=== PATIENT | female | born 1990 | race Caucasian/White ===

== ENCOUNTER → 2018-01-29 10:16 | Outpatient (CLI) | payer BC, MEDICAID, SELFPAY | PROVIDERS: Family Provider Family Medicine; PCP Family Medicine; Visit Provider Physician Assistant Surgical | DX: J02.9 Acute pharyngitis, unspecified (principal) | CPT/HCPCS: 87081 ==

== ENCOUNTER → 2018-07-22 10:50 | Outpatient (CLI) | payer MEDICAID, SELFPAY ==
[2018-07-22 09:59] VITALS: BMI 27.7
[2018-07-22 12:13] LABS: Absolute Lymphocyte Count 1.93 X10^3/ul (0.83-4.51); Absolute Neutrophil Count 4.4 X10^3/uL (2.0-7.7); Basophil# 0.01 X10^3/uL; Basophil% 0.1 % (0-1); Eosinophil# 0.12 X10^3/uL; Eosinophils% 1.7 % (0-5); Hematocrit 44.3 % (37-47); Hemoglobin 14.5 g/dl (12.0-15.0); Lymphocyte # 1.93 X10^3/ul (4.0); Lymphocyte % 28.1 % (19-41); Mean Corp Hgb Conc 32.7 g/gl (32-36); Mean Corpuscular Hgb 30.5 pg (27.0-32.0); Mean Corpuscular Volume 93.3 fL (81-99); Mean Platelet Vol. 9.2 fl (6.2-12.0); Monocyte# 0.37 X10^3/uL; Monocyte% 5.4 % (0-10); Neutrophil # 4.44 X10^3/uL (2.7-7.7); Neutrophil % 64.6 % (47-70); Platelet Count 306 K/mm3 (150-450); RBC Distribution Width CV 12.4 % (11.6-14.6); Red Blood Count 4.75 M/mm3 (4.2-5.4); White Blood Count 6.9 K/mm3 (4.4-11.0)
[2018-07-22 12:14] LABS: POSITIVE COUNT NO; POSITIVE DIFFERENTIAL NO; POSITIVE MORPHOLOGY NO
[2018-07-22 12:35] LABS: ALB/GLOB Ratio 1.1 RATIO (0.9-2.4); AST(SGOT) 11 U/L (15-37); Alanine Aminotransfer ALT/SGPT 18 U/L (13-56); Albumin, Serum 3.8 g/dL (3.2-5.0); Alkaline Phosphatase 65 U/L (45-117); Anion Gap 10 (5-15); BUN 12 mg/dL (7-18); BUN/Creat Ratio 20.3 RATIO (10-20); Calcium,Total 8.8 mg/dL (8.5-10.1); Chloride 107 mmol/L (98-107); Creatinine, Serum 0.59 mg/dL (0.55-1.02); EST Glomerular Filtration Rate 129 mL/min (>60); Est Glom Filt Rate - Afr Amer 156 mL/min (>60); Globulin 3.4 g/dL (2.2-4.2); Glucose 93 mg/dL (74-106); Potassium 4.2 mmol/L (3.5-5.1); Protein, Total 7.2 g/dL (6.4-8.2); Sodium Level 143 mmol/L (136-145)
[2018-07-22 13:11] LABS: Internal QC Validated? YES +Cl - CLEAR BKGD; Monotest Negative (Negative)
== END ==
PROVIDERS: PCP Internal Medicine; Visit Provider Nurse Practitioner Family
DX: R10.9 Unspecified abdominal pain (principal); K92.1 Melena; R53.83 Other fatigue
CPT/HCPCS: 36415; 80053; 85025; 86308

== ENCOUNTER → 2018-07-23 10:26 | Outpatient (CLI) | payer MEDICAID, SELFPAY ==
[2018-07-22 09:59] VITALS: BMI 27.7
== END ==
PROVIDERS: Family Provider Internal Medicine; PCP Internal Medicine; Referring Provider Nurse Practitioner Family; Visit Provider Nurse Practitioner Family
DX: R10.9 Unspecified abdominal pain (principal); K92.1 Melena; R53.83 Other fatigue
CPT/HCPCS: 82274

== ENCOUNTER → 2020-03-18 17:33 | Outpatient (CLI) | payer MEDICAID, SELFPAY ==
[2020-03-17 16:05] VITALS: BMI 28.2
== END ==
PROVIDERS: PCP Internal Medicine; Referring Provider Physician Assistant; Visit Provider Physician Assistant
DX: Z20.828 Contact with and (suspected) exposure to other viral communicable diseases (principal)
CPT/HCPCS: 87635; C9803; U0003

== ENCOUNTER → 2021-01-12 07:27 | Outpatient (CLI) | payer MEDICAID, SELFPAY | PROVIDERS: PCP Internal Medicine; Referring Provider Physician Assistant; Visit Provider Physician Assistant | DX: R50.9 Fever, unspecified (principal) | CPT/HCPCS: 87635; U0005; U0003 ==

== ENCOUNTER → 2021-02-08 10:30 | Outpatient (CLI) | payer MEDICAID, SELFPAY ==
--- NOTE | 2021-02-08 10:34 | US_ITS ---
STUDY: ULTRASOUND BREAST - RIGHT REASON FOR EXAM: Female, 30 years old. Palpable lump in the right breast. TECHNIQUE: Axial and longitudinal images of the RIGHT breast were performed with a high resolution ultrasound transducer. # OF IMAGES: 18 COMPARISON: Comparison is made with prior outside ultrasound examination dated 11/28/2020. FINDINGS: RIGHT Breast: The upper inner quadrant of the right breast was examined by ultrasound. There is dense fibroglandular tissue. No sonographic and amount is seen. US/Breast Limited Unilateral IMPRESSION: No sonographic abnormality is seen. ASSESSMENT CATEGORY: BIRADS Category 1: Negative. A letter regarding these results will be sent to the patient by the facility within 30 days. Electronically Signed: Stephon Rod MD at 12:06 EDT , Service support ,
== END ==
PROVIDERS: PCP Internal Medicine; Referring Provider Specialist; Visit Provider Specialist
DX: N63.12 Unspecified lump in the right breast, upper inner quadrant (principal)
CPT/HCPCS: 76642

== ENCOUNTER → 2021-03-10 08:20 | Outpatient (CLI) | payer MEDICAID, SELFPAY ==
--- NOTE | 2021-03-10 07:45 | BRBX_PTH ---
PATIENT: KEON CASIANO LOC: [facility] U#:[id number] AGE/SX: 34/F ROOM: RE03/10/[address]: Dr. Nam Dickens MD : 1990 BED: DIS: SPEC #: [id number] RECD: 03/10/21 11:26 STATUS: TEA TARCEY #: [id number] SUSAN: 03/10/21 07:[address]: Nam Dickens DEPT: SURGICAL PATHOLOGY RECD BY: Evelin Boggs ENTERED: 03/10/21 12:05 SP TYPE: BREAST BX OTHR DR: Dr. Kanika Boyer MD Tissues: Right breast, NOS Procedures: Surgery Specimen Level IV HEADER OPERATION: Right breast biopsy PRE-OP DIAGNOSIS: Abnormal breast ultrasound TISSUE SUBMITTED: Right breast tissue MICROSCOPIC DIAGNOSIS Right breast, ultrasound-guided biopsy: Benign breast tissue. AM:gil 03/13/2021 MICROSCOPIC DESCRIPTION Slides are reviewed. GROSS DESCRIPTION Received in fixative is one container labeled with the patient's name and designated right breast. The specimen consists of multiple elongated fragments of toro-yellow fibroadipose tissue that in aggregate measure 2 x 0.1 x 0.1 cm. The entire specimen is submitted in one cassette. / SJ:rg 03/10/21 TC:5 CPT: 86994
--- NOTE | 2021-03-10 08:21 | BI_ITS ---
MAMMOGRAPHY - UNILATERAL DIAGNOSTIC: RIGHT BREAST REASON FOR EXAM: Female, 30 years old. Right breast biopsy. Checking for tissue clip marker placement. PERTINENT HISTORY: Right ultrasound guided breast biopsy. TECHNIQUE: Medial lateral oblique and craniocaudad views of the right breast were obtained following the biopsy. CAD: Full Field Digital Mammography with Computer Added Detection was performed. COMPARISON: Comparison is made with prior outside examination dated 11/28/2020. FINDINGS: Breast Composition: The breasts are heterogeneously dense, which may obscure small masses. A tissue clip marker is seen in the deep central medial aspect of the right breast. No other significant abnormalities are identified. BI/DIAG MAMM W/CAD, UNILAT IMPRESSION: A tissue clip marker is seen in the deep central medial aspect of the right breast. ASSESSMENT CATEGORY: BIRADS Category 2: Benign. A letter regarding these results will be sent to the patient by the facility within 30 days. Approximately 10% of breast cancers are not detected by mammography. A normal mammogram should not delay biopsy of a clinically suspicious abnormality. Electronically Signed: Stephon Rod MD at 10:21 EDT , Service support ,
== END ==
PROVIDERS: PCP Internal Medicine; Referring Provider Surgery; Visit Provider Surgery
DX: R92.8 Other abnormal and inconclusive findings on diagnostic imaging of breast (principal)
CPT/HCPCS: 77065; 88305

== ENCOUNTER 2021-05-17 10:52 | Outpatient (CLI) | payer MEDICAID, SELFPAY | END 2021-05-17 23:59 | disposition short-term general hospital (02) | LOC: LABSPEC 10:53 | PROVIDERS: PCP Internal Medicine; Visit Provider Physician Assistant | DX: U07.1 COVID-19 (principal) | CPT/HCPCS: 87635; U0003; U0005 ==

== ENCOUNTER 2022-08-12 19:18 | Emergency (ER) | payer MEDICAID, SELFPAY ==
[2022-08-12 19:20] VITALS: BP 150/93; PULSE 99; RESP 16; TEMP 36.4; BMI 33.4
[2022-08-12 19:22] VITALS: BP 150/93; PULSE 99; RESP 16; TEMP 36.4
--- NOTE | 2022-08-12 19:34 | ED.VIS.FEGU ---
HPI HPI - Female History of Present Illness Chief Complaint: Vag Bld, Preg Detail of Chief Complaint: Cervix protruding from vagina Informant: patient Narrative Narrative: Patient presents to the emergency department with concern that her cervix is protruding from her vagina and may be open. Patient apparently is about 8 weeks . She has had blood work confirming the several times and her quant has been doubling normally apparently. Patient is G4, P3. Patient is scheduled to see Dr. Nance next week. She discussed her issue tonight with relations coordinator who advised her to come to the emergency department for evaluation. Patient denies any abdominal pain or cramping or bleeding. Prior similar symptoms: No PFSH PFSH Medical History Acute pharyngitis Alcohol abuse Encounter for screening for COVID-19 Fatigue Laceration of right thumb Lump of right breast Sore throat Home Medications docosahexaenoic acid 200 mg capsule ( DHA) 200 mg PO DAILY 08/08/22 [History Last Taken Unknown] Allergy/AdvReac Type Severity Reaction Status Date / Time measles, mumps, and rubella Allergy Other Verified 08/12/22 19:35 vaccine Family History Father Heart disease Diabetes Hypertension CVA (cerebral vascular accident) Surgical History History of breast biopsy (~02/2021) History of orthopedic surgery History of tonsillectomy and adenoidectomy Social History (Updated 08/08/22 @ 08:53 by Nancy Carl CNM) adopted: No household members: significant other and children number of children: 3 current occupational status: employed current occupation: [employer] current occupational exposures/hazards: No pets and animals: Yes pets and animals: dog(s) history of recent travel: No sexually active: Yes Smoking Status: Former smoker alcohol intake: former year quit: 2017 details: five years- recovering substance use type: does not use caffeine: No what type of physical activity do you participate in: none seatbelt use: always do you feel safe at home: Yes additional social history: BF- Nuñez ROS ROS ED Review of Systems ROS Unobtainable: other Constitutional Constitutional ED: Reports lethargy; Denies chills, fever(s), sweats or weight loss Eyes Eyes: Denies blurry vision, change in vision or diplopia ENT ENT ED: Denies rhinorrhea or sore throat Cardiovascular Cardiovascular: Denies chest pain, orthopnea or racing heartbeat Respiratory/Chest Respiratory/Chest: Denies cough, dyspnea, dyspnea on exertion, orthopnea or sputum Gastrointestinal Gastrointestinal: Denies abdominal pain, diarrhea, nausea or vomiting Genitourinary Genitourinary ED: Reports other Details: Cervix protruding from vagina ; Denies dysuria, hematuria or urinary frequency Musculoskeletal Musculoskeletal: Denies arthralgias, back pain, myalgias or neck pain Integumentary Denies abscess, Abrasions or rash Neurologic Neurologic: Denies headache(s) or weakness Psychiatric Psychiatric: Denies anxiety, depression or suicidal thoughts Endocrine Endocrinology: Denies polydipsia, polyphagia or polyuria Hematologic/Lymphatic Hematologic/Lymphatic: Denies easy bleeding, easy bruising or lymphadenopathy Allergic/Immunologic Allergic/Immunologic ED: Denies mouth swelling, tongue swelling or urticaria EXAM Physical Exam Const Vital Signs: 08/12/22 19:20 08/12/22 19:22 Temperature 97.6 F L 97.6 F L Temperature Source Temporal Temporal Pulse Rate 99 99 Respiratory Rate 16 16 Blood Pressure 150/93 H 150/93 H Blood Pressure Mean 112 112 Positive well nourished and well developed General Appearance ED: well developed and NAD HEENT Reports TM's clear and moist mucous membranes normocephalic and atraumatic; Negative for trauma or tenderness Tympanic Membrane ED: Yes TM's clear Eyes PERRL and EOMs intact bilaterally General Eye ED: Negative for pale conjunctiva or scleral icterus Neck no lymphadenopathy, supple and no JVD General: Negative for tenderness Chest Wall inspection of chest normal and palpation of chest normal Chest: Negative for tenderness Resp normal respiratory effort and clear to auscultation bilaterally Effort and Inspection: Negative for respiratory distress or pain with movement Auscultation: Negative for rhonchi, wheezes or diminished lung sounds Cardio regular rate, regular rhythm, S1 normal heart sound, S2 normal heart sound and no murmurs Peripheral Pulses: pulses 2+ throughout GI normal to inspection, nondistended, normoactive bowel sounds, soft to palpation, non-tender, non-distended and no masses Back/Spine no CVA tenderness and no thoracic nor lumbar tenderness Extremity normal to inspection General Extremety ED: Negative for edema General Extremity: Negative for edema Neuro oriented x3, CN's II-XII intact bilaterally, no sensory deficits noted and gait normal Sensorium / Orientation: awake, alert, oriented to person, oriented to place and oriented to time Motor Exam: strength 5/5 throughout and strength abnormal Psych mental status grossly normal Skin no rashes or lesions noted and no wounds MDM MDM MDM Narrative Medical decision making narrative: Patient had a pelvic exam performed on arrival. While supine there was no evidence of uterine or cervical prolapse. On speculum exam there was no bleeding in the vaginal vault. The cervical os was about 3 cm distal to the opening of the introitus. The os open to fingertip but I could not introduce the finger into the cervix. There was no pain on exam. No masses palpated in the adnexa. I discussed case with Dr. Nance. Ultrasound is not in the hospital today and they are on-call and I do not feel there is an emergent reason to call them in today. MACHINE TOOL ELECTRICIAN agrees and they can see her first thing tomorrow morning and do further exam in the office and ultrasound in the office tomorrow. Patient advised to return if abdominal pain, bleeding, or condition should worsen anyway. At this time I see no evidence of for miscarriage. I suspect patient may have a uterine/cervical prolapse Discharge Plan Triage Chief Complaint: Vag Bld, Preg ED Provider: Letty Vaughan Dx/Rx/DC Orders Clinical Impression: Cervical prolapse Instructions: Pelvic Organ Prolapse Prescriptions: No Action DHA 200 mg capsule 200 mg PO DAILY Primary Care Provider: Care Physician,No Primary Referrals: Kanika Boyer MD [Med Staff - Active Staff] - Theresa Nance MD [Med Staff - Active Staff] - 1 Day Disposition Disposition: Home, Self Care
[2022-08-12 20:08] VITALS: PULSE 78; RESP 16
== END 2022-08-12 20:09 | disposition home or self-care (01) ==
PROVIDERS: Emergency Provider Emergency Medicine; Visit Provider Emergency Medicine
DX: O34.521 Maternal care for prolapse of gravid uterus, first trimester (principal); Z3A.08 8 weeks gestation of pregnancy; Z87.891 Personal history of nicotine dependence
CPT/HCPCS: 99282

== ENCOUNTER 2022-08-31 11:49 | Day surgery (SDC) | payer MEDICAID, SELFPAY ==
--- NOTE | 2022-08-31 11:59 | HP.PCM.OB_ITS ---
HPI - General HPI Narrative KEON CASIANO, is a 31 F who presents with miscarriage, failed cytotec. she is having some bleeding and denies discharge, planning suction d and c Maternal Data Information VERÓNICA Calculator Estimated Delivery Date Method Current WG Current Estimate 03/23/23 LMP (Certain) 10w 6d PFSH PFSH Medical History Acute pharyngitis Alcohol abuse Encounter for screening for COVID-19 Fatigue Former smoker Laceration of right thumb Lump of right breast Seizures Sore throat Home Medications NK 08/29/22 [History Last Taken Unknown] Allergy/AdvReac Type Severity Reaction Status Date / Time measles, mumps, and rubella Allergy Other Verified 08/28/22 15:46 vaccine Family History Father Heart disease Diabetes Hypertension CVA (cerebral vascular accident) Surgical History History of breast biopsy (~02/2021) History of orthopedic surgery History of tonsillectomy and adenoidectomy Social History adopted: No household members: significant other and children number of children: 3 current occupational status: employed current occupation: [employer] current occupational exposures/hazards: No pets and animals: Yes pets and animals: dog(s) history of recent travel: No sexually active: Yes Smoking Status: Former smoker alcohol intake: former year quit: 2017 details: five years- recovering substance use type: does not use caffeine: No what type of physical activity do you participate in: none seatbelt use: always do you feel safe at home: Yes additional social history: BF- Nuñez History 4 Elective abortions Hx Para 3 Spontaneous abortions Hx # Term Pregnancies Ectopic pregnancies Hx # Pregnancies Multiple births # of living children 3 Past Pregnancies Del. Date Name GA/Weeks Outcome Route Bth Weight Gen Labor Lgth Anesthesia Del Locatn Provider FOB 12/06/09 Simone 36 live - 6.8 Male [place] 07/25/11 [place] 40 live - full term Female epidu ion [place] 06/24/13 [place] 40 live - full term 9.2 Male none [place] Visit Details Expected Delivery Route/Plan Labor Preferences- CB/BF classes: [] labor support person: [] labor intervention preferences: [] pain management options preferred: [] cut cord/dad catch: [] : [] PP control planned: [] discussed possible routes of delivery and associated risks: [] special requests: [] Plans Covid status: [] Flu vaccine: [] Tdap vaccine: [] Rhogam: [] LARC form signed: [] Problem list reviewed and updated with the most current plan of care details and appropriate orders placed. Relevant counseling for the gestational age provided. Continue routine care and follow up unless otherwise noted in visit notes/problem list details OB Flowsheet Initial Weight: Not Recorded Date -?-?-?-?-?-?-?-?-?-?-?-?- EGA Weight BP Urine Prot -?-?-?-?-?-?-?-?-?-?-?-?- Glucose FHR FuHt Pres Dilation -?-?-?-?-?-?-?-?-?-?-?-?- Effaced St Visit Note 08/31/22 -?-?-?-?-?-?-?-?-?-?-?-?- 10w 6d -?-?-?-?-?-?-?-?-?-?-?-?- -?-?-?-?-?-?-?-?-?-?-?-?- ROS Constitutional Constitutional: Reports systems reviewed and no addt'l complaints, except as documented; Denies as per HPI, change in weight, fatigue, fever(s), malaise, weakness or other Eyes Eyes: Reports systems reviewed and no addt'l complaints, except as documented; Denies as per HPI, change in vision or other ENT HEENT: Reports systems reviewed and no addt'l complaints, except as documented Respiratory/Chest Respiratory/Chest: Reports systems reviewed and no addt'l complaints, except as documented Gastrointestinal Gastrointestinal: Reports systems reviewed and no addt'l complaints, except as documented and as per HPI Genitourinary Genitourinary: Reports as per HPI Musculoskeletal Musculoskeletal: Reports systems reviewed and no addt'l complaints, except as documented Neurologic Neurologic: Reports systems reviewed and no addt'l complaints, except as documented Psychiatric Psychiatric: Reports systems reviewed and no addt'l complaints, except as docum ented Endocrine Endocrinology: Reports systems reviewed and no addt'l complaints, except as documented Hematologic/Lymphatic Hematologic/Lymphatic: Reports systems reviewed and no addt'l complaints, except as documented Vital Signs Vital Signs Vital Signs: Weight Weight: 204 lb Physical Exam Const alert, oriented x3 and no apparent distress HEENT normocephalic Head and Scalp: atraumatic Eyes EOMs intact bilaterally and conjunctivae normal Neck full ROM, no lymphadenopathy, supple and thyroid normal General: trachea midline Lymph Lymphatic: no lymphadenopathy noted Resp normal respiratory effort, no retractions, no use of accessory muscles and clear to auscultation bilaterally Cardio regular rhythm GI normal to inspection, nondistended, normoactive bowel sounds, soft to palpation, non-distended and no masses Inspection: Negative for abdominal distention Back/Spine no CVA tenderness Extremity normal to inspection Skin no rashes or lesions noted Neuro moves all extremities and deep tendon reflexes 2+ bilaterally Psych mental status grossly normal Labs Labs Labs: Hct 44.3 % (37-47) Hgb 14.5 g/dl (12.0-15.0) Assessment & Plan (1) Missed : COMMENT: failed medication- plan d and c schedule for saturday PLAN: Plan After discussing the patient's diagnosis and treatment plan options, patient wishes to proceed with surgical management. I have discussed with the patient the risks, benefits, and alternatives of the procedure which include but are not limited to risks of anesthesia, bleeding, infection, possible damage to bowel, bladder, or surrounding vasculature which could lead to additional surgery to evaluate any complications. Patient agrees to procedure and wishes to proceed. ACOG/uptodate references given for additional information regarding procedure.
[2022-08-31 12:32] VITALS: BP 124/76; PULSE 96; RESP 16; TEMP 37.1; O2SAT 98; BMI 32.7
[2022-08-31 12:36] LABS: Hemoglobin 14.2 g/dL (12.0-15.0); Mean Corp Hgb Conc 34.6 g/dL (32-36); Mean Corpuscular Hgb 31.6 pg (27.0-32.0); Mean Corpuscular Volume 91.3 fL (81-99); Mean Platelet Vol. 9.1 fl (6.2-12.0); Platelet Count 320 K/mm3 (150-450); RBC Distribution Width CV 12.4 % (11.6-14.6); RBC Distribution Width SD 40.7 fl (35.1-43.9); Red Blood Count 4.49 M/mm3 (4.2-5.4); White Blood Count 9.4 K/mm3 (4.4-11.0)
[2022-08-31] MEDS: Lactated Ringers 1,000 ML 15 ML IV (12:53)
--- NOTE | 2022-08-31 12:57 | PCM.OPRPT ---
Problems Associated Problem List Diagnoses (1) Missed : Report of Operation Date of Procedure: 08/31/22 Pre-Operative Diagnosis: see problem list Post-Operative Diagnosis: same Surgery/Procedure Performed:: Suction dilation and curettage Description of Surgical Findings:: no FHT present, Nonviable 10 weeks Surgeon: Theresa Nance enamel applier: None Type of Anesthesia: Local MAC Special Medications: none Specimen's removed: POC Drains: none Estimated Blood Loss (mL): 50 Fluids Replaced: crystalloid Description of Procedure: Patient was taken to the operating room and placed under MAC local anesthesia. She was prepped and draped in the normal sterile fashion the dorsal lithotomy position. Bladder was drained of clear urine and anterior lip of the cervix was grasped and the uterus sounded to 13. Cervix was progressively dilated to allow passage of a 12 mm suction curette. Progressive passes were made removing the retained products of conception without complication. Sharp curettage confirmed complete removal of the retained products. All instruments were removed from the vagina and excellent hemostasis was noted and the patient was taken to recovery in stable condition. Grafts/Implants Used: none Complications none Admit VTE Documentation VTE Present on Admission: No VTE Mechan Device Prophylaxis: SCD's Procedures Urinary/Genital [id number]: 59420 Trmt of incomplete Ab, any TM
[2022-08-31] MEDS: Doxycycline 100 MG CAPSULE PO (12:58)
--- NOTE | 2022-08-31 12:58 | DCINST_ITS ---
Discharge Instructions Procedure D&C Diet Discharge Diet: No restrictions Activity Discharge Activity: Return to Normal Activity, May Shower and May Take a Tub Bath (after 1 week) May resume sexual activity in: 1-2 weeks Weight Bearing Status: Weight bearing as tolerated Lifting Restrictions: none Dressing / Incision Call your doctor if you observe: Fever of 101 or Higher, Using more than 1 pad per hour, Shortness of breath and Uncontrolled pain Follow Up Care Please Follow Up With: Theresa Nance MD When: Call [phone] to schedule appointment. Test Results: Test results from this visit will be discussed in further detail at your follow- up appointment, if applicable. Discharge Plan Admission Attending Provider: Theresa Nance Primary Care Provider: Care Physician,No Primary Discharge Orders/Prescriptions Prescriptions: No Action NK Referrals / Follow Up: Care Physician,No Primary [Primary Care Provider] - Disposition Disposition (needs filled in before D/C Order can be placed): Home, Self Care
--- NOTE | 2022-08-31 13:25 | POC_PTH ---
PATIENT: KEON CASIANO [place] [facility] [place][id number] AGE/SX: 31/ ROOM: RE08/31/[address]: Dr. Theresa Nance MD : 1990 BED: DIS: 08/31/2022 SPEC #: [id number] RECD: 08/31/22 15:14 STATUS: TEA RELinda #: [id number] SUSAN: 08/31/22 13:[address]: Theresa Nance DEPT: SURGICAL PATHOLOGY RECD BY: Evelin Boggs ENTERED: 09/03/22 07:26 SP TYPE: PROD CONC OTHR DR: No Primary Care Phys Tissues: Product of conception, NOS Procedures: Surgery Specimen Level IV HEADER OPERATION: Suction dilation and curettage PRE-OP DIAGNOSIS: Missed TISSUE SUBMITTED: Contents of conception MICROSCOPIC DIAGNOSIS Endometrium, curettage: Chorionic villi, decidualized stroma and trophoblastic cells consistent with products of conception. AM:gil 09/04/2022 MICROSCOPIC DESCRIPTION Slides are reviewed. GROSS DESCRIPTION Received in fixative is one container labeled with the patient's name and designated products of conception. The specimen consists of multiple irregular fragments of red-toro soft tissue that in aggregate measure 12.5 x 12.5 x 1.0 cm. parts are not grossly recognized. Choir Teacher portions are submitted in one cassette. / AM:gil 09/03/2022 TC:5 CPT: [id number]
[2022-08-31] MEDS: miSOPROStol 200 MCG Tablet (13:52)
[2022-08-31 14:01] VITALS: BP 117/83; BP 124/76; PULSE 94; RESP 16; TEMP 36.8; O2SAT 100
[2022-08-31 14:05] VITALS: BP 113/75; BP 124/76; PULSE 59; RESP 16; O2SAT 97
[2022-08-31 14:11] VITALS: BP 108/66; BP 124/76; PULSE 59; RESP 16; O2SAT 98
[2022-08-31 14:15] VITALS: BP 112/68; BP 124/76; PULSE 55; RESP 16; TEMP 36.6; O2SAT 97
[2022-08-31 15:04] VITALS: BP 108/72; BP 124/76; PULSE 56; RESP 18; TEMP 37.2; O2SAT 100
== END 2022-08-31 15:25 | disposition home or self-care (01) ==
LOC: SDC 11:49 → AC 11:51
PROVIDERS: Referring Provider Obstetrics & Gynecology; Visit Provider Obstetrics & Gynecology
PROC: (CPT 59820; principal; 2022-08-31 13:10)
DX: O02.1 Missed abortion (principal); Z87.891 Personal history of nicotine dependence; Z3A.10 10 weeks gestation of pregnancy
CPT/HCPCS: 59820; 01965; 85027; 86850; 86900; 86901; 88305; J7120; J2405

== ENCOUNTER 2022-09-07 16:29 | Emergency (ER) | payer MEDICAID, SELFPAY ==
[2022-09-07 16:29] VITALS: BP 134/86; PULSE 81; RESP 18; TEMP 36.6; O2SAT 98; BMI 32.3
--- NOTE | 2022-09-07 18:08 | US_ITS ---
STUDY: ULTRASOUND OF THE FEMALE PELVIS - COMPLETE REASON FOR EXAM: Female, 31 years old. s/p d and c for miscarriage at 11 weeks now with heavy bleeding and pain TECHNIQUE: Endovaginal. Transvaginal US was obtained to better visualized the ovaries. COMPARISON: None. FINDINGS: The uterus is retroverted and is in a midline position. The uterus measures 8.4x7.8 cm. Normal uterine cervix. The endometrium measures 36 mm in thickness, and is fluid distended. There is no demonstrated endometrial mass. There is no demonstrated myometrial mass. I.U.D. - The patient does not have an I.U.D. The right ovary is visualized. The right ovary measures 3.6x2.2 cm. There is no right ovarian cyst or ovarian mass. There is no visualized right adnexal mass or complex lesion. There is normal arterial and normal venous vascularity. The left ovary is visualized. The left ovary measures 2.9x2 cm. There is no left ovarian cyst or ovarian mass. There is no visualized left adnexal mass or complex lesion. There is normal arterial and normal venous vascularity. There is minimal fluid in the cul-de-sac. Unremarkable urinary bladder. US/Transvaginal Non- IMPRESSION: There is minimal fluid in the cul-de-sac. Complex thick endometrial cystic appearing mass. This may be blood products. However retained products should be considered. Electronically Signed: Michele Lira MD at 19:41 EDT ,
--- NOTE | 2022-09-07 18:10 | ED.VIS.FEGU ---
HPI HPI - Female History of Present Illness Chief Complaint: Female C/O Detail of Chief Complaint: Pelvic discomfort and bleeding status post D&C 1 week ago. Informant: patient Pain Pain: Positive for Pelvic Pain Onset: Today Context: Gradual Onset Timing: Continuous Quality: Positive for Cramping Maximum Severity: Mild Bleeding Issue: Positive for Vaginal bleeding and Passing clots; Negative for Passing tissue Onset: Today Context: Gradual Onset Timing: Continuous Current Severity: Similar to period Associated Symptoms Associated Symptoms: Negative for Dysuria, Frequency, Urgency, Hematuria or Missed Period P: 3 Ab: 1 Narrative Narrative: 31-year-old female G4, P3 Ab1 with having a miscarriage. She had a D&C done by Dr. Rajat Crystal Saturday 1 week ago. They done an ultrasound that showed a demise at somewhere between 10 to 12 weeks. I did a D&C. She been doing well. Yesterday today started having bleeding and cramping. Denies any tissue. No fever. No dysuria. Prior similar symptoms: Yes Recent Illness/Hospitalization: No PFSH PFSH Medical History Acute pharyngitis Alcohol abuse Encounter for screening for COVID-19 Fatigue Former smoker Laceration of right thumb Lump of right breast Seizures Sore throat Home Medications misoprostol 200 mcg tablet (Cytotec) 200 mcg vaginal Q4H 1 day #6 tabs 09/07/22 [Rx Last Taken Unknown] Allergy/AdvReac Type Severity Reaction Status Date / Time measles, mumps, and rubella Allergy Other Verified 09/07/22 16:31 vaccine Family History Father Heart disease Diabetes Hypertension CVA (cerebral vascular accident) Surgical History History of breast biopsy (~02/2021) History of orthopedic surgery History of tonsillectomy and adenoidectomy Social History adopted: No household members: significant other and children number of children: 3 current occupational status: employed current occupation: [employer] current occupational exposures/hazards: No pets and animals: Yes pets and animals: dog(s) history of recent travel: No sexually active: Yes Smoking Status: Former smoker alcohol intake: former year quit: 2018 details: five years- recovering substance use type: does not use caffeine: No what type of physical activity do you participate in: none seatbelt use: always do you feel safe at home: Yes additional social history: BF- Nuñez ROS ROS ED ROS Narrative Vaginal bleeding. Cramping. Review of Systems ROS Unobtainable: Denies due to encephalopathy Constitutional Constitutional ED: Denies chills or fever(s) Eyes Eyes: Denies blurry vision ENT ENT ED: Denies ear pain Cardiovascular Cardiovascular: Denies chest pain Respiratory/Chest Respiratory/Chest: Denies cough or dyspnea Gastrointestinal Gastrointestinal: Reports abdominal pain; Denies constipation, diarrhea, melena, nausea or vomiting Genitourinary Genitourinary ED: Denies dysuria or hematuria Musculoskeletal Musculoskeletal: Denies arthralgias Integumentary Denies abscess Neurologic Neurologic: Denies headache(s) Psychiatric Psychiatric: Denies anxiety or depression Endocrine Endocrinology: Denies heat intolerance Hematologic/Lymphatic Hematologic/Lymphatic: Denies easy bleeding Allergic/Immunologic Allergic/Immunologic ED: Denies mouth swelling EXAM Physical Exam Narrative Exam Narrative: 31-year-old female no acute distress. Vital signs stable afebrile. Sitting upright in bed. Significant other bedside. H EENT exam unremarkable. Lungs clear. Heart regular rhythm rate about 80. No murmur. Abdomen soft. Nondistended. Normal bowel sounds no peritoneal signs. Mild suprapubic tenderness. Moving all 4 extremities. Calves are nontender without edema or cords. Neurologically awake and alert with no focal motor deficits. Pelvic exam done with female nurse present in the room. Speculum exam there is some old dark blood in vaginal vault. No clots. No discharge. No heavy bleeding. Bimanual exam very minimal uterine tenderness. No adnexal tenderness or mass. Const Vital Signs: 09/07/22 16:29 Temperature 97.9 F Temperature Source Temporal Pulse Rate 81 Respiratory Rate 18 Blood Pressure 134/86 H Blood Pressure Mean 102 Pulse Ox 98 Oxygen Delivery Method Room Air Positive well nourished and well developed; Negative for obese, cachectic, contractures or unkempt General Appearance ED: well developed and NAD; Negative for unkempt, cachectic, contractures or pallor Nutritional Appearance: Negative for cachectic or obese HEENT Reports moist mucous membranes Negative for trauma or tenderness Eyes EOMs intact bilaterally General Eye ED: Negative for pale conjunctiva, scleral icterus or other Neck no lymphadenopathy, supple and no JVD General: Negative for other Thyroid: Negative for tender Lymph Lymphatic: Negative for other Chest Wall inspection of chest normal and palpation of chest normal Chest: Negative for other Resp normal respiratory effort and clear to auscultation bilaterally Effort and Inspection: Negative for pain with movement Auscultation: Negative for rales, rhonchi or wheezes Cardio regular rate, regular rhythm, S1 normal heart sound, no murmurs and no JVD Rate: Negative for bradycardia or tachycardic Rhythm: Negative for abnormal rhythm GI normal to inspection, nondistended, normoactive bowel sounds, soft to palpation, non-distended and no masses; Negative for non-tender GI Narrative: Mild suprapubic tenderness. Auscultation: normoactive bowel sounds Palpation: tender; Negative for guarding or rigid Back/Spine no CVA tenderness General Back: Negative for CVA tenderness Cervical Spine: Negative for cervical spine tenderness Thoracic Spine / Upper Back: Negative for thoracic spinal tenderness Lumbar Spine / Lower Back: Negative for lumbar spinal tenderness Extremity normal to inspection and full ROM General Extremety ED: Negative for edema or tenderness General Extremity: Negative for edema Neuro oriented x3 and CN's II-XII intact bilaterally Sensorium / Orientation: alert, oriented to person, oriented to place and oriented to time; Negative for confused, lethargic or stuporous Motor Exam: strength 5/5 throughout Psych mental status grossly normal Appearance: Negative for unkempt Attitude: No agitated Speech: No other Mood & Affect: Negative for depressed, anxious or tearful Skin no rashes or lesions noted and no wounds General Skin Exam: Negative for jaundice or pallor Rashes: No rashes noted Trauma: Negative for other MDM MDM MDM Narrative Medical decision making narrative: 31-year-old female G4, P3, Ab1 with a recent miscarriage and D&C Lexapro. Having vaginal bleeding cramping now. Discussed all test results with the patient. Spoke to her [employer] Dr. Theresa Nance and also Dr. Oly So who is on-call tonight. They would like to try her on a course of Cytotec 400 mg every 4 for 24 hours. They will see her on Saturday in our office at 8 AM. If she is having heavier bleeding she is to return to the emergency department. Currently she is doing very well at 8:20 PM. Comfortable being discharged home. We will get the Cytotec filled here at the hospital for. History & Record Review Discussion w/independent historian: Patient Lab Data Attestation: I reviewed the patient's lab results. Lab results narrative: CBC normal. White count 8.2. H&H 13.3 and 40. Platelets 300. Electrolytes unremarkable. Gap of 3. Normal BUN and creatinine. Glucose 89. Urinalysis occult blood. Prior blood type on prior exam was A(+). Urinalysis negative. Occult blood on the macro but no white or red cells or bacteria on the micro. No nitrates. Labs: Laboratory Results - last 24 hr 09/07/22 09/07/22 09/07/22 18:21 18:21 19:10 WBC 8.2 RBC 4.34 Hgb 13.3 Hct 40.1 MCV 92.4 MCH 30.6 MCHC 33.2 RDW Std Deviation 42.1 RDW Coeff of Que 12.2 Plt Count 300 MPV 8.6 Immature Gran % (Auto) 0.200 Neut % (Auto) 56.2 Lymph % (Auto) 35.4 [place] % (Auto) 5.6 Eos % (Auto) 2.4 Baso % (Auto) 0.2 Absolute Neuts (auto) 4.6 Absolute Lymphs (auto) 2.91 Nucleated RBC % 0 Sodium 137 Potassium 3.5 Chloride 108 H Carbon Dioxide 26.0 Anion Gap 3 L BUN 13 Creatinine 0.57 Estim Creat Clear Calc 133.87 Est GFR (MDRD) Af Amer 158 Est GFR (MDRD) Non-Af 130 BUN/Creatinine Ratio 22.7 H Glucose 89 Calcium 8.9 Urine Color Yellow Urine Clarity Sl. Cloudy Urine pH 6.0 Ur Specific [place] 1.015 Urine Protein Negative Urine Glucose (UA) Normal Urine Ketones 15 H Urine Occult Blood 250 H Urine Nitrite Negative Urine Bilirubin Negative Urine Urobilinogen Normal Ur Leukocyte Esterase 25 H Urine RBC 0 SEEN Urine WBC 0 SEEN Ur Squamous Epith Cells 0 SEEN Urine Bacteria 0 SEEN Urine Mucus 0 SEEN Radiography Diagnostic Testing: Clinical Impression(s) from Imaging Studies Transvaginal US 09/07/22 18:08 IMPRESSION: There is minimal fluid in the cul-de-sac. Complex thick endometrial cystic appearing mass. This may be blood products. However retained products should be considered. Electronically Signed: Michele Lira MD at 19:41 EDT , Discharge Plan Triage Chief Complaint: Female C/O ED Provider: Toy Sommers Dx/Rx/DC Orders Clinical Impression: Vaginal bleeding, History of miscarriage Instructions: Miscarriage Dc Prescriptions: New misoprostol [Cytotec] 200 mcg tablet 200 mcg vaginal Q4H 1 Days Qty: 6 0RF Primary Care Provider: Care Physician,No Primary Referrals: Theresa Nance MD [Med Staff - Active Staff] - As soon as possible (They will see you in their office SaturdaySeptember 10 at 8 AM.) Care Physician,No Primary [Primary Care Provider] - Activity Restrictions/Additional Instructions: Plenty of fluids and rest. Tylenol and Motrin for pain. Cytotec for 400 mg every 4 hours for the next 24 hours. A total of 6 pills in 24 hours. Return if fever, increasing pain or heavy bleeding. Otherwise Dr. Rajat Crystal or her partner will see you in the office Saturday at 8 AM. You can just show up to be at the office at that time. Disposition Disposition: Home, Self Care
[2022-09-07 18:28] LABS: Absolute Lymphocyte Count 2.91 X10^3/uL (0.83-4.51); Absolute Neutrophil Count 4.6 X10^3/uL (2.0-7.7); Basophil# 0.02 X10^3/uL; Basophil% 0.2 % (0-1); Eosinophils% 2.4 % (0-5); Hematocrit 40.1 % (37-47); Hemoglobin 13.3 g/dL (12.0-15.0); Lymphocyte # 2.91 X10^3/ul (0.83-4.51); Lymphocyte % 35.4 % (19-41); Mean Corp Hgb Conc 33.2 g/dL (32-36); Mean Corpuscular Hgb 30.6 pg (27.0-32.0); Mean Corpuscular Volume 92.4 fL (81-99); Mean Platelet Vol. 8.6 fl (6.2-12.0); Monocyte# 0.46 X10^3/uL; Monocyte% 5.6 % (0-10); NRBC Flagged by Analyzer 0 % (0-5); Neutrophil # 4.62 X10^3/uL (2.7-7.7); Neutrophil % 56.2 % (47-70); Platelet Count 300 K/mm3 (150-450); RBC Distribution Width CV 12.2 % (11.6-14.6); RBC Distribution Width SD 42.1 fl (35.1-43.9); Red Blood Count 4.34 M/mm3 (4.2-5.4); White Blood Count 8.2 K/mm3 (4.4-11.0)
[2022-09-07 18:48] LABS: Anion Gap 3 (5-15); BUN 13 mg/dL (7-18); BUN/Creat Ratio 22.7 RATIO (10-20); Calcium,Total 8.9 mg/dL (8.5-10.1); Chloride 108 mmol/L (98-107); Creatinine, Serum 0.57 mg/dL (0.55-1.02); EST Glomerular Filtration Rate 130 mL/min (>60); Est Glom Filt Rate - Afr Amer 158 mL/min (>60); Estimated Creatinine Clearance 133.87 ml/min; Glucose 89 mg/dL (74-106); Potassium 3.5 mmol/L (3.5-5.1); Sodium Level 137 mmol/L (136-145)
[2022-09-07 19:19] LABS: Bacteria 0 SEEN /hpf (None Seen); Mucous, Urine 0 SEEN /hpf (<or=2+); Red Blood Cells-Urine 0 SEEN /hpf (0-5); Squamous Epithelial Cells - UA 0 SEEN /hpf (5-10); White Blood Cells 0 SEEN /hpf (0-5)
[2022-09-07 19:21] LABS: Color, Urine Yellow (Yellow); Glucose, Dipstick Normal (Normal); Ketone-Dipstick 15 mg/dl (Negative); Leukocyte Esterase-Dipstick 25 /ul (Negative); Nitrite-Dipstick Negative (Negative); Occult Blood-Urine 250 /ul (Negative); Protein-Dipstick Negative (Negative); Specific Gravity, Urine 1.015 (1.002-1.030); Urine Bilirubin Dipstick Negative (Negative); Urine Clarity Sl. Cloudy (Clear); Urine Urobilinogen Normal (Normal)
== END 2022-09-07 20:39 | disposition home or self-care (01) ==
PROVIDERS: Emergency Provider Emergency Medicine; Referring Provider Emergency Medicine; Visit Provider Emergency Medicine
DX: R10.2 Pelvic and perineal pain (principal); Z87.891 Personal history of nicotine dependence; Z78.9 Other specified health status
CPT/HCPCS: 76830; 80048; 81001; 85025; 99283; A4216

== ENCOUNTER → 2022-09-10 | Outpatient (CLI) | payer MEDICAID, SELFPAY ==
[2022-09-10 09:18] LABS: hCG Titer Quant., Serum 124 mIU/mL (1-3)
== END | disposition home or self-care (01) ==
LOC: PAVLAB 08:39
PROVIDERS: Referring Provider Obstetrics & Gynecology; Visit Provider Obstetrics & Gynecology
DX: O02.1 Missed abortion (principal)
CPT/HCPCS: 36415; 84702

== ENCOUNTER → 2022-09-12 | Outpatient (CLI) | payer MEDICAID, SELFPAY ==
[2022-09-12 09:56] LABS: hCG Titer Quant., Serum 69 mIU/mL (1-3)
== END | disposition home or self-care (01) ==
LOC: PAVLAB 09:17
PROVIDERS: Referring Provider Obstetrics & Gynecology; Visit Provider Obstetrics & Gynecology
DX: O02.1 Missed abortion (principal)
CPT/HCPCS: 36415; 84702

== ENCOUNTER → 2022-09-20 | Outpatient (CLI) | payer MEDICAID, SELFPAY ==
[2022-09-20 08:59] LABS: hCG Titer Quant., Serum 12 mIU/mL (1-3)
== END | disposition home or self-care (01) ==
LOC: PAVLAB 08:05
PROVIDERS: Referring Provider Obstetrics & Gynecology; Visit Provider Obstetrics & Gynecology
DX: O02.1 Missed abortion (principal)
CPT/HCPCS: 36415; 84702

== ENCOUNTER → 2022-09-26 | Outpatient (CLI) | payer MEDICAID, SELFPAY ==
[2022-09-26 10:06] LABS: hCG Titer Quant., Serum 5 mIU/mL (1-3)
== END | disposition home or self-care (01) ==
LOC: PAVLAB 09:04
PROVIDERS: Referring Provider Obstetrics & Gynecology; Visit Provider Obstetrics & Gynecology
DX: O02.1 Missed abortion (principal)
CPT/HCPCS: 36415; 84702

== ENCOUNTER → 2022-10-03 | Outpatient (CLI) | payer MEDICAID, SELFPAY ==
[2022-10-03 09:50] LABS: hCG Titer Quant., Serum 3 mIU/mL (1-3)
== END | disposition home or self-care (01) ==
LOC: PAVLAB 09:07
PROVIDERS: Referring Provider Nurse Practitioner Women's Health; Visit Provider Nurse Practitioner Women's Health
DX: O02.1 Missed abortion (principal)
CPT/HCPCS: 36415; 84702

== ENCOUNTER → 2022-10-10 | Outpatient (CLI) | payer MEDICAID, SELFPAY ==
[2022-10-10 15:50] LABS: Absolute Lymphocyte Count 3.09 X10^3/uL (0.83-4.51); Absolute Neutrophil Count 4.4 X10^3/uL (2.0-7.7); Basophil# 0.03 X10^3/uL; Basophil% 0.4 % (0-1); Eosinophil# 0.15 X10^3/uL; Eosinophils% 1.8 % (0-5); Hematocrit 40.8 % (37-47); Hemoglobin 13.8 g/dL (12.0-15.0); Lymphocyte # 3.09 X10^3/ul (0.83-4.51); Lymphocyte % 38.1 % (19-41); Mean Corp Hgb Conc 33.8 g/dL (32-36); Mean Corpuscular Volume 91.7 fL (81-99); Mean Platelet Vol. 8.5 fl (6.2-12.0); Monocyte# 0.41 X10^3/uL; NRBC Flagged by Analyzer 0 % (0-5); Neutrophil # 4.42 X10^3/uL (2.7-7.7); Neutrophil % 54.5 % (47-70); Platelet Count 324 K/mm3 (150-450); RBC Distribution Width CV 11.9 % (11.6-14.6); RBC Distribution Width SD 40.1 fl (35.1-43.9); Red Blood Count 4.45 M/mm3 (4.2-5.4); White Blood Count 8.1 K/mm3 (4.4-11.0)
[2022-10-10 16:29] LABS: hCG Titer Quant., Serum 2 mIU/mL (1-3)
[2022-10-10 16:34] LABS: Thyroid Stim Hormone (TSH) 1.02 uIU/mL (0.358-3.74)
== END | disposition home or self-care (01) ==
LOC: PAVLAB 15:38
PROVIDERS: Referring Provider Obstetrics & Gynecology; Visit Provider Obstetrics & Gynecology
DX: O02.1 Missed abortion (principal); N93.9 Abnormal uterine and vaginal bleeding, unspecified; Z13.29 Encounter for screening for other suspected endocrine disorder
CPT/HCPCS: 36415; 84443; 84702; 85025

== ENCOUNTER → 2022-10-15 | Outpatient (CLI) | payer MEDICAID, SELFPAY ==
--- NOTE | 2022-10-15 15:43 | US_ITS ---
STUDY: ULTRASOUND OF THE FEMALE PELVIS - COMPLETE REASON FOR EXAM: Female, 31 years old. AUB LMP: November 30, 2022. TECHNIQUE: Transabdominal and Transvaginal TECHNICAL QUALITY: Adequate. COMPARISON: Comparison is made with prior study dated September 07, 2022. FINDINGS: The uterus is anteverted and is in a midline position. The uterus measures 9.6 cm x 6.5 cm x 5.4 cm. Normal uterine cervix. The endometrium is thickened and measures 15.2 mm in thickness, and is hyperechoic. There is no demonstrated endometrial mass. There is no demonstrated myometrial mass. I.U.D. - The patient does not have an I.U.D. The right ovary is visualized. The right ovary measures 3.7 cm x 4 cm x 2.7 cm. There is no right ovarian cyst or ovarian mass. There is no visualized right adnexal mass or complex lesion. There is normal arterial and normal venous vascularity. The left ovary is visualized. The left ovary measures 2.3 cm x 2.8 cm x 2 cm. There is no left ovarian cyst or ovarian mass. There is no visualized left adnexal mass or complex lesion. There is normal arterial and normal venous vascularity. A small amount of fluid is seen adjacent to the right adnexa. US/Pelvic w/ Transvaginal IMPRESSION: Endometrial thickening. Small amount of free fluid surrounding the right adnexa. Electronically Signed: Stephon Rod MD at 13:32 EDT ,
== END | disposition home or self-care (01) ==
LOC: US 15:40
PROVIDERS: Referring Provider Obstetrics & Gynecology; Visit Provider Obstetrics & Gynecology
DX: O02.1 Missed abortion (principal); N93.9 Abnormal uterine and vaginal bleeding, unspecified
CPT/HCPCS: 76830; 76856

== ENCOUNTER → 2023-05-07 | Outpatient (CLI) | payer MEDICAID, SELFPAY ==
--- NOTE | 2023-05-07 09:22 | US_ITS ---
EXAM: US PELVIS TRANSVAGINAL CLINICAL INDICATION: painful menses TECHNIQUE: Endovaginal pelvic ultrasound was performed with grayscale and color Doppler imaging. Endovaginal imaging was used for better evaluation of the endometrium and adnexa. COMPARISON: No relevant prior studies available. FINDINGS: UTERUS/CERVIX: Uterus is retroflexed measuring 10.5 x 6.4 x 5.1 cm. Endometrial thickness is 2.1 cm which may represent late secretory phase of menstruation. RIGHT OVARY: Normal. Blood flow is present in the right ovary. The right ovary measures 3.2 x 1.9 x 2.0 cm. LEFT OVARY: A dominant 2 cm left ovarian follicular cyst. Blood flow is present in the left ovary. The left ovary measures 4.0 x 2.9 x 2.2 cm. FREE FLUID: None. US/Transvaginal Non- IMPRESSION: Retroflexed uterus with thickened endometrium. Electronically Signed: Bravo Paz MD at 16:39 EST ,
== END | disposition home or self-care (01) ==
LOC: US 09:19
PROVIDERS: Referring Provider Advanced Practice Midwife; Visit Provider Advanced Practice Midwife
DX: N94.6 Dysmenorrhea, unspecified (principal)
CPT/HCPCS: 76830

== ENCOUNTER → 2023-05-23 | Outpatient (CLI) | payer MEDICAID, SELFPAY ==
[2023-05-23 13:25] LABS: hCG Titer Quant., Serum 132 mIU/mL (1-3)
== END | disposition home or self-care (01) ==
LOC: PAVLAB 12:21
PROVIDERS: Referring Provider Obstetrics & Gynecology; Visit Provider Obstetrics & Gynecology
DX: N91.2 Amenorrhea, unspecified (principal)
CPT/HCPCS: 36415; 84702

== ENCOUNTER → 2023-05-25 | Outpatient (CLI) | payer MEDICAID, SELFPAY ==
--- OUTSIDE RECORDS SUMMARY | 2023-05-25 13:16 | XMS RPT_ITS | CCD ---
Author Name Unknown Address [address] [place] [address] Organization [facility] Care Team Providers Care Aurist Name Role Phone SHANDA DEAN, JAMAICA Salcedo Primary Care Physician Unavailable Primary Care Provider Delfina NEGRON MD, DR BERUMEN Attending JAMAICA Alfaro MD Primary Care Unavailable DANNIE BAHENA DO Attending Christy Rose MD, JAMAICA Salcedo Primary Care Unavailable Problems Problem Classification Problem Date Documented Da te Episodic/Chronic Cardiac dysrhythmias (2 sources) Palpitations 08-27-2015 Episodic Nausea and vomiting (2 sources) Nausea and vomiting 08-07-2015 Episodic Open wounds of extremities (1 source) Laceration of hand without foreign body; Translations: [Laceration without foreign body of unspecified hand, initial encounter] Onset: 10-26-2021 Episodic Other aftercare (1 source) Removal of sutures done; Translations: [Encounter for removal of sutures] Episodic Results Test Name Value Interpretation Reference Range Facil ity Vital Signs Date Time Vital Sign Value Performing Clinician Facility 11-04-2021 13:11-0400 Body temperature 99.19 [degF] Anali Stockton PA-C Work Phone: [facility] 11-04-2021 13:11-0400 Body weight 89.81 kg Anali Cernazoya PA-C Work Phone: [facility] 11-04-2021 13:11-0400 Diastolic blood pressure 68 mm[Hg] Anali Stockton PA-C Work Phone: [facility] 11-04-2021 13:11-0400 Heart rate 106 /min Analirich Cernazoya PA-C Work Phone: [facility] 11-04-2021 13:11-0400 Respiratory rate 16 /min Anali Denbow PA-C Work Phone: [facility] 11-04-2021 13:11-0400 SaO2% (BldA) [Mass fraction] 98 % Anali Denbow PA-C Work Phone: [facility] 11-04-2021 13:11-0400 Systolic blood pressure 110 mm[Hg] Anali Denbow PA-C Work Phone: [facility] 10-25-2021 23:13-0400 Body height 167.[address] JAMAICA NEGRON MD [facility] 10-25-2021 23:13-0400 Body temperature 98.06 [degF] DR JAMAICA NEGRON MD [facility] 10-25-2021 23:13-0400 Body weight 79.[address] JAMAICA NEGRON MD [facility] 10-25-2021 23:13-0400 Diastolic blood pressure 85 mm[Hg] DR JAMAICA NEGRON MD [facility] 10-25-2021 23:13-0400 Heart rate 90 /min DR JAMAICA NEGRON MD [facility] 10-25-2021 23:13-0400 Respiratory rate 16 /min DR JAMAICA NEGRON MD [facility] 10-25-2021 23:13-0400 Systolic blood pressure 123 mm[Hg] DR JAMAICA NEGRON MD [facility] Encounters Encounter Date Encounter Type Care Provider Facility Start: 07-11-2022 End: 07-12-2022 ambulatory DANNIEDMITRI BAHENA DO Facility:B Start: 07-11-2022 End: 07-11-2022 Patient encounter procedure DANNIE BAHENA DO [facility] Start: 11-04-2021 End: 11-04-2021 Patient encounter procedure Anali Stockton PA-C Work Phone: [facility] Procedures Date Procedure Procedure Detail Performing Clinician Tonsillectomy and adenoidectomy DR JAMAICA NEGRON MD Plan of Treatment Date Care Activity Detail Author Start: 01-11-2022 Influenza vaccination INFLUENZA (Sea son Ended) [facility] Start: 2020 HPV TESTING HPV TESTING [facility] Start: 12-09-2011 PAP TESTING PAP TESTING [facility] Start: 2009 Urine microalbumin profile DTAP,TDAP,TD (1 - Tdap) [facility] Start: 2008 HEPATITIS C SCREENING HEPATITIS C SC REENING [facility] Start: 2008 HIV SCREENING HIV SCREENING [facility] Start: 2002 Adult depression screening assessment DEPRESSION SCREENING [facility] Start: 1996 PNEUMOCOCCAL (1 - PCV) PNEUMOCOCCAL (1 - PCV) [facility] Start: 12-09-1995 COVID-19 VACCINE (#1) COVID-19 VACCI NE (#1) [facility] Immunizations Immunization Date Immunization Notes Care Provider Fa cility 10-26-2021 tetanus toxoid, redu bj diphtheria toxoid, and acellular pertussis vaccine, adsorbed DR JAMAICA NEGRON MD [facility] 01-28-2017 Human rabies vaccine from Chicken fibroblast culture DR JAMAICA NEGRON MD [facility] 01-17-2017 Human rabies vaccine from Chicken fibroblast culture DR JAMAICA NEGRON MD [facility] 01-10-2017 Human rabies vaccine from Chicken fibroblast culture DR JAMAICA NEGRON MD [facility] 01-01-2017 Human rabies vaccine from Chicken fibroblast culture DR JAMAICA NEGRON MD [facility] Payers Date Payer Category Payer Unknown [id number] 2021 Unknown [id number] 2017 Medicaid [employer] [facility] [id number] 2017-Present [phone] [address] [place] [address] Medicaid [id number] 1990 Unknown [id number] 1990 Unknown [id number] Social History Date Type Detail Facility Start: 12-12-2020 Tobacco smoking status Light t obacco smoker (finding) [facility] Sex Assigned At Sex [facility] Start: 11-04-2021 Tobacco smoking stat us [facility] Smokes tobacco daily [facility] Work Phone: Start: 11-04-2021 Tobacco use and exposure Smokeless tobacco non-user [facility] Work Phone: Start: 1990 Sex Assigned At Not on file [facility] Functional Status Date Assessment Result Facility 10-26-2021 Functional Status Ambulating in otto, Up ad miriam [facility] 10-25-2021 Functional Status Standard Safet y ID band on, Call device within reach, Bed in low position, Wheels locked, Upper/Half-Length side-rails up, personal items within reach, Visitor at bedside [facility] Mental Status Date Assessment Result Facility 10-26-2021 Mental Status Orientation Oriented x 4 [facility] 10-25-2021 Mental Status [facility] Clinical Note 07-11-2022 Note Date & Type Note Facility 07-11-2022 Note ORIGINAL EXAMINATION: TRANSVAGINAL PELVIC ULTRASOUND 07/11/2022 12:09 pm COMPARISON: None. HISTORY: ORDERING SYSTEM PROVIDED HISTORY: Reason for Exam: pelvic and perineal pain Patient reported positive home test however negative urine test at outpatient office today. FINDINGS: Transabdominal sonographic examination of the pelvis was performed. Transvaginal scanning was also performed. The uterus is 9.5 x 6.2 x 5.6 cm. The endometrium appears thickened, and measures 3.4 cm. Small amount of fluid is seen within the endometrial canal. Right ovary: The right ovary measures 4.6 x 2.9 x 2.7 cm. There is positive arterial and venous Doppler flow and waveforms to the right ovary. Normal follicular changes are noted. There is demonstration of a 1.9 x 2.1 x 1.9 cm partially cystic/complex lesion with surrounding vascularity. Overall appearance is suggestive of a possible hemorrhagic cyst or corpus luteal cyst. Given reported history the possibility of an ectopic cannot be fully excluded. Left ovary: The left ovary measures 2.8 x 2.7 x 2.3 cm. There is positive arterial and venous Doppler flow and waveforms to the left ovary. Normal follicular changes are noted. No adnexal mass is seen. There is trace free fluid within the cul-de-sac. IMPRESSION: Markedly thickened endometrium measuring 3.4 cm. Given reported history differential includes early nonvisualized gestation or possibly a failed gestation given fluid seen within the endometrium. No gestational sac or pole is identified. 2.1 cm right ovarian complex cystic lesion possibly a hemorrhagic corpus luteal cyst. The possibility of an ectopic is not fully excluded given reported history. Followup with serial quantitative beta-hCG and/or followup ultrasound is recommended. Interpreted by: Dawit Jedrzejczyk, MD Preliminary Report By: Dawit Morgan MD Electronically signed By Dawit Morgan MD Dictated Date: 07/11/2022 12:29:49 PM Prelim Date: 07/11/2022 12:35:09 PM Sign Date: 07/11/2022 12:35:09 PM Ordering Provider: DANNIE BAHENA [facility] Clinical Note 07-11-2022 Note Date & Type Note Facility 07-11-2022 Note ORIGINAL EXAMINATION: TRANSVAGINAL PELVIC ULTRASOUND 07/11/2022 12:09 pm COMPARISON: None. HISTORY: ORDERING SYSTEM PROVIDED HISTORY: Reason for Exam: pelvic and perineal pain Patient reported positive home test however negative urine test at outpatient office today. FINDINGS: Transabdominal sonographic examination of the pelvis was performed. Transvaginal scanning was also performed. The uterus is 9.5 x 6.2 x 5.6 cm. The endometrium appears thickened, and measures 3.4 cm. Small amount of fluid is seen within the endometrial canal. Right ovary: The right ovary measures 4.6 x 2.9 x 2.7 cm. There is positive arterial and venous Doppler flow and waveforms to the right ovary. Normal follicular changes are noted. There is demonstration of a 1.9 x 2.1 x 1.9 cm partially cystic/complex lesion with surrounding vascularity. Overall appearance is suggestive of a possible hemorrhagic cyst or corpus luteal cyst. Given reported history the possibility of an ectopic cannot be fully excluded. Left ovary: The left ovary measures 2.8 x 2.7 x 2.3 cm. There is positive arterial and venous Doppler flow and waveforms to the left ovary. Normal follicular changes are noted. No adnexal mass is seen. There is trace free fluid within the cul-de-sac. IMPRESSION: Markedly thickened endometrium measuring 3.4 cm. Given reported history differential includes early nonvisualized gestation or possibly a failed gestation given fluid seen within the endometrium. No gestational sac or pole is identified. 2.1 cm right ovarian complex cystic lesion possibly a hemorrhagic corpus luteal cyst. The possibility of an ectopic is not fully excluded given reported history. Followup with serial quantitative beta-hCG and/or followup ultrasound is recommended. Interpreted by: Dawit Morgan MD Preliminary Report By: Dawit Morgan MD Electronically signed By Dawit Morgan MD Dictated Date: 07/11/2022 12:29:49 PM Prelim Date: 07/11/2022 12:35:09 PM Sign Date: 07/11/2022 12:35:09 PM Ordering Provider: DANNIE BAHENA [facility] Progress note 11-04-2021 Note Date & Type Note Facility 11-04-2021 Note HNO ID: [id number] Author: Anali Stockton PA-C Service: ? Author Type: Physician Box Packer Type: Progress Notes Filed: 11/04/2021 2:52 PM Note Text: Subjective HPI HPI Tammy Casiano is a 30 year old female who presents today for CC of suture removal R hand. Patient was evaluated last Saturday at [facility] ED status post laceration from a shattered glass. Tdap was updated at that time. Pt notes that she was seen at [facility] for a check of wound 2 days ago as she had gotten caught on her dog's collar and the tension caused the skin to pull apart and she had some bleeding. Reassurance was provided and pt was not given any antibiotics. BP 110/68 Pulse 106 Temp 37.3 ?C (99.2 ?F) Resp 16 Wt 89.8 kg (198 lb) SpO2 98% ALLERGIES No Known Allergies There is no problem list on file for this patient. No family history on file. Social History Tobacco Use - Smoking status: Current Every Day Smoker - Smokeless tobacco: Never Used Substance Use Topics - Alcohol use: Not on file - Drug use: Not on file Review of Systems Constitutional: Negative for chills and fever. Skin: Negative for itching and rash. Objective BP 110/68 Pulse 106 Temp 37.3 ?C (99.2 ?F) Resp 16 Wt 89.8 kg (198 lb) SpO2 98% Physical Exam Musculoskeletal: Hands: Comments: [address] overlying R MCP joint thumb. Mild crusting/scabbing - no drainage/purulence, erythema, induration, streaking, or any other evidence suggestive of cellulitis ASSESSMENT/PLAN: 1. Encounter for removal of sutures - ICD9: V58.32, ICD10: Z48.02 Day 10 status post suture placement at [facility]-- 9 Sutures removed without complication; Steri strips applied to reinforce, as it is a high tension area overlying MCP joint Covered w/ nonadherent pad and coban Reassurance provided - no evidence of cellulitis or complications regarding wound healing. Proper wound care discussed at home. Pt advised to see PCP if any question as to the way things are healing. Reviewed red flags with patient and when to seek care sooner. The patient indicates understanding of these issues and agrees with the plan. Anali Stockton PA-C [facility] Instructions 11-04-2021 Patient Instructions Note Date & Type Note Facility 11-04-2021 Instructions Anali Stockton PA-C - 11/04/2021 2:00 PM EDT Steristrips has been applied to your incision. If steristrips applied allow them to naturally fall off.. Be gentle with incision area, as your wound is not completely healed. You may gently wash the area and then pat dry. For signs of infection apply mupirocin ointment and notify the office. For crusting at the incision site Aquaphor may be applied to the incision. Gentle cleansing of the incision with a solution of 1/2 peroxide and 1/2 water may be done as well. documented in this encounter [facility] History of Present illness Narrative 11-04-2021 Anali Stockton PA-C - 11/04/2021 1:22 PM EDT Note Date & Type Note Facility 11-04-2021 History of Presen t illness Narrative Images from the original note were not included. Subjective HPI HPI Tammy Casiano is a 30 year old female who presents today for CC of suture removal R hand. Patient was evaluated last Saturday at [facility] ED status post laceration from a shattered glass. Tdap was updated at that time. Pt notes that she was seen at [facility] for a check of wound 2 days ago as she had gotten caught on her dog's collar and the tension caused the skin to pull apart and she had some bleeding. Reassurance was provided and pt was not given any antibiotics. BP 110/68 Pulse 106 Temp 37.3 C (99.2 F) Resp 16 Wt 89.8 kg (198 lb) SpO2 98% ALLERGIES No Known Allergies There is no problem list on file for this patient. No family history on file. Social History Tobacco Use Smoking status: Current Every Day Smoker Smokeless tobacco: Never Used Substance Use Topics Alcohol use: Not on file Drug use: Not on file Review of Systems Constitutional: Negative for chills and fever. Skin: Negative for itching and rash. Objective BP 110/68 Pulse 106 Temp 37.3 C (99.2 F) Resp 16 Wt 89.8 kg (198 lb) SpO2 98% Physical Exam Musculoskeletal: Hands: Comments: [address] overlying R MCP joint thumb. Mild crusting/scabbing - no drainage/purulence, erythema, induration, streaking, or any other evidence suggestive of cellulitis ASSESSMENT/PLAN: 1. Encounter for removal of sutures - ICD9: V58.32, ICD10: Z48.02 Day 10 status post suture placement at [facility]-- 9 Sutures removed without complication; Steri strips applied to reinforce, as it is a high tension area overlying MCP joint Covered w/ nonadherent pad and coban Reassurance provided - no evidence of cellulitis or complications regarding wound healing. Proper wound care discussed at home. Pt advised to see PCP if any question as to the way things are healing. Reviewed red flags with patient and when to seek care sooner. The patient indicates understanding of these issues and agrees with the plan. Anali Stockton PA-C documented in this encounter [facility] Discharge instructions 10-26-2021 Note Date & Type Note Facility 10-26-2021 Hospital Discharg e instructions Patient Education 10/26/2021 00:06:32 Laceration, Hand: All Closures Hand Laceration: All Closures A laceration is a cut through the skin. Deep cuts usually require stitches. Minor cuts may be closed with surgical tape or skin adhesive. X-rays may be done if something may have entered the skin through the cut, such as broken glass. You may also be given a tetanus shot if you are not up to date on this vaccination and the object that cut you may carry tetanus. Home care Your healthcare provider may prescribe an antibiotic. This is to help prevent infection. Follow all instructions for taking this medicine. Take the medicine every day until it is gone or you are told to stop. You should not have any left over. The healthcare provider may prescribe medicines for pain. Follow instructions for taking them. Follow the healthcare provider s instructions on how to care for the cut. Keep the wound clean and dry. Don't get the wound wet until you are told it is OK to do so. If the bandage gets wet, remove it. Gently pat the wound dry with a clean cloth. Then put on a clean, dry bandage. To help prevent infection, wash your hands with soap and water before and after caring for the wound. Caring for stiches: Once you no longer need to keep the stitches dry, clean the wound daily. First, remove the bandage. Then wash the area gently with soap and warm water, or as directed by the healthcare provider. Use a wet cotton swab to loosen and remove any blood or crust that forms. After cleaning, apply a thin layer of antibiotic ointment if advised. Then put on a new bandage unless you are told not to. Caring for skin glue: Don t put apply liquid, ointment, or cream on the wound while the glue is in place. Avoid activities that cause heavy sweating. Protect the wound from sunlight. Don't scratch, rub, or pick at the adhesive film. Don't place tape directly over the film. The glue should peel off within 5 to 10 days. Caring for surgical tape: Keep the area dry. If it gets wet, blot it dry with a clean towel. Surgical tape usually falls off within 7 to 10 days. If it has not fallen off after 10 days, you can take it off yourself. Put mineral oil or petroleum jelly on a cotton ball and gently rub the tape until it is removed. Once you can get the wound wet, you may shower as usual, but don't soak the wound in water. This means no tub baths or swimming. Even with proper treatment, a wound infection may sometimes occur. Check the wound daily for signs of infection listed below. Follow-up care Follow up with your healthcare provider, or as advised. If you have stitches, be sure to return as directed to have them removed. When to seek medical advice Call your healthcare provider right away if any of these occur: Wound bleeding not controlled by direct pressure Signs of infection, including increasing pain in the wound, increasing wound redness or swelling, or pus or bad odor coming from the wound Fever of 100.4 F (38. C) o higher, or as directed by your healthcare provider Stitches come apart or fall out or surgical tape falls off before 7 days Wound edges reopen Wound changes colors Numbness or weakness in the affected hand Decreased movement of the hand [id number] [employer]. [address] [place] [address]. All rights reserved. This information is not intended as a substitute for professional medical care. Always follow your healthcare professional's instructions. Follow Up Care 10/25/2021 23:01:32 With:JAMAICA ALND Address: [address] [place] [phone] Business (1) When:Within 9 Day(s) Comments:Keep wound clean and dry. Have your stitches removed in 8 to 10 days. Return if worsening severe pain numbness weakness draining pus or redness around the wound. [facility] Evaluation + Plan note Note Date & Type Note Facility Evaluation + Plan note No data available for this section [facility] Evaluation note Note Date & Type Note Facility documented in this encounter [facility] Discharge instructions Note Date & Type Note Facility Hospital Discharge instructions No data available for this section [facility] Progress note Note Date & Type Note Facility Progress note No data available for this section [facility] Summary Purpose Family History No Family History Records FoundNo Family History Records Found Advance Directives No Advanced Directives Records FoundNo Advanced Directives Records Found Additional Source Comments Care Team (unrecognized sect ion and content) Personnel Name: JAMAICA ALND MD Address: [address] [place] [id number] Source Comments (unrecognize d section and content) In the event this informatio n is protected by the Federal Confidentiality of Alcohol and Drug Abuse Patient Records regulations: The Federal rules restrict any use of the information to criminally investigate or prosecute any alcohol or drug abuse patient.[facility] Reason for Visit (unrecogniz ed section and content) INFORMATION SOURCE (unrecogn ized section and content) DATE CREATED AUTHOR AUTHOR'S ORGANIZ ATION 07/13/2022 [facility] Care Team (unrecognized sect ion and content) Care Team Personnel Name: CELY PAVON MD Position: P4 Physician - General Surgery Member Role: Surgeon Address: Address: [address] AM General Surgery [place] [id number] [place] Name: JAMAICA LAND MD Position: P4 Physician - Primary Care Member Role: Primary Care Physician Address: Address: [address] Care Team Related Persons Name: KATHY SHOEMAKER Address: Home [address] [place] [id number] Name: MILLI SHOEMAKER Address: Home [address] [place], [place] [id number] Address: [address] [id number] Name: JOSE CASIANO Name: CATALINA THAPA Name: CATALINA THAPA FOR RECORDS PERTAINING TO PATIENTS WHO ARE OR HAVE BEEN ENROLLED IN A CHEMICAL DEPENDENCY/SUBSTANCEABUSE PROGRAM, SOME INFORMATION MAY BE OMITTED. This clinical summary was aggregated from multiple sources. Caution should be exercised in using it in the provision of clinical care. This summary normalizes information from multiple sources, and as a consequence, information in this document may materially change the coding, format and clinical context of patient data. In addition, data may be omitted in some cases. CLINICAL DECISIONS SHOULD BE BASED ON THE PRIMARY CLINICAL RECORDS. [facility] [employer] [facility]. provides no warranty or guarantee of the accuracy or completeness of information in this document.
[2023-05-25 14:33] LABS: hCG Titer Quant., Serum 339 mIU/mL (1-3)
== END | disposition home or self-care (01) ==
LOC: LAB 13:14
PROVIDERS: Referring Provider Obstetrics & Gynecology; Visit Provider Obstetrics & Gynecology
DX: N91.2 Amenorrhea, unspecified (principal)
CPT/HCPCS: 36415; 84702

== ENCOUNTER → 2023-06-03 | Outpatient (CLI) | payer MEDICAID, SELFPAY ==
[2023-06-03 17:06] LABS: hCG Titer Quant., Serum 13922 mIU/mL (1-3)
== END | disposition home or self-care (01) ==
LOC: PAVLAB 14:48
PROVIDERS: Visit Provider Nurse Practitioner Women's Health
DX: O20.9 Hemorrhage in early pregnancy, unspecified (principal); Z3A.00 Weeks of gestation of pregnancy not specified
CPT/HCPCS: 36415; 84702

== ENCOUNTER → 2023-06-05 | Outpatient (CLI) | payer MEDICAID, SELFPAY ==
[2023-06-05 16:48] LABS: hCG Titer Quant., Serum 23857 mIU/mL (1-3)
--- OUTSIDE RECORDS SUMMARY | 2023-06-05 18:51 | XMS RPT_ITS | CCD ---
Author Name Unknown Address [address] [place] [address] Organization [facility] Care Team Providers Care Dairy Science Teacher Name Role Phone SHANDA DEAN, JAMAICA Salcedo Primary Care Physician Unavailable Primary Care Provider Delfina NEGRON MD, DR BERUMEN Attending JAMAICA Alfrao MD Primary Care Unavailable DANNIE BAHENA DO [...] 99.19 [degF] Anali Stockton PA-C Work Phone: [facility] 11-04-2021 13:11-0400 Body weight 89.81 kg Anali Cernazoya PA-C Work Phone: [facility] 11-04-2021 13:11-0400 Diastolic blood pressure 68 mm[Hg] Anali Stockton PA-C Work Phone: [facility] 11-04-2021 13:11-0400 Heart rate 106 /min Analirich Cernazoya PA-C Work Phone: [facility] 11-04-2021 13:11-0400 Respiratory rate 16 /min Anali Denbow PA-C Work Phone: [facility] 11-04-2021 13:11-0400 SaO2% (BldA) [Mass fraction] 98 % Anali Denbow PA-C Work Phone: [facility] 11-04-2021 13:11-0400 Systolic blood pressure 110 mm[Hg] Anali Denbow PA-C Work Phone: [facility] 10-25-2021 23:13-0400 Body height 167.[address] JAMAICA NEGRON MD [facility] 10-25-2021 23:13-0400 Body temperature 98.06 [degF] DR JAMAICA NEGRON MD [facility] 10-25-2021 23:13-0400 Body weight 79.[address] JAMAICA NEGRON MD [facility] 10-25-2021 23:13-0400 Diastolic blood pressure 85 mm[Hg] DR JAMAICA NEGRON MD [facility] 10-25-2021 23:13-0400 Heart rate 90 /min DR JAMAICA NEGRON MD [facility] 10-25-2021 23:13-0400 Respiratory rate 16 /min DR JAMAICA NEGRON MD [facility] 10-25-2021 23:13-0400 Systolic blood pressure 123 mm[Hg] DR JAMAICA NEGRON MD [facility] Encounters Encounter Date Encounter Type Care Provider Facility Start: 07-11-2022 End: 07-12-2022 ambulatory DANNIEDMITRI BAHENA DO Facility:B Start: 07-11-2022 End: 07-11-2022 Patient encounter procedure DANNIE BAHENA DO [facility] Start: 11-04-2021 End: 11-04-2021 Patient encounter procedure Anali Stockton PA-C Work Phone: [facility] Procedures Date Procedure Procedure Detail Performing Clinician Tonsillectomy and adenoidectomy DR JAMAICA NEGRON MD Plan of Treatment Date Care Activity Detail Author Start: 01-11-2022 Influenza vaccination INFLUENZA (Sea son Ended) [facility] Start: 2020 HPV TESTING HPV TESTING [facility] Start: 12-09-2011 PAP TESTING PAP TESTING [facility] Start: 2009 Urine microalbumin profile DTAP,TDAP,TD (1 - Tdap) [facility] Start: 2008 HEPATITIS C SCREENING HEPATITIS C SC REENING [facility] Start: 2008 HIV SCREENING HIV SCREENING [facility] Start: 2002 Adult depression screening assessment DEPRESSION SCREENING [facility] Start: 1996 PNEUMOCOCCAL (1 - PCV) PNEUMOCOCCAL (1 - PCV) [facility] Start: 12-09-1995 COVID-19 VACCINE (#1) COVID-19 VACCI NE (#1) [facility] Immunizations Immunization Date Immunization Notes Care Provider Fa cility 10-26-2021 tetanus toxoid, redu bj diphtheria toxoid, and acellular pertussis vaccine, adsorbed DR JAMAICA NEGRON MD [facility] 01-28-2017 Human rabies vaccine from Chicken fibroblast culture DR JAMAICA NEGRON MD [facility] 01-17-2017 Human rabies vaccine from Chicken fibroblast culture DR JAMAICA NEGRON MD [facility] 01-10-2017 Human rabies vaccine from Chicken fibroblast culture DR JAMAICA NEGRON MD [facility] 01-01-2017 Human rabies vaccine from Chicken fibroblast culture DR JAMAICA NEGRON MD [facility] Payers Date Payer Category Payer Unknown [id number] 2021 Unknown [id number] 2017 Medicaid [employer] [facility] [place] [id number] 08/11/2017-Present [phone] [address] [place] [address] Medicaid [id number] 1990 Unknown [id number] 1990 Unknown [id number] Social History Date Type Detail Facility Start: 12-12-2020 Tobacco smoking status Light t obacco smoker (finding) [facility] Sex Assigned At Sex [facility] Start: 11-04-2021 Tobacco smoking stat us NMIS Smokes tobacco daily [facility] Work Phone: Start: 11-04-2021 Tobacco use and exposure Smokeless tobacco non-user [facility] Work Phone: Start: 1990 Sex Assigned At Not on file C [facility] Functional Status Date Assessment Result Facility 10-26-2021 Functional Status Ambulating in otto, Up ad miriam [facility] 10-25-2021 Functional Status Standard Safet y ID band on, Call device within reach, Bed in low position, Wheels locked, Upper/Half-Length side-rails up, personal items within reach, Visitor at bedside [facility] Mental Status Date Assessment Result Facility 10-26-2021 Mental Status Orientation Oriented x 4 [facility] 10-25-2021 Mental Status [facility] Clinical Note 07-11-2022 Note Date & [...] 07/11/2022 12:35:09 PM Ordering Provider: DANNIE BAHENA [facility] Clinical Note 07-11-2022 Note Date & Type [...] 07/11/2022 12:35:09 PM Ordering Provider: DANNIE BAHENA [facility] Progress note 11-04-2021 Note Date & Type Note Facility 11-04-2021 Note HNO ID: [id number] Author: Anali Stockton PA-C Service: ? Author Type: Physician Inventory Associate And Driver Type: Progress Notes Filed: 11/04/2021 2:52 PM Note Text: Subjective HPI HPI Tammy Casiano is a 30 year old female who presents today for CC of suture removal R hand. Patient was evaluated last Saturday at [facility] ED status post laceration from a shattered glass. Tdap was updated at that time. Pt notes that she was seen at [facility] for a check of wound 2 days [...] Day 10 status post suture placement at [facility]-- 9 Sutures removed without complication; Steri [...] agrees with the plan. Anali Stockton PA-C [facility] Instructions 11-04-2021 Patient Instructions Note Date & [...] done as well. documented in this encounter [facility] History of Present illness Narrative [...] hand. Patient was evaluated last Saturday at [facility] ED status post laceration from a shattered glass. Tdap was updated at that time. Pt notes that she was seen at [facility] for a check of wound 2 days [...] Day 10 status post suture placement at [facility]-- 9 Sutures removed without complication; Steri [...] Anali Stockton PA-C documented in this encounter [facility] Discharge instructions 10-26-2021 Note Date [...] affected hand Decreased movement of the hand [id number] [employer]. [address] [place] [address]. All rights reserved. This information is not intended as a substitute for professional medical care. Always follow your healthcare professional's instructions. Follow Up Care 10/25/2021 23:01:32 With:JAMAICA LAND Address: [address] [place] [address]- Business (1) When:Within 9 Day(s) Comments:Keep wound clean and dry. Have your stitches removed in 8 to 10 days. Return if worsening severe pain numbness weakness draining pus or redness around the wound. [facility] Evaluation + Plan note Note Date & Type Note Facility Evaluation + Plan note No data available for this section [facility] Evaluation note Note Date & Type Note Facility documented in this encounter [facility] Discharge instructions Note Date & Type Note Facility Hospital Discharge instructions No data available for this section [facility] Progress note Note Date & Type Note Facility Progress note No data available for this section [facility] Summary Purpose Family History No Family History Records FoundNo Family History Records Found Advance Directives No Advanced Directives Records FoundNo Advanced Directives Records Found Additional Source Comments Care Team (unrecognized sect ion and content) Personnel Name: JAMAICA LAND MD Address: [address] [place] [id number] Source Comments (unrecognize d section and content) In the event this informatio n is protected by the Federal Confidentiality of Alcohol and Drug Abuse Patient Records regulations: The Federal rules restrict any use of the information to criminally investigate or prosecute any alcohol or drug abuse patient.[facility] Reason for Visit (unrecogniz ed section and content) INFORMATION SOURCE (unrecogn ized section and content) DATE CREATED AUTHOR AUTHOR'S ORGANIZ ATION 07/13/2022 [facility] Care Team (unrecognized sect ion and content) Care Team Personnel Name: CELY PAVON MD Position: P4 Physician - General Surgery Member Role: Surgeon Address: Address: [address] AM General Surgery [place] [id number] Name: JAMAICA LAND MD Position: P4 Physician - Primary Care Member Role: Primary Care Physician Address: Address: [address] Care Team Related Persons Name: KATHY SHOEMAKER Address: Home [address] [place] [id number] Name: MILLI SHOEMAKER Address: Home [address] [place], [place] [id number] Address: [address] [id number] Name: JOSE CASIANO Name: CATALINA THAPA Name: [...] BE BASED ON THE PRIMARY CLINICAL RECORDS. [facility] [employer] [facility]. provides no warranty or guarantee of the accuracy or completeness of information in this document.
--- NOTE | 2023-06-05 18:54 | US_ITS ---
STUDY: FIRST TRIMESTER OBSTETRICAL ULTRASOUND REASON FOR EXAM: Female, 32 years old DATES LMP: Unknown. TECHNIQUE: Transvaginal. TECHNICAL QUALITY: Adequate. PRIOR ULTRASOUND: None. FINDINGS: There is visualization of a single gestational sac in a normal intrauterine position. The mean sac diameter (MSD) measures 1.6 cm, indicating an estimated gestational age (EGA) of 6 weeks, 3 days. The gestational sac shape is within normal limits. There is 1.0 cm hypoechoic region compatible with subchorionic hemorrhage. There is a visualized yolk sac. The yolk sac measures 0.3 cm. The placenta is non-visualized. There is visualization of a live embryo. The crown-rump length (CRL) measures 0.3 cm, indicating an estimated gestational age (EGA) of 6 weeks, 1 days. There is demonstrated cardiac activity with a heart rate of 148 bpm. The estimated gestation age (EGA) by US is 6 weeks, 2 days. The estimated date of delivery (VERÓNICA) by US is January 27, 2024. The uterus measures 9.0 x 7.6 x 5.9 cm. There is no demonstrated uterine fibroid. The cervix is closed. The right ovary measures 2.8 x 1.8 x 1.7 cm. There is no right ovarian cyst. There is no visualized right adnexal mass or complex lesion. The left ovary measures 4.3 x 2.8 x 1.9 cm. There is no left ovarian cyst. There is no visualized left adnexal mass or complex lesion. There is mild fluid in the cul de sac. US/Transvaginal w/Preg US IMPRESSION: Single intrauterine gestation 6 weeks 2 days with estimated due date January 27, 2024. There is small subchorionic hemorrhage. Electronically Signed: Emiliano Johnson MD at 23:14 [facility] ,
== END | disposition home or self-care (01) ==
LOC: US 18:49
PROVIDERS: Referring Provider Nurse Practitioner Women's Health; Visit Provider Nurse Practitioner Women's Health
DX: O20.9 Hemorrhage in early pregnancy, unspecified (principal); Z3A.00 Weeks of gestation of pregnancy not specified
CPT/HCPCS: 36415; 76817; 84702

== ENCOUNTER → 2023-06-18 | Outpatient (CLI) | payer MEDICAID, SELFPAY ==
--- NOTE | 2023-06-18 15:16 | US_ITS ---
INDICATION: spotting in early EXAMINATION: US OB Transvaginal TECHNIQUE: Transabdominal and transvaginal (for optimal evaluation of the adnexa) pelvic ultrasound was performed. Grayscale, spectral waveform, and color flow Doppler evaluation of the adnexa. COMPARISON: 06/05/2023. FINDINGS: UTERUS: Measures 12.4 cm in length.. RIGHT OVARY: Not visualized. LEFT OVARY: Measures 4.2 x 2.6 x 2.2 cm. Normal. FREE FLUID: None. INTRAUTERINE GESTATIONAL SAC(s) (size/shape): Single. . YOLK SAC: Identified POLE: Identified CRL 0.2 cm. ESTIMATED GESTATION AGE: 8 weeks and 0 days. HEART MOTION: 171 bpm. PLACENTA: Not visualized due to age. SUBCHORIONIC HEMORRHAGE: Moderate. AMNIOTIC FLUID: Qualitatively normal. US/Transvaginal w/Preg US IMPRESSION: Single live intrauterine . Estimated gestational age is 8 weeks and 0 days. Moderate subchorionic hemorrhage. Electronically Signed: Ravi Marks MD at 17:52 EST ,
--- OUTSIDE RECORDS SUMMARY | 2023-06-18 18:52 | XMS RPT_ITS | CCD ---
Author Name Unknown Address [address] [place] [address] Organization [facility] Care Team Providers Care Oil Well Pumper Name Role Phone SHANDA DEAN, JAMAICA Salcedo [...] 99.19 [degF] Anali Stockton PA-C Work Phone: [facility] 11-04-2021 13:11-0400 Body weight 89.81 kg Anali Cernazoya PA-C Work Phone: [facility] 11-04-2021 13:11-0400 Diastolic blood pressure 68 mm[Hg] Anali Stockton PA-C Work Phone: [facility] 11-04-2021 13:11-0400 Heart rate 106 /min Analirich Cernazoya PA-C Work Phone: [facility] 11-04-2021 13:11-0400 Respiratory rate 16 /min Anali Denbow PA-C Work Phone: [facility] 11-04-2021 13:11-0400 SaO2% (BldA) [Mass fraction] 98 % Anali Denbow PA-C Work Phone: [facility] 11-04-2021 13:11-0400 Systolic blood pressure 110 mm[Hg] Anali Denbow PA-C Work Phone: [facility] 10-25-2021 23:13-0400 Body height 167.[address] JAMAICA NEGRON MD [facility] 10-25-2021 23:13-0400 Body temperature 98.06 [degF] DR JAMAICA NEGRON MD [facility] 10-25-2021 23:13-0400 Body weight 79.[address] JAMAICA NEGRON MD [facility] 10-25-2021 23:13-0400 Diastolic blood pressure 85 mm[Hg] DR JAMAICA NEGRON MD [facility] 10-25-2021 23:13-0400 Heart rate 90 /min DR JAMAICA NEGRON MD [facility] 10-25-2021 23:13-0400 Respiratory rate 16 /min DR JAMAICA NEGRON MD [facility] 10-25-2021 23:13-0400 Systolic blood pressure 123 mm[Hg] DR JAMAICA NEGRON MD [facility] Encounters Encounter Date Encounter Type Care Provider Facility Start: 07-11-2022 End: 07-12-2022 ambulatory DANNIEDMITRI BAHENA DO Facility:B Start: 07-11-2022 End: 07-11-2022 Patient encounter procedure DANNIE BAHENA DO [facility] Start: 11-04-2021 End: 11-04-2021 Patient encounter procedure Anali Stockton PA-C Work Phone: [facility] Procedures Date Procedure Procedure Detail Performing Clinician Tonsillectomy and adenoidectomy DR JAMAICA NEGRON MD Plan of Treatment Date Care Activity Detail Author Start: 01-11-2022 Influenza vaccination INFLUENZA (Sea son Ended) [facility] Start: 2020 HPV TESTING HPV TESTING [facility] Start: 12-09-2011 PAP TESTING PAP TESTING [facility] Start: 2009 Urine microalbumin profile DTAP,TDAP,TD (1 - Tdap) [facility] Start: 2008 HEPATITIS C SCREENING HEPATITIS C SC REENING [facility] Start: 2008 HIV SCREENING HIV SCREENING [facility] Start: 2002 Adult depression screening assessment DEPRESSION SCREENING [facility] Start: 1996 PNEUMOCOCCAL (1 - PCV) PNEUMOCOCCAL (1 - PCV) [facility] Start: 12-09-1995 COVID-19 VACCINE (#1) COVID-19 VACCI NE (#1) [facility] Immunizations Immunization Date Immunization Notes Care Provider Fa cility 10-26-2021 tetanus toxoid, redu bj diphtheria toxoid, and acellular pertussis vaccine, adsorbed DR JAMAICA NEGRON MD [facility] 01-28-2017 Human rabies vaccine from Chicken fibroblast culture DR JAMAICA NEGRON MD [facility] 01-17-2017 Human rabies vaccine from Chicken fibroblast culture DR JAMAICA NEGRON MD [facility] 01-10-2017 Human rabies vaccine from Chicken fibroblast culture DR JAMAICA NEGRON MD [facility] 01-01-2017 Human rabies vaccine from Chicken fibroblast culture DR JAMAICA NEGRON MD [facility] Payers Date Payer Category Payer Unknown [id number] 2021 Unknown [id number] 2017 Medicaid [employer] [facility] [place] [id number] 2017-Present [phone] [address] [place] [address] Medicaid [id number] 1990 Unknown [id number] 1990 Unknown [id number] Social History Date Type Detail Facility Start: 12-12-2020 Tobacco smoking status Light t obacco smoker (finding) [facility] Sex Assigned At Sex [facility] Start: 11-04-2021 Tobacco smoking stat us OHIS Smokes tobacco daily [facility] Work Phone: Start: 11-04-2021 Tobacco use and exposure Smokeless tobacco non-user [facility] Work Phone: Start: 1990 Sex Assigned At Not on file C [facility] Functional Status Date Assessment Result Facility 10-26-2021 Functional Status Ambulating in otto, Up ad miriam [facility] 10-25-2021 Functional Status Standard Safet y ID band on, Call device within reach, Bed in low position, Wheels locked, Upper/Half-Length side-rails up, personal items within reach, Visitor at bedside [facility] Mental Status Date Assessment Result Facility 10-26-2021 Mental Status Orientation Oriented x 4 [facility] 10-25-2021 Mental Status [facility] Clinical Note 07-11-2022 Note Date & Type [...] 07/11/2022 12:35:09 PM Ordering Provider: DANNIE BAHENA [facility] Clinical Note 07-11-2022 Note Date [...] 07/11/2022 12:35:09 PM Ordering Provider: DANNIE BAHENA [facility] Progress note 11-04-2021 Note Date & Type Note Facility 11-04-2021 Note HNO ID: [id number] Author: Anali Stockton PA-C Service: ? Author Type: Physician Eyeglass Frame Truer Type: Progress Notes Filed: 11/04/2021 2:52 PM Note Text: Subjective HPI HPI Tammy Casiano is a 30 year old female who presents today for CC of suture removal R hand. Patient was evaluated last Saturday at [facility] ED status post laceration from a shattered glass. Tdap was updated at that time. Pt notes that she was seen at [facility] for a check of wound 2 [...] Day 10 status post suture placement at [facility]-- 9 Sutures removed without complication; Steri strips [...] agrees with the plan. Anali Stockton PA-C [facility] Instructions 11-04-2021 Patient Instructions Note Date [...] done as well. documented in this encounter [facility] History of Present illness Narrative 11-04-2021 Anali Stockton PA-C - 11/04/2021 1:22 PM EDT Note Date & Type Note Facility 11-04-2021 History of Presen t illness Narrative Images from the original note were not included. Subjective HPI HPI Tammy Casiano is a 30 year old female who presents today for CC of suture removal R hand. Patient was evaluated last Saturday at [facility] ED status post laceration from a shattered glass. Tdap was updated at that time. Pt notes that she was seen at [facility] for a check of wound 2 [...] Day 10 status post suture placement at [facility]-- 9 Sutures removed without complication; Steri strips [...] Anali Stockton PA-C documented in this encounter [facility] Discharge instructions 10-26-2021 Note Date & Type [...] affected hand Decreased movement of the hand [id number] [employer]. [address] [place] [address]. All rights reserved. This information is not intended as a substitute for professional medical care. Always follow your healthcare professional's instructions. Follow Up Care 10/25/2021 23:01:32 With:JAMAICA LAND Address: [address] [place] [phone]- Business (1) When:Within 9 Day(s) Comments:Keep wound clean and dry. Have your stitches removed in 8 to 10 days. Return if worsening severe pain numbness weakness draining pus or redness around the wound. [facility] Evaluation + Plan note Note Date & Type Note Facility Evaluation + Plan note No data available for this section [facility] Evaluation note Note Date & Type Note Facility documented in this encounter [facility] Discharge instructions Note Date & Type Note Facility Hospital Discharge instructions No data available for this section [facility] Progress note Note Date & Type Note Facility Progress note No data available for this section [facility] Summary Purpose Family History No Family History Records FoundNo Family History Records Found Advance Directives No Advanced Directives Records FoundNo Advanced Directives Records Found Additional Source Comments Care Team (unrecognized sect ion and content) Personnel Name: JAMAICA LAND MD Address: [address] [place] [id number] Source Comments (unrecognize d section and content) In the event this informatio n is protected by the Federal Confidentiality of Alcohol and Drug Abuse Patient Records regulations: The Federal rules restrict any use of the information to criminally investigate or prosecute any alcohol or drug abuse patient.[facility] Reason for Visit (unrecogniz ed section and content) INFORMATION SOURCE (unrecogn ized section and content) DATE CREATED AUTHOR AUTHOR'S ORGANIZ ATION 07/13/2022 [facility] Care Team (unrecognized sect ion and content) Care Team Personnel Name: CELY PAVON MD Position: P4 Physician - General Surgery Member Role: Surgeon Address: Address: [address] AM General Surgery [place] [id number] Name: JAMAICA LAND MD Position: P4 Physician - Primary Care Member Role: Primary Care Physician Address: Address: [address] Care Team Related Persons Name: KATHY SHOEMAKER Address: Home [address] [place] [id number] Name: MILLI SHOEMAKER Address: Home [address] [place], [place] [id number] Address: [address] [phone] Name: JOSE CASIANO Name: CATALINA THAPA Name: [...] BE BASED ON THE PRIMARY CLINICAL RECORDS. [facility] [employer] [facility]. provides no warranty or guarantee of the accuracy or completeness of information in this document.
== END | disposition home or self-care (01) ==
LOC: US 15:13
PROVIDERS: Referring Provider Advanced Practice Midwife; Visit Provider Advanced Practice Midwife
DX: O26.859 Spotting complicating pregnancy, unspecified trimester (principal); O09.299 Supervision of pregnancy with other poor reproductive or obstetric history, unspecified trimester; Z3A.00 Weeks of gestation of pregnancy not specified
CPT/HCPCS: 76817

== ENCOUNTER → 2023-06-20 | Outpatient (CLI) | payer MEDICAID, SELFPAY ==
--- OUTSIDE RECORDS SUMMARY | 2023-06-20 12:40 | XMS RPT_ITS | CCD ---
Author Name Unknown Address [address] [place] [address] Organization [facility] Care Team Providers Care Morgue Librarian Name Role Phone SHANDA DEAN, JAMAICA Salcedo Primary Care Physician [phone] Unavailable Primary Care Provider Delfina NEGRON MD, [...] 99.19 [degF] Anali Stockton PA-C Work Phone: [facility] 11-04-2021 13:11-0400 Body weight 89.81 kg Anali Cernazoya PA-C Work Phone: [facility] 11-04-2021 13:11-0400 Diastolic blood pressure 68 mm[Hg] Anali Stockton PA-C Work Phone: [facility] 11-04-2021 13:11-0400 Heart rate 106 /min Analirich Cernazoya PA-C Work Phone: [facility] 11-04-2021 13:11-0400 Respiratory rate 16 /min Anali Denbow PA-C Work Phone: [facility] 11-04-2021 13:11-0400 SaO2% (BldA) [Mass fraction] 98 % Anali Denbow PA-C Work Phone: [facility] 11-04-2021 13:11-0400 Systolic blood pressure 110 mm[Hg] Anali Denbow PA-C Work Phone: [facility] 10-25-2021 23:13-0400 Body height 167.[address] JAMAICA NEGRON MD [facility] 10-25-2021 23:13-0400 Body temperature 98.06 [degF] DR JAMAICA NEGRON MD [facility] 10-25-2021 23:13-0400 Body weight 79.[address] JAMAICA NEGRON MD [facility] 10-25-2021 23:13-0400 Diastolic blood pressure 85 mm[Hg] DR JAMAICA NEGRON MD [facility] 10-25-2021 23:13-0400 Heart rate 90 /min DR JAMAICA NEGRON MD [facility] 10-25-2021 23:13-0400 Respiratory rate 16 /min DR JAMAICA NEGRON MD [facility] 10-25-2021 23:13-0400 Systolic blood pressure 123 mm[Hg] DR JAMAICA NEGRON MD [facility] Encounters Encounter Date Encounter Type Care Provider Facility Start: 07-11-2022 End: 07-12-2022 ambulatory DANNIEDMITRI BAHENA DO Facility:B Start: 07-11-2022 End: 07-11-2022 Patient encounter procedure DANNIE BAHENA DO [facility] Start: 11-04-2021 End: 11-04-2021 Patient encounter procedure Anali Stockton PA-C Work Phone: [facility] Procedures Date Procedure Procedure Detail Performing Clinician Tonsillectomy and adenoidectomy DR JAMAICA NEGRON MD Plan of Treatment Date Care Activity Detail Author Start: 01-11-2022 Influenza vaccination INFLUENZA (Sea son Ended) [facility] Start: 2020 HPV TESTING HPV TESTING [facility] Start: 12-09-2011 PAP TESTING PAP TESTING [facility] Start: 2009 Urine microalbumin profile DTAP,TDAP,TD (1 - Tdap) [facility] Start: 2008 HEPATITIS C SCREENING HEPATITIS C SC REENING [facility] Start: 2008 HIV SCREENING HIV SCREENING [facility] Start: 2002 Adult depression screening assessment DEPRESSION SCREENING [facility] Start: 1996 PNEUMOCOCCAL (1 - PCV) PNEUMOCOCCAL (1 - PCV) [facility] Start: 12-09-1995 COVID-19 VACCINE (#1) COVID-19 VACCI NE (#1) [facility] Immunizations Immunization Date Immunization Notes Care Provider Fa cility 10-26-2021 tetanus toxoid, redu bj diphtheria toxoid, and acellular pertussis vaccine, adsorbed DR JAMAICA NEGRON MD [facility] 01-28-2017 Human rabies vaccine from Chicken fibroblast culture DR JAMAICA NEGRON MD [facility] 01-17-2017 Human rabies vaccine from Chicken fibroblast culture DR JAMAICA NEGRON MD [facility] 01-10-2017 Human rabies vaccine from Chicken fibroblast culture DR JAMAICA NEGRON MD [facility] 01-01-2017 Human rabies vaccine from Chicken fibroblast culture DR JAMAICA NEGRON MD [facility] Payers Date Payer Category Payer Unknown [id number] 2021 Unknown [id number] 2017 Medicaid [employer] [facility] [id number] 2017-Present [phone] [address] [place] [address] Medicaid [id number] 1990 Unknown [id number] 1990 Unknown [id number] Social History Date Type Detail Facility Start: 12-12-2020 Tobacco smoking status Light t obacco smoker (finding) [facility] Sex Assigned At Sex [facility] Start: 11-04-2021 Tobacco smoking stat us ORIS Smokes tobacco daily [facility] Work Phone: Start: 11-04-2021 Tobacco use and exposure Smokeless tobacco non-user [facility] Work Phone: Start: 1990 Sex Assigned At Not on file C [facility] Functional Status Date Assessment Result Facility 10-26-2021 Functional Status Ambulating in otto, Up ad miriam [facility] 10-25-2021 Functional Status Standard Safet y ID band on, Call device within reach, Bed in low position, Wheels locked, Upper/Half-Length side-rails up, personal items within reach, Visitor at bedside [facility] Mental Status Date Assessment Result Facility 10-26-2021 Mental Status Orientation Oriented x 4 [facility] 10-25-2021 Mental Status [facility] Clinical Note 07-11-2022 Note Date & [...] 07/11/2022 12:35:09 PM Ordering Provider: DANNIE BAHENA [facility] Clinical Note 07-11-2022 Note Date [...] 07/11/2022 12:35:09 PM Ordering Provider: DANNIE BAHENA [facility] Progress note 11-04-2021 Note Date & Type Note Facility 11-04-2021 Note HNO ID: [id number] Author: Anali Stockton PA-C Service: ? Author Type: Physician Special Tester Type: Progress Notes Filed: 11/04/2021 2:52 PM Note Text: Subjective HPI HPI Tammy Casiano is a 30 year old female who presents today for CC of suture removal R hand. Patient was evaluated last Saturday at [facility] ED status post laceration from a shattered glass. Tdap was updated at that time. Pt notes that she was seen at [facility] for a check of wound [...] 10 status post suture placement at [facility]-- 9 Sutures removed without complication; Steri [...] agrees with the plan. Anali Stockton PA-C [facility] Instructions 11-04-2021 Patient Instructions Note Date [...] done as well. documented in this encounter [facility] History of Present illness Narrative 11-04-2021 [...] was evaluated last Saturday at [facility] ED status post laceration from a shattered glass. Tdap was updated at that time. Pt notes that she was seen at [facility] for a check of wound [...] 10 status post suture placement at [facility]-- 9 Sutures removed without complication; Steri [...] affected hand Decreased movement of the hand [id number] [employer]. [address] [place] [address]. All rights reserved. This information is not intended as a substitute for professional medical care. Always follow your healthcare professional's instructions. Follow Up Care 10/25/2021 23:01:32 With:JAMAICA LAND Address: [address] [place] [address]- Business (1) When:Within 9 Day(s) Comments:Keep wound clean and dry. Have your stitches removed in 8 to 10 days. Return if worsening severe pain numbness weakness draining pus or redness around the wound. [facility] Evaluation + Plan note Note Date & Type Note Facility Evaluation + Plan note No data available for this section [facility] Evaluation note Note Date & Type Note Facility documented in this encounter [facility] Discharge instructions Note Date & Type Note Facility Hospital Discharge instructions No data available for this section [facility] Progress note Note Date & Type Note Facility Progress note No data available for this section [facility] Summary Purpose Family History No Family History Records FoundNo Family History Records Found Advance Directives No Advanced Directives Records FoundNo Advanced Directives Records Found Additional Source Comments Care Team (unrecognized sect ion and content) Personnel Name: JAMAICA LAND MD Address: [address] [place] [id number] Source Comments (unrecognize d section and content) In the event this informatio n is protected by the Federal Confidentiality of Alcohol and Drug Abuse Patient Records regulations: The Federal rules restrict any use of the information to criminally investigate or prosecute any alcohol or drug abuse patient.[facility] Reason for Visit (unrecogniz ed section and content) INFORMATION SOURCE (unrecogn ized section and content) DATE CREATED AUTHOR AUTHOR'S ORGANIZ ATION 07/13/2022 [facility] Care Team (unrecognized sect ion and content) Care Team Personnel Name: CELY PAVON MD Position: P4 Physician - General Surgery Member Role: Surgeon Address: Address: [address] [facility] [address] AM General Surgery [place] [id number] Name: JAMAICA LAND MD Position: P4 Physician - Primary Care Member Role: Primary Care Physician Address: Address: [address] Care Team Related Persons Name: KATHY SHOEMAKER Address: Home [address] [place] [id number] Name: MILLI SHOEMAKER Address: Home [address] [place], [place] [id number] Address: [address] [id number] Name: JOSE CASIANO Name: CATALINA THAPA Name: [...] BE BASED ON THE PRIMARY CLINICAL RECORDS. [facility] [employer] [facility]. provides no warranty or guarantee of the accuracy or completeness of information in this document.
[2023-06-22 06:09] LABS: Chlamydia By Nucleic Acid AMP Negative (Negative); Gonococcus By Nucleic Acid AMP Negative (Negative)
[2023-06-25 11:08] LABS: HPV APTIMA, High Risk Negative (Negative)
== END | disposition home or self-care (01) ==
LOC: LABSPEC 11:05
PROVIDERS: Referring Provider Advanced Practice Midwife; Visit Provider Advanced Practice Midwife
DX: Z34.90 Encounter for supervision of normal pregnancy, unspecified, unspecified trimester (principal)
CPT/HCPCS: 87086; 87088; 87491; 87591; 87624; 88175; G0145

== ENCOUNTER → 2023-07-02 | Outpatient (CLI) | payer MEDICAID, SELFPAY ==
[2023-07-02 15:42] LABS: Absolute Lymphocyte Count 2.55 X10^3/uL (0.83-4.51); Basophil# 0.04 X10^3/uL; Basophil% 0.4 % (0-1); Eosinophil# 0.14 X10^3/uL; Eosinophils% 1.4 % (0-5); Hematocrit 40.4 % (37-47); Hemoglobin 13.6 g/dL (12.0-15.0); Lymphocyte # 2.55 X10^3/ul (0.83-4.51); Lymphocyte % 25.1 % (19-41); Mean Corp Hgb Conc 33.7 g/dL (32-36); Mean Corpuscular Hgb 30.6 pg (27.0-32.0); Mean Corpuscular Volume 90.8 fL (81-99); Mean Platelet Vol. 8.9 fl (6.2-12.0); Monocyte# 0.41 X10^3/uL; NRBC Flagged by Analyzer 0 % (0-5); Neutrophil # 6.97 X10^3/uL (2.7-7.7); Neutrophil % 68.6 % (47-70); Platelet Count 316 K/mm3 (150-450); RBC Distribution Width CV 12.4 % (11.6-14.6); RBC Distribution Width SD 40.6 fl (35.1-43.9); Red Blood Count 4.45 M/mm3 (4.2-5.4); White Blood Count 10.2 K/mm3 (4.4-11.0)
[2023-07-02 16:56] LABS: HIV - WCH Non-Reactive (Nonreactive); Hepatitis B Surface Antigen Non-Reactive (Nonreactive); Hepatitis C Antibody Non-Reactive (Nonreactive); Rubella IgG Reactive (Nonreactive); Syphilis Antibodies Non-reactive
== END | disposition home or self-care (01) ==
LOC: PAVLAB 15:17
PROVIDERS: Referring Provider Advanced Practice Midwife; Visit Provider Advanced Practice Midwife
DX: Z34.81 Encounter for supervision of other normal pregnancy, first trimester (principal)
CPT/HCPCS: 36415; 85025; 86703; 86762; 86780; 86803; 86850; 86900; 86901; 87340

== ENCOUNTER → 2023-11-05 | Outpatient (CLI) | payer MEDICAID, SELFPAY ==
[2023-11-05 15:13] LABS: Absolute Lymphocyte Count 2.15 X10^3/uL (0.83-4.51); Absolute Neutrophil Count 8.5 X10^3/uL (2.0-7.7); Basophil# 0.02 X10^3/uL; Basophil% 0.2 % (0-1); Eosinophil# 0.09 X10^3/uL; Eosinophils% 0.8 % (0-5); Hematocrit 38.6 % (37-47); Hemoglobin 13.1 g/dL (12.0-15.0); Lymphocyte # 2.15 X10^3/ul (0.83-4.51); Mean Corp Hgb Conc 33.9 g/dL (32-36); Mean Corpuscular Hgb 31.3 pg (27.0-32.0); Mean Corpuscular Volume 92.3 fL (81-99); Mean Platelet Vol. 8.8 fl (6.2-12.0); Monocyte# 0.44 X10^3/uL; Monocyte% 3.9 % (0-10); NRBC Flagged by Analyzer 0 % (0-5); Neutrophil # 8.51 X10^3/uL (2.7-7.7); Neutrophil % 75.4 % (47-70); Platelet Count 283 K/mm3 (150-450); RBC Distribution Width CV 12.5 % (11.6-14.6); Red Blood Count 4.18 M/mm3 (4.2-5.4); White Blood Count 11.3 K/mm3 (4.4-11.0)
[2023-11-05 15:29] LABS: Glucose Challenge Gest 1H 50g 110 mg/dL (70-140)
[2023-11-05 16:02] LABS: HIV - WCH Non-Reactive (Nonreactive); Syphilis Antibodies Non-reactive
== END | disposition home or self-care (01) ==
PROVIDERS: Referring Provider Obstetrics & Gynecology; Visit Provider Obstetrics & Gynecology
DX: O26.899 Other specified pregnancy related conditions, unspecified trimester (principal); N89.8 Other specified noninflammatory disorders of vagina; Z3A.00 Weeks of gestation of pregnancy not specified
CPT/HCPCS: 36415; 82950; 85025; 86703; 86780; 87070; 87205

== ENCOUNTER 2023-11-26 09:59 | Outpatient (CLI) | payer MEDICAID, SELFPAY ==
[2023-11-26] VITALS (65 sets, daily range): BP systolic 126–130; BP diastolic 64–78; PULSE 73–106; RESP 16–18; TEMP 36.7; O2SAT 84–99
[2023-11-26] MEDS: Albuterol 2.5 MG/3 ML VIAL.NEB. INHALATION (13:11)
--- NOTE | 2023-11-26 13:25 | OB.TRI.HP_ITS ---
HPI - General HPI Narrative KEON CASIANO, is a 32 y/o @ 31 weeks 1 day who presents to L&D with cramping and decreased movement. NST was reactive and there were minimal contractions noted on monitor, however her pulse ox was found to be average 94- 95 and as low as 88% on room air. A consult to respiratory therapy was placed and she received an albuterol treatment. During which time her pulse ox went up to 100% and is currently at 95-97%. She denies chest pain but states that minimal activity including rolling to her side causes extreme shortness of breath. Maternal Data Information VERÓNICA Calculator Estimated Delivery Date Method Current WG Current Estimate 01/27/24 Ultrasound #1 31w 1d Other Estimates 02/02/24 LMP (Certain) 30w 2d 01/28/24 Ultrasound #2 31w 0d PFSH PFSH Medical History Spotting in early Dysmenorrhea Seizures Former smoker Missed Laceration of right thumb Acute pharyngitis Sore throat Lump of right breast Encounter for screening for COVID-19 Alcohol abuse Fatigue Home Medications ?Medication ?Instructions ?Recorded ?Last Taken ?Type multivitamin no.47-iron fum 27 cap PO 06/14/23 Unknown History mg-folate no.1 1 mg-dha 300 mg capsule (PNV-DHA) Allergy/AdvReac Type Severity Reaction Status Date / Time measles, mumps, and rubella Allergy Other Verified 11/26/23 12:52 vaccine Family History Father Heart disease Diabetes Hypertension CVA (cerebral vascular accident) Surgical History H/O dilation and curettage History of breast biopsy (~02/2021) History of orthopedic surgery History of tonsillectomy and adenoidectomy Social History adopted: No household members: significant other and children number of children: 3 current occupational status: employed current occupation: [employer] current occupational exposures/hazards: No pets and animals: Yes pets and animals: dog(s) history of recent travel: No sexually active: Yes Smoking Status: Former smoker alcohol intake: former year quit: 2018 details: five years- recovering substance use type: does not use diet: gluten free and lactose free well-balanced diet: daily or most days caffeine: No eating out: rarely or never during the past year weight has: remained stable what type of physical activity do you participate in: none mike/latter-day: Zoroastrian seatbelt use: always do you feel safe at home: Yes additional social history: BF- [employer] History 5 Elective abortions Hx Para 3 Spontaneous abortions 1 Hx # Term Pregnancies Ectopic pregnancies Hx # Pregnancies Multiple births # of living children 3 Past Pregnancies Del. Date Name GA/Weeks Outcome Route Bth Weight Gen Labor Lgth Anesthesia Del Locatn Provider FOB 12/06/09 Simone 36 live - 6.8 Male epidur al [place] 07/25/11 Nasra 40 live - full term 6#8oz Female epidu ral [place] 06/24/13 Jeremiah 40 live - full term 9.2 Male none [place] 08/31/22 8 spontaneous Delivery Date: 08/31/22 Last Updated by: Gely Heath&Meaghan, [facility] Visit Details Expected Delivery Route/Plan Labor Preferences- CB/BF classes: [] labor support person: [] labor intervention preferences: [] pain management options preferred: [] cut cord/dad catch: [] : [] PP control planned: [] discussed possible routes of delivery and associated risks: [] special requests: [] Plans Covid status: [] Flu vaccine: [] Tdap vaccine: [] Rhogam: [] LARC form signed: [] Problem list reviewed and updated with the most current plan of care details and appropriate orders placed. Relevant counseling for the gestational age provided. Continue routine care and follow up unless otherwise noted in visit notes/problem list details OB Flowsheet Initial Weight: 215 lb Date -?-?-?-?-?-?-?-?-?-?-?-?- EGA Weight BP Urine Prot -?-?-?-?-?-?-?-?-?-?-?-?- Glucose FHR FuHt Pres Dilation -?-?-?-?-?-?-?-?-?-?-?-?- Effaced St Visit Note 06/20/23 -?-?-?-?-?-?-?-?-?-?-?-?- 8w 3d 213 lb 2 oz (-1 lb 14 oz) 127/88 -?-?-?--?-?-?-?-?-?-?-?-?- 168 -?-?-?-?-?-?-?-?-?-?-?-?- KW- CRL cons wit h previous early [facility] US. desires NIPT declines AFP 06/25/23 -?-?-?-?-?-?-?-?-?-?-?-?- 9w 1d 211 lb 6 oz (-3 lb 10 oz) 126/84 Negative -?-?-?-?-?-?-?-?-?-?-?-?- Negative 160 -?-?-?-?-?-?-?-?-?-?-?-?- -work for FHT check. She is at point of last loss. No VB. FHT and live IUP easily seen on US 07/05/23 -?-?-?-?-?-?-?-?-?-?-?-?- 10w 4d 215 lb (+0 oz) 139/84 Negative -?-?-?-?-?-?-?-?-?-?-?-?- Negative 170 -?-?-?-?-?-?-?-?-?-?-?-?- SM- having some spotting, subchorionic hematoma seen, fht seen 07/18/23 -?-?-?-?-?-?-?-?-?-?-?-?- 12w 3d 218 lb (+3 lb) 123/80 Negative -?-?-?-?-?-?-?-?-?-?-?-?- Negative 168 -?-?-?-?-?-?-?-?-?-?-?-?- KW- no vb/crampi ng. formal US ordered 07/30/23 -?-?-?-?-?-?-?-?-?-?-?-?- 14w 1d 221 lb (+6 lb) 116/77 Negative -?-?-?-?-?-?-?-?-?-?-?-?- Negative 165 -?-?-?-?-?-?-?-?-?-?-?-?- KW- no vb/crampi ng. US on 08/29. Decline AFP. 08/20/23 -?--?-?-?-?-?-?-?-?-?-?-?- 17w 1d 226 lb 2 oz (+11 lb 2 oz) 116/77 Negative -?-?-?-?-?-?-?-?-?-?-?-?- Negative 140 -?-?-?-?-?-?-?-?-?-?-?-?- Kw- work in. [employer] d fall on 08/17 and son fell on her abd. He was able to catch most of his weight on his arms. no bleeding/discharge or cramping. still feeling occasional flutters. A+ blood type. has anatomy US next week. 08/26/23 -?-?-?-?-?-?-?-?-?-?-?-?- 18w 0d 227 lb (+12 lb) 129/90 Negative -?-?-?-?-?-?-?-?-?-?-?-?- Negative 154 -?-?-?-?-?-?-?-?-?-?-?-?- LC- no vb/crampi ng. magnesium LC- no vb/cramping. has soraya dolly on saturday. 09/09/23 -?-?-?-?-?-?-?-?-?-?-?-?- 20w 0d 233 lb (+18 lb) 117/77 -?-?-?-?-?-?-?-?-?-?-?-?- 160 -?-?-?-?-?-?-?-?-?-?-?-?- SM- no vb crampi ng didn't feel movement 09/20/23 -?-?-?-?-?-?-?-?-?-?-?-?- 21w 4d 235 lb (+20 lb) 118/72 Negative -?-?-?-?-?-?-?-?-?-?-?-?- Negative 145 21 -?-?-?-?-?-?-?-?-?-?-?-?- KW- no vb/lof/ct x. good fm. normal anatomy US. Concerns with feeling fatigued and unmotivated feeling disconnected from fetus and concerned with depression. would like to try intentional diet change and increasing activity. discussed SSRIs 10/09/23 -?-?-?-?-?-?-?-?-?-?-?-?- 24w 2d 237 lb (+22 lb) 125/77 Negative -?-?-?-?-?-?-?-?-?-?-?-?- Negative 147 24 -?-?-?-?-?-?-?-?-?-?-?-?- MH-No VB, LOF. G ood Fm. Denies concerns 11/05/23 -?-?-?-?-?-?-?-?-?-?-?-?- 28w 1d 245 lb 2 oz (+30 lb 2 oz) 126/82 Negative -?-?-?-?-?-?-?-?-?-?-?-?- Negative 145 30 0 -?-?-?-?-?-?-?-?-?-?-?-?- JV- pt had some cramping and spotting over the weekend. Vaginitis smear collected today. PTL precautions discussed. plan 36 week growth scan. GCT today pending. Tdap done today. 11/18/23 -?-?-?-?-?-?-?-?-?-?-?-?- 30w 0d 247 lb (+32 lb) 124/82 Negative -?-?-?-?-?-?-?-?-?-?-?-?- Negative 123 32 -?-?-?-?-?-?-?-?-?-?-?-?- JV- no lof, vagi nal bleeding, or dec ROS Constitutional Constitutional: Reports systems reviewed and no addt'l complaints, except as documented Gastrointestinal Gastrointestinal: Denies bloating, constipation, cramping, diarrhea, nausea or vomiting Genitourinary Genitourinary: Reports other Details: Denies vaginal odor, vaginal bleeding, or vaginal discharge ; Denies difficulty urinating or flank pain Physical Exam HEENT normocephalic Resp normal respiratory effort and normal air movement no CVA tenderness Extremity normal to inspection General Extremity: edema bilateral (trace ) NST FHR Rate Baby A Baseline: 140 Variability:: Moderate Accelerations:: 15 x 15 Decelerations:: None NST Reactive:: Yes FHR Category:: Category I Assessment & Plan (1) LGA (large for gestational age) fetus affecting management of mother: COMMENT: history of 9 pound baby- plan 36 week scan (2) Subchorionic hemorrhage in first trimester: (3) History of miscarriage, currently : (4) COVID-19 affecting , antepartum: COMMENT: April 2023 discusses 81 mg ASA (5) Supervision of high-risk : QUALIFIERS: Trimester: first trimester Qualified Code(s): O09.91 - Supervision of high risk , unspecified, first trimester COMMENT: PRR,, boy, VERÓNICA 01/27/24, PC Nasra Nichols Asher, Fiance- Garrison (his first child) (6) : QUALIFIERS: Weeks of gestation: 30 weeks Qualified Code(s): Z3A.30 - 30 weeks gestation of COMMENT: normal anatomy, discussed genetic & carrier testing, NIPT low risk (7) Low oxygen saturation: COMMENT: pt has intermittent SOB and intermittent low pulse ox down to as low as [address] showed atelectasis only. consulting pulm and starting albuterol, growth scans with [facility], bpp's weekly. PLAN: Plan After discussion with Dr. Nilda Dahl from [facility] ,the decision was made to order a PA and lat CXR to rule out cardiac size abnormality and possible long covid findings and to order a CTA to rule out PE. stat Also ordering an EKG. ct findings: No evidence of pulmonary embolism. Mild increased markings at the lung bases suggestive of bibasilar atelectasis. EKG still pending. plan is to consult outpatient pulmonology, order growth ultrasound out patient with [facility], and encourage incentive spirometer every 2 hours during the day. Will also order an albuterol inhaler to use when feeling short of breath. will orde weekly bpp's on baby Charges/Coding Multi Select Codes Visit Charges Office Visit/Consults: 89553 OV L3 Est 20min Urinary/Genital Urinary/Genital CPT Codes: 18439-52 non-stress test Interp
--- NOTE | 2023-11-26 13:47 | CT_ITS ---
STUDY: CTA CHEST REASON FOR EXAM: Female, 32 years old. Low pulse ox, shortness of breath RADIATION DOSAGE (If Supplied By Facility): CTDIvol = ( 12.65 ) mGy, DLP = ( 528.12 ) mGycm TECHNIQUE: The examination was performed with the intravenous administration of IV 100mL Isovue-370. Post-processing of the angiographic images was performed, with multiplanar reformation and 3D reconstruction. Individualized dose optimization techniques were used for this CT. COMPARISON: None. FINDINGS: There is elevation of the right hemidiaphragm. Normal enhancement of the main pulmonary artery and right and left pulmonary arteries. Normal enhancement of the bilateral peripheral pulmonary arteries. There is no demonstrated pulmonary embolism. Normal thoracic aorta and visualized great vessels. There is no demonstrated aortic dissection. Normal heart and pericardium. Normal mediastinum. Normal hilar regions. Normal visualized trachea and bronchi. The lungs are well expanded. Mild degree of bibasilar atelectasis. Normal pleura. Normal chest wall structures. Normal osseous structures. Small hiatal hernia. CT/CTA Chest W/WO Contrast IMPRESSION: No evidence of pulmonary embolism. Mild increased markings at the lung bases suggestive of bibasilar atelectasis. Electronically Signed: Stephon Rod MD at 14:33 EDT ,
--- NOTE | 2023-11-26 14:45 | EKG12_ITS ---
Test Reason : SOB Blood Pressure : / mmHG Vent. Rate : 085 BPM Atrial Rate : 085 BPM P-R Int : 140 ms QRS Dur : 104 ms QT Int : 396 ms P-R-T Axes : 023 063 029 degrees QTc Int : 471 ms Normal sinus rhythm Normal ECG No previous ECGs available Confirmed by ROXANNE DEAN, RAYO ([id number]), medical transcription editor SYLVIA MATTHEWS ([id number]) on 11/28/2023 10:43:13 A M Referred By: Lanie Aguero Confirmed By:CASSIDY OLIVEIRA MD
== END 2023-11-26 15:05 | disposition home or self-care (01) ==
LOC: WPOUT 10:01 → WP 10:03
PROVIDERS: Referring Provider Obstetrics & Gynecology; Visit Provider Obstetrics & Gynecology
DX: O99.891 Other specified diseases and conditions complicating pregnancy (principal); R25.2 Cramp and spasm; O36.8130 Decreased fetal movements, third trimester, not applicable or unspecified; Z3A.31 31 weeks gestation of pregnancy; Z87.891 Personal history of nicotine dependence; O36.63X0 Maternal care for excessive fetal growth, third trimester, not applicable or unspecified
CPT/HCPCS: 59025; 59050; 71275; 93005; 94640; 99221; 99252; Q9967; A4216; G0378; G0463

== ENCOUNTER 2023-12-03 12:12 | Outpatient (CLI) | payer MEDICAID, SELFPAY ==
--- NOTE | 2023-12-03 12:13 | US_ITS ---
STUDY: OBSTETRICAL ULTRASOUND - BIOPHYSICAL PROFILE REASON FOR EXAM: Female, 32 years old well being LMP: April 22, 2023. PRIOR ULTRASOUND: Comparison is made with prior study dated June 18, 2023. TECHNIQUE: Transabdominal TECHNICAL QUALITY: Adequate. FINDINGS: There is a single intrauterine fetus. The fetus is in a cephalic presentation. There is demonstrated cardiac activity with a heart rate of 133 bpm. There is a normal amniotic fluid volume. The largest amniotic fluid pocket measures 4. cm. The amniotic fluid index (LINDA) is 10.2 cm. The placenta is fundal in location. There are Grade 1 placental changes. Age by LMP: 32 weeks, 1 days. VERÓNICA by LMP: January 27, 2024. BIOPHYSICAL PROFILE: Breathing Movements (FBM): 0 Gross Body Movements (GBM): 2 Tone (FT): 2 Amniotic Fluid Volume (AFV): 2 TOTAL SCORE: 8 US/Biophysical Prof W/O Non Stres IMPRESSION: biophysical profile of 10/18. The office was notified. Electronically Signed: Stephon Rod MD at 14:55 EDT ,
[2023-12-03 13:35] VITALS: BP 125/82; PULSE 85
[2023-12-03 13:38] VITALS: RESP 18; O2SAT 97
[2023-12-03 13:52] VITALS: BMI 40.3
--- NOTE | 2023-12-03 14:36 | OB.TRI.HP_ITS ---
HPI - General HPI Narrative KEON CASIANO, is a 32 F who presents for an NST due to 6/8 on the bpp today (2 off for breathing) Maternal Data Information VERÓNICA Calculator Estimated Delivery Date Method Current WG Current Estimate 01/27/24 Ultrasound #1 32w 1d Other Estimates 02/02/24 LMP (Certain) 31w 2d 01/28/24 Ultrasound #2 32w 0d PFSH PFSH Medical History Spotting in early Dysmenorrhea Seizures Former smoker Missed Laceration of right thumb Acute pharyngitis Sore throat Lump of right breast Encounter for screening for COVID-19 Alcohol abuse Fatigue Home Medications ?Medication ?Instructions ?Recorded ?Last Taken ?Type multivitamin no.47-iron fum 27 1 cap PO DAILY 06/14/23 12/03/23 History mg-folate no.1 1 mg-dha 300 mg capsule (PNV-DHA) albuterol sulfate 90 mcg/actuation 2 puff inhalation Q4H PRN 11/26/23 12/03/23 Rx aerosol inhaler shortness of breath #6.7 grams aspirin 81 mg capsule 81 mg PO DAILY 12/03/23 12/03/23 History Allergy/AdvReac Type Severity Reaction Status Date / Time measles, mumps, and rubella Allergy Other Verified 12/03/23 13:28 vaccine Family History Father Heart disease Diabetes Hypertension CVA (cerebral vascular accident) Surgical History H/O dilation and curettage History of breast biopsy (~02/2021) History of orthopedic surgery History of tonsillectomy and adenoidectomy Social History adopted: No household members: significant other and children number of children: 3 current occupational status: employed current occupation: [employer] current occupational exposures/hazards: No pets and animals: Yes pets and animals: dog(s) history of recent travel: No sexually active: Yes Smoking Status: Former smoker alcohol intake: former year quit: 2017 details: five years- recovering substance use type: does not use diet: gluten free and lactose free well-balanced diet: daily or most days caffeine: No eating out: rarely or never during the past year weight has: remained stable what type of physical activity do you participate in: none mike/hoahaoism: Bahai seatbelt use: always do you feel safe at home: Yes additional social history: BF- [employer] History 5 Elective abortions Hx Para 3 Spontaneous abortions 1 Hx # Term Pregnancies Ectopic pregnancies Hx # Pregnancies Multiple births # of living children 3 Past Pregnancies Del. Date Name GA/Weeks Outcome Route Bth Weight Infant Gen Labor Lgth Anes thesia Del Locatn Provider FOB 12/06/09 [place] 36 live - 6.8 Male epidur al [place] 07/25/11 Nas[place] 40 live - full term 6#8oz Female epidu ral [place] 06/24/13 [place] 40 live - full term 9.2 Male none [place] 08/31/22 8 spontaneous Delivery Date: 08/31/22 Last Updated by: Gely Heath&Meaghan, [facility] Visit Details Expected Delivery Route/Plan Labor Preferences- CB/BF classes: [] labor support person: [] labor intervention preferences: [] pain management options preferred: [] cut cord/dad catch: [] : [] PP control planned: [] discussed possible routes of delivery and associated risks: [] special requests: [] Plans Covid status: [] Flu vaccine: [] Tdap vaccine: [] Rhogam: [] LARC form signed: [] Problem list reviewed and updated with the most current plan of care details and appropriate orders placed. Relevant counseling for the gestational age provided. Continue routine care and follow up unless otherwise noted in visit notes/problem list details OB Flowsheet Initial Weight: 215 lb Date -?-?-?-?-?-?-?-?-?-?-?-?- EGA Weight BP Urine Prot -?-?-?-?-?-?-?-?-?-?-?-?- Glucose FHR FuHt Pres Dilation -?-?-?-?-?-?-?-?-?-?-?-?- Effaced St Visit Note 06/20/23 -?-?-?-?-?-?-?-?-?-?-?-?- 8w 3d 213 lb 2 oz (-1 lb 14 oz) 127/88 -?-?-?-?-?-?-?-?-?-?-?-?- 168 -?-?-?-?-?-?-?-?-?-?-?-?- KW- CRL cons wit h previous early WCH US. desires NIPT declines AFP 06/25/23 -?-?-?-?-?-?-?-?-?-?-?-?- 9w 1d 211 lb 6 oz (-3 lb 10 oz) 126/84 Negative -?-?-?-?-?-?-?-?-?-?-?-?- Negative 160 -?-?-?-?-?-?-?-?-?-?-?-?- -work for FHT check. She is at point of last loss. No VB. FHT and live IUP easily seen on US 07/05/23 -?-?-?-?-?-?-?-?-?-?-?-?- 10w 4d 215 lb (+0 oz) 139/84 Negative -?-?-?-?-?-?-?-?-?-?-?-?- Negative 170 -?-?-?-?-?-?-?-?-?-?-?-?- SM- having some spotting, subchorionic hematoma seen, fht seen 07/18/23 -?-?-?-?-?-?-?-?-?-?-?-?- 12w 3d 218 lb (+3 lb) 123/80 Negative -?-?-?-?-?-?-?-?-?-?-?-?- Negative 168 -?-?-?-?-?-?-?-?-?-?-?-?- KW- no vb/jak serrano. formal US ordered 07/30/23 -?-?-?-?-?-?-?-?-?-?-?-?- 14w 1d 221 lb (+6 lb) 116/77 Negative -?-?--?-?-?-?-?-?-?-?-?-?- Negative 165 -?-?-?-?-?-?-?-?-?-?-?-?- KW- no vb/crampi ng. US on 08/29. Decline AFP. 08/20/23 -?-?-?-?-?-?-?-?-?-?-?-?- 17w 1d 226 lb 2 oz (+11 lb 2 oz) 116/77 Negative -?-?-?-?-?-?-?-?-?-?-?-?- Negative 140 -?-?-?-?-?-?-?-?-?-?-?-?- Kw- work in. [place] d fall on 08/17 and son fell on her abd. He was able to catch most of his weight on his arms. no bleeding/discharge or cramping. still feeling occasional flutters. A+ blood type. has anatomy US next week. 08/26/23 -?-?-?-?-?-?-?-?-?-?-?-?- 18w 0d 227 lb (+12 lb) 129/90 Negative -?-?-?-?-?-?-?-?-?-?-?-?- Negative 154 -?-?-?-?-?-?-?-?-?-?-?-?- LC- no vb/crampi ng. magnesium LC- no vb/cramping. has soraya dolly on saturday. 09/09/23 -?-?-?-?-?-?-?-?-?-?-?-?- 20w 0d 233 lb (+18 lb) 117/77 -?-?-?-?-?-?-?-?-?-?-?-?- 160 -?-?-?-?-?-?-?-?-?-?-?-?- SM- no vb crampi ng didn't feel movement 09/20/23 -?-?-?-?-?-?-?-?-?-?-?-?- 21w 4d 235 lb (+20 lb) 118/72 Negative -?-?-?-?-?-?-?-?-?-?-?-?- Negative 145 21 -?-?-?-?--?-?-?-?-?-?-?-?- KW- no vb/lof/ct x. good fm. normal anatomy US. Concerns with feeling fatigued and unmotivated feeling disconnected from fetus and concerned with depression. would like to try intentional diet change and increasing activity. discussed SSRIs 10/09/23 -?-?-?-?-?-?-?-?-?-?-?-?- 24w 2d 237 lb (+22 lb) 125/77 Negative -?-?-?-?-?-?-?-?-?-?-?-?- Negative 147 24 -?-?-?-?-?-?-?-?-?-?-?-?- MH-No VB, LOF. G ood Fm. Denies concerns 11/05/23 -?-?-?-?-?-?-?-?-?-?-?-?- 28w 1d 245 lb 2 oz (+30 lb 2 oz) 126/82 Negative -?-?-?-?-?-?-?-?-?-?-?-?- Negative 145 30 0 -?-?-?-?-?-?-?-?-?-?-?-?- JV- pt had some cramping and spotting over the weekend. Vaginitis smear collected today. PTL precautions discussed. plan 36 week growth scan. GCT today pending. Tdap done today. 11/18/23 -?-?-?-?-?-?-?-?-?-?-?-?- 30w 0d 247 lb (+32 lb) 124/82 Negative -?-?-?-?-?-?-?-?-?-?-?-?- Negative 123 32 -?-?-?-?-?-?--?-?-?-?-?-?- JV- no lof, vagi nal bleeding, or dec ROS Constitutional Constitutional: Reports systems reviewed and no addt'l complaints, except as documented Gastrointestinal Gastrointestinal: Denies bloating, constipation, cramping, diarrhea, nausea or vomiting Genitourinary Genitourinary: Reports other Details: Denies vaginal odor, vaginal bleeding, or vaginal discharge ; Denies difficulty urinating or flank pain NST FHR Rate Baby A Baseline: 140 Variability:: Moderate Accelerations:: 15 x 15 Decelerations:: None NST Reactive:: Yes FHR Category:: Category I Assessment & Plan (1) Low oxygen saturation: COMMENT: pt has intermittent SOB and intermittent low pulse ox down to as low as [address] showed atelectasis only. consulting pulm and starting albuterol, growth scans with mfm, bpp's weekly. (2) LGA (large for gestational age) fetus affecting management of mother: COMMENT: history of 9 pound baby- plan 36 week scan (3) Subchorionic hemorrhage in first trimester: (4) History of miscarriage, currently : (5) COVID-19 affecting , antepartum: COMMENT: April 2023 discusses 81 mg ASA (6) Supervision of high-risk : QUALIFIERS: Trimester: first trimester Qualified Code(s): O09.91 - Supervision of high risk , unspecified, first trimester COMMENT: PRR,, boy, VERÓNICA 01/27/24, PC Nasra Nichols Asher, [facility]- [facility] (his first child) (7) : QUALIFIERS: Weeks of gestation: 30 weeks Qualified Code(s): Z3A.30 - 30 weeks gestation of COMMENT: normal anatomy, discussed genetic & carrier testing, NIPT low risk PLAN: Plan nst reactive. bpp now 12/20 ok to dc to home Charges/Coding Multi Select Codes Urinary/Genital Urinary/Genital CPT Codes: 54025-81 non-stress test Interp
== END 2023-12-03 14:35 | disposition home or self-care (01) ==
LOC: US 12:13 → WPOUT 13:21 → WP 13:21
PROVIDERS: Referring Provider Obstetrics & Gynecology; Visit Provider Obstetrics & Gynecology
DX: O99.891 Other specified diseases and conditions complicating pregnancy (principal); Z79.82 Long term (current) use of aspirin; Z87.891 Personal history of nicotine dependence; R06.02 Shortness of breath; O36.63X0 Maternal care for excessive fetal growth, third trimester, not applicable or unspecified; Z3A.30 30 weeks gestation of pregnancy
CPT/HCPCS: 59025; 59050; 76819; 99221; G0378

== ENCOUNTER → 2023-12-10 | Outpatient (CLI) | payer MEDICAID, SELFPAY ==
--- NOTE | 2023-12-10 13:19 | US_ITS ---
INDICATION: well being EXAMINATION: Ultrasound US Biophysical Profile W/O Nonst TECHNIQUE: Transabdominal pelvic ultrasound was performed. COMPARISON: Prior study dated: 12/03/2023 LMP: Unknown. Beta-hCG: Unknown. Provided EGA: None. FINDINGS: INTRAUTERINE GESTATION(s): Single. HEART MOTION is 164 bpm. AMNIOTIC FLUID INDEX (LINDA): 11.7 cm, largest fluid pocket: 4.3 cm. BIOPHYSICAL PROFILE (BPP): 12/18 -- Breathin/2. -- Movement: 2/2. -- Tone: 2/2. --LINDA: 2/2. PRESENTATION: Transverse with the head on the maternal left side. PLACENTA: Fundal. There is no placenta previa or abruption. CERVIX: The cervix is closed. MATERNAL OVARIES: No adnexal masses. FREE FLUID: None. US/Biophysical Prof W/O Non Stres IMPRESSION: Normal biophysical profile with score of 8 out of 8. Electronically Signed: Ashok Ly MD at 14:49 EDT ,
== END | disposition home or self-care (01) ==
LOC: US 13:16
PROVIDERS: Referring Provider Obstetrics & Gynecology; Visit Provider Obstetrics & Gynecology
DX: O99.891 Other specified diseases and conditions complicating pregnancy (principal); R79.81 Abnormal blood-gas level; O36.60X0 Maternal care for excessive fetal growth, unspecified trimester, not applicable or unspecified; Z3A.00 Weeks of gestation of pregnancy not specified
CPT/HCPCS: 76819

== ENCOUNTER 2023-12-17 13:17 | Outpatient (CLI) | payer MEDICAID, SELFPAY ==
--- NOTE | 2023-12-17 13:18 | US_ITS ---
STUDY: OBSTETRICAL ULTRASOUND - BIOPHYSICAL PROFILE REASON FOR EXAM: Female, 33 years old well being LMP: April 22, 2023. PRIOR ULTRASOUND: Comparison is made with prior study dated December 03, 2023. TECHNIQUE: Transabdominal TECHNICAL QUALITY: Adequate. FINDINGS: There is a single intrauterine fetus. The fetus is in a cephalic presentation. There is demonstrated cardiac activity with a heart rate of 132 bpm. There is a normal amniotic fluid volume. The largest amniotic fluid pocket measures 3.7 cm. The amniotic fluid index (LINDA) is 6.6 cm. The placenta is fundal in location. There are Grade 1 placental changes. Age by LMP: 34 weeks, 1 days. VERÓNICA by LMP: January 27, 2024. BIOPHYSICAL PROFILE: Breathing Movements (FBM): 0 Gross Body Movements (GBM): 2 Tone (FT): 2 Amniotic Fluid Volume (AFV): 2 TOTAL SCORE: US/Biophysical Prof W/O Non Stres IMPRESSION: biophysical profile of 10/18. Electronically Signed: Stephon Rod MD at 15:29 EDT ,
[2023-12-17 14:49] VITALS: BMI 41.1
[2023-12-17] MEDS: Lactated Ringers 1,000 ML 999 ML IV (14:51)
[2023-12-17] MEDS: 0.9% Saline Lock 10 ML Syringe IV (14:51)
[2023-12-17 14:53] VITALS: BP 114/65; PULSE 94; RESP 16; TEMP 36.5; O2SAT 97
[2023-12-17 15:30] LABS: ROM Internal Control Test YES-OK TO RESULT pt. (Internal QC); ROM Patient Test Negative (Negative); Record Kit Lot#, ROM+ K1866
--- NOTE | 2023-12-17 17:42 | OB.TRI.HP_ITS ---
HPI - General General Date of Admission: 12/17/23 HPI Narrative KEON CASIANO, is a 33 y/o @ 34 weeks 1 day who presents to L&D after she was found to have a bpp of 6/8 and borderline low LINDA. A fluid bolus and NST was ordered. Maternal Data Information VERÓNICA Calculator Estimated Delivery Date Method Current WG Current Estimate 01/27/24 Ultrasound #1 34w 1d Other Estimates 02/02/24 LMP (Certain) 33w 2d 01/28/24 Ultrasound #2 34w 0d PFSH PFSH Medical History Spotting in early Dysmenorrhea Seizures Former smoker Missed Laceration of right thumb Acute pharyngitis Sore throat Lump of right breast Encounter for screening for COVID-19 Alcohol abuse Fatigue Home Medications ?Medication ?Instructions ?Recorded ?Last Taken ?Type multivitamin no.47-iron fum 27 1 cap PO DAILY 06/14/23 12/17/23 08:00 History mg-folate no.1 1 mg-dha 300 mg 1 cap capsule (PNV-DHA) albuterol sulfate 90 mcg/actuation 2 puff inhalation Q4H PRN 11/26/23 12/10/23 20:00 Rx aerosol inhaler shortness of breath #6.7 grams 2 puff aspirin 81 mg capsule 81 mg PO DAILY 12/03/23 12/17/23 08:00 History 81 mg Allergy/AdvReac Type Severity Reaction Status Date / Time measles, mumps, and rubella Allergy seizure Verified 12/17/23 14:57 vaccine Family History Father Heart disease Diabetes Hypertension CVA (cerebral vascular accident) Surgical History H/O dilation and curettage History of breast biopsy (~02/2021) History of orthopedic surgery History of tonsillectomy and adenoidectomy Social History adopted: No household members: significant other and children number of children: 3 current occupational status: employed current occupation: [employer] current occupational exposures/hazards: No pets and animals: Yes pets and animals: dog(s) history of recent travel: No sexually active: Yes Smoking Status: Former smoker alcohol intake: former year quit: 2018 details: five years- recovering substance use type: does not use diet: gluten free and lactose free well-balanced diet: daily or most days caffeine: No eating out: rarely or never during the past year weight has: remained stable what type of physical activity do you participate in: none mike/christianity: Pentecostalism seatbelt use: always do you feel safe at home: Yes additional social history: BF- [employer] History 5 Elective abortions Hx Para 3 Spontaneous abortions 1 Hx # Term Pregnancies Ectopic pregnancies Hx # Pregnancies Multiple births # of living children 3 Past Pregnancies Del. Date Name GA/Weeks Outcome Route Bth Weight Infant Gen Labor Lgth Anesthesia Del Locat Provider FOB 12/06/09 [place] 36 live - 6.8 Male epidur al [place] 07/25/11 [place] 40 live - full term 6#8oz Female epidu [facility] 06/24/13 [place] 40 live - full term 9.2 Male none [place] 08/31/22 8 spontaneous Delivery Date: 08/31/22 Last Updated by: Gely Heath&Meaghan, [facility] Visit Details Expected Delivery Route/Plan Labor Preferences- CB/BF classes: [] labor support person: [] labor intervention preferences: [] pain management options preferred: [] cut cord/dad catch: [] : [] PP control planned: [] discussed possible routes of delivery and associated risks: [] special requests: [] Plans Covid status: [] Flu vaccine: [] Tdap vaccine: [] Rhogam: [] LARC form signed: [] Problem list reviewed and updated with the most current plan of care details and appropriate orders placed. Relevant counseling for the gestational age provided. Continue routine care and follow up unless otherwise noted in visit notes/problem list details OB Flowsheet Initial Weight: 215 lb Date -?-?-?-?-?-?-?-?-?-?-?-?- EGA Weight BP Urine Prot -?-?-?-?-?-?-?-?-?-?-?-?- Glucose FHR FuHt Pres Dilation -?-?-?-?-?-?-?-?-?-?-?-?- Effaced St Visit Note 06/20/23 -?-?-?-?-?-?-?-?-?-?-?-?- 8w 3d 213 lb 2 oz (-1 lb 14 oz) 127/88 -?-?-?-?-?-?-?-?-?-?-?-?- 168 -?-?-?-?-?-?-?-?-?-?-?-?- KW- CRL cons wit h previous early WCH US. desires NIPT declines AFP 06/25/23 -?-?-?-?-?-?-?-?-?-?-?-?- 9w 1d 211 lb 6 oz (-3 lb 10 oz) 126/84 Negative -?-?-?-?-?-?-?-?-?-?-?-?- Negative 160 -?-?-?-?-?-?-?-?-?-?-?-?- -work for FHT check. She is at point of last loss. No VB. FHT and live IUP easily seen on US 07/05/23 -?-?-?-?-?-?-?-?-?-?-?-?- 10w 4d 215 lb (+0 oz) 139/84 Negative -?-?-?-?-?-?-?-?-?-?-?-?- Negative 170 -?-?-?-?-?-?-?-?-?-?-?-?- SM- having some spotting, subchorionic hematoma seen, fht seen 07/18/23 -?-?-?-?-?-?-?-?-?-?-?-?- 12w 3d 218 lb (+3 lb) 123/80 Negative -?-?-?-?-?-?-?-?-?-?-?-?- Negative 168 -?-?-?-?--?-?-?-?-?-?-?-?- KW- no vb/crampi ng. formal US ordered 07/30/23 -?-?-?-?-?-?-?-?-?-?-?-?- 14w 1d 221 lb (+6 lb) 116/77 Negative -?-?-?-?-?-?-?-?-?-?-?-?- Negative 165 -?-?-?-?-?-?-?-?-?-?-?-?- KW- no vb/crampi ng. US on 08/29. Decline AFP. 08/20/23 -?-?-?-?-?-?-?-?-?-?-?-?- 17w 1d 226 lb 2 oz (+11 lb 2 oz) 116/77 Negative -?-?-?-?-?-?-?-?-?-?-?-?- Negative 140 -?-?-?-?-?-?-?-?-?-?-?-?- Kw- work in. [place] d fall on 08/17 and son fell on her abd. He was able to catch most of his weight on his arms. no bleeding/discharge or cramping. still feeling occasional flutters. A+ blood type. has anatomy US next week. 08/26/23 -?-?-?-?-?-?-?-?-?-?-?-?- 18w 0d 227 lb (+12 lb) 129/90 Negative -?-?-?-?-?-?-?-?-?-?-?-?- Negative 154 -?-?-?-?-?-?-?-?-?-?-?-?- LC- no vb/crampi ng. magnesium LC- no vb/cramping. has soraya dolly on saturday. 09/09/23 -?-?-?-?-?-?-?-?-?-?-?-?- 20w 0d 233 lb (+18 lb) 117/77 -?-?-?-?-?-?-?-?-?-?-?-?- 160 -?-?-?-?-?-?-?-?-?-?-?-?- SM- no vb crampi ng didn't feel movement 09/20/23 -?-?-?-?-?-?-?-?-?-?-?-?- 21w 4d 235 lb (+20 lb) 118/72 Negative -?-?-?-?-?-?-?-?-?-?-?-?- Negative 145 21 -?-?-?-?-?-?-?-?-?-?-?-?- KW- no vb/lof/ct x. good fm. normal anatomy US. Concerns with feeling fatigued and unmotivated feeling disconnected from fetus and concerned with depression. would like to try intentional diet change and increasing activity. discussed SSRIs 10/09/23 -?-?-?-?-?-?-?-?-?-?-?-?- 24w 2d 237 lb (+22 lb) 125/77 Negative -?-?-?-?-?-?-?-?-?-?-?-?- Negative 147 24 -?-?-?-?-?-?-?-?-?-?-?-?- MH-No VB, LOF. G ood Fm. Denies concerns 11/05/23 -?-?-?-?-?-?-?-?-?-?-?--?- 28w 1d 245 lb 2 oz (+30 lb 2 oz) 126/82 Negative -?-?-?-?-?-?-?-?-?-?-?-?- Negative 145 30 0 -?-?-?-?-?-?-?-?-?-?-?-?- JV- pt had some cramping and spotting over the weekend. Vaginitis smear collected today. PTL precautions discussed. plan 36 week growth scan. GCT today pending. Tdap done today. 11/18/23 -?-?-?-?-?-?-?-?-?-?-?-?- 30w 0d 247 lb (+32 lb) 124/82 Negative -?-?-?-?-?-?-?-?-?-?-?-?- Negative 123 32 -?-?-?-?-?-?-?-?-?-?-?-?- JV- no lof, vagi nal bleeding, or 12/05/23 -?-?-?-?-?-?-?-?-?-?-?-?- 32w 3d 252 lb 2 oz (+37 lb 2 oz) 121/75 Negative -?-?-?-?-?-?-?-?-?-?-?-?- Negative 144 35 -?-?-?-?-?-?-?-?-?-?-?-?- JV- no lof, vagi nal bleeding, or apr fm. still has not been to pulmonology yet. The lowest her pulse ox got to was 92 this week. continue weekly bpps and monthly growth scans. discussed her situation with Dr. Dahl in [facility]. 12/16/23 -?-?-?-?-?-?-?-?-?-?-?-?- 34w 0d 259 lb (+44 lb) 122/80 Negative -?-?-?-?-?-?-?-?-?-?-?-?- Negative 150 34 -?-?-?-?-?-?-?-?-?-?-?-?- kw- no vb/ctx. g ood fm. has BPP tomorrow ROS Constitutional Constitutional: Reports systems reviewed and no addt'l complaints, except as documented Gastrointestinal Gastrointestinal: Denies bloating, constipation, cramping, diarrhea, nausea or vomiting Genitourinary Genitourinary: Reports other Details: Denies vaginal odor, vaginal bleeding, or vaginal discharge ; Denies difficulty urinating or flank pain Physical Exam HEENT normocephalic Resp normal respiratory effort and normal air movement no CVA tenderness Extremity normal to inspection General Extremity: edema bilateral (trace ) NST FHR Rate Baby A Baseline: 140 Variability:: Moderate Accelerations:: 15 x 15 Decelerations:: None NST Reactive:: Yes FHR Category:: Category I Assessment & Plan (1) Low amniotic fluid volume: COMMENT: linda 6.6 on 12/17/23, IV fluids and rom + collected. plan to repeat 2 days (2) Low oxygen saturation: (3) LGA (large for gestational age) fetus affecting management of mother: COMMENT: history of 9 pound baby- plan 36 week scan (4) Subchorionic hemorrhage in first trimester: (5) History of miscarriage, currently : (6) COVID-19 affecting , antepartum: COMMENT: April 2023 discusses 81 mg ASA (7) Supervision of high-risk : QUALIFIERS: Trimester: first trimester Qualified Code(s): O09.91 - Supervision of high risk , unspecified, first trimester COMMENT: PRR,, boy, VERÓNICA 01/27/24, PC Nasra Nichols Asher, [facility]- [place] (his first child) (8) : QUALIFIERS: Weeks of gestation: 34 weeks Qualified Code(s): Z3A.34 - 34 weeks gestation of COMMENT: normal anatomy, discussed genetic & carrier testing, NIPT low risk Charges/Coding Multi Select Codes Visit Charges Office Visit/Consults: 02926 OV L3 Est 20min Urinary/Genital Urinary/Genital CPT Codes: 83050-36 non-stress test Interp
== END 2023-12-17 17:47 | disposition home or self-care (01) ==
LOC: US 14:18 → WP 14:20
PROVIDERS: Referring Provider Obstetrics & Gynecology; Visit Provider Obstetrics & Gynecology
DX: O26.23 Pregnancy care for patient with recurrent pregnancy loss, third trimester (principal); Z86.16 Personal history of COVID-19; Z3A.34 34 weeks gestation of pregnancy; O36.63X0 Maternal care for excessive fetal growth, third trimester, not applicable or unspecified; Z87.891 Personal history of nicotine dependence
CPT/HCPCS: 96360; 59025; 59050; 76819; 84112; 99221; J7120; A4216; G0378

== ENCOUNTER → 2023-12-19 | Outpatient (CLI) | payer MEDICAID, SELFPAY ==
--- NOTE | 2023-12-19 07:58 | US_ITS ---
STUDY: SECOND AND THIRD TRIMESTER OBSTETRICAL ULTRASOUND - LIMITED REASON FOR EXAM: Female, 33 years old LINDA LMP: 04/22/2023 PRIOR ULTRASOUND: Prior study dated: 12/17/2023 TECHNIQUE: Transabdominal pelvic ultrasound. TECHNICAL QUALITY: Adequate. FINDINGS: There is a single intrauterine fetus. The fetus is in a cephalic presentation. There is demonstrated cardiac activity with a heart rate of 137 bpm. There is decreased amniotic fluid volume consistent with oligohydramnios. The amniotic fluid index (LINDA) is 6.2 cm. Maximum vertical pocket 2.5 cm. The placenta is fundal. There are Grade 1 placental changes. The cervix is not visualized. US/OB Limited (No Biometrics) IMPRESSION: Oligohydramnios. Electronically Signed: Israel Jo MD at 12:14 EDT ,
== END | disposition home or self-care (01) ==
LOC: OPUS 07:57
PROVIDERS: Visit Provider Obstetrics & Gynecology
DX: O41.00X0 Oligohydramnios, unspecified trimester, not applicable or unspecified (principal); Z3A.00 Weeks of gestation of pregnancy not specified
CPT/HCPCS: 76815

== ENCOUNTER → 2023-12-20 | Outpatient (CLI) | payer MEDICAID, SELFPAY ==
--- NOTE | 2023-12-20 15:24 | US_ITS ---
HISTORY: growth. TECHNIQUE: Transabdominal pelvic ultrasound was performed. 42 images. COMPARISON: Ultrasound same day. FINDINGS: INTRAUTERINE GESTATION(s): Single. PRESENTATION: Cephalic. HEART MOTION: 144 bpm. PLACENTA: Fundal, grade 2. CERVIX: Not well-visualized. AMNIOTIC FLUID INDEX (LINDA): 11.5 cm. Maximum vertical pocket 3.4 cm. BIOPHYSICAL PROFILE (BPP): Refer to separately dictated report. biometry- BIPARIETAL DIAMETER: 8.7 cm, corresponding to 35 weeks 1 day. HEAD CIRCUMFERENCE: 10.7 cm, corresponding to 34 weeks 2 days. ABDOMINAL CIRCUMFERENCE: 31.5 cm, corresponding to 35 weeks 3 days. FEMUR LENGTH: 6.7 cm, corresponding to 34 weeks 2 days. ESTIMATED GESTATIONAL AGE: 34 weeks 6 days. ESTIMATED DUE DATE (VERÓNICA): 01/25/2024. ESTIMATED WEIGHT: 2614 g corresponding to 63rd percentile. US/OB Limited With Biometrics IMPRESSION: Single living intrauterine with an estimated gestational age of 34 weeks 6 days. Electronically Signed: Jennifer Vasques MD at 9:54 EDT ,
--- NOTE | 2023-12-20 15:24 | US_ITS ---
INDICATION: well being EXAMINATION: Ultrasound US Biophysical Profile W/O Nonst TECHNIQUE: Transabdominal pelvic ultrasound was performed. COMPARISON: December 19, 2023. Provided EGA: 34 weeks 4 days correlating with January 27, 2024 delivery date. FINDINGS: Single live intrauterine with current cephalic presentation. Cervix is obscured by cranial shadow. heart rate 150 bpm. LINDA 12.8 cm with deepest vertical pocket 5.7 cm. Placenta fundal without evidence of abruption BIOPHYSICAL PROFILE (BPP): 12/18 -- Breathin/2. -- Movement: 2/2. -- Tone: 2/2. --LINDA: 2/2. US/Biophysical Prof W/O Non Stres IMPRESSION: Single live intrauterine with normal heart rate. Biophysical profile normal, 8 out of 8 . Electronically Signed: Jhonny Baptiste MD at 8:57 EDT ,
== END | disposition home or self-care (01) ==
LOC: US 15:21
PROVIDERS: Referring Provider Obstetrics & Gynecology; Visit Provider Obstetrics & Gynecology
DX: O41.00X0 Oligohydramnios, unspecified trimester, not applicable or unspecified (principal); Z3A.00 Weeks of gestation of pregnancy not specified
CPT/HCPCS: 76816; 76819

== ENCOUNTER 2023-12-23 10:40 | Outpatient (CLI) | payer MEDICAID, SELFPAY ==
--- NOTE | 2023-12-23 10:46 | US_ITS ---
INDICATION: R/O Oligohydramnios EXAMINATION: Ultrasound US Biophysical Profile W/O Nonst TECHNIQUE: Transabdominal pelvic ultrasound was performed. COMPARISON: Prior study dated: 12/20/2023 LMP: Unknown. Beta-hCG: Unknown. Provided EGA: None. FINDINGS: INTRAUTERINE GESTATION(s): Single. HEART MOTION is 145 bpm. AMNIOTIC FLUID INDEX (LINDA): 9.1 cm, MVP: 3.8 cm BIOPHYSICAL PROFILE (BPP): 12/18 -- Breathin/2. -- Movement: 2/2. -- Tone: 2/2. --LINDA: 2/2. PRESENTATION: Cephalic PLACENTA: Fundal. There is no placenta previa or abruption. CERVIX: Cervix is not visualized. MATERNAL OVARIES: No adnexal masses. FREE FLUID: None. US/Biophysical Prof W/O Non Stres IMPRESSION: Normal biophysical profile with score of 8 out of 8. Electronically Signed: Ashok Ly MD at 11:53 EDT ,
[2023-12-23 10:56] VITALS: BMI 40.6
[2023-12-23 10:58] VITALS: BP 113/79; PULSE 103; PULSE 97; RESP 16; TEMP 36.9; O2SAT 93; O2SAT 96
--- NOTE | 2023-12-23 12:25 | OB.TRI.PN_ITS ---
Progress Notes Date of Service: 12/23/23 Progress Note: Patient presents for triage evaluation secondary to NST and BPP for LINDA. FHT: 135 Moderate variability reactive no decelerations category I tracing [place]: no Contractions Assessment and plan: BPP 12/18, LINDA 9.1, Reactive NST, reassuring maternal and status patient discharged to home to follow-up in office as scheduled. See problem list details for additional plan information. Charges/Coding Multi Select Codes Urinary/Genital Urinary/Genital CPT Codes: 24935-04 non-stress test Interp Assessment & Plan (1) History of oligohydramnios: COMMENT: previous induced at 36 weeks (2) Low amniotic fluid volume: COMMENT: linda 6.6 on 12/17/23, repeat 9.1 12/23/23, IV fluids and rom negative. repeat linda 6.2cm with 2.5cm pocket. reviewed twice daily kick counts, BPP/LINDA twice weekly for now, recommend IOL if decreased fm or oligo (3) Low oxygen saturation: (4) LGA (large for gestational age) fetus affecting management of mother: COMMENT: history of 9 pound baby- plan 36 week scan (5) Subchorionic hemorrhage in first trimester: (6) History of miscarriage, currently : (7) COVID-19 affecting , antepartum: COMMENT: April 2023 discusses 81 mg ASA (8) Supervision of high-risk : QUALIFIERS: Trimester: first trimester Qualified Code(s): O09.91 - Supervision of high risk , unspecified, first trimester COMMENT: PRR,, boy, VERÓNICA 01/27/24, Nasra Shabazz Asher, Fiance- Garrison (his first child) (9) : QUALIFIERS: Weeks of gestation: 35 weeks Qualified Code(s): Z3A.35 - 35 weeks gestation of COMMENT: normal anatomy, discussed genetic & carrier testing, NIPT low risk
== END 2023-12-23 12:30 | disposition home or self-care (01) ==
LOC: WPOUT 10:43 → WP 10:44
PROVIDERS: Referring Provider Advanced Practice Midwife; Visit Provider Advanced Practice Midwife
DX: O09.93 Supervision of high risk pregnancy, unspecified, third trimester (principal); Z3A.35 35 weeks gestation of pregnancy
CPT/HCPCS: 59025; 59050; 76819; 99221; G0378

== ENCOUNTER → 2023-12-27 | Outpatient (CLI) | payer MEDICAID, SELFPAY ==
--- NOTE | 2023-12-27 13:31 | US_ITS ---
EXAM: US BIOPHYSICAL PROFILE WITHOUT NON-STRESS TESTING CLINICAL INDICATION: well being TECHNIQUE: Real-time ultrasound of the maternal pelvis for biophysical profile evaluation with image documentation. COMPARISON: 12/23/2023 FINDINGS: BREATHING MOVEMENTS: Present. Score 2/2. GROSS BODY MOVEMENTS: Present. Score 2/2. TONE: Present. Score 2/2. QUALITATIVE AMNIOTIC FLUID VOLUME: Amniotic fluid volume is 9.5 cm with largest fluid pocket of 4.6 cm. HEART RATE: heart rate: 158 bpm. PRESENTATION: Cephalic presentation. PLACENTA: Fundal placenta. US/Biophysical Prof W/O Non Stres IMPRESSION: No acute findings. Normal biophysical profile with score of 8/8. Electronically Signed: Erasto Butterfield DO at 14:43 EDT ,
== END | disposition home or self-care (01) ==
LOC: US 13:24
PROVIDERS: Referring Provider Obstetrics & Gynecology; Visit Provider Obstetrics & Gynecology
DX: R79.81 Abnormal blood-gas level (principal); O36.60X0 Maternal care for excessive fetal growth, unspecified trimester, not applicable or unspecified; Z3A.00 Weeks of gestation of pregnancy not specified
CPT/HCPCS: 76819

== ENCOUNTER → 2023-12-30 | Outpatient (CLI) | payer MEDICAID, SELFPAY | END | disposition home or self-care (01) | LOC: LABSPEC 12:02 | PROVIDERS: Referring Provider Obstetrics & Gynecology; Visit Provider Obstetrics & Gynecology | DX: O09.91 Supervision of high risk pregnancy, unspecified, first trimester (principal); Z3A.00 Weeks of gestation of pregnancy not specified | CPT/HCPCS: 87081 ==

== ENCOUNTER → 2023-12-31 | Outpatient (CLI) | payer MEDICAID, SELFPAY ==
--- NOTE | 2023-12-31 11:32 | US_ITS ---
STUDY: OBSTETRICAL ULTRASOUND - BIOPHYSICAL PROFILE REASON FOR EXAM: Female, 33 years old well being LMP: April 22, 2023. PRIOR ULTRASOUND: Comparison is made with prior study December 27, 2023. TECHNIQUE: Transabdominal TECHNICAL QUALITY: Adequate. FINDINGS: There is a single intrauterine fetus. The fetus is in a cephalic presentation. There is demonstrated cardiac activity with a heart rate of 155 bpm. There is a normal amniotic fluid volume. The largest amniotic fluid pocket measures 4.4 cm. The amniotic fluid index (LINDA) is 10 cm. The placenta is posterior and fundal in location and is not low lying. There are Grade 2 placental changes. Age by LMP: 36 weeks, 1 days. VERÓNICA by LMP: January 27, 2024. BIOPHYSICAL PROFILE: Breathing Movements (FBM): 2 Gross Body Movements (GBM): 2 Tone (FT): 2 Amniotic Fluid Volume (AFV): 2 TOTAL SCORE: US/Biophysical Prof W/O Non Stres IMPRESSION: Normal biophysical profile of 12/18. Electronically Signed: Stephon Rod MD at 12:12 EDT ,
== END | disposition home or self-care (01) ==
LOC: US 11:29
PROVIDERS: Referring Provider Obstetrics & Gynecology; Visit Provider Obstetrics & Gynecology
DX: R79.81 Abnormal blood-gas level (principal); O36.60X0 Maternal care for excessive fetal growth, unspecified trimester, not applicable or unspecified; Z3A.00 Weeks of gestation of pregnancy not specified
CPT/HCPCS: 76819

== ENCOUNTER 2024-01-06 20:20 | Outpatient (CLI) | payer MEDICAID, SELFPAY ==
[2024-01-06 20:26] VITALS: BMI 41.0
[2024-01-06 20:40] VITALS: BP 124/76; PULSE 88; RESP 16; TEMP 36.7
[2024-01-06 21:53] LABS: Color, Urine Yellow (Yellow); Glucose, Dipstick Normal (Normal); Ketone-Dipstick Negative (Negative); Leukocyte Esterase-Dipstick 25 /ul (Negative); Nitrite-Dipstick Negative (Negative); Occult Blood-Urine 250 /ul (Negative); Protein-Dipstick 15 mg/dl (Negative); Urine Bilirubin Dipstick Negative (Negative); Urine Clarity Clear (Clear); Urine Urobilinogen Normal (Normal)
--- NOTE | 2024-01-06 22:06 | OB.TRI.PN_ITS ---
Progress Notes Date of Service: 01/06/24 Progress Note: Patient presents for triage evaluation secondary to vaginal bleeding FHT: 130 Moderate variability reactive no decelerations category I tracing [place]: irregular Contractions Assessment and plan: no active vaginal bleeding while on unit, cervical exam unchanged from office exam previously done today, Reactive NST, reassuring maternal and status patient discharged to home to follow-up in office. See problem list details for additional plan information. Laboratory Studies: Laboratory Tests 01/06/24 Range/Units 21:30 Urine Color Yellow (Yellow) Urine Clarity Clear (Clear) Urine pH 5.0 (5.0 - 8.0) Ur Specific [place] 1.020 (1.002-1.030) Urine Protein 15 H (Negative) mg/dl Urine Glucose (UA) Normal (Normal) mg/dl Urine Ketones Negative (Negative) mg/dl Urine Occult Blood 250 H (Negative) /ul Urine Nitrite Negative (Negative) Urine Bilirubin Negative (Negative) mg/dL Urine Urobilinogen Normal (Normal) mg/dl Ur Leukocyte Esterase 25 H (Negative) /ul Charges/Coding Multi Select Codes Urinary/Genital Urinary/Genital CPT Codes: 46147-04 non-stress test Interp Assessment & Plan (1) Vaginal bleeding during : COMMENT: no change in cervical exam, active bleeding. d/c home (2) History of oligohydramnios: COMMENT: previous induced at 36 weeks (3) Low amniotic fluid volume: COMMENT: linda 6.6 on 12/17/23, repeat 9.1 12/23/23, IV fluids and rom negative. repeat linda 6.2cm with 2.5cm pocket. reviewed twice daily kick counts, BPP/LINDA twice weekly for now, recommend IOL if decreased fm or oligo (4) Low oxygen saturation: (5) LGA (large for gestational age) fetus affecting management of mother: COMMENT: history of 9 pound baby- plan 36 week scan (6) History of miscarriage, currently : (7) COVID-19 affecting , antepartum: COMMENT: April 2023 discusses 81 mg ASA (8) Supervision of high-risk : QUALIFIERS: Trimester: first trimester Qualified Code(s): O09.91 - Supervision of high risk , unspecified, first trimester COMMENT: PRR,, boy, VERÓNICA 01/27/24, boy Nasra Sanders Asher, Fiance- Garrison (his first child) (9) : QUALIFIERS: Weeks of gestation: 37 weeks Qualified Code(s): Z3A.37 - 37 weeks gestation of COMMENT: GBS Negative, normal anatomy, discussed genetic & carrier testing, NIPT low risk
== END 2024-01-06 22:13 | disposition home or self-care (01) ==
LOC: WPOUT 20:22 → WP 20:22
PROVIDERS: Referring Provider Advanced Practice Midwife; Visit Provider Advanced Practice Midwife
DX: O46.93 Antepartum hemorrhage, unspecified, third trimester (principal); Z3A.37 37 weeks gestation of pregnancy; O09.93 Supervision of high risk pregnancy, unspecified, third trimester
CPT/HCPCS: 59025; 59050; 81002; 99221; G0378

== ENCOUNTER → 2024-01-07 | Outpatient (CLI) | payer MEDICAID, SELFPAY ==
--- NOTE | 2024-01-07 08:55 | US_ITS ---
STUDY: OBSTETRICAL ULTRASOUND - BIOPHYSICAL PROFILE REASON FOR EXAM: Female, 33 years old well being BPP/LINDA LMP: April 22, 2023. PRIOR ULTRASOUND: Comparison is made with prior study December 31, 2023. TECHNIQUE: Transabdominal TECHNICAL QUALITY: Adequate. FINDINGS: There is a single intrauterine fetus. The fetus is in a cephalic presentation. There is demonstrated cardiac activity with a heart rate of 144 bpm. There is a normal amniotic fluid volume. The largest amniotic fluid pocket measures 3.3 cm. The amniotic fluid index (LINDA) is 8.4 cm. The placenta is fundal in location. There are Grade 1 placental changes. Age by LMP: 37 weeks, 1 days. VERÓNICA by LMP: January 27, 2024. BIOPHYSICAL PROFILE: Breathing Movements (FBM): 2 Gross Body Movements (GBM): 2 Tone (FT): 2 Amniotic Fluid Volume (AFV): 2 TOTAL SCORE: US/Biophysical Prof W/O Non Stres IMPRESSION: Normal biophysical profile of 12/18. Electronically Signed: Stephon Rod MD at 11:21 EDT ,
== END | disposition home or self-care (01) ==
LOC: US 08:53
PROVIDERS: Referring Provider Obstetrics & Gynecology; Visit Provider Obstetrics & Gynecology
DX: R79.81 Abnormal blood-gas level (principal); O36.60X0 Maternal care for excessive fetal growth, unspecified trimester, not applicable or unspecified; Z3A.00 Weeks of gestation of pregnancy not specified
CPT/HCPCS: 76819

== ENCOUNTER → 2024-01-14 | Outpatient (CLI) | payer MEDICAID, SELFPAY ==
--- NOTE | 2024-01-14 12:29 | US_ITS ---
STUDY: OBSTETRICAL ULTRASOUND - BIOPHYSICAL PROFILE REASON FOR EXAM: Female, 33 years old well being LMP: April 22, 2023. PRIOR ULTRASOUND: Comparison is made with prior study of January 07, 2024. TECHNIQUE: Transabdominal TECHNICAL QUALITY: Adequate. FINDINGS: There is a single intrauterine fetus. The fetus is in a cephalic presentation. There is demonstrated cardiac activity with a heart rate of 140 bpm. There is a normal amniotic fluid volume. The largest amniotic fluid pocket measures 3.8 cm. The amniotic fluid index (LINDA) is 10.7 cm. The placenta is fundal in location. There are Grade 1 placental changes. Age by LMP: 38 weeks, 1 days. VERÓNICA by LMP: January 27, 2024. BIOPHYSICAL PROFILE: Breathing Movements (FBM): 2 Gross Body Movements (GBM): 2 Tone (FT): 2 Amniotic Fluid Volume (AFV): 2 TOTAL SCORE: US/Biophysical Prof W/O Non Stres IMPRESSION: Normal biophysical profile of 12/18. Electronically Signed: Stephon Rod MD at 10:41 EDT ,
== END | disposition home or self-care (01) ==
LOC: US 12:27
PROVIDERS: Referring Provider Obstetrics & Gynecology; Visit Provider Obstetrics & Gynecology
DX: R79.81 Abnormal blood-gas level (principal); O36.60X0 Maternal care for excessive fetal growth, unspecified trimester, not applicable or unspecified; Z3A.38 38 weeks gestation of pregnancy
CPT/HCPCS: 76819

== ENCOUNTER 2024-01-28 07:11 | Inpatient (IN) | payer MEDICAID, SELFPAY ==
[2024-01-28] VITALS (97 sets, daily range): BP systolic 88–180; BP diastolic 50–87; PULSE 72–166; RESP 14–18; TEMP 36.1–37.4; O2SAT 91–100; BMI 41.8
[2024-01-28] MEDS: Lactated Ringers 1,000 ML 50 ML IV ×2 (07:40→13:35)
--- NOTE | 2024-01-28 07:49 | HP.PCM.OB_ITS ---
HPI - General General Date of Admission: 01/28/24 HPI Narrative KEON CASIANO, is a 33 y/o @ 40 weeks 1 day who presents to L&D for IOL. She denies loss of fluid, vaginal bleeding, or dec FM. The plan is for a espinosa bulb placement and pitocin this am. Maternal Data Information VERÓNICA Calculator Estimated Delivery Date Method Current WG Current Estimate 01/27/24 Ultrasound #1 40w 1d Other Estimates 02/02/24 LMP (Certain) 39w 2d 01/28/24 Ultrasound #2 40w 0d PFSH PFSH Medical History Spotting in early Dysmenorrhea Seizures Former smoker Missed Laceration of right thumb Acute pharyngitis Sore throat Lump of right breast Encounter for screening for COVID-19 Alcohol abuse Fatigue Home Medications ?Medication ?Instructions ?Recorded ?Last Taken ?Type multivitamin no.47-iron fum 27 1 cap PO DAILY 06/14/23 01/28/24 06:30 History mg-folate no.1 1 mg-dha 300 mg capsule (PNV-DHA) albuterol sulfate 90 mcg/actuation 2 puff inhalation Q4H PRN 11/26/23 01/28/24 06:30 Rx aerosol inhaler shortness of breath #6.7 grams aspirin 81 mg capsule 81 mg PO DAILY 12/03/23 01/28/24 06:30 History Allergy/AdvReac Type Severity Reaction Status Date / Time measles, mumps, and rubella Allergy seizure Verified 01/28/24 07:14 vaccine Family History Father Heart disease Diabetes Hypertension CVA (cerebral vascular accident) Surgical History H/O dilation and curettage History of breast biopsy (~02/2021) History of orthopedic surgery History of tonsillectomy and adenoidectomy Social History adopted: No household members: significant other and children number of children: 3 current occupational status: employed current occupation: [employer] current occupational exposures/hazards: No pets and animals: Yes pets and animals: dog(s) history of recent travel: No sexually active: Yes Smoking Status: Former smoker alcohol intake: former year quit: 2018 details: five years- recovering substance use type: does not use diet: gluten free and lactose free well-balanced diet: daily or most days caffeine: No eating out: rarely or never during the past year weight has: remained stable what type of physical activity do you participate in: none mike/orthodox: Uatsdin seatbelt use: always do you feel safe at home: Yes additional social history: BF- [employer] History 5 Elective abortions Hx Para 3 Spontaneous abortions 1 Hx # Term Pregnancies Ectopic pregnancies Hx # Pregnancies Multiple births # of living children 3 Past Pregnancies Del. Date Name GA/Weeks Outcome Route Bth Weight Infant Gen Labor Lgth Anesthesia Del Locatn Provider FOB 12/06/09 Sim[place] 36 live - 6.8 Male epidur al [place] 07/25/11 Nasra 40 live - full term 6#8oz Female epidu ral [place] 06/24/13 [place] 40 live - full term 9.2 Male none [place] 08/31/22 8 spontaneous Delivery Date: 08/31/22 Last Updated by: Gely Heath&Meaghan, [facility] Visit Details Expected Delivery Route/Plan Labor Preferences- CB/BF classes: [] labor support person: [] labor intervention preferences: [] pain management options preferred: [] cut cord/dad catch: [] : [] PP control planned: [] discussed possible routes of delivery and associated risks: [] special requests: [] Plans Covid status: [] Flu vaccine: [] Tdap vaccine: [] Rhogam: [] LARC form signed: [] Problem list reviewed and updated with the most current plan of care details and appropriate orders placed. Relevant counseling for the gestational age provided. Continue routine care and follow up unless otherwise noted in visit notes/problem list details OB Flowsheet Initial Weight: 215 lb Date -?-?-?-?-?-?-?-?-?-?-?-?- EGA Weight BP Urine Prot -?-?-?-?-?-?-?-?-?-?-?-?- Glucose FHR FuHt Pres Dilation -?-?-?-?-?-?-?-?-?-?-?-?- Effaced St Visit Note 06/20/23 -?-?-?-?-?-?-?-?-?-?-?-?- 8w 3d 213 lb 2 oz (-1 lb 14 oz) 127/88 -?-?-?-?-?-?--?-?-?-?-?-?- 168 -?-?-?-?-?-?-?-?-?-?-?-?- KW- CRL cons wit h previous early WCH US. desires NIPT declines AFP 06/25/23 -?-?-?-?-?-?-?-?-?-?-?-?- 9w 1d 211 lb 6 oz (-3 lb 10 oz) 126/84 Negative -?-?-?-?-?-?-?-?-?-?-?-?- Negative 160 -?-?-?-?-?-?-?-?-?-?-?-?- -work for FHT check. She is at point of last loss. No VB. FHT and live IUP easily seen on US 07/05/23 -?-?-?-?-?-?-?-?-?-?-?-?- 10w 4d 215 lb (+0 oz) 139/84 Negative -?-?-?-?-?-?-?-?-?-?-?-?- Negative 170 -?-?-?-?-?-?-?-?-?-?-?-?- SM- having some spotting, subchorionic hematoma seen, fht seen 07/18/23 -?-?-?-?-?-?-?-?-?-?-?-?- 12w 3d 218 lb (+3 lb) 123/80 Negative -?-?-?-?-?-?-?-?-?-?-?-?- Negative 168 -?-?-?-?-?-?-?-?-?-?-?-?- KW- no vb/jak ng. formal US ordered 07/30/23 -?-?-?-?-?-?-?-?-?-?-?-?- 14w 1d 221 lb (+6 lb) 116/77 Negative -?-?-?-?-?-?-?-?-?-?-?-?- Negative 165 -?-?-?-?-?-?-?-?-?-?-?-?- KW- no vb/crampi ng. US on 08/29. Decline AFP. 08/20/23 -?-?-?-?--?-?-?-?-?-?-?-?- 17w 1d 226 lb 2 oz (+11 lb 2 oz) 116/77 Negative -?-?-?-?-?-?-?-?-?-?-?-?- Negative 140 -?-?-?-?-?-?-?-?-?-?-?-?- Kw- work in. [employer] d fall on 08/17 and son fell on her abd. He was able to catch most of his weight on his arms. no bleeding/discharge or cramping. still feeling occasional flutters. A+ blood type. has anatomy US next week. 08/26/23 -?-?-?-?-?-?-?-?-?-?-?-?- 18w 0d 227 lb (+12 lb) 129/90 Negative -?-?-?-?-?-?-?-?-?-?-?-?- Negative 154 -?-?-?-?-?-?-?-?-?-?-?-?- LC- no vb/crampi ng. magnesium LC- no vb/cramping. has soraya dolly on saturday. 09/09/23 -?-?-?-?-?-?-?-?-?-?-?-?- 20w 0d 233 lb (+18 lb) 117/77 -?-?-?-?-?-?-?-?-?-?-?-?- 160 -?-?-?-?-?-?-?-?-?-?-?-?- SM- no vb crampi ng didn't feel movement 09/20/23 -?-?-?-?-?-?-?-?-?-?-?-?- 21w 4d 235 lb (+20 lb) 118/72 Negative -?-?-?-?-?-?-?-?-?-?-?-?- Negative 145 21 -?-?-?-?-?-?-?-?-?-?-?-?- KW- no vb/lof/ct x. good fm. normal anatomy US. Concerns with feeling fatigued and unmotivated feeling disconnected from fetus and concerned with depression. would like to try intentional diet change and increasing activity. discussed SSRIs 10/09/23 -?-?-?-?-?-?-?-?-?-?-?-?- w 2d 237 lb (+22 lb) 125/77 Negative -?-?-?-?-?-?-?-?-?-?-?-?- Negative 147 24 -?-?-?-?-?-?-?-?-?-?-?-?- MH-No VB, LOF. G ood Fm. Denies concerns 11/05/23 -?-?-?-?-?-?-?-?-?-?-?-?- 28w 1d 245 lb 2 oz (+30 lb 2 oz) 126/82 Negative -?-?-?-?-?-?-?-?-?-?-?-?- Negative 145 30 0 -?-?--?-?-?-?-?-?-?-?-?-?- JV- pt had some cramping and spotting over the weekend. Vaginitis smear collected today. PTL precautions discussed. plan 36 week growth scan. GCT today pending. Tdap done today. 11/18/23 -?-?-?-?-?-?-?-?-?-?-?-?- 30w 0d 247 lb (+32 lb) 124/82 Negative -?-?-?-?-?-?-?-?-?-?-?-?- Negative 123 32 -?-?-?-?-?-?-?-?-?-?-?-?- JV- no lof, vagi nal bleeding, or dec 12/05/23 -?-?-?-?-?-?-?-?-?-?-?-?- 32w 3d 252 lb 2 oz (+37 lb 2 oz) 121/75 Negative -?-?-?-?-?-?-?-?-?-?-?-?- Negative 144 35 -?-?-?-?-?-?-?-?-?-?-?-?- JV- no lof, vagi nal bleeding, or dec fm. still has not been to pulmonology yet. The lowest her pulse ox got to was 92 this week. continue weekly bpps and monthly growth scans. discussed her situation with Dr. Dahl in [facility]. 12/16/23 -?-?-?-?-?-?--?-?-?-?-?-?- 34w 0d 259 lb (+44 lb) 122/80 Negative -?-?-?-?-?-?-?-?-?-?-?-?- Negative 150 34 -?-?-?-?-?-?-?-?-?-?-?-?- kw- no vb/ctx. g ood fm. has BPP tomorrow 12/30/23 -?-?-?-?-?-?-?-?-?-?-?-?- 36w 0d 245 lb (+30 lb) 113/75 -?-?-?-?-?-?-?-?-?-?-?-?- 135 Cephal[place] 1 -?-?-?-?-?-?-?-?-?-?-?-?- SM- SM- no vb lof good fm no reg ular ctx LINDA today 01/06/24 -?-?-?-?-?-?-?-?-?-?-?-?- 37w 0d 254 lb (+39 lb) 127/85 Negative -?-?-?-?-?-?-?-?-?-?-?-?- Negative 144 37 Cephalic 1 -?-?-?-?-?-?-?-?-?-?-?-?- 0 -3 JV- had so me bloody show this am. no complaints other than lack of sleep. continue weekly bpps. 01/16/24 -?-?-?-?-?-?-?-?-?-?-?-?- 38w 3d 258 lb (+43 lb) 124/86 Negative -?-?-?-?-?-?-?-?-?-?-?-?- Negative 140 39 Cephalic 2 -?-?-?-?-?-?-?-?-?-?-?-?- 50 -3 kw- no vb/ lof/ctx. good fm. 01/22/24 -?-?-?-?-?-?-?-?-?-?-?-?- 39w 2d 258 lb 8 oz (+43 lb 8 oz) 124/77 Negative -?-?-?-?-?-?-?-?-?-?-?-?- Negative 137 40 Cephalic 2 -?-?-?-?-?-?-?-?-?-?-?-?- 50 -3 JV- no lof , vaginal bleeding, or dec fm. planning IOL at 40 weeks ROS Constitutional Constitutional: Denies change in weight, fatigue, fever(s), headache(s), poor appetite or weakness Eyes Eyes: Denies blurry vision, change in vision, seeing flashes or spots in vision ENT HEENT: Denies dizziness, headache(s), loss taste/smell or sore throat Cardiovascular Cardiovascular: Denies chest pain, dizziness, dyspnea, irregular heart rhythm, leg edema, palpitations, rapid heart rate or vomiting Respiratory/Chest Respiratory/Chest: Denies chest tightness, cough, dyspnea or breast pain Gastrointestinal Gastrointestinal: Denies abdominal pain, anorexia, constipation, cramping, diarrhea, hemorrhoids, vomiting or weight changes Genitourinary Genitourinary: Denies dysuria, flank pain, genital lesions, genital pain, urinary frequency or urinary urgency Musculoskeletal Musculoskeletal: Denies back pain, difficulty walking, joint pain, limited range of motion, muscle cramps or numbness Integumentary Integumentary: Denies lesions or unusual bruising Neurologic Neurologic: Denies abnormal movements, abnormal speech, dizziness, numbness, seizure-like activity or syncope Psychiatric Psychiatric: Denies anxiety, behavioral changes, change in appetite, change in libido, cognitive impairment, confusion, depression, difficulty concentrating, hallucinations or suicidal thoughts Endocrine Endocrinology: Denies excessive sweating, polydipsia or polyuria Hematologic/Lymphatic Hematologic/Lymphatic: Denies easy bleeding, easy bruising or lymphadenopathy Allergic/Immunologic Allergic/Immunologic: Denies itchy eyes, lip swelling, seasonal rhinorrhea, rhinitis, throat swelling, tongue swelling, eczemia, wheezing or asthma Vital Signs Vital Signs Vital Signs: 01/28/24 07:27 01/28/24 07:27 01/28/24 07:27 Temperature 97.9 F Temperature Source Pulse Rate 101 H Respiratory Rate Blood Pressure 121/67 H BP Systolic 121 BP Diastolic 67 Pulse Ox 01/28/24 07:27 01/28/24 07:27 01/28/24 07:27 Temperature Temperature Source Temporal Pulse Rate Respiratory Rate 16 Blood Pressure BP Systolic BP Diastolic Pulse Ox 96 Weight Weight: 259 lb 2 oz Body Mass Index (BMI) 41.8 Physical Exam Const alert, oriented x3, no apparent distress and healthy appearing General Appearance: cooperative; Negative for anxious HEENT normocephalic Face and Sinus: normal facial exam Eyes EOMs intact bilaterally and no scleral icterus General Eye: normal appearance of both eyes Neck full ROM and supple Lymph Lymphatic: no lymphadenopathy noted Chest Chest: abnormal inspection of the chest Resp normal respiratory effort Effort and Inspection: able to speak in complete sentences Cardio regular rate GI soft to palpation and non-tender Inspection: gravid Palpation: soft; Negative for tender external exam normal Back/Spine no CVA tenderness Extremity normal to inspection, full ROM and no clubbing, cyanosis or edema General Extremity: Negative for calf tenderness or edema Skin Lesions: no lesions Rashes: no rashes Psych mental status grossly normal Labs Labs Labs: Blood Type A POSITIVE Antibody Screen NEGATIVE Hct 38.6 % (37-47) Hgb 13.1 g/dL (12.0-15.0) Obstetrics Ultrasound Syphilis Total Ab Non-reactive Rubella IgG Antibody Reactive (Nonreactive) Hep Bs Antigen Non-Reactive (Nonreactive) Hepatitis C Antibody Non-Reactive (Nonreactive) Chlamydia DNA (DIANA) Negative (Negative) N.gonorrhoeae DNA (DIANA) Negative (Negative) HIV 1&2 Antibody Non-Reactive (Nonreactive) Glucose 1 Hr 50 gm 110 mg/dL (70-140) Assessment & Plan (1) LGA (large for gestational age) fetus affecting management of mother: COMMENT: history of 9 pound baby- plan 36 week scan (2) History of miscarriage, currently : (3) COVID-19 affecting , antepartum: COMMENT: April 2023 discusses 81 mg ASA (4) Supervision of high-risk : QUALIFIERS: Trimester: first trimester Qualified Code(s): O09.91 - Supervision of high risk , unspecified, first trimester COMMENT: PRR,, boy, VERÓNICA 01/27/24, boy [place] Simone, Jeremiah Hammonds Fiance- Garrison (his first child) (5) : QUALIFIERS: Weeks of gestation: 39 weeks Qualified Code(s): Z3A.39 - 39 weeks gestation of COMMENT: GBS Negative, normal anatomy, discussed genetic & carrier testing, NIPT low risk (6) Low oxygen saturation: PLAN: Plan Patient presents IOL, plan management for with espinosa/pitocin/AROM. Pain management: plans epidural. GBS negative. Management of any complications: none I have reviewed the [facility] and made any clinically relevant updates.
[2024-01-28] MEDS: 0.9% Normal Saline Single 100 ML IV.SOLN. INTRA-UTER (08:11)
[2024-01-28] MEDS: Oxytocin 15 Units/NS 250ml 15 UNITS/250 ML IV.SOLN 2 UNITS IV (08:13)
[2024-01-28 08:23] LABS: Absolute Lymphocyte Count 2.28 X10^3/uL (0.83-4.51); Absolute Neutrophil Count 8.1 X10^3/uL (2.0-7.7); Basophil# 0.03 X10^3/uL; Basophil% 0.3 % (0-1); Eosinophil# 0.09 X10^3/uL; Eosinophils% 0.8 % (0-5); Hematocrit 37.7 % (37-47); Hemoglobin 12.8 g/dL (12.0-15.0); Lymphocyte # 2.28 X10^3/ul (0.83-4.51); Lymphocyte % 20.5 % (19-41); Mean Corpuscular Hgb 31.2 pg (27.0-32.0); Mean Platelet Vol. 9.5 fl (6.2-12.0); Monocyte# 0.51 X10^3/uL; Monocyte% 4.6 % (0-10); NRBC Flagged by Analyzer 0 % (0-5); Neutrophil # 8.14 X10^3/uL (2.7-7.7); Neutrophil % 73.2 % (47-70); Platelet Count 284 K/mm3 (150-450); RBC Distribution Width CV 12.3 % (11.6-14.6); White Blood Count 11.1 K/mm3 (4.4-11.0)
[2024-01-28 08:54] LABS: Syphilis Antibodies Non-reactive
[2024-01-28 10:22] LABS: Amphetamine Urine VISTA NEGATIVE (<1000 ng/mL); Barbiturate Urine VISTA NEGATIVE (< 200 ng/mL); Benzodiazepine Urine VISTA NEGATIVE (< 200 ng/mL); Cocaine Urine VISTA NEGATIVE (< 300 ng/mL); Ecstacy Urine VISTA NEGATIVE (< 500 ng/mL); Methadone Urine VISTA NEGATIVE (< 300 ng/mL); PCP Urine VISTA NEGATIVE (< 25 ng/mL); THC Urine VISTA NEGATIVE (< 50 ng/mL); Vista UDS pH Range 6
[2024-01-28] MEDS: Lactated Ringers 1,000 ML 999 ML IV (13:20)
[2024-01-28] MEDS: fentaNYL-bupivacaine (epidural) 100 ML BAG EPIDURAL ×2 (15:00→19:22)
[2024-01-28] MEDS: Ondansetron 4 MG/2 ML Vial IV (17:54)
[2024-01-28] MEDS: Lactated Ringers 1,000 ML 200 ML IV (17:56)
[2024-01-28] MEDS: LACTATED RINGERS 500 ML 999 ML IV (17:57)
--- NOTE | 2024-01-28 18:10 | PN_ITS ---
Progress Note pt is on side, states not feeling great and dry heaving. Just got her second epidural and bp is 100/59. current tracing: FHT: Moderate variability reactive early decelerations category II tracing [place]: Q 2 min Contractions A/P: fluid bolus and zofran now. anesthesia to dose ephedrine as needed.
[2024-01-28] MEDS: Oxytocin 15 Units/NS 250ml 15 UNITS/250 ML IV.SOLN 334 UNITS IV (20:28)
--- NOTE | 2024-01-28 20:39 | EX.PCM.OBRPT ---
Assessment & Plan (1) Vaginal bleeding during : COMMENT: no change in cervical exam, active bleeding. d/c home (2) History of oligohydramnios: COMMENT: previous induced at 36 weeks (3) Low amniotic fluid volume: COMMENT: linda 6.6 on 12/17/23, repeat 9.1 12/23/23, IV fluids and rom negative. repeat linda 6.2cm with 2.5cm pocket. reviewed twice daily kick counts, BPP/LINDA twice weekly for now, recommend IOL if decreased fm or oligo (4) Low oxygen saturation: (5) LGA (large for gestational age) fetus affecting management of mother: COMMENT: history of 9 pound baby- plan 36 week scan (6) History of miscarriage, currently : (7) COVID-19 affecting , antepartum: COMMENT: April 2023 discusses 81 mg ASA (8) Supervision of high-risk : QUALIFIERS: Trimester: first trimester Qualified Code(s): O09.91 - Supervision of high risk , unspecified, first trimester COMMENT: PRR,, boy, VERÓNICA 01/27/24, Nasra Ashton Asher, Fiance- Garrison (his first child) (9) : QUALIFIERS: Weeks of gestation: 39 weeks Qualified Code(s): Z3A.39 - 39 weeks gestation of COMMENT: GBS Negative, normal anatomy, discussed genetic & carrier testing, NIPT low risk Maternal Data Information VERÓNICA Calculator Estimated Delivery Date Method Current WG Current Estimate 01/27/24 Ultrasound #1 40w 1d Other Estimates 02/02/24 LMP (Certain) 39w 2d 01/28/24 Ultrasound #2 40w 0d Final VERÓNICA: 01/27/24 Final VERÓNICA Source: US <20 weeks Gestational age: 40 weeks 1 day Vaginal Delivery Maternal Presentation Maternal Presentation: Medically Indicated Induction Operative Information Date of Procedure: 01/28/24 Pre-Operative Diagnosis: 33 y/o @ 40 weeks 1 day, IOL for low amniotic fluid volume, LGA, low o2 saturation in Post-Operative Diagnosis: 33 y/o @ 40 weeks 1 day, IOL for low amniotic fluid volume, LGA, low o2 saturation in Surgery / Procedure Performed: Spontaneous Vaginal Delivery Type of Anesthesia: Epidural Drain: Robbins to straight drain Estimated Blood Loss: 200cc Time of Delivery: 20:23 Findings Description of Procedure: Patient began pushing and delivered the head in the PALOMA presentation. The head was delivered atraumatically. The anterior and posterior shoulders delivered without complication followed by the rest of the infant and the infant was placed on the maternal abdomen. Delayed cord clamping was employed for approximately 60 seconds. Cord was clamped and cut and gentle traction was applied to the cord and the placenta delivered spontaneously immediately following it was noted to be intact with three-vessel cord. The perineum and vagina were inspected and noted to have no laceration. The uterus was explored due to a trail of membranes noted coming from the cervix. Manual removal of clot and tissue was performed until the uterine simms felt uniform EBL was 200cc. Patient and infant tolerated delivery well. Presentation: Vertex Time of Membrane Rupture: 0800 Amniotic Fluid Description: Clear Placental Delivery Description: Expressed Placenta Disposition: Sent to Pathology Cord Vessel Description: 3 Vessels Cord Entanglement: None Infant A Gender: Male (1 minute): 8 (5 minute): 9 Delayed Cord Clamping: Yes Post Vaginal Delivery Medications Given After Delivery: IV Pitocin Episiotomy Description: None Laceration: None Complication Complications: None Multi Select Codes Urinary/Genital Urinary/Genital CPT Codes: 28856 Vaginal Delivery+ Care([facility])
--- NOTE | 2024-01-28 20:44 | DCINST_ITS ---
Discharge Instructions Diet Discharge Diet: No restrictions Activity Discharge Activity: Return to Normal Activity, May Not Drive (while taking narcotic pain medications.) and May Shower May resume sexual activity in: 4-6 weeks Dressing / Incision Call your doctor if your incision/area has: Continuous Slow Oozing, Sudden Increased Bleeding, Increased Pain/ Swelling, Increased Redness and Foul Smelling Discharge Follow Up Care Please Follow Up With: Lanie Aguero, DO When: Call [phone] to make an appointment with your doctor in 6 weeks. If you had elevated blood pressure or 4th degree laceration, you will need to be seen in 2 weeks. Test Results: Test results from this visit will be discussed in further detail at your follow- up appointment, if applicable. Discharge Plan Admission Admit Date/Time: 01/28/24 07:11 Attending Provider: Lanie Aguero Primary Care Provider: Care Physician,No Primary Discharge Orders/Prescriptions Prescriptions: No Action PNV-DHA 27 mg iron-1 mg -300 mg capsule 1 cap PO DAILY aspirin 81 mg capsule 81 mg PO DAILY albuterol sulfate 90 mcg/actuation HFA aerosol inhaler 2 puff inhalation Q4H PRN (Reason: shortness of breath ) Qty: 6.7 4RF Referrals / Follow Up: Care Physician,No Primary [Primary Care Provider] -
[2024-01-28] MEDS: Oxytocin 15 Units/NS 250ml 15 UNITS/250 ML IV.SOLN 83 UNITS IV (21:06)
[2024-01-28] MEDS: Cefazolin 2 GM in 0.9% Normal Saline (100mL Bag) 100 ML IV (21:22)
--- NOTE | 2024-01-28 21:37 | PLAC_PTH ---
PATIENT: KEON CASIANO LOC: [facility] U#:[id number] AGE/SX: 33/F ROOM: WP008 RE01/28/[address]: Dr. Lanie Aguero DO : 1990 BED: 1 DIS: 01/29/2024 SPEC #: [id number] RECD: 01/28/24 22:01 STATUS: TEA TRACEY #: [id number] SUSAN: 01/28/24 21:[address]: Lanie Aguero DEPT: SURGICAL PATHOLOGY RECD BY: Camilo Rosenberg ENTERED: 01/29/24 14:00 SP TYPE: PLACENTA OTHR DR: No Primary Care Phys Tissues: Placenta, NOS Procedures: Surgery Specimen Level V HEADER OPERATION: Vaginal delivery PRE-OP DIAGNOSIS: Extra tissue TISSUE SUBMITTED: Placenta MICROSCOPIC DIAGNOSIS Placenta: Placental disc - third trimester placenta (480 gm). - Multiple areas of intraparenchymal hemorrhage (largest measuring 2.0cm in greatest dimension). - Focal mild acute vasculitis of subamniotic blood vessels. Membranes - Focal mild acute deciduitis. Umbilical cord - three blood vessels and mild acute funisitis. Additional tissue - Endometrial tissue with decidual changes. SJ: 01/31/2024 COMMENT Case has been reviewed in consultation with Dr. Ashley who concurs with the above diagnosis. IDC:AM MICROSCOPIC DESCRIPTION Slides are reviewed. GROSS DESCRIPTION SPECIMEN: PLACENTA / CLINICAL INFORMATION: A. Weight: 3.54 kg B. Gestational Age: 40 weeks C. Sex: Male PLACENTAL WEIGHT (POST FIXATION): 480 gm PLACENTAL DIMENSIONS: 16.0 x 15.0 x 4.0 cm PLACENTAL SHAPE: Usual ovoid PLACENTAL WEIGHT FOR GESTATIONAL AGE: Within 10-99th percentile MEMBRANES - Present A. Insertion: Marginal B. Site of rupture from edge: at the edge of placental disc C. Color of membrane: Toro-carreno D. Abnormalities: None UMBILICAL CORD - Present A. Color: Toro-carreno B. Insertion: Paracentral C. Length: 39.0 cm D. Diameter: 1.0 cm E. Number of vessels: Three F. Abnormalities: None PLACENTAL DISC - Present A. Color of surface: Toro-carreno B. surface abnormalities: None C. Maternal cotyledons: Disrupted in the central portion of placenta D. Attached retro placental clot: A few adherent retro placental blood clots are noted in the central portion of the placenta. E. Cut surface: Dark red and spongy F. Lesions: Sections reveal four toro indurated areas, largest measuring 2.0cm in greatest dimension G. Separate clot and additional findings: Also present in the container are multiple fragments of hemorrhagic soft tissue mixed with blood clot measuring in aggregate 11.0 x 11.0 x 3.0cm and weighing 115gm. SECTIONS SUBMITTED: (10 cassettes) 1. Membrane roll 2. Cord, maternal end, lesion 3. Cord, end 4. Placental disc, and maternal surfaces 5. Placental disc, and maternal surfaces, lesion 6. Placental disc, and maternal surfaces, lesion 7 -10. Detached piece of hemorrhagic tissue SJ.mr 01/30/2024TC:2 CPT: 07645
[2024-01-28 21:58] LABS: Pathology Specimen OB SEE PATHOLOGY REPORT
[2024-01-29 03:47] VITALS: BP 108/62; PULSE 108; RESP 16; TEMP 36.6; O2SAT 95
[2024-01-29] MEDS: Ibuprofen 600 MG Tablet PO ×2 (07:32→18:18)
[2024-01-29 07:36] VITALS: BP 124/83; PULSE 107; RESP 16; TEMP 37
--- NOTE | 2024-01-29 07:53 | PN.OBGYN_ITS ---
Subjective Subjective Patient doing well without complaints. Tolerating PO. Ambulating and voiding without difficulty. Feeding well. Denies chest pain, shortness of breath, calf pain/swelling, fevers, chills, lightheadedness. Objective Data Objective Data Vital Signs: Vital Signs Temp Pulse Resp BP Pulse Ox O2 Del Method 98.6 F 107 H 16 124/83 H 95 Room Air 01/29/24 07:36 01/29/24 07:36 01/29/24 07:36 01/29/24 07:36 01/29/24 03:47 01/29/24 03:47 Oxygen Delivery Method Room Air Weight: 259 lb 2 oz Body Mass Index (BMI) 41.8 Intake & Output: Intake and Output for Last 24 Hours 01/27/24 01/28/24 01/29/24 23:59 23:59 23:59 Intake Total 3388.36 / 3388.36 250 / 250 Output Total 1100 / 1100 1300 / 1300 Balance 2288.36 / 2288.36 -1050 / -1050 Lab / Micro Data 01/28/24 07:40 Labs: Laboratory Results - last 24 hr 01/28/24 07:40: WBC 11.1 H, RBC 4.10 L, Hgb 12.8, Hct 37.7, MCV 92.0, MCH 31.2, MCHC 34.0, RDW Std Deviation 41.0, RDW Coeff of Que 12.3, Plt Count 284, MPV 9.5, Immature Gran % (Auto) 0.600, Neut % (Auto) 73.2 H, Lymph % (Auto) 20.5, [place]orne % (Auto) 4.6, Eos % (Auto) 0.8, Baso % (Auto) 0.3, Absolute Neuts (auto) 8.1 H, Absolute Lymphs (auto) 2.28, Nucleated RBC % 0, Syphilis Total Ab Non- reactive, Blood Type A POSITIVE, Antibody Screen NEGATIVE 01/28/24 09:00: Urine Opiates Screen NEGATIVE, Urine Methadone Screen NEGATIVE, Ur Barbiturates Screen NEGATIVE, Ur Phencyclidine Scrn NEGATIVE, Ur Amphetamines Screen NEGATIVE, MDMA (Ecstasy) Screen NEGATIVE, U Benzodiazepines Scrn NEGATIVE, Urine Cocaine Screen NEGATIVE, U Cannabinoids Screen NEGATIVE, Ur Drug Screen Comment Physical Exam Const alert and oriented x3 HEENT normocephalic Eyes PERRL Neck full ROM Resp normal respiratory effort GI soft to palpation GI Narrative: FF below U Assessment & Plan (1) Vaginal delivery: COMMENT: 01/27/24 KRISTEN Buckley PLAN: Plan s/p PPD # 1 1. routine post delivery care 2. breast feeding- support given 3. rh positive 4. rubella immune 5. home today
[2024-01-29 12:17] VITALS: BP 120/72; PULSE 98; RESP 16; TEMP 36.6
[2024-01-29] MEDS: Acetaminophen 500 MG Tablet 1000 MG PO (13:27)
--- NOTE | 2024-01-29 15:22 | NURSING ---
ryand student charting that is used for educational and learning purposes.
[2024-01-29 18:00] VITALS: BP 118/79; PULSE 78; RESP 16; TEMP 37.1
--- NOTE | 2024-01-30 15:21 | CASEMGMT ---
Social Work Assessment Labor and Delivery Unit Patient Address:[address] [place] [address]. [place] [address] Phone number: [phone] Date of Referral: 01/29/24 Time of Referral:? 457 Referred By: Dr. Aguero Date of Intervention: ?01/29/24? Time of Intervention:? 1330 Reason for Referral:? mental health Sw completed chart review and acknowledges social work consult due to maternal mental health history. Sw presented to bedside and introduced self to mother of baby (JJ- Tammy) and father of baby (FODori- Joaquin). Sw explained sw role and completed psychosocial assessment. History obtained from: medical records, MOB and FOB Household composition: Currently residing in the family home is MOB, FOB, MOB's three older children (Nichols- 14, Nasra- 12, and Jeremiah- 10). [place] baby will be added to residence when ready for discharge. No concerns with housing- parents report it is safe and secure. Patient's parent/guardian status:?Parents state that they have been together for two years- they have been friends since childhood. No concerns reported of domestic violence or initmate partner violence. ? Medical History: JJ is 33 year old female who is 5, para 3- now 4 following labor and delivery of . JJ received routine care during with [place]. JJ presented to hospital for scheduled induction of labor for BMI at 40 weeks gestation. Baby boy, named Marcio Martinez, was born weighing 7lb 13oz with apgars of 8 and 9 at one and five minutes of life, respectfully. JJ is breast feeding and states that it is going well. Baby will be followed by Dr. Le for pediatrics. Educational Status:? Both parents graduated from high school, JJ obtained her Bachelors degree. No issues with reading, learning or comprehension. Financial Status: both parents are gainfully employed outside of the home. FOB works in a factory and JJ works for [employer]. Supplies:?? Parents have obtained all necessary baby supplies, including: car seat, safe sleep space, clothes, diapers and wipes. Childcare/Caregiver(s):? MOB will be the primary caregiver to baby during her maternity leave, along with FOB. When both parents have returned to work they will ensure that they arrange their scheduled so one of them is always able to be with baby. Transportation:?? Both parents have their drivers license and reliable means of transportation, no barriers at this time. Programs/Agencies Involved: JJ is connected to insurance through medicaid ([facility]). ??? Children Services/Legal Issues:??? No prior involvement with Children Services. NO issues or concerns warranting referral to be made at this time. Behavioral Health Issues: ??Mental Health History:?HARLEY denies mental health history. JJ states that she had the baby blues with her first baby, however felt fine after her other two deliveries. ?? 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 JJ states that she went through treatment at [facility] and is connected to substance use supports and services to help her maintain her sobriety. ? Family History:?Parents deny family history of addiction/ substance use and significant mental health diagnoses. ? Drug Screens: ??JJ did have a urine screen on day of delivery and it was negative for all substances. Family/Social Stressors:? Parents deny any issues, concerns or stressors at this time. Support Systems: JJ identifies that HARLEY and her mom are her biggest supports. Depression/Shaken Baby/Safe Sleeping:? Wen educated parents on signs and symptoms of baby blues and mood and anxiety disorders to be on the lookout for. Parents express understanding. Sw educated parents on shaken baby prevention and ABCs of safe sleep, parents express understanding. ASSESSMENT:? MOB and baby admitted following labor and delivery. MOB and FOB both present for completion of psychosocial assessment. MOB with substance use history but has been sober for six years and has linkage to beneficial resources to help her. Parents have natural supports in place and have obtained all necessary baby items. MOB was observed to provide loving and appropriate hands on care to baby. PLAN:? MOB and baby to be discharged when medically ready. ?No other services requested or indicated. Nahomy Quinones, QUAD STAYER, MATH TUTOR
== END 2024-01-29 21:30 | disposition home or self-care (01) | DRG 560 ==
PROVIDERS: Admitting Provider Obstetrics & Gynecology; Referring Provider Obstetrics & Gynecology; Visit Provider Obstetrics & Gynecology
DX: O36.63X0 Maternal care for excessive fetal growth, third trimester, not applicable or unspecified (principal); Z37.0 Single live birth; O41.03X0 Oligohydramnios, third trimester, not applicable or unspecified; O26.23 Pregnancy care for patient with recurrent pregnancy loss, third trimester; Z3A.40 40 weeks gestation of pregnancy; Z79.82 Long term (current) use of aspirin; Z86.16 Personal history of COVID-19; Z87.891 Personal history of nicotine dependence; R79.81 Abnormal blood-gas level
CPT/HCPCS: 59050; 80307; 85025; 86780; 86850; 86900; 86901; 88307; 99221; J7120; G0378; J2405

== ENCOUNTER → 2024-11-16 | Outpatient (CLI) | payer MEDICAID, SELFPAY ==
[2024-11-16 15:52] LABS: hCG Titer Quant., Serum 6025 mIU/mL (<9 non-preg)
== END | disposition home or self-care (01) ==
PROVIDERS: Referring Provider Advanced Practice Midwife; Visit Provider Advanced Practice Midwife
DX: O09.299 Supervision of pregnancy with other poor reproductive or obstetric history, unspecified trimester (principal); O20.9 Hemorrhage in early pregnancy, unspecified; Z3A.00 Weeks of gestation of pregnancy not specified
CPT/HCPCS: 36415; 84702

== ENCOUNTER → 2024-11-18 | Outpatient (CLI) | payer MEDICAID, SELFPAY ==
--- NOTE | 2024-11-18 15:14 | US_ITS ---
PROCEDURE: TRANSVAGINAL W/PREG US 11/18/2024 REASON FOR EXAM: VIABILITY TECHNIQUE: TRANSVAGINAL W/PREG US COMPARISON: No relevant comparison exam. FINDINGS: Gravid uterus appears normal in size, smooth in contour. No discrete fibroid. Closed cervix. A single intrauterine gestational sac is present, with a mean sac diameter of 1.2 cm corresponding with a 6 week gestation. A 0.2 cm yolk sac is visualized. No definitive pole is seen at this time. Both ovaries have a normal sonographic appearance. Preserved blood flow bilaterally. Right ovary contains a thick-walled cyst measuring up to 2.2 cm, compatible with a corpus luteal cyst of . No adnexal mass or significant free pelvic fluid is seen. US/Transvaginal w/Preg US IMPRESSION: Single intrauterine gestational sac, corresponding to a 6 week gestation. No pole is visualized at this time, likely due to early gestational age, and viability cannot be confirmed as of now. No concerning findings on this exam. Follow-up as clinically warranted. Reading Location: [id number]
[2024-11-18 17:05] LABS: hCG Titer Quant., Serum 11291 mIU/mL (<9 non-preg)
== END | disposition home or self-care (01) ==
LOC: US 15:05
PROVIDERS: Referring Provider Advanced Practice Midwife; Visit Provider Advanced Practice Midwife
DX: O20.9 Hemorrhage in early pregnancy, unspecified (principal); Z3A.00 Weeks of gestation of pregnancy not specified; O09.299 Supervision of pregnancy with other poor reproductive or obstetric history, unspecified trimester
CPT/HCPCS: 36415; 76817; 84702

== ENCOUNTER → 2024-11-27 | Outpatient (CLI) | payer MEDICAID, SELFPAY ==
[2024-11-30 21:07] LABS: Chlamydia By Nucleic Acid AMP Negative (Negative); Gonococcus By Nucleic Acid AMP Negative (Negative)
== END | disposition home or self-care (01) ==
LOC: LABSPEC 16:06
PROVIDERS: Visit Provider Registered Nurse
DX: O09.90 Supervision of high risk pregnancy, unspecified, unspecified trimester (principal); Z3A.00 Weeks of gestation of pregnancy not specified
CPT/HCPCS: 87086; 87088; 87491; 87591

== ENCOUNTER → 2024-12-25 | Outpatient (CLI) | payer MEDICAID, SELFPAY ==
[2024-12-25 12:21] LABS: Hematocrit 40.8 % (37-47); Hemoglobin 14.1 g/dL (12.0-15.0); Immature Granulocytes Count 0.030 X10^3/uL (0.0-0.0); Mean Corp Hgb Conc 34.6 g/dL (32-36); Mean Corpuscular Volume 90.5 fL (81-99); Mean Platelet Vol. 9.2 fl (6.2-12.0); NRBC Flagged by Analyzer 0 % (0-5); Platelet Count 293 K/mm3 (150-450); RBC Distribution Width CV 12.4 % (11.6-14.6); RBC Distribution Width SD 40.2 fl (35.1-43.9); Red Blood Count 4.51 M/mm3 (4.2-5.4); White Blood Count 7.9 K/mm3 (4.4-11.0)
[2024-12-25 13:16] LABS: HIV Nonreactive (Nonreactive); Hepatitis B Surface Antigen Nonreactive (Nonreactive); Hepatitis C Antibody Nonreactive (Nonreactive); Syphilis Antibodies Nonreactive (Nonreactive)
--- OUTSIDE RECORDS SUMMARY | 2024-12-25 18:35 | XMS RPT_ITS | CCD ---
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 Theresa Nance Attending Provider [phone] Dr. Theresa Nance Referring Provider [phone] Dr. Theresa Nance Other Provider [phone] Care Physician, No Primary Primary Care Provider Unavailable Care Physician, No Primary Referring Provider Un available KERRI Kaufman Attending Provider [phone] Unavailable Primary Care Provider JORGE Mary Attending Unavailable NO PRIMARY CAREMD Primary Care Unavailable JESSICA KAUFMAN Referring Unavailable LANIE BALDERAS Attending Unavailab LANIE Anders Referring Unavailab le LAURA PRIMARY MD ABIGAIL Primary Care Unavailable LANIE BALDERAS Referring Unavailab LARS Campuzano Attending Unavailable NO PRIMARY CAREMD Primary Care Unavailable JAMAICA LAND MD Primary Care Unavailable GALILEO BEASLEY Attending Unavailable Care Physician, No Primary Primary Care Provider Unavailable Jessica Kaufman CNM Attending Provider [phone] Jessica Kaufman CNM Referring Provider [phone] Care Physician, No Primary Referring Provider Un available Armida Aranda CNM Attending Provider [phone] Monica Cobb Attending Provider Care Physician, No Primary Primary Care Unava ilable Jessica Kaufman Attending Unavailable Jessica Kaufman Referring Unavailable Jessica Kaufman Consulting Unavailable Care Physician, No Primary Referring Unava ilable Care Physician, No Primary Primary Care Unava ilable Jessica Kaufman Attending Unavailable Care Physician, No Primary Referring Unava ilable Care Physician, No Primary Primary Care Unava ilable Armida Aranda Attending Unavailable Sandra AGRICULTURAL COMMODITIES INSPECTOR, Monica Attending Unavailable Care Physician, No Primary Referring Unava ilable Care Physician, No Primary Primary Care Unava ilable Care Physician, No Primary Primary Care Unava ilable Jessica Kaufman Attending Unavailable Jessica Kaufman Referring Unavailable Care Physician, No Primary Primary Care Unava ilable Jessica Kaufman Attending Unavailable Jessica Kaufman Referring Unavailable Care Physician, No Primary Primary Care Unava ilable Armida Aranda Attending Unavailable Sandra AGRICULTURAL COMMODITIES INSPECTOR, Monica Attending Unavailable Care Physician, No Primary Primary Care Unava ilable Vande Velde, Lanie Referring Unavailabl e Vande Velde, Lanie Admitting Unavailabl e Vande Velde, Lanie Consulting Unavailabl e Vande Velde, Lanie Referring Unavailabl e Care Physician, No Primary Primary Care Unava ilable Vande Velde, Lanie Admitting Unavailabl e Vande Velde, Lanie Consulting Unavailabl e Vande Velde, Lanie Attending Unavailabl e Care Physician, No Primary Referring Unava ilable Care Physician, No Primary Primary Care Unava ilable Theresa Nance Attending Unavailable Vande Velde, Lanie Attending Unavailabl e Care Physician, No Primary Primary Care Unava ilable Vande Velde, Lanie Referring Unavailabl e Theresa Nance Attending Unavailable Theresa Nance Referring Unavailable Care Physician, No Primary Primary Care Unava ilable Vande Velde, Lanie Attending Unavailabl e Care Physician, No Primary Primary Care Unava ilable Vande Velde, Lanie Referring Unavailabl e Vande Velde, Lanie Attending Unavailabl e Care Physician, No Primary Primary Care Unava ilable Vande Velde, Lanie Referring Unavailabl e Vande Velde, Lanie Attending Unavailabl e Care Physician, No Primary Primary Care Unava ilable Vande Velde, Lanie Referring Unavailabl e Care Physician, No Primary Primary Care Unava ilable Jessica Kaufman Attending Unavailable Jessica Kaufman Referring Unavailable Care Physician, No Primary Primary Care Unava ilable Jessica Kaufman Attending Unavailable Jessica Kaufman Referring Unavailable Care Physician, No Primary Referring Unava ilable Care Physician, No Primary Primary Care Unava ilable Fortune AGRICULTURAL COMMODITIES INSPECTOR, Sabine Attending Unavailable Care Physician, No Primary Referring Unava ilable Care Physician, No Primary Primary Care Unava ilable Sarahune AGRICULTURAL COMMODITIES INSPECTOR, Sabine Attending Unavailable Care Physician, No Primary Primary Care Unava ilable Carolyn Velfamilia, Lanie Referring Unavailabl e Vande Velde, Lanie Admitting Unavailabl e Vande Velde, Lanie Attending Unavailabl e Vande Velde, Lanie Attending Unavailabl e Care Physician, No Primary Primary Care Unava ilable Vande Velde, Lanie Referring Unavailabl e Care Physician, No Primary Referring Unava ilable Care Physician, No Primary Primary Care Unava ilable Jessica Kaufman Attending Unavailable Care Physician, No Primary Referring Unava ilable Care Physician, No Primary Primary Care Unava ilable Allyne Doyle, Lanie Attending Unavailabl e Sandra AGRICULTURAL COMMODITIES INSPECTOR, Monica Attending Unavailable Care Physician, No Primary Referring Unava ilable Care Physician, No Primary Primary Care Unava ilable Vande Velde, Lanie Attending Unavailabl e Care Physician, No Primary Referring Unava ilable Care Physician, No Primary Primary Care Unava ilable Care Physician, No Primary Primary Care Unava ilable Jessica Kaufman Referring Unavailable Jessica Kaufman Consulting Unavailable Jessica Kaufman Attending Unavailable Allergies Allergy Classification Reported Allergen(s) Allergy Type Date of Onset Reaction(s) Facility (7 sources) measles, mumps, and rubella vaccine; Translations: [measles, mumps, and rubella vaccine] Allergy to substance 08-12-2022 Other [facility] Medications Current Medications Medication Drug Class(es) Dates Sig (Normalized) Sig (Original) amoxicillin 875 mg / clavulanate 125 mg oral tablet (1 source) Penicillin-class Antibacterial Start: 10-31-2024 End: 11-10-2024 take 1 tablet by mouth every twelve hours amoxicillin-clavulan ate 875 mg-125 mg oral tablet 1 tab(s), Oral, q12h, Take with a probiotic, X 10 day(s), # 20 tab(s), 0 Refill(s), 11/10/24 5:34:00 PM EDT, 79.5 Start Date: 10/31/24 Stop Date: 11/10/24 Status: Ordered Quantity: 20.0 Unit: tab(s) Repeat number: 1 docosahexaenoic acid 200 mg oral capsule (1 source) Start: 08-08-2022 take 1 capsule by mouth once daily Docosahexaenoic Acid ( Dha) 200 mg capsule Active 200 MG PO DAILY August 08, 2022 12:00am Magnesium (1 source) Magnesium 200 mg tab Take by mouth. 0 Active Canyondam (Nk) (1 source) Start: 08-29-2022 Canyondam (Nk) Active August 29, 2022 12:00am Vit 610-Mcab-Ayocmq 6 ( Pnv) 6 mg iron- 833.5 mcg DFE tablet (6 sources) Start: 11-19-2024 Vit 154-Qrjn-Tpbpsi 6 (Yanira Pnv) 6 mg iron- 833.5 mcg DFE tablet Active {tbl} PO November 19, 2024 12:00am vit no.124/iron/folic ( VITAMIN ORAL) (1 source) vit no.124/iron/folic ( VITAMIN ORAL) Take by mouth. 0 Active Completed/Discontinued Medications Medication Drug Class(es) Dates Sig (Normalized) Sig (Original) acetaminophen 325 mg / oxyCODONE hydrochloride 5 mg oral tablet (17 sources) Opioid Agonist Start: 08-13-2022 End: 08-20-2022 Oxycodone-Acetamin ophen (Percocet) 5-325 mg tablet Discontinued 1 {tbl} PO Q4H 28 7 0 August 13, 2022 August 19, 2022 12:00am August 20, 2022 12:04am Missed Missed [id number] 200 actuat albuterol 0.09 mg/actuat metered dose inhaler (6 sources) beta2-Adrenergic Agonist Start: 11-26-2023 End: 03-17-2024 Albuterol Sulfate 90 mcg/actuation HFA aerosol inhaler Discontinued 2 NMA INHALATION Q4H as needed for shortness of breath 6.7 4 November 26, 2023 12:00am March 17, 2024 3:34pm amoxicillin 500 mg oral capsule (18 sources) Penicillin-class Antibacterial Start: 01-30-2018 End: 02-09-2018 take 2 capsules by mouth twice daily as needed Amoxicillin 500 mg capsule Discontinued 1000 mg PO TWICE A DAY as needed for sinus symptoms 40 10 0 January 30, 2018 12:00am February 08, 2018 12:00am February 09, 2018 12:09am Start: 01-30-2018 End: 02-09-2018 take 1000 mg by mouth twice daily Amoxicillin Discontinued 1000 MG PO TWICE A DAY 40 10 January 29, 2018 11:00pm February 08, 2018 11:09pm aspirin 81 mg oral tablet (7 sources) Platelet Aggregation Inhibitor, Nonsteroidal Anti-inflammatory Drug Start: 12-03-2023 End: 03-17-2024 take 1 capsule by mouth once daily Aspirin 81 mg capsule Discontinued 81 mg PO DAILY December 03, 2023 12:00am March 17, 2024 3:34pm take 1 tablet by mouth once nhan y aspirin 81 mg chewable tablet Take 81 mg by mouth once daily. 0 Active cephalexin 500 mg oral capsule (6 sources) Cephalosporin Antibacterial Start: 11-17-2024 End: 11-24-2024 take 1 capsule by mouth every six hours Cephalexin 500 mg capsule Discontinued 500 mg PO EVERY 6 HOURS 28 7 0 November 17, 2024 12:00am November 23, 2024 12:00am November 24, 2024 12:05am dicloxacillin 500 mg oral capsule (6 sources) Penicillin-class Antibacterial Start: 02-19-2024 End: 03-17-2024 take 1 tablet by mouth every six hours Dicloxacillin 500 mg capsule Discontinued 500 mg PO EVERY 6 HOURS 40 0 February 19, 2024 12:00am March 17, 2024 3:34pm Take 1 tablet PO q 6 hours for 10 days metroNIDAZOLE 500 mg oral tablet (6 sources) Nitroimidazole Antimicrobial Start: 11-07-2023 End: 11-14-2023 take 1 tablet by mouth twice daily Metronidazole 500 mg tablet Discontinued 500 mg PO TWICE A DAY 14 7 0 November 07, 2023 12:00am November 13, 2023 12:00am November 14, 2023 12:05am miSOPROStol 0.2 mg oral tablet (16 sources) Prostaglandin E1 Analog Start: 09-07-2022 End: 04-19-2023 Misoprostol (Cytotec) 200 mcg tablet Discontinued 200 ug VAGINAL Q4H 6 1 0 September 07, 2022 12:00am April 19, 2023 11:20am Start: 09-07-2022 End: 04-19-2023 Misoprostol (Cytotec) 200 mc g tablet Discontinued 200 MCG VAGINAL Q4H 6 September 06, 2022 11:00pm April 19, 2023 10:20am Multivit 76-Abvw-Cwudzj 1-Dh a (Pnv-Dha) 27 mg iron-1 mg -300 mg capsule (8 sources) Start: 06-14-2023 End: 03-17-2024 Multivit 50-Phri-Hsrpkr 1-Dh a (Pnv-Dha) 27 mg iron-1 mg -300 mg capsule Discontinued 1 NMA PO DAILY June 14, 2023 1:00am March 17, 2024 3:34pm Start: 06-14-2023 Multivit 47-Ir on-Folate 1-Dha (Pnv-Dha) 27 mg iron-1 mg -300 mg capsule Active CAP PO June 14, 2023 12:00am omeprazole 20 mg delayed release oral capsule (18 sources) Proton Pump Inhibitor Start: 07-22-2018 End: 03-06-2021 take 1 capsule by mouth once daily Omeprazole 20 mg capsule,delayed release(DR/EC) Discontinued 20 mg PO DAILY 90 0 July 22, 2018 12:00am March 06, 2021 9:15am ,Calc.40- Iron-Folate 1 (Pnv-Select) 27-1 mg tablet (8 sources) Start: 06-14-2023 End: 06-14-2023 ,Calc.40-Iron -Folate 1 (Pnv-Select) 27-1 mg tablet Discontinued {tbl} PO June 14, 2023 1:00am June 14, 2023 4:14pm Start: 06-14-2023 End: 06-14-2023 ,Calc.08-Amsi-Yayckr 1 (Pnv-Select) 27-1 mg tablet Discontinued TABLET PO June 14, 2023 12:00am June 14, 2023 3:14pm Problems Active Problems Problem Classification Problem Date Documented Date Episodic/Chronic Alcohol-related disorders (20 sources) Alcohol abuse; Translations: [Alcohol abuse, uncomplicated] Onset: 11-27-2024 08-08-2022 Chronic Comment on above: recovering- 7 years sober Cardiac dysrhythmias (3 sources) Palpitations 08-27-2015 Episodic E Codes: Natural/environment (2 sources) Bitten by cat, initial encounter; Translations: [Cat bite (finding)] Onset: 10-31-2024 Episodic Epilepsy; convulsions (6 sources) Seizure; Translations: [Unspecified convulsions] 11-19-2024 Episodic Comment on above: REACTION TO MMR SHOT Hemorrhage during ; abruptio placenta; placenta previa (20 sources) Antepartum hemorrhage; Translations: [Hemorrhage in early , unspecified] Onset: 01-09-2024 11-19-2024 Episodic Comment on above: currently - HCGx2, TVUS 11/18/24 Immunizations and screening for infectious disease (18 sources) Patient encounter status; Translations: [Encounter for screening for COVID-19] 08-08-2022 Episodic Malaise and fatigue (18 sources) Fatigue; Translations: [Other fatigue] 08-08-2022 Episodic Menstrual disorders (20 sources) Dysmenorrhea; Translations: [Dysmenorrhea, unspecified] 04-19-2023 Chronic Comment on above: hcgX2 Nausea and vomiting (3 sources) Nausea and vomiting 08-07-2015 Episodic Nonmalignant breast conditions (18 sources) Breast lump; Translations: [Unspecified lump in the right breast, unspecified quadrant] 08-08-2022 Episodic Open wounds of extremities (19 sources) Laceration of hand without foreign body; Translations: [Laceration without foreign body of unspecified hand, initial encounter] Onset: 10-26-2021 Episodic Other aftercare (1 source) Removal of sutures done; Translations: [Encounter for removal of sutures] Episodic Other complications of (20 sources) High risk ; Translations: [Supervision of high risk , unspecified, unspecified trimester] 08-08-2022 Episodic Comment on above: , VERÓNICA 07/11/25 Nasra Gamble Asher, Milo Fiancee Garrison [employer],, boy, VERÓNICA , boy Nasra Sanders Asher, Fiance- Garrison (his first child) VERÓNICA 03/23/23, P C: Nasra Nichols Asher BF: Joaquin Other complications of (17 sources) Missed miscarriage; Translations: [Missed ] 08-28-2022 Episodic Comment on above: s/p d and c. recurre nt bleeding after with 3 cm and now 2 cm lining appears to be clot, patient clinically improving. quants ordered and reviewed precautions, await new until negative quant. Other complications of (18 sources) Missed ; Translations: [Missed ] 08-13-2022 Episodic Other complications of (9 sources) Spotting per vagina in ; Translations: [Spotting complicating , unspecified trimester] 06-04-2023 Episodic Other complications of (8 sources) Disease caused by 2019-nCoV; Translations: [Other viral diseases complicating , unspecified trimester] 06-20-2023 Episodic Comment on above: April 2023 discus ses 81 mg ASA Other complications of (4 sources) Supervision of with other poor reproductive or obstetric history, unspecified trimester; Translations: [Supervision of high-risk with history of ] Onset: 02-25-2024 06-20-2023 Episodic Other complications of (2 sources) Spotting complicating , unspecified trimester; Translations: [Spotting complicating , antepartum condition or complication] 06-20-2023 Episodic Other complications of (3 sources) Supervision of high risk , unspecified, unspecified trimester; Translations: [Supervision of unspecified high-risk ] Onset: 12-03-2024 06-20-2023 Episodic Other complications of (13 sources) Excessive growth affecting management of mother; Translations: [Maternal care for excessive growth, unspecified trimester, not applicable or unspecified] 11-19-2024 Episodic Comment on above: history of 9 pound b chris Other complications of (2 sources) Maternal care for excessive growth, unspecified trimester, not applicable or unspecified; Translations: [Maternal care for excessive growth, unspecified trimester, not applicable or unspecified] Onset: 02-25-2024 Episodic Other female genital disorders (16 sources) Vaginal bleeding; Translations: [Abnormal uterine and vaginal bleeding, unspecified] 09-07-2022 Chronic Other female genital disorders (1 source) Abnormal uterine and vaginal bleeding, unspecified; Translations: [Other specified noninflammatory disorders of vagina] 09-10-2022 Chronic Other and delivery including normal (20 sources) ; Translations: [Encounter for supervision of normal , unspecified, unspecified trimester] Onset: 02-04-2024 08-08-2022 Episodic Comment on above: 01/28/24 JV [facility] NIPT w gender- undec ided. carrier - previously done 2023 (last ) Declines NIPT GBS Negative, normal anatomy, discussed genetic & carrier testing, NIPT low risk NIPT w gender- will obtain with gender in envelope. carrier - previously done 2023 (last ) Other screening for suspected conditions (not mental disorders or infectious disease) (8 sources) Oxygen saturation below reference range; Translations: [Abnormal blood-gas level] Onset: 02-03-2024 03-17-2024 Episodic Other upper respiratory infections (20 sources) Acute pharyngitis; Translations: [Acute pharyngitis, unspecified] 08-08-2022 Episodic Polyhydramnios and other problems of amniotic cavity (8 sources) Oligohydramnios, unspecified trimester, not applicable or unspecified; Translations: [Low amniotic fluid volume] Onset: 01-16-2024 01-29-2024 Episodic Comment on above: santana 6.6 on 12/17/23, r epeat 9.1 12/23/23, IV fluids and rom negative. repeat santana 6.2cm with 2.5cm pocket. reviewed twice daily kick counts, BPP/SANTANA twice weekly for now, recommend IOL if decreased fm or oligo Prolapse of female genital organs (18 sources) Uterine prolapse; Translations: [Incomplete uterovaginal prolapse] 08-12-2022 Chronic Residual codes; unclassified (20 sources) H/O: miscarriage; Translations: [Personal history of other complications of , childbirth and the puerperium] 09-07-2022 Episodic Comment on above: D/C 2022 Residual codes; unclassified (12 sources) History of clinical finding in subject; Translations: [Personal history of other specified conditions] 11-19-2024 Episodic Comment on above: breast biopsy Residual codes; unclassified (13 sources) H/O: Disorder; Translations: [Personal history of other complications of , childbirth and the puerperium] 11-19-2024 Episodic Comment on above: previous i nduced at 36 weeks Residual codes; unclassified (1 source) Personal history of other specified conditions; Translations: [Personal history of other specified conditions] Onset: 11-27-2024 Episodic Residual codes; unclassified (2 sources) Personal history of other complications of , childbirth and the puerperium; Translations: [Personal history of other complications of , childbirth and the puerperium] Onset: 02-04-2024 Episodic Residual codes; unclassified (1 source) Less than 8 weeks gestation of ; Translations: [Less than 8 weeks gestation of ] Onset: 11-27-2024 Episodic Superficial injury; contusion (1 source) Tick bite; Translations: [Insect bite (nonvenomous) of unspecified front wall of thorax, initial encounter] 10-09-2023 Episodic Viral infection (2 sources) COVID-19; Translations: [COVID-19] Onset: 01-16-2024 Past or Other Problems Problem Classification Problem Date Documented Da te Episodic/Chronic Other complications of (4 sources) Other viral diseases complicating , unspecified trimester; Translations: [Other viral diseases in the mother, antepartum condition or complication] Onset: 01-16-2024 06-20-2023 Episodic Other complications of (1 source) Supervision of with other poor reproductive or obstetric history, third trimester; Translations: [Supervision of with other poor reproductive or obstetric history, third trimester] Onset: 02-25-2024 Episodic Other complications of (2 sources) Supervision of high risk , unspecified, first trimester; Translations: [Supervision of high risk , unspecified, first trimester] Onset: 01-16-2024 Episodic Other complications of (1 source) Supervision of high risk , unspecified, third trimester; Translations: [Supervision of high risk , unspecified, third trimester] Onset: 01-09-2024 Episodic Residual codes; unclassified (1 source) 39 weeks gestation of ; Translations: [39 weeks gestation of ] Onset: 02-25-2024 Episodic Residual codes; unclassified (1 source) 38 weeks gestation of ; Translations: [38 weeks gestation of ] Onset: 01-16-2024 Episodic Residual codes; unclassified (2 sources) 37 weeks gestation of ; Translations: [37 weeks gestation of ] Onset: 01-06-2024 Episodic Residual codes; unclassified (1 source) 35 weeks gestation of ; Translations: [35 weeks gestation of ] Onset: 01-09-2024 Episodic Results Test Name Value Interpretation Reference Range Facility Laboratory - Chemistry and C hemistry - challengeOrdered By: Monica Flores on 12-07-2024 Glucose Ql (U) Negative [facility] Laboratory - UrinalysisOrder ed By: Monica Flores on 12-07-2024 Protein Ql (U) Negative [facility] [employer] Visit Reporton 12-07-2024 [employer] Visit Report [facility] [address] [place] [address], [address] [place] [address] OFFICE VISIT Date of Service: 12/07/24 MR#: [id number] Acct: [id number] Name: KEON CASIANO Rep #: [id number] : 1990 Provider: LISHA norman Age/Sex: 33/F [place] [facility] [place]: Signed Intake Vital Signs 11/27/24 10:52 12/07/24 10:21 Height 5 ft 6 in 5 ft 6 in Weight: 206 lb BMI 33.2 BP 119/79 Intake Visit Reasons: wellbeing check Allergies measles, mumps, and rubella vaccine Allergy (Verified 11/27/24 10:54) seizure Last Menstrual Period: 10/04/24 : Yes PFSH PFSH Medical History History of oligohydramnios depression Dysmenorrhea Seizures Former smoker Missed Laceration of right thumb Acute pharyngitis Sore throat Lump of right breast Encounter for screening for COVID-19 Alcohol abuse Fatigue Surgical History H/O dilation and curettage History of breast biopsy ( 02/2021) History of orthopedic surgery History of tonsillectomy and adenoidectomy Family History Father Heart disease Diabetes Hypertension CVA (cerebral vascular accident) Social History adopted: No household members: significant other and children housing: house number of children: 4 current occupational status: employed 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 current occupational exposures/hazards: No pets and animals: Yes pets and animals: dog(s) and other details: rabbit - inside history of recent travel: No sexually active: Yes Smoking Status: Former smoker how long ago did patient quit smokin second hand exposure: No alcohol intake: former year quit: 2017 details: 7 years - recovering substance use type: does not use well-balanced diet: daily or most days caffeine: No eating out: rarely or never during the past year weight has: remained stable what type of physical activity do you participate in: none mike/mu-ism: Restorationism seatbelt use: always do you feel safe at home: Yes additional social history: [employer] History 6 Elective abortions Hx Para 4 Spontaneous abortions 1 Hx # Term Pregnancies Ectopic pregnancies Hx # Pregnancies Multiple births # of living children 4 Past Pregnancies Del. Date Name GA/Weeks Outcome Route Bth Weight [facility] Nichols 36 live - 6.8 Male epidural [facility] 07/25/11 Nasra 40 live - full term 6#8oz Female epidural [facility] 06/24/13 Kathy 40 live - full term 9.2 Male none [facility] 08/31/22 8 spontaneous 01/28/24 Aurora 40 live - full term 7lbs 13oz Male epidural [facility] L D Carolyn Kwon Nuñez Delivery Date: 08/31/22 Last Updated by: Gely Harding, ALANNA Delivery Date: 01/28/24 Last Updated by: Florecita Otto, MARIAN see problem list for complications HPI wellbeing check Details: KEON CASIANO is a 33 year old who presents for routine OB visit. OB Visit VERÓNICA Calculator Estimated Delivery Date Method Current WG Current Estimate 07/14/25 Ultrasound #1 8w 5d Other Estimates 07/11/25 LMP (Certain) 9w 1d Expected Delivery Route/Plan Labor Preferences- CB/BF classes: [] labor support person: [] labor intervention preferences: [] pain management options preferred: [] cut cord/dad catch: [] : [] PP control planned: [] discussed possible routes of delivery and associated risks: [] special requests: [] Specific Issue/Plans Covid status: [] Flu vaccine: [] Tdap vaccine: [] Rhogam: [] LARC form signed: [] Problem list reviewed and updated with the most current plan of care details and appropriate orders placed. Relevant counseling for the gestational age provided. Continue routine care and follow up unless otherwise noted in visit notes/problem list details Initial Weight: Not Recorded Date -???-???-???-???-??? -???-???-???-???-??? -???-???- EGA Weight BP Urine Prot -???-???-???-???-??? -???-???-???-???-??? -???-???- Glucose FHR FuHt Pres Dilation -???-???-???-???-??? -???-???-???-???-??? -???-???- Effaced St Visit Note 11/27/24 -???-???-???-???-??? -???-???-???-???-??? -???-???- 7w 2d 205 lb 127/79 -???-???-???-???-??? -???-???-???-???-??? -???-???- 134 -???-???-???-???-??? -???-???-???-???-??? -???-???- LC- CRL 10.2 mm 7w0d con with LMP. desires genetics and will obtain with NOB labs next visit. 12/07/24 -???-???-???-???-??? -???-???-???-??? (more content not included)... Normal [facility] Chlamydia/GC DIANA aptimaon CHLAMY,NUC ACID Negative Normal Negative [facility] Comment on above: Performed By: #### M 100.2200, L7000.1800 #### [facility] [address] [place] [place], [address] GC BY NUC ACID Negative Normal Negative [facility] Comment on above: Result Comment: Perf ormed at: =G - [facility] [address] [place], [place] [id number] Human Relations Professor: Nancy Palacios MD, Phone: [phone] Performed By: #### M 100.2200, L7000.1800 #### [facility] [address] [place] [place], [address] Urine Cultureon 11-29-2024 URC Mixed Gram Positive Organisms [place] Count 1000-10,000 MIXC Mixed contaminants. Submit a new specimen if indicated. Normal [facility] Comment on above: Performed By: #### M 100.2200, L7000.1800 #### [facility] [address] [place], [address] Chlamydia trachomatis rRNA d etection by probe and target amplification methodOrdered By: Armida Aranda on 11-27-2024 C. trachomatis rRNA DIANA+probe Ql (Unsp spec) Negative Negative [facility] Neisseria gonorrhoeae nuclei c acid detection by amplified probe techniqueOrdered By: Armida Aranda on 11-27-2024 N. gonorrhoeae DNA DIANA+probe Ql (Unsp spec) Negative Negative [facility] Comment on above: Performed at: =G - [facility] [address] [id number] Director: Nancy Palacios MD, Phone: [phone] [employer] Visit Reporton 11-27-2024 [employer] Visit Report [address], [address] [place] [address] OFFICE VISIT Date of Service: 11/27/24 MR#: [id number] Acct: [id number] Name: KEON CASIANO Rep #: [id number] : 1990 Provider: KERRI danielson Age/Sex: 33/F [place] [facility] [place]: Signed Intake Vital Signs 03/17/24 14:34 11/27/24 10:52 Height 5 ft 6 in 5 ft 6 in Weight: 205 lb BMI 33.0 BP 127/79 H Intake Visit Reasons: *EST* NOB, LMP 10/04, VERÓNICA 07/11 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: No Is patient in pain?: No Allergies measles, mumps, and rubella vaccine Allergy (Verified 11/27/24 10:54) seizure Medications ???Medication ???Instructions ???Recorded ???Confirmed ???Type vit no.164-ferrous tab PO 11/19/24 11/19/24 History gluconate 6 mg-folate 833.5 mcg DFE tablet (Yanira PNV) Last Menstrual Period: 10/04/24 Zika: Zika virus screening: Negative : Yes Have you fallen in the past year?: No PFSH PFSH Medical History History of oligohydramnios depression Dysmenorrhea Seizures Former smoker Missed Laceration of right thumb Acute pharyngitis Sore throat Lump of right breast Encounter for screening for COVID-19 Alcohol abuse Fatigue Surgical History H/O dilation and curettage History of breast biopsy ( 02/2021) History of orthopedic surgery History of tonsillectomy and adenoidectomy Family History Father Heart disease Diabetes Hypertension CVA (cerebral vascular accident) Social History adopted: No household members: significant other and children housing: house number of children: 4 current occupational status: employed 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 current occupational exposures/hazards: No pets and animals: Yes pets and animals: dog(s) and other details: rabbit - inside history of recent travel: No sexually active: Yes Smoking Status: Former smoker how long ago did patient quit smokin second hand exposure: No alcohol intake: former year quit: 2018 details: 7 years - recovering substance use type: does not use well-balanced diet: daily or most days caffeine: No eating out: rarely or never during the past year weight has: remained stable what type of physical activity do you participate in: none mike/mu-ism: Restorationism seatbelt use: always do you feel safe at home: Yes additional social history: [facility]- [place]- [employer] History 6 Elective abortions Hx Para 4 Spontaneous abortions 1 Hx # Term Pregnancies Ectopic pregnancies Hx # Pregnancies Multiple births # of living children 4 Past Pregnancies Del. Date Name GA/Weeks Outcome Route Bth Weight Infant Gen Labor Lgth Anesthesia Del Locatn Provider FOB 12/06/09 [place] 36 live - 6.8 Male epidural [place] 07/25/11 [place] 40 live - full term 6#8oz Female epidural [place] 06/24/13 [place] 40 live - full term 9.2 Male none [place] 08/31/22 8 spontaneous 01/28/24 [place] 40 live - full term 7lbs 13oz Male epidural [facility] Carolyn Nu[facility] Delivery Date: 08/31/22 Last Updated by: Gely Harding, [facility] Delivery Date: 01/28/24 Last Updated by: Florecita Otto RN see problem list for complications HPI *EST* NOB, LMP 10/04, VERÓNICA 07/11 Details: KEON CASIANO is a 33 year old who presents for New OB visit. OB Visit VERÓNICA Calculator Estimated Delivery Date Method Current WG Current Estimate 07/14/25 Ultrasound #1 7w 2d Other Estimates 07/11/25 LMP (Certain) 7w 5d Comments: HIV: Urine Culture: Sequential Screen: NIPT Screen: Estimated Due Date: 07/11/25 Expected Delivery Route/Plan Labor Preferences- CB/BF classes: [] labor support person: [] labor intervention preferences: [] pain management options preferred: [] cut cord/dad catch: [] : [] PP control planned: [] discussed possible routes of delivery and associated risks: [] special requests: [] Specific Issue/Plans Covid status: [] Flu vaccine: [] Tdap vaccine: [] Rhogam: [] LARC form signed: [] Problem list reviewed and updated with the most current plan of care details and appropriate orders placed. Relevant counseling for the gestational age provided. Continue routine care and follow up unless otherwise noted in visit notes/problem list details Initial Weight: Not Recorded Date -???-???-???-???-??? -???-???-???-???-??? -???-???- EGA Weight BP Urine Prot -???-???-???-???-??? -???-???-???-???-??? -?? (more content not included)... Normal [facility] Urine cultureOrdered By: Evelyn Aranda on 11-27-2024 Bacteria identified Cx Nom (U) Positive Abnormal [facility] Serum human chorionic gonado tropin detection for pregnancyOrdered By: Jessica Kaufman on 11-18-2024 HCG ( test) Ql 21436 mIU/mL High <9 [facility] Comment on above: Gestational Age0.2-1 Week: 5-50 mIU/mL1-2 Weeks: 50-500 mIU/mL2-3 Weeks: 100-5000 mIU/mL3-4 Weeks: 500-10,000 mIU/mL4-5 Weeks:1000-50,000 mIU/mL5-6 Weeks: 10,000-100,000 mIU/mL6-8 Weeks: 15,000-200,000 mIU/mL2-3 Months:10,000-100,000 mIU/mL Transvaginal w/Preg USon Transvaginal w/Preg US [facility] [address], [place] [id number] Transvaginal w/Preg US MR#: [id number] Acct: [id number] Name: KEON CASIANO Rep #: [id number] : 1990 F 33 From: Vidal Martins MD PCP: Care Physician,No Primary Status: REG CLI Study: Transvaginal w/Preg US Date of Exam: 11/18/24 Exam# [id number] Ordering Dr: Jessica Kaufman CNM PROCEDURE: TRANSVAGINAL W/PREG US 11/18/2024 REASON FOR EXAM: VIABILITY TECHNIQUE: TRANSVAGINAL W/PREG US COMPARISON: No relevant comparison exam. FINDINGS: Gravid uterus appears normal in size, smooth in contour. No discrete fibroid. Closed cervix. A single intrauterine gestational sac is present, with a mean sac diameter of 1.2 cm corresponding with a 6 week gestation. A 0.2 cm yolk sac is visualized. No definitive pole is seen at this time. Both ovaries have a normal sonographic appearance. Preserved blood flow bilaterally. Right ovary contains a thick-walled cyst measuring up to 2.2 cm, compatible with a corpus luteal cyst of . No adnexal mass or significant free pelvic fluid is seen. US/Transvaginal w/Preg US IMPRESSION: Single intrauterine gestational sac, corresponding to a 6 week gestation. No pole is visualized at this time, likely due to early gestational age, and viability cannot be confirmed as of now. No concerning findings on this exam. Follow-up as clinically warranted. Reading Location: [facility] CC: KERRI Kaufman; No Primary Care Physician Manager Paper: Signed Normal [facility] hCG Titer Quant., Serumon HCG QUANT. 90666 mIU/mL High <9 non-preg [facility] Comment on above: Result Comment: Gest ational Age 0.2-1 Week: 5-50 mIU/mL 1-2 Weeks: 50-500 mIU/mL 2-3 Weeks: 100-5000 mIU/mL 3-4 Weeks: 500-10,000 mIU/mL 4-5 Weeks:1000-50,000 mIU/mL 5-6 Weeks: 10,000-100,000 mIU/mL 6-8 Weeks: 15,000-200,000 mIU/mL 2-3 Months:10,000-100,000 mIU/mL Performed By: #### L 700.8000 #### [facility] [place], [address] Serum human chorionic gonado tropin detection for pregnancyOrdered By: Jessica Kaufman on 11-16-2024 HCG ( test) Ql 6025 mIU/mL High <9 [facility] Comment on above: Gestational Age0.2-1 Week: 5-50 mIU/mL1-2 Weeks: 50-500 mIU/mL2-3 Weeks: 100-5000 mIU/mL3-4 Weeks: 500-10,000 mIU/mL4-5 Weeks:1000-50,000 mIU/mL5-6 Weeks: 10,000-100,000 mIU/mL6-8 Weeks: 15,000-200,000 mIU/mL2-3 Months:10,000-100,000 mIU/mL hCG Titer Quant., Serumon HCG QUANT. 6025 mIU/mL High <9 non-preg [facility] Comment on above: Result Comment: Gest ational Age 0.2-1 Week: 5-50 mIU/mL 1-2 Weeks: 50-500 mIU/mL 2-3 Weeks: 100-5000 mIU/mL 3-4 Weeks: 500-10,000 mIU/mL 4-5 Weeks:1000-50,000 mIU/mL 5-6 Weeks: 10,000-100,000 mIU/mL 6-8 Weeks: 15,000-200,000 mIU/mL 2-3 Months:10,000-100,000 mIU/mL Performed By: #### L 700.8000 #### [facility] [address] [place], [place], [address] [employer] Visit Reporton 03-17-2024 [employer] Visit Report [facility] [address], [address] [place] [address] OFFICE VISIT Date of Service: 03/17/24 MR#: [id number] Acct: [id number] Name: KEON CASIANO Rep #: [id number] : 1990 Provider: LISHA norman Age/Sex: 33/F [place] [facility] [place] Status: Signed Intake Vital Signs 01/28/24 07:14 02/19/24 11:14 03/17/24 14:28 03/17/24 14:34 Height 5 ft 6 in 5 ft 6 in 5 ft 6 in 5 ft 6 in Weight: 236 lb 4 oz BMI 38.1 BP 110/74 Intake Visit Reasons: visit (obstetrics) Chief Complaint: 6 Week PP 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: No Is patient in pain?: No Allergies measles, mumps, and rubella vaccine Allergy (Verified 03/17/24 14:27) seizure Medications ???Medication ???Instructions ???Recorded ???Confirmed ???Type NK 03/17/24 03/17/24 History Last Menstrual Period: 03/09/24 : Yes [facility] Medical History (Updated 03/17/24 @ 15:06 by Monica Flores NP, AGRICULTURAL COMMODITIES INSPECTOR-C) History of oligohydramnios depression Dysmenorrhea Seizures Former smoker Missed Laceration of right thumb Acute pharyngitis Sore throat Lump of right breast Encounter for screening for COVID-19 Alcohol abuse Fatigue Surgical History H/O dilation and curettage History of breast biopsy ( 02/2021) History of orthopedic surgery History of tonsillectomy and adenoidectomy Family History Father Heart disease Diabetes Hypertension CVA (cerebral vascular accident) Social History adopted: No household members: significant other and children number of children: 3 current occupational status: employed current occupation: [employer] current occupational exposures/hazards: No pets and animals: Yes pets and animals: dog(s) history of recent travel: No sexually active: Yes Smoking Status: Former smoker alcohol intake: former year quit: 2017 details: five years- recovering substance use type: does not use diet: gluten free and lactose free well-balanced diet: daily or most days caffeine: No eating out: rarely or never during the past year weight has: remained stable what type of physical activity do you participate in: none mike/mu-ism: Restorationism seatbelt use: always do you feel safe at home: Yes additional social history: BF- [employer] History 5 Elective abortions Hx Para 4 Spontaneous abortions 1 Hx # Term Pregnancies Ectopic pregnancies Hx # Pregnancies Multiple births # of living children 4 Past Pregnancies Del. Date Name GA/Weeks Outcome Route Bth Weight Gen Labor Lgth Anesthesia Del Locatn Provider FOB 12/06/09 [place] 36 live - 6.8 Male epidural [place] 07/25/11 [place] 40 live - full term 6#8oz Female epidural [place] 06/24/13 [place] 40 live - full term 9.2 Male none [place] 08/31/22 8 spontaneous 01/28/24 [place] 40 live - full term 7lbs 13oz Male epidural [facility] Carolyn Nu[facility] Delivery Date: 08/31/22 Last Updated by: Gely Harding, [facility] Delivery Date: 01/28/24 Last Updated by: Florecita Otto RN see problem list for complications Depression Screen PHQ-2/9 PHQ-2 Over the last 2 weeks, how often have you been bothered by any of the following problems? 1. Little interest or pleasure in doing things: not at all 2. Feeling down, depressed, or hopeless: not at all Total score: 0 Post HPI Routine Follow-Up: Details: KEON CASIANO is a 33 year old who presents for her post visit. Infant Feeding: Breast Menses resumed: Yes [place] since delivery: No Emotional Support: Yes Last Pap:: 2023 Control Method: condom ROS Card Denies chest pain and Denies dyspnea Resp Denies dyspnea GI Denies bloating and Denies change in bowel habits Denies difficulty voiding Skin/Breast Denies breast mass, Denies breast pain and Denies breast skin changes Exam Const General: cooperative, no acute distress and well developed Nutritional Appearance: average body habitus Orientation: oriented x3 Chest Chest palpation inspection: abnormal inspection of the chest Breast inspection: normal inspection of the breasts Breast palpation: normal palpation of the breasts, normal palpation of the axillae and no axillary lymphadenopathy GI Palpation: soft, no masses and nontender General: bladder normal to palpation External Female Exam: normal external appearance and normal appearance of the urethra Urethra: normal appearance of the urethra Speculum Exam - Vagina: normal appearance of the vagina a (more content not included)... Normal [facility] MR/Tim 02-19-2024 MR/LATONIA.LUKE [facility] [address] [place] [address] OFFICE VISIT Date of Service: 02/19/24 MR#: [id number] Acct: [id number] Name: KEON CASIANO Rep #: [id number] : 1990 Provider: Sabine Sanchez NP Age/Sex: 33/F [place] [facility] [place] Status: Signed Intake Vital Signs 3 02/05/24 23:07 02/19/24 11:14 Height 5 ft 6 in 5 ft 6 in Temp 98.6 F Intake Visit Reasons: mastitis? Chief Complaint: mastitis concerns Accompanied by: Significant Other Allergies measles, mumps, and rubella vaccine Allergy (Verified 01/28/24 07:14) seizure : [facility] Medical History (Updated 01/30/24 @ 00:02 by Amira Aragon) LGA (large for gestational age) fetus affecting management of mother Oligohydramnios depression Spotting in early Dysmenorrhea Seizures Former smoker Missed Laceration of right thumb Acute pharyngitis Sore throat Lump of right breast Encounter for screening for COVID-19 Alcohol abuse Fatigue Surgical History H/O dilation and curettage History of breast biopsy ( 02/2021) History of orthopedic surgery History of tonsillectomy and adenoidectomy Family History Father Heart disease Diabetes Hypertension CVA (cerebral vascular accident) Social History adopted: No household members: significant other and children number of children: 3 current occupational status: employed current occupation: [employer] current occupational exposures/hazards: No pets and animals: Yes pets and animals: dog(s) history of recent travel: No sexually active: Yes Smoking Status: Former smoker alcohol intake: former year quit: 2017 details: five years- recovering substance use type: does not use diet: gluten free and lactose free well-balanced diet: daily or most days caffeine: No eating out: rarely or never during the past year weight has: remained stable what type of physical activity do you participate in: none mike/mu-ism: Restorationism seatbelt use: always do you feel safe at home: Yes 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 Date Name GA/Weeks Outcome Route Bth [facility] F[facility] 12/06/09 [place] 36 live - 6.8 Male epidural [place] 07/25/11 [place] 40 live - full term 6#8oz Female epidural [place] 06/24/13 [place] 40 live - full term 9.2 Male none [place] 08/31/22 8 spontaneous 01/28/24 [place] 40 live - full term Male epidural [facility] [place] Delivery Date: 08/31/22 Last Updated by: Gely Harding, [facility] Delivery Date: 01/28/24 Last Updated by: Florecita Otto RN see problem list for complications HPI HPI HPI: KEON CASIANO, is a 33 F who presents to the office today for mastitis concerns. History provided by the patient. ROS ROS Const Constitutional: Reports body ache, chills, fatigue, fever(s) (to 103 yesterday) and headache(s) (does improve with Ibuprofen ); Denies lethargy : Denies nipple discharge Skin Skin/Breast: Reports breast pain (right ); Denies breast skin changes or nipple discharge Details: Right breast pain started two days ago, patient has been feeding baby on demand and pumping a couple of times per day, stopped pumping, noticed redness and warmth to right breast, attempted ice and ibuprofen last night with no relief today Exam Maternal Assessment Breast Assessment Bilateral Breasts: Full Nipple Assessment Bilateral Nipples: Everted Areolar Tissue Areolar Tissue: Pliable Diagrams - Click on the drop-down arrow Breast Diagram: 2 1. 7x8 cm area of redness and warmth to right outer lower quadrant Assessment Baby Feeding History Number of Breast Feedings in 24 hours: feeding on demand q2-3 hours Minutes per breast: First Breast: 20 Minutes per breast: Second Breast: 20 Goals Breast Feeding Goals: Exclusive Exam Const General: comfortable and no acute distress Orientation: alert and oriented x3 Chest Breast inspection: abnormal inspection of the breast (redness noted as diagram above ) Breast palpation: abnormal palpation of the breast (firm area noted to diagram above ) Resp Effort Inspection: normal respiratory effort Skin General: no rashes or lesions noted Psych Appearance (more content not included)... Normal [facility] MR/BMS.BBCon 02-05-2024 MR/BMS.BBC [facility] [address] [place] [address] OFFICE VISIT Date of Service: 02/05/24 MR#: [id number] Acct: [id number] Name: KEON CASIANO Rep #: [id number] : 1990 Provider: Sabine Sanchez NP Age/Sex: 33/F [place] [facility] [place] Status: Signed Intake Vital Signs 01/28/24 07:14 02/05/24 23:07 Height 5 ft 6 in 5 ft 6 in Intake Visit Reasons: Latch Difficulties Chief Complaint: assessment, latching difficulties, nipple pain Accompanied by: Significant Other Allergies measles, mumps, and rubella vaccine Allergy (Verified 01/28/24 07:14) seizure : Yes PFSH PFS Medical History (Updated 01/30/24 @ 00:02 by Amira Aragon) LGA (large for gestational age) fetus affecting management of mother Oligohydramnios depression Spotting in early Dysmenorrhea Seizures Former smoker Missed Laceration of right thumb Acute pharyngitis Sore throat Lump of right breast Encounter for screening for COVID-19 Alcohol abuse Fatigue Surgical History H/O dilation and curettage History of breast biopsy ( 02/2021) History of orthopedic surgery History of tonsillectomy and adenoidectomy Family History Father Heart disease Diabetes Hypertension CVA (cerebral vascular accident) Social History adopted: No household members: significant other and children number of children: 3 current occupational status: employed current occupation: [employer] current occupational exposures/hazards: No pets and animals: Yes pets and animals: dog(s) history of recent travel: No sexually active: Yes Smoking Status: Former smoker alcohol intake: former year quit: 2018 details: five years- recovering substance use type: does not use diet: gluten free and lactose free well-balanced diet: daily or most days caffeine: No eating out: rarely or never during the past year weight has: remained stable what type of physical activity do you participate in: none mike/mu-ism: Restorationism seatbelt use: always do you feel safe at home: Yes additional social history: - [place]- [employer] History 5 Elective abortions Hx Para 4 Spontaneous abortions 1 Hx # Term Pregnancies Ectopic pregnancies Hx # Pregnancies Multiple births # of living children 4 Past Pregnancies Del. Date Name GA/Weeks Outcome Route Bth Weight Gen Labor Lgth Anesthesia Del Locatn Provider FOB 12/06/09 [place] 36 live - 6.8 Male epidural [place] 07/25/11 [place] 40 live - full term 6#8oz Female epidural [place] 06/24/13 [place] 40 live - full term 9.2 Male none [place] 08/31/22 8 spontaneous 01/28/24 [place] 40 live - full term Male epidural [facility] [place] Delivery Date: 08/31/22 Last Updated by: Gely Harding, [facility] Delivery Date: 01/28/24 Last Updated by: Florecita Otto, RN see problem list for complications HPI HPI HPI: KEON CASIANO, is a 33 F who presents to the office today for assessment, latching difficulties, nipple pain. History provided by the patient. ROS ROS Const Constitutional: Denies fever(s) or lethargy : Denies nipple discharge Skin Skin/Breast: Denies breast pain, breast skin changes or nipple discharge Details: q 2 hours, 15 minutes to one side but now baby is nursing 15 minutes to both sides, concerned with nipple pain with feeds and milk supply, attempted to pump 2x (got 2 oz when milk came in on day 3-4 and yesterday got 0.5 oz) Exam Maternal Assessment Breast Assessment Bilateral Breasts: Full Nipple Assessment Bilateral Nipples: Everted Areolar Tissue Areolar Tissue: Pliable Assessment Baby Feeding History Is your baby latching onto the breast: Yes Number of Breast Feedings in 24 hours: 12 Minutes per breast: First Breast: 15 Minutes per breast: Second Breast: 0-15 Supplements Supplement Type:: None Breast Pumping Type of Breast Pump: Zomee Frequency: 2x Amount: 0.5-2 oz Goals Breast Feeding Goals: Exclusive Exam Const General: comfortable and no acute distress Orientation: alert and oriented x3 Chest Breast inspection: normal inspection of the breasts Breast palpation: normal palpation of the breasts Other: bilateral nipples slight reddened Resp Effort Inspection: normal respiratory effort Skin General: no rashes or lesions noted Psych Appearance: grossly normal Mental Status: mental status grossly normal Affect: (more content not included)... Normal [facility] CBC W/Diff, Automatedon 01-11-2023 Absolute Lymph 2.28 X10 3/uL Normal 0.83-4.51 [facility] Comment on above: Order Comment: Reaso n for Type Screen/Red Cells: Labor Performed By: #### L 100.0100 #### [facility] [address] [facility] [address] Absolute Neut 8.1 X10 3/uL High 2.0-7.7 [facility] Comment on above: Order Comment: Reaso n for Type Screen/Red Cells: Labor Performed By: #### L 100.0100 #### [facility] [address] [facility] [address] Basophils/100 WBC (Bld) 0.3 % Normal 0-1 [facility] Comment on above: Order Comment: Reaso n for Type Screen/Red Cells: Labor Performed By: #### L 100.0100 #### [facility] [address] [facility] [address] Eosinophils/100 WBC (Bld) 0.8 % Normal 0-5 [facility] Comment on above: Order Comment: Reaso n for Type Screen/Red Cells: Labor Performed By: #### L 100.0100 #### [facility] [address] [facility] [address] Erythrocyte distribution width (RBC) [Ratio] 12.3 % Normal 11.6-14.6 [facility] Comment on above: Order Comment: Reaso n for Type Screen/Red Cells: Labor Performed By: #### L 100.0100 #### [facility] [address] [place], [address] Hematocrit (Bld) [Volume fraction] 37.7 % Normal 37-47 [facility] Comment on above: Order Comment: Reaso n for Type Screen/Red Cells: Labor Performed By: #### L 100.0100 #### [facility] [address] [place], [address] Hemoglobin (Bld) [Mass/Vol] 12.8 g/dL Normal 12.0-15.0 [facility] Comment on above: Order Comment: Reaso n for Type Screen/Red Cells: Labor Performed By: #### L 100.0100 #### [facility] [address] [place], [address] IG% 0.600 Normal 0.0-0.9 [facility] Comment on above: Order Comment: Reaso n for Type Screen/Red Cells: Labor Result Comment: IG% - Immature Granulocytes (promyelocytes, myelocytes and metamyelocytes) > 1% indicates that a LEFT SHIFT is Present. Performed By: #### L 100.0100 #### [facility] [address] [place], [address] Lymphocytes/100 WBC (Bld) 20.5 % Normal 19-41 [facility] Comment on above: Order Comment: Reaso n for Type Screen/Red Cells: Labor Performed By: #### L 100.0100 #### [facility] [address] [place], [address] MCH (RBC) [Entitic mass] 31.2 pg Normal 27.0-32.0 [facility] Comment on above: Order Comment: Reaso n for Type Screen/Red Cells: Labor Performed By: #### L 100.0100 #### [facility] [address] [place], [address] MCHC (RBC) [Mass/Vol] 34.0 g/dL Normal 32-36 [facility] Comment on above: Order Comment: Reaso n for Type Screen/Red Cells: Labor Performed By: #### L 100.0100 #### [facility] [address] [place], [address] MCV (RBC) [Entitic vol] 92.0 fL Normal 81-99 [facility] Comment on above: Order Comment: Reaso n for Type Screen/Red Cells: Labor Performed By: #### L 100.0100 #### [facility] [address] [place], [address] Monocytes/100 WBC (Bld) 4.6 % Normal 0-10 [facility] Comment on above: Order Comment: Reaso n for Type Screen/Red Cells: Labor Performed By: #### L 100.0100 #### [facility] [address] [place], [address] Neutrophils/100 WBC (Bld) 73.2 % High 47-70 [facility] Comment on above: Order Comment: Reaso n for Type Screen/Red Cells: Labor Performed By: #### L 100.0100 #### [facility] [address] [place], [address] Nucleated RBC (Bld) [#/Vol] 0 10*3/uL Normal 0-5 [facility] Comment on above: Order Comment: Reaso n for Type Screen/Red Cells: Labor Performed By: #### L 100.0100 #### [facility] [address] [place], [address] Platelet mean volume (Bld) [Entitic vol] 9.5 fL Normal 6.2-12.0 [facility] Comment on above: Order Comment: Reaso n for Type Screen/Red Cells: Labor Performed By: #### L 100.0100 #### [facility] [address] [place], [address] Platelets (Bld) [#/Vol] 284 10*3/uL Normal 150-450 [facility] Comment on above: Order Comment: Reaso n for Type Screen/Red Cells: Labor Performed By: #### L 100.0100 #### [facility] [address] [place], [address] RBC (Bld) [#/Vol] 4.10 10*6/uL Low 4.2-5.4 [facility] Comment on above: Order Comment: Reaso n for Type Screen/Red Cells: Labor Performed By: #### L 100.0100 #### [facility] [address] [place], [address] RDW SD 41.0 fl Normal 35.1-43.9 [facility] Comment on above: Order Comment: Reaso n for Type Screen/Red Cells: Labor Performed By: #### L 100.0100 #### [facility] [address] [place], [address] WBC (Bld) [#/Vol] 11.1 10*3/uL High 4.4-11.0 [facility] Comment on above: Order Comment: Reaso n for Type Screen/Red Cells: Labor Performed By: #### L 100.0100 #### [facility] [address] [place], [address] Absolute Neut Normal 2.0-7.7 [facility] Comment on above: Result Comment: Canc elled via OM: Order edited - Discontinuing original order Performed By: #### B TS, L100.0100 #### [facility] [address] [place], [address] HCT Normal 37-47 [facility] Comment on above: Result Comment: Canc elled via OM: Order edited - Discontinuing original order Performed By: #### B TS, L100.0100 #### [facility] [address] [place], [address] HGB Normal 12.0-15.0 [facility] Comment on above: Result Comment: Canc elled via OM: Order edited - Discontinuing original order Performed By: #### B TS, L100.0100 #### [facility] [address] [place], [address] MCH Normal 27.0-32.0 [facility] Comment on above: Result Comment: Canc elled via OM: Order edited - Discontinuing original order Performed By: #### B TS, L100.0100 #### [facility] [address] [place], [address] MCHC Normal 32-36 [facility] Comment on above: Result Comment: Canc elled via OM: Order edited - Discontinuing original order Performed By: #### B TS, L100.0100 #### [facility] [address] [place], [address] MCV Normal 81-99 [facility] Comment on above: Result Comment: Canc elled via OM: Order edited - Discontinuing original order Performed By: #### B TS, L100.0100 #### [facility] [address] [place], [address] NEUT% Normal 47-70 [facility] Comment on above: Result Comment: Canc elled via OM: Order edited - Discontinuing original order Performed By: #### B TS, L100.0100 #### [facility] [address] [place], [address] PLT Normal 150-450 [facility] Comment on above: Result Comment: Canc elled via OM: Order edited - Discontinuing original order Performed By: #### B TS, L100.0100 #### [facility] [address] [place], [address] RBC Normal 4.2-5.4 [facility] Comment on above: Result Comment: Canc elled via OM: Order edited - Discontinuing original order Performed By: #### B TS, L100.0100 #### [facility] [address] [place], [address] RDW CV Normal 11.6-14.6 [facility] Comment on above: Result Comment: Canc elled via OM: Order edited - Discontinuing original order Performed By: #### B TS, L100.0100 #### [facility] [address] [place], [address] RDW SD Normal 35.1-43.9 [facility] Comment on above: Result Comment: Canc elled via OM: Order edited - Discontinuing original order Performed By: #### B TS, L100.0100 #### [facility] [address] [place], [address] WBC Normal 4.4-11.0 [facility] Comment on above: Result Comment: Canc elled via OM: Order edited - Discontinuing original order Performed By: #### B TS, L100.0100 #### [facility] [address] [place], [address] Discharge Instructionon 01-11 Discharge Instruction [facility] Medical Records Department [address] [place] [address] Instructions for Home/Discharge Instructions 01/28/242043 MR#: [id number] Acct: [id number] Name: GADIELILEANAKEON DORI Rep #: [id number] : 1990 33 From: Lanie Aguero DO PCP: Care Physician,No Primary Status:ADM IN Discharge Instructions Diet Discharge Diet: No restrictions Activity Discharge Activity: Return to Normal Activity, May Not Drive (while taking narcotic pain medications.) and May Shower May resume sexual activity in: 4-6 weeks Dressing / Incision Call your doctor if your incision/area has: Continuous Slow Oozing, Sudden Increased Bleeding, Increased Pain/ Swelling, Increased Redness and Foul Smelling Discharge Follow Up Care Please Follow Up With: Lanie Aguero DO When: Call [phone] to make an appointment with your doctor in 6 weeks. If you had elevated blood pressure or 4th degree laceration, you will need to be seen in 2 weeks. Test Results: Test results from this visit will be discussed in further detail at your follow-up appointment, if applicable. Discharge Plan Admission Admit Date/Time: 01/28/24 07:11 Attending Provider: Lanie Aguero Primary Care Provider: Abigail PhysicianLaura Primary Discharge Orders/Prescriptions Prescriptions: No Action PNV-DHA 27 mg iron-1 mg -300 mg capsule 1 cap PO DAILY aspirin 81 mg capsule 81 mg PO DAILY albuterol sulfate 90 mcg/actuation HFA aerosol inhaler 2 puff inhalation Q4H PRN (Reason: shortness of breath ) Qty: 6.7 4RF Referrals / Follow Up: Abigail Physician,No Primary [Primary Care Provider] - 01/28/242043 Lanie Aguero DO CC: No Primary Care Physician Signed Normal [facility] H AND P Exam - OB/GYNon 01-11 H&P Exam - TESTER ROCKET ENGINE [facility] Medical Records Department [address] [place] [address] H P Exam - TESTER ROCKET ENGINE 01/28/24 0749 MR#: [id number] Acct: [id number] Name: KEON CASIANO Rep #: [id number] : 1990 33 From: Lanie Aguero DO PCP: Abigail Physician,No Primary Status:ADM IN Location: [id number] HPI - General General Date of Admission: 01/28/24 HPI Narrative KEON CASIANO, is a 33 y/o @ 40 weeks 1 day who presents to [facility] D for IOL. She denies loss of fluid, vaginal bleeding, or dec FM. The plan is for a robbins bulb placement and pitocin this am. Maternal Data Information VERÓNICA Calculator Estimated Delivery Date Method Current WG Current Estimate 01/27/24 Ultrasound #1 40w 1d Other Estimates 02/02/24 LMP (Certain) 39w 2d 01/28/24 Ultrasound #2 40w 0d PFSH PFSH Medical History Spotting in early Dysmenorrhea Seizures Former smoker Missed Laceration of right thumb Acute pharyngitis Sore throat Lump of right breast Encounter for screening for COVID-19 Alcohol abuse Fatigue Home Medications ???Medication ???Instructions ???Recorded ???Last Taken ???Type multivitamin no.47-iron fum 27 1 cap PO DAILY 06/14/23 01/28/24 06:30 History mg-folate no.1 1 mg-dha 300 mg capsule (PNV-DHA) albuterol sulfate 90 mcg/actuation 2 puff inhalation Q4H PRN 11/26/23 01/28/24 06:30 Rx aerosol inhaler shortness of breath #6.7 grams aspirin 81 mg capsule 81 mg PO DAILY 12/03/23 01/28/24 06:30 History Allergy/AdvReac Type Severity Reaction Status Date / Time measles, mumps, and rubella Allergy seizure Verified 01/28/24 07:14 vaccine Family History Father Heart disease Diabetes Hypertension CVA (cerebral vascular accident) Surgical History H/O dilation and curettage History of breast biopsy ( 02/2021) History of orthopedic surgery History of tonsillectomy and adenoidectomy Social History adopted: No household members: significant other and children number of children: 3 current occupational status: employed current occupation: [employer] current occupational exposures/hazards: No pets and animals: Yes pets and animals: dog(s) history of recent travel: No sexually active: Yes Smoking Status: Former smoker alcohol intake: former year quit: 2017 details: five years- recovering substance use type: does not use diet: gluten free and lactose free well-balanced diet: daily or most days caffeine: No eating out: rarely or never during the past year weight has: remained stable what type of physical activity do you participate in: none mike/mu-ism: Restorationism seatbelt use: always do you feel safe at home: Yes additional social history: BF- [employer] History 5 Elective abortions Hx Para 3 Spontaneous abortions 1 Hx # Term Pregnancies Ectopic pregnancies Hx # Pregnancies Multiple births # of living children 3 Past Pregnancies Del. Date Name GA/Weeks Outcome Route Bth Weight Gen [facility] 12[facility]09 Nichols 36 live - 6.8 Male epidural Hazen 07/25/11 Nasra 40 live - full term 6#8oz Female epidural Hazen 06/24/13 Kathy 40 live - full term 9.2 Male none Hazen 08/31/22 8 spontaneous Delivery Date: 08/31/22 Last Updated by: Gely Harding, [facility] Visit Details Expected Delivery Route/Plan Labor Preferences- CB/BF classes: [] labor support person: [] labor intervention preferences: [] pain management options preferred: [] cut cord/dad catch: [] : [] PP control planned: [] discussed possible routes of delivery and associated risks: [] special requests: [] Plans Covid status: [] Flu vaccine: [] Tdap vaccine: [] Rhogam: [] LARC form signed: [] Problem list reviewed and updated with the most current plan of care details and appropriate orders placed. Relevant counseling for the gestational age provided. Continue routine care and follow up unless otherwise noted in visit notes/problem list details OB Flowsheet Initial Weight: 215 lb Date -???-???-???-???-??? -???-???-???-???-??? -???-???- EGA Weight BP Urine Prot -???-???-???-???-??? -???-???-???-???-??? -???-???- Glucose FHR FuHt Pres Dilation -???-???-???-???-??? -???-???-???-???-??? -???-???- Effaced St Visit Note 02/08/24 -???-???-???-???-??? -???-???-???-???-??? -???-???- 8w 3d 213 lb 2 oz (-1 lb 14 oz) 127/88 -???-???-???-???-??? -???-???-???-???-??? -???-???- 16 (more content not included)... Normal [facility] L509.8000on 01-28-2024 Syphilis Abs Non-Reactive Normal [facility] Comment on above: Performed By: #### L 509.8000 #### [facility] [address] [facility] [place], [address] Operative Reporton 4 Operative Report [facility] Medical Records Department [address] [place] [address] Operative Report 01/28/242038 MR#: [id number] Acct: [id number] Name: KEON CASIANO Rep #: [id number] : 1990 33 From: Lanie Aguero DO PCP: Care Physician,No Primary Status:ADM IN Location: [place] [id number] Assessment Plan (1) Vaginal bleeding during : COMMENT: no change in cervical exam, active bleeding. d/c home (2) History of oligohydramnios: COMMENT: previous induced at 36 weeks (3) Low amniotic fluid volume: COMMENT: santana 6.6 on 12/17/23, repeat 9.1 12/23/23, IV fluids and rom negative. repeat santana 6.2cm with 2.5cm pocket. reviewed twice daily kick counts, BPP/SANTANA twice weekly for now, recommend IOL if decreased fm or oligo (4) Low oxygen saturation: (5) LGA (large for gestational age) fetus affecting management of mother: COMMENT: history of 9 pound baby- plan 36 week scan (6) History of miscarriage, currently : (7) COVID-19 affecting , antepartum: COMMENT: April 2023 discusses 81 mg ASA (8) Supervision of high-risk : QUALIFIERS: Trimester: first trimester Qualified Code(s): O09.91 - Supervision of high risk , unspecified, first trimester COMMENT: PRR,, boy, VERÓNICA 01/27/24, boy [facility] Simone, Nasra, [place], Jerman- Joaquin (his first child) (9) : QUALIFIERS: Weeks of gestation: 39 weeks Qualified Code(s): Z3A.39 - 39 weeks gestation of COMMENT: GBS Negative, normal anatomy, discussed genetic carrier testing, NIPT low risk Maternal Data Information VERÓNICA Calculator Estimated Delivery Date Method Current WG Current Estimate 01/27/24 Ultrasound #1 40w 1d Other Estimates 02/02/24 LMP (Certain) 39w 2d 01/28/24 Ultrasound #2 40w 0d Final VERÓNICA: 01/27/24 Final VERÓNICA Source: [place] <20 weeks Gestational age: 40 weeks 1 day Vaginal Delivery Maternal Presentation Maternal Presentation: Medically Indicated Induction Operative Information Date of Procedure: 01/28/24 Pre-Operative Diagnosis: 33 y/o @ 40 weeks 1 day, IOL for low amniotic fluid volume, LGA, low o2 saturation in Post-Operative Diagnosis: 33 y/o @ 40 weeks 1 day, IOL for low amniotic fluid volume, LGA, low o2 saturation in Surgery / Procedure Performed: Spontaneous Vaginal Delivery Type of Anesthesia: Epidural Drain: Robbins to straight drain Estimated Blood Loss: 200cc Time of Delivery: 20:23 Findings Description of Procedure: Patient began pushing and delivered the head in the PALOMA presentation. The head was delivered atraumatically. The anterior and posterior shoulders delivered without complication followed by the rest of the infant and the was placed on the maternal abdomen. Delayed cord clamping was employed for approximately 60 seconds. Cord was clamped and cut and gentle traction was applied to the cord and the placenta delivered spontaneously immediately following it was noted to be intact with three-vessel cord. The perineum and vagina were inspected and noted to have no laceration. The uterus was explored due to a trail of membranes noted coming from the cervix. Manual removal of clot and tissue was performed until the uterine simms felt uniform EBL was 200cc. Patient and tolerated delivery well. Presentation: Vertex Time of Membrane Rupture: 0800 Amniotic Fluid Description: Clear Placental Delivery Description: Expressed Placenta Disposition: Sent to Pathology Cord Vessel Description: 3 Vessels Cord Entanglement: None A Gender: Male (1 minute): 8 (5 minute): 9 Delayed Cord Clamping: Yes Post Vaginal Delivery Medications Given After Delivery: IV Pitocin Episiotomy Description: None Laceration: None Complication Complications: None Multi Select Codes Urinary/Genital Urinary/Genital CPT Codes: 16143 Vaginal Delivery+ PP Care([facility]) 01/28/242043 Cosigner Signature (if applicable): CC: Dr. Lanie Aguero, DO; No Primary Care Physician Signed Normal [facility] Pathology Specimen OBon 01-11 PATH. Spec OB SEE PATHOLOGY REPORT Normal [facility] Comment on above: Order Comment: Send Specimen For (Specify): Studies @ [facility] Lab:Routine Time of Procedure: 2027 Date of Procedure: 01/28/24 Reason specimen being sent to pathology (Hx/complications): extra tissue Type of specimen: Placenta Type of procedure performed: Other Result Comment: Spec imen submitted to Anatomical Pathology Department for testing. Performed By: #### L 350.1800 #### [facility] [address] [place], [address] Surgery Specimen Level Von 0 01-28-2024 Surgery Specimen Level V ----- Patient Age/Sex Location Account Attending Physician KEON CASIANO 33/F WP [id number] Dr. Lanie Aguero, K[facility] Specimen: [id number] Received: 01/28/24 Status: TEA Fry Num: [id number] Spec Type: PLACENTA Subm Dr: Dr. Lanie Aguero, DO HEADER OPERATION: Vaginal delivery PRE-OP DIAGNOSIS: Extra tissue TISSUE SUBMITTED: Placenta MICROSCOPIC DIAGNOSIS Placenta: Placental disc - third trimester placenta (480 gm). - Multiple areas of intraparenchymal hemorrhage (largest measuring 2.0cm in greatest dimension). - Focal mild acute vasculitis of subamniotic blood vessels. Membranes - Focal mild acute deciduitis. Umbilical cord - three blood vessels and mild acute funisitis. Additional tissue - Endometrial tissue with decidual changes. SJ: 01/31/2024 COMMENT Case has been reviewed in consultation with Dr. Ashley who concurs with the above diagnosis. IDC:[email or web address] MICROSCOPIC DESCRIPTION Slides are reviewed. GROSS DESCRIPTION SPECIMEN: PLACENTA / CLINICAL INFORMATION: A. Weight: 3.54 kg B. Gestational Age: 40 weeks C. Sex: Male PLACENTAL WEIGHT (POST FIXATION): 480 gm PLACENTAL DIMENSIONS: 16.0 x 15.0 x 4.0 cm PLACENTAL SHAPE: Usual ovoid PLACENTAL WEIGHT FOR GESTATIONAL AGE: Within 10-99th percentile MEMBRANES - Present A. Insertion: Marginal B. Site of rupture from edge: at the edge of placental disc C. Color of membrane: Nelson-carreno Patient Age/Sex Location Account Attending Physician KEON CASIANO 33/F [id number] Kumar Tilley D. Abnormalities: None UMBILICAL CORD - Present A. Color: Nelson-carreno B. Insertion: Paracentral C. Length: 39.0 cm D. Diameter: 1.0 cm E. Number of vessels: Three F. Abnormalities: None PLACENTAL DISC - Present A. Color of surface: Nelson-carreno B. surface abnormalities: None C. Maternal cotyledons: Disrupted in the central portion of placenta D. Attached retro placental clot: A few adherent retro placental blood clots are noted in the central portion of the placenta. E. Cut surface: Dark red and spongy F. Lesions: Sections reveal four nelson indurated areas, largest measuring 2.0cm in greatest dimension G. Separate clot and additional findings: Also present in the container are multiple fragments of hemorrhagic soft tissue mixed with blood clot measuring in aggregate 11.0 x 11.0 x 3.0cm and weighing 115gm. SECTIONS SUBMITTED: (10 cassettes) 1. Membrane roll 2. Cord, maternal end, lesion 3. Cord, end 4. Placental disc, and maternal surfaces 5. Placental disc, and maternal surfaces, lesion 6. Placental disc, and maternal surfaces, lesion 7 -10. Detached piece of hemorrhagic tissue 01/30/2024TC:2 CPT: 78218 Patient Age/Sex Location Account Attending Physician KEON CASIANO 33/F WP [id number] Kumar Tilley Signed (signature on file) Dr. Florentin Coombs MD 01/31/24 1212 Normal [facility] Comment on above: Performed By: #### M 100.2200, L7000.1800 #### [facility] [address] [place], [address] Type AND Screenon 01-28-2024 Ab SCREEN GEL Negative Normal [facility] Comment on above: Order Comment: Labor Performed By: #### M 100.2200, L7000.1800 #### [facility] [address] [place], [address] ABO and Rh group Nom (Bld) Blood group A Rh(D) positive [facility] Comment on above: Order Comment: Labor Performed By: #### M 100.2200, L7000.1800 #### [facility] [address] [place], [address] A1 CELL Not performed [facility] Comment on above: Order Comment: Labor Result Comment: Canc elled via OM: Order edited - Discontinuing original order Performed By: #### B TS, L100.0100 #### [facility] [address] [place], [address] Ab SCREEN GEL Not performed [facility] Comment on above: Order Comment: Labor Result Comment: Canc elled via OM: Order edited - Discontinuing original order Performed By: #### Dori TS, L100.0100 #### [facility] [address] [place], [address] ABO and Rh group Nom (Bld) Test Not Performed [facility] Comment on above: Order Comment: Labor Result Comment: Canc elled via OM: Order edited - Discontinuing original order Performed By: #### B TS, L100.0100 #### [facility] [address] [place], [address] ANTI A Not performed [facility] Comment on above: Order Comment: Labor Result Comment: Canc elled via OM: Order edited - Discontinuing original order Performed By: #### Dori TS, L100.0100 #### [facility] [address] [place], [address] ANTI B Not performed Normal [facility] Comment on above: Order Comment: Labor Result Comment: Canc elled via OM: Order edited - Discontinuing original order Performed By: #### Dori TS, L100.0100 #### [facility] [address] [place], [address] ANTI D Not performed Normal [facility] Comment on above: Order Comment: Labor Result Comment: Canc elled via OM: Order edited - Discontinuing original order Performed By: #### Dori TS, L100.0100 #### [facility] [address] [place], [address] B CELLS Not performed Normal [facility] Comment on above: Order Comment: Labor Result Comment: Canc elled via OM: Order edited - Discontinuing original order Performed By: #### Dori TS, L100.0100 #### [facility] [address] [place], [address] BLD TYPE RECHEK Not performed Normal [facility] Comment on above: Order Comment: Labor Result Comment: Canc elled via OM: Order edited - Discontinuing original order Performed By: #### Dori SAUNDERS, L100.0100 #### [facility] [address] [place], [address] Urine Drug Screen (VISTA)on 01-28-2024 AMPHETAMINES Negative Normal <1000 ng/mL [facility] Comment on above: Performed By: #### M 100.2200, L7000.1800 #### [facility] [address] [place], [address] BARBITIURATES Negative Normal < 200 ng/mL [facility] Comment on above: Performed By: #### M 100.2200, L7000.1800 #### [facility] [address] [place], [address] BENZODIAZIPINE Negative Normal < 200 ng/mL [facility] Comment on above: Performed By: #### M 100.2200, L7000.1800 #### [facility] [address] [place], [address] COCAINE Negative Normal < 300 ng/mL [facility] Comment on above: Performed By: #### M 100.2200, L7000.1800 #### [facility] [address] [place], [address] ECSTACY Negative Normal < 500 ng/mL [facility] Comment on above: Performed By: #### M 100.2200, L7000.1800 #### [facility] [address] [place], [address] METHADONE Negative Normal < 300 ng/mL [facility] Comment on above: Performed By: #### M 100.2200, L7000.1800 #### [facility] [address] [place], [address] OPIATES Negative Normal < 300 ng/mL [facility] Comment on above: Performed By: #### M 100.2200, L7000.1800 #### [facility] [address] [place], [address] PCP Negative Normal < 25 ng/mL [facility] Comment on above: Performed By: #### M 100.2200, L7000.1800 #### [facility] [address] [place], [address] THC Negative Normal < 50 ng/mL [facility] Comment on above: Performed By: #### M 100.2200, L7000.1800 #### [facility] [address] [place], [address] VISTA UDS PH 6 Normal [facility] Comment on above: Performed By: #### M 100.2200, L7000.1800 #### [facility] [address] [place], [address] [employer] Visit Reporton 01-22-2024 [employer] Visit Report [facility] [address], [address] [place] [address] OFFICE VISIT Date of Service: 01/22/24 MR#: [id number] Acct: [id number] Name: KEON CASIANO Rep #: [id number] : 1990 Provider: Dr. 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 Is patient in pain?: No Allergies measles, mumps, and rubella vaccine Allergy (Verified 01/22/24 08:38) seizure Medications ???Medication ???Instructions ???Recorded ???Confirmed ???Type multivitamin no.47-iron fum 27 1 cap PO DAILY 06/14/23 01/22/24 History mg-folate no.1 1 mg-dha 300 mg capsule (PNV-DHA) albuterol sulfate 90 mcg/actuation 2 puff inhalation Q4H PRN 11/26/23 01/22/24 Rx aerosol inhaler shortness of breath #6.7 grams aspirin 81 mg capsule 81 mg PO DAILY 12/03/23 01/22/24 History Last Menstrual Period: 04/28/23 Zika: Zika virus screening: Negative : No PFSH PFSH Medical History Spotting in early Dysmenorrhea Seizures Former smoker Missed Laceration of right thumb Acute pharyngitis Sore throat Lump of right breast Encounter for screening for COVID-19 Alcohol abuse Fatigue Surgical History H/O dilation and curettage History of breast biopsy ( 02/2021) History of orthopedic surgery History of tonsillectomy and adenoidectomy Family History Father Heart disease Diabetes Hypertension CVA (cerebral vascular accident) Social History adopted: No household members: significant other and children number of children: 3 current occupational status: employed current occupation: [employer] current occupational exposures/hazards: No pets and animals: Yes pets and animals: dog(s) history of recent travel: No sexually active: Yes Smoking Status: Former smoker alcohol intake: former year quit: 2017 details: five years- recovering substance use type: does not use diet: gluten free and lactose free well-balanced diet: daily or most days caffeine: No eating out: rarely or never during the past year weight has: remained stable what type of physical activity do you participate in: none imke/mu-ism: Restorationism seatbelt use: always do you feel safe at home: Yes additional social history: BF- [employer]- [employer] History 5 Elective abortions Hx Para 3 Spontaneous abortions 1 Hx # Term Pregnancies Ectopic pregnancies Hx # Pregnancies Multiple births # of living children 3 Past Pregnancies Del. Date Name GA/Weeks Outcome Route Bth Weight Infant Gen Labor Lgth Anesthesia Del Locatn Provider FOB 12/06/09 Simone 36 live - 6.8 Male epidural [place] 07/25/11 Nasra 40 live - full term 6#8oz Female epidural [place] 06/24/13 Kathy 40 live - full term 9.2 Male none [place] 08/31/22 8 spontaneous Delivery Date: 08/31/22 Last Updated by: Gely Harding, ALANNA HPI 39 WK OB Details: KEON CASIANO is a 33 year old who presents for routine OB visit. OB Visit VERÓNICA Calculator Estimated Delivery Date Method Current WG Current Estimate 01/27/24 Ultrasound #1 39w 2d Other Estimates 02/02/24 LMP (Certain) 38w 3d 01/28/24 Ultrasound #2 39w 1d Expected Delivery Route/Plan Labor Preferences- CB/BF classes: [] labor support person: [] labor intervention preferences: [] pain management options preferred: [] cut cord/dad catch: [] : [] PP control planned: [] discussed possible routes of delivery and associated risks: [] special requests: [] Specific Issue/Plans Covid status: [] Flu vaccine: [] Tdap vaccine: [] Rhogam: [] LARC form signed: [] Problem list reviewed and updated with the most current plan of care details and appropriate orders placed. Relevant counseling for the gestational age provided. Continue routine care and follow up unless otherwise noted in visit notes/problem list details Initial Weight: 215 lb Date -???-???-???-???-??? -???-???-???-???-??? -???-???- EGA Weight BP Urine Prot -???-???-???-???-??? -???-???-???-???-??? -???-???- Glucose FHR FuHt Pres Dilation -???-???-???-???-??? -???-???-???-???-??? -???-???- Effaced St Visit Note 06/20/23 -???-???-???-???-??? -???-???-???-???-??? -???-? (more content not included)... Normal [facility] [employer] Visit Reporton 01-16-2024 [employer] Visit Report [facility] [address], [address] [place] [address] OFFICE VISIT Date of Service: 01/16/24 MR#: [id number] Acct: [id number] Name: KEON CASIANO Rep #: [id number] : 1990 Provider: KERRI Swenson ams Age/Sex: 33/F [place] [facility] [place] Status: Signed Intake Vital Signs 12/16/23 09:54 01/06/24 20:26 01/16/24 11:27 01/16/24 11:31 Height 5 ft 6 in 5 ft 6 in 5 ft 6 in 5 ft 6 in Weight: 258 lb BMI 41.6 BP 124/86 H Intake Visit Reasons: 38 WK 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: No Is patient in pain?: No Allergies measles, mumps, and rubella vaccine Allergy (Verified 01/16/24 11:31) seizure Medications ???Medication ???Instructions ???Recorded ???Confirmed ???Type multivitamin no.47-iron fum 27 1 cap PO DAILY 06/14/23 01/16/24 History mg-folate no.1 1 mg-dha 300 mg capsule (PNV-DHA) albuterol sulfate 90 mcg/actuation 2 puff inhalation Q4H PRN 11/26/23 01/16/24 Rx aerosol inhaler shortness of breath #6.7 grams aspirin 81 mg capsule 81 mg PO DAILY 12/03/23 01/16/24 History Last Menstrual Period: 04/28/23 Zika: Zika virus screening: Negative Have you fallen in the past year?: No PFSH PFSH Medical History Spotting in early Dysmenorrhea Seizures Former smoker Missed Laceration of right thumb Acute pharyngitis Sore throat Lump of right breast Encounter for screening for COVID-19 Alcohol abuse Fatigue Surgical History H/O dilation and curettage History of breast biopsy ( 02/2021) History of orthopedic surgery History of tonsillectomy and adenoidectomy Family History Father Heart disease Diabetes Hypertension CVA (cerebral vascular accident) Social History adopted: No household members: significant other and children number of children: 3 current occupational status: employed current occupation: [employer] current occupational exposures/hazards: No pets and animals: Yes pets and animals: dog(s) history of recent travel: No sexually active: Yes Smoking Status: Former smoker alcohol intake: former year quit: 2017 details: five years- recovering substance use type: does not use diet: gluten free and lactose free well-balanced diet: daily or most days caffeine: No eating out: rarely or never during the past year weight has: remained stable what type of physical activity do you participate in: none mike/mu-ism: Restorationism seatbelt use: always do you feel safe at home: Yes additional social history: BF- [employer] History 5 Elective abortions Hx Para 3 Spontaneous abortions 1 Hx # Term Pregnancies Ectopic pregnancies Hx # Pregnancies Multiple births # of living children 3 Past Pregnancies Del. Date Name GA/Weeks Outcome Route Bth Weight Infant Gen Labor Lgth Anesthesia Del Locatn Provider FOB 12/06/09 Nichols 36 live - 6.8 Male epidural [place] 07/25/11 Nasra 40 live - full term 6#8oz Female epidural [place] 06/24/13 Kathy 40 live - full term 9.2 Male none [place] 08/31/22 8 spontaneous Delivery Date: 08/31/22 Last Updated by: Gely Harding, ALANNA HPI 38 WK OB Details: KEON CASIANO is a 33 year old who presents for routine OB visit. OB Visit VERÓNICA Calculator Estimated Delivery Date Method Current WG Current Estimate 01/27/24 Ultrasound #1 38w 3d Other Estimates 02/02/24 LMP (Certain) 37w 4d 01/28/24 Ultrasound #2 38w 2d Expected Delivery Route/Plan Labor Preferences- CB/BF classes: [] labor support person: [] labor intervention preferences: [] pain management options preferred: [] cut cord/dad catch: [] : [] PP control planned: [] discussed possible routes of delivery and associated risks: [] special requests: [] Specific Issue/Plans Covid status: [] Flu vaccine: [] Tdap vaccine: [] Rhogam: [] LARC form signed: [] Problem list reviewed and updated with the most current plan of care details and appropriate orders placed. Relevant counseling for the gestational age provided. Continue routine care and follow up unless otherwise noted in visit notes/problem list details Initial Weight: 215 lb Date -???-???-???-???-??? -???-???-???-???-??? -???-???- EGA Weight BP Urine Prot -???-???-???-???-??? -???-???-???-???-??? -???-???- Glucose FHR FuHt Pres Dilation -???-???-???-???-??? -???-???-???-???-??? -???-???- Effaced St Visit Note 06/20/23 -???-???-???-???-??? -???-???-???-???-??? -???-???- 8w 3d (more content not included)... Normal [facility] Biophysical Prof W/O Non Str eson 01-14-2024 Biophysical Prof W/O Non Stres [facility] Services [address] [place] [address] [id number] Biophysical Prof W/O Non Stres MR#: [id number] Acct: [id number] Name: KEON CASIANO Rep #: [id number] : 1990 F 33 From: Stephon starr MD PCP: Care Physician,No Primary Status: REG CL Study: Biophysical Prof W/O Non Stres Date of Exam: 0 01/14/24 Exam# [id number] Ordering Dr: Lanie Aguero DO [id number] STUDY: OBSTETRICAL ULTRASOUND - BIOPHYSICAL PROFILE REASON FOR EXAM: Female, 33 years old well being LMP: April 22, 2023. PRIOR ULTRASOUND: Comparison is made with prior study of January 07, 2024. TECHNIQUE: Transabdominal TECHNICAL QUALITY: Adequate. FINDINGS: There is a single intrauterine fetus. The fetus is in a cephalic presentation. There is demonstrated cardiac activity with a heart rate of 140 bpm. There is a normal amniotic fluid volume. The largest amniotic fluid pocket measures 3.8 cm. The amniotic fluid index (SANTANA) is 10.7 cm. The placenta is fundal in location. There are Grade 1 placental changes. Age by LMP: 38 weeks, 1 days. VERÓNICA by LMP: January 27, 2024. BIOPHYSICAL PROFILE: Breathing Movements (FBM): 2 Gross Body Movements (GBM): 2 Tone (FT): 2 Amniotic Fluid Volume (AFV): 2 TOTAL SCORE: US/Biophysical Prof W/O Non Stres IMPRESSION: Normal biophysical profile of 12/18. Electronically Signed: Stephon Rod MD at 10:41 EDT Reading Location ID and State: [address] [place] [address] , Service support , CC: Dr. Lanie Aguero, DO; No Primary Care Physician Manager Paper: Signed Normal [facility] Biophysical Prof W/O Non Str eson 01-07-2024 Biophysical Prof W/O Non Stres [facility] Services [address] [place], [place] [address] Biophysical Prof W/O Non Stres MR#: [id number] Acct: [id number] Name: KEON CASIANO Rep #: [id number] : 1990 F 33 From: Stephon starr MD PCP: Care Physician,No Primary Status: REG CLI Study: Biophysical Prof W/O Non Stres Date of Exam: 0 01/07/24 Exam# [id number] Ordering Dr: Theresa Nance [id number] STUDY: OBSTETRICAL ULTRASOUND - BIOPHYSICAL PROFILE REASON FOR EXAM: Female, 33 years old well being BPP/SANTANA LMP: April 22, 2023. PRIOR ULTRASOUND: Comparison is made with prior study December 31, 2023. TECHNIQUE: Transabdominal TECHNICAL QUALITY: Adequate. FINDINGS: There is a single intrauterine fetus. The fetus is in a cephalic presentation. There is demonstrated cardiac activity with a heart rate of 144 bpm. There is a normal amniotic fluid volume. The largest amniotic fluid pocket measures 3.3 cm. The amniotic fluid index (SANTANA) is 8.4 cm. The placenta is fundal in location. There are Grade 1 placental changes. Age by LMP: 37 weeks, 1 days. VERÓNICA by LMP: January 27, 2024. BIOPHYSICAL PROFILE: Breathing Movements (FBM): 2 Gross Body Movements (GBM): 2 Tone (FT): 2 Amniotic Fluid Volume (AFV): 2 TOTAL SCORE: US/Biophysical Prof W/O Non Stres IMPRESSION: Normal biophysical profile of 12/18. Electronically Signed: Stephon Rod MD at 11:21 EDT , CC: Dr. Theresa Nance MD; No Primary Care Physician Manager Paper: Signed Normal [facility] OB Triage Progress Noteon OB Triage Progress Note [facility] Medical Records Department [address] [place] [address] OB Triage Progress Note 01/06/24 2206 MR#: [id number] Acct: [id number] Name: KEON CASIANO Rep #: [id number] : 1990 33 From: Jessica Kaufman CNM PCP: Care Physician,No Primary Status:REG CLI Y DOS: Location: [place] [id number] Progress Notes Date of Service: 01/06/24 Progress Note: Patient presents for triage evaluation secondary to vaginal bleeding FHT: 130 Moderate variability reactive no decelerations category I tracing [place]: irregular Contractions Assessment and plan: no active vaginal bleeding while on unit, cervical exam unchanged from office exam previously done today, Reactive NST, reassuring maternal and status patient discharged to home to follow-up in office. See problem list details for additional plan information. Laboratory Studies: Laboratory Tests 01/06/24 Range/Units 21:30 Urine Color Yellow (Yellow) Urine Clarity Clear (Clear) Urine pH 5.0 (5.0 - 8.0) Ur Specific [place] 1.020 (1.002-1.030) Urine Protein 15 H (Negative) mg/dl Urine Glucose (UA) Normal (Normal) mg/dl Urine Ketones Negative (Negative) mg/dl Urine Occult Blood 250 H (Negative) /ul Urine Nitrite Negative (Negative) Urine Bilirubin Negative (Negative) mg/dL Urine Urobilinogen Normal (Normal) mg/dl Ur Leukocyte Esterase 25 H (Negative) /ul Charges/Coding Multi Select Codes Urinary/Genital Urinary/Genital CPT Codes: 15727-17 non-stress test Interp Assessment Plan (1) Vaginal bleeding during : COMMENT: no change in cervical exam, active bleeding. d/c home (2) History of oligohydramnios: COMMENT: previous induced at 36 weeks (3) Low amniotic fluid volume: COMMENT: santana 6.6 on 12/17/23, repeat 9.1 12/23/23, IV fluids and rom negative. repeat santana 6.2cm with 2.5cm pocket. reviewed twice daily kick counts, BPP/SANTANA twice weekly for now, recommend IOL if decreased fm or oligo (4) Low oxygen saturation: (5) LGA (large for gestational age) fetus affecting management of mother: COMMENT: history of 9 pound baby- plan 36 week scan (6) History of miscarriage, currently : (7) COVID-19 affecting , antepartum: COMMENT: April 2023 discusses 81 mg ASA (8) Supervision of high-risk : QUALIFIERS: Trimester: first trimester Qualified Code(s): O09.91 - Supervision of high risk , unspecified, first trimester COMMENT: PRR,, boy, VERÓNICA 01/27/24, boy Marcio Nichols, Nasra, Agapito Daniels (his first child) (9) : QUALIFIERS: Weeks of gestation: 37 weeks Qualified Code(s): Z3A.37 - 37 weeks gestation of COMMENT: GBS Negative, normal anatomy, discussed genetic carrier testing, NIPT low risk 01/06/242208 Date Jessica Kaufman CNM Cosigner Signature (if applicable): Date _ CC: KERRI Kaufman; No Primary Care Physician Signed Normal [facility] [employer] Visit Reporton 01-06-2024 [employer] Office Visit Report [facility]'s [address], [address] [place] [address] OFFICE VISIT Date of Service: 01/06/24 MR#: [id number] Acct: [id number] Name: KEON CASIANO Rep #: [id number] : 1990 Provider: Dr. Lanie Amaro DO Age/Sex: 33/F Location: [facility] [place] Status: Signed Intake Vital Signs 12/16/23 09:54 12/30/23 09:05 01/06/24 15:14 01/06/24 15:18 Height 5 ft 6 in 5 ft 6 in 5 ft 6 in 5 ft 6 in Weight: 254 lb BMI 41.0 BP 127/85 H Intake Visit Reasons: 37 WK OB Chief Complaint: lost mucous plug, infrequent contractions 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: No Allergies measles, mumps, and rubella vaccine Allergy (Verified 01/06/24 15:17) seizure Medications ???Medication ???Instructions ???Recorded ???Confirmed ???Type multivitamin no.47-iron fum 27 1 cap PO DAILY 06/14/23 01/06/24 History mg-folate no.1 1 mg-dha 300 mg capsule (PNV-DHA) albuterol sulfate 90 mcg/actuation 2 puff inhalation Q4H PRN 11/26/23 01/06/24 Rx aerosol inhaler shortness of breath #6.7 grams aspirin 81 mg capsule 81 mg PO DAILY 12/03/23 01/06/24 History Last Menstrual Period: 04/28/23 Zika: Zika virus screening: Negative PFSH PFS Medical History Spotting in early Dysmenorrhea Seizures Former smoker Missed Laceration of right thumb Acute pharyngitis Sore throat Lump of right breast Encounter for screening for COVID-19 Alcohol abuse Fatigue Surgical History H/O dilation and curettage History of breast biopsy ( 02/2021) History of orthopedic surgery History of tonsillectomy and adenoidectomy Family History Father Heart disease Diabetes Hypertension CVA (cerebral vascular accident) Social History adopted: No household members: significant other and children number of children: 3 current occupational status: employed current occupation: [employer] current occupational exposures/hazards: No pets and animals: Yes pets and animals: dog(s) history of recent travel: No sexually active: Yes Smoking Status: Former smoker alcohol intake: former year quit: 2017 details: five years- recovering substance use type: does not use diet: gluten free and lactose free well-balanced diet: daily or most days caffeine: No eating out: rarely or never during the past year weight has: remained stable what type of physical activity do you participate in: none mike/mu-ism: Restorationism seatbelt use: always do you feel safe at home: Yes additional social history: [place]- [employer]- [employer] History 5 Elective abortions Hx Para 3 Spontaneous abortions 1 Hx # Term Pregnancies Ectopic pregnancies Hx # Pregnancies Multiple births # of living children 3 Past Pregnancies Del. Date Name GA/Weeks Outcome Route Bth Weight Gen Labor Lgth Anesthesia Del Locatn Provider FOB 12/06/09 Simone 36 live - 6.8 Male epidural [place] 07/25/11 Nasra 40 live - full term 6#8oz Female epidural [place] 06/24/13 [place] 40 live - full term 9.2 Male none [place] 08/31/22 8 spontaneous Delivery Date: 08/31/22 Last Updated by: Gely Heath C, ALANNA HPI 37 WK OB Details: KEON CASIANO is a 33 year old who presents for routine OB visit. OB Visit VERÓNICA Calculator Estimated Delivery Date Method Current WG Current Estimate 01/27/24 Ultrasound #1 37w 0d Other Estimates 02/02/24 LMP (Certain) 36w 1d 01/28/24 Ultrasound #2 36w 6d Expected Delivery Route/Plan Labor Preferences- CB/BF classes: [] labor support person: [] labor intervention preferences: [] pain management options preferred: [] cut cord/dad catch: [] : [] PP control planned: [] discussed possible routes of delivery and associated risks: [] special requests: [] Specific Issue/Plans Covid status: [] Flu vaccine: [] Tdap vaccine: [] Rhogam: [] LARC form signed: [] Problem list reviewed and updated with the most current plan of care details and appropriate orders placed. Relevant counseling for the gestational age provided. Continue routine care and follow up unless otherwise noted in visit notes/problem list details Initial Weight: 215 lb Date -???-???-???-???-??? -???-???-???-???-??? -???-???- EGA Weight BP Urine Prot -???-???-???-???-??? -???-???-???-???-??? -???-???- Glucose FHR FuHt Pres Dilation -???-???-???-???-??? -???-???-???-???-??? -???-???- Effaced St Visit Note 06/20/23 -???-???-???-???-??? -???-???-???-???-??? -???-???- (more content not included)... Normal [facility] Urinalysis, Routine (Dipstic k)on 01-06-2024 BILIRUBIN URINE Negative Normal Negative [facility] Comment on above: Order Comment: CLEAN CATCH Performed By: #### L 400.2010 #### [facility] [address] [place], [address] Clarity (U) Clear Normal Clear [facility] Comment on above: Order Comment: CLEAN CATCH Performed By: #### L 400.2010 #### [facility] [address] [place], [address] Color (U) Yellow Normal Yellow [facility] Comment on above: Order Comment: CLEAN CATCH Performed By: #### L 400.2010 #### [facility] [address] [place], [address] GLUCOSE, UR Normal Normal Normal [facility] Comment on above: Order Comment: CLEAN CATCH Performed By: #### L 400.2010 #### [facility] [address] [place], [address] KETONE UR Negative Normal Negative [facility] Comment on above: Order Comment: CLEAN CATCH Performed By: #### L 400.2010 #### [facility] [address] [place], [address] LEUK ESTERASE 25 /ul Abnormal Negative [facility] Comment on above: Order Comment: CLEAN CATCH Performed By: #### L 400.2010 #### [facility] [address] [place], [address] Nitrite Ql (U) Negative Normal Negative [facility] Comment on above: Order Comment: CLEAN CATCH Performed By: #### L 400.2010 #### [facility] [address] [place], [address] OCCULT BLOOD-UR 250 /ul Abnormal Negative [facility] Comment on above: Order Comment: CLEAN CATCH Performed By: #### L 400.2010 #### [facility] [address] [place], [address] pH UR 5.0 Normal 5.0 - 8.0 [facility] Comment on above: Order Comment: CLEAN CATCH Performed By: #### L 400.2010 #### [facility] [address] [place], [address] PROT DIPSTX 15 mg/dl Abnormal Negative [facility] Comment on above: Order Comment: CLEAN CATCH Performed By: #### L 400.2010 #### [facility] [address] [place] [place], [address] SP.GR. DIPSTX 1.020 Normal 1.002-1.030 [facility] Comment on above: Order Comment: CLEAN CATCH Performed By: #### L 400.2010 #### [facility] [address] [place], [address] UROBILI Normal Normal Normal [facility] Comment on above: Order Comment: CLEAN CATCH Performed By: #### L 400.2010 #### [facility] [address] [place], [address] Rule out Beta Strep (Grp. B) on 01-01-2024 BRIGIDO Group B Beta Streptococcus is not isolated. Normal [facility] Comment on above: Performed By: #### M 100.2200, L7000.1799 #### [facility] [address] [place], [address] Biophysical Prof W/O Non Str eson 12-31-2023 Biophysical Prof W/O Non Stres [facility] Services [address] [place] [address] Biophysical Prof W/O Non Stres MR#: [id number] Acct: [id number] Name: KEON CASIANO Rep #: [id number] : 1990 F 33 From: Stephon starr MD PCP: Care Physician,No Primary Status: REG CLI Study: Biophysical Prof W/O Non Stres Date of Exam: 0 12/31/23 Exam# [id number] Ordering Dr: Lanie Aguero DO [id number] STUDY: OBSTETRICAL ULTRASOUND - BIOPHYSICAL PROFILE REASON FOR EXAM: Female, 33 years old well being LMP: April 22, 2023. PRIOR ULTRASOUND: Comparison is made with prior study December 27, 2023. TECHNIQUE: Transabdominal TECHNICAL QUALITY: Adequate. FINDINGS: There is a single intrauterine fetus. The fetus is in a cephalic presentation. There is demonstrated cardiac activity with a heart rate of 155 bpm. There is a normal amniotic fluid volume. The largest amniotic fluid pocket measures 4.4 cm. The amniotic fluid index (SANTANA) is 10 cm. The placenta is posterior and fundal in location and is not low lying. There are Grade 2 placental changes. Age by LMP: 36 weeks, 1 days. VERÓNICA by LMP: January 27, 2024. BIOPHYSICAL PROFILE: Breathing Movements (FBM): 2 Gross Body Movements (GBM): 2 Tone (FT): 2 Amniotic Fluid Volume (AFV): 2 TOTAL SCORE: 8 / 8 US/Biophysical Prof W/O Non Stres IMPRESSION: Normal biophysical profile of 12/18. Electronically Signed: Stephon Rod MD at 12:12 EDT , CC: Dr. 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 Theresa cota MD Age/Sex: 33/F [place] [facility] [place]: Signed Intake Vital Signs 12/16/23 09:54 12/23/23 10:56 12/30/23 09:02 12/30/23 09:05 Height 5 ft 6 in 5 ft 6 in 5 ft 6 in 5 ft 6 in Weight: 245 lb BMI 39.5 BP 113/75 Intake Visit Reasons: 36 WK 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: No Is patient in pain?: No Allergies measles, mumps, and rubella vaccine Allergy (Verified 12/30/23 09:02) seizure Medications ???Medication ???Instructions ???Recorded ???Confirmed ???Type multivitamin no.47-iron fum 27 1 cap PO DAILY 06/14/23 12/30/23 History mg-folate no.1 1 mg-dha 300 mg capsule (PNV-DHA) albuterol sulfate 90 mcg/actuation 2 puff inhalation Q4H PRN 11/26/23 12/30/23 Rx aerosol inhaler shortness of breath #6.7 grams aspirin 81 mg capsule 81 mg PO DAILY 12/03/23 12/30/23 History Last Menstrual Period: 04/28/23 Zika: Zika virus screening: Negative : No Have you fallen in the past year?: No PFSH PFSH Medical History Spotting in early Dysmenorrhea Seizures Former smoker Missed Laceration of right thumb Acute pharyngitis Sore throat Lump of right breast Encounter for screening for COVID-19 Alcohol abuse Fatigue Surgical History H/O dilation and curettage History of breast biopsy ( 02/2021) History of orthopedic surgery History of tonsillectomy and adenoidectomy Family History Father Heart disease Diabetes Hypertension CVA (cerebral vascular accident) Social History adopted: No household members: significant other and children number of children: 3 current occupational status: employed current occupation: [employer] current occupational exposures/hazards: No pets and animals: Yes pets and animals: dog(s) history of recent travel: No sexually active: Yes Smoking Status: Former smoker alcohol intake: former year quit: 2018 details: five years- recovering substance use type: does not use diet: gluten free and lactose free well-balanced diet: daily or most days caffeine: No eating out: rarely or never during the past year weight has: remained stable what type of physical activity do you participate in: none mike/mu-ism: Restorationism seatbelt use: always do you feel safe at home: Yes additional social history: BF- [employer] History 5 Elective abortions Hx Para 3 Spontaneous abortions 1 Hx # Term Pregnancies Ectopic pregnancies Hx # Pregnancies Multiple births # of living children 3 Past Pregnancies Del. Date Name GA/Weeks Outcome Route Bth Weight Infant Gen Labor Lgth Anesthesia Del Locatn Provider FOB 12/06/09 [place] 36 live - 6.8 Male epidural [facility] 07/25/11 [facility] 40 live - full term 6#8oz Female epidural [place] 06/24/13 [place] 40 live - full term 9.2 Male none [place] 08/31/22 8 spontaneous Delivery Date: 08/31/22 Last Updated by: Gely Heath C, ALANNA HPI 36 WK OB Details: KEON CASIANO is a 33 year old who presents for routine OB visit. OB Visit VERÓNICA Calculator Estimated Delivery Date Method Current WG Current Estimate 01/27/24 Ultrasound #1 36w 0d Other Estimates 02/02/24 LMP (Certain) 35w 1d 01/28/24 Ultrasound #2 35w 6d Expected Delivery Route/Plan Labor Preferences- CB/BF classes: [] labor support person: [] labor intervention preferences: [] pain management options preferred: [] cut cord/dad catch: [] : [] PP control planned: [] discussed possible routes of delivery and associated risks: [] special requests: [] Specific Issue/Plans Covid status: [] Flu vaccine: [] Tdap vaccine: [] Rhogam: [] LARC form signed: [] Problem list reviewed and updated with the most current plan of care details and appropriate orders placed. Relevant counseling for the gestational age provided. Continue routine care and follow up unless otherwise noted in visit notes/problem list details Initial Weight: 215 lb Date -???-???-???-???-??? -???-???-???-???-??? -???-???- EGA Weight BP Urine Prot -???-???-???-???-??? -???-???-???-???-??? -???-???- Glucose FHR FuHt Pres Dilation -???-???-???-???-??? -???-???-???-???-??? -???-???- Effaced St Visit Note 06/20/23 -???-???-???-???-??? -???-???-?? (more content not included)... Normal [facility] Biophysical Prof W/O Non Str eson 12-27-2023 Biophysical Prof W/O Non Stres [facility] Imaging Services [address] [place], [place] [id number] Biophysical Prof W/O Non Stres MR#: [id number] Acct: [id number] Name: KEON CASIANO Rep #: [id number] : 1990 F 33 From: Erasto sierra DO PCP: Care Physician,No Primary Status: REG CLI Study: Biophysical Prof W/O Non Stres Date of Exam: 0 12/27/23 Exam# [id number] Ordering Dr: Lanie Aguero DO [id number] EXAM: US BIOPHYSICAL PROFILE WITHOUT NON-STRESS TESTING CLINICAL INDICATION: well being TECHNIQUE: Real-time ultrasound of the maternal pelvis for biophysical profile evaluation with image documentation. COMPARISON: 12/23/2023 FINDINGS: BREATHING MOVEMENTS: Present. Score 2/2. GROSS BODY MOVEMENTS: Present. Score 2/2. TONE: Present. Score 2/2. QUALITATIVE AMNIOTIC FLUID VOLUME: Amniotic fluid volume is 9.5 cm with largest fluid pocket of 4.6 cm. HEART RATE: heart rate: 158 bpm. PRESENTATION: Cephalic presentation. PLACENTA: Fundal placenta. US/Biophysical Prof W/O Non Stres IMPRESSION: No acute findings. Normal biophysical profile with score of 8/8. Electronically Signed: Erasto Butterfield DO at 14:43 EDT , CC: Dr. Lanie Aguero, ; No Primary Care Physician Manager Paper: Signed Normal [facility] Biophysical Prof W/O Non Str eson 12-23-2023 Biophysical Prof W/O Non Stres [facility] Services [address] [place] [address] Biophysical Prof W/O Non Stres MR#: [id number] Acct: [id number] Name: KEON CASIANO Rep #: [id number] : 1990 F 33 From: Ashok Heath PCP: Care Physician,No Primary Status: [facility] Study: Biophysical Prof W/O Non Stres Date of Exam: 0 12/23/23 Exam# [id number] Ordering Dr: Jessica Kaufman [place] [id number] INDICATION: R/O Oligohydramnios EXAMINATION: Ultrasound US Biophysical Profile W/O Nonst TECHNIQUE: Transabdominal pelvic ultrasound was performed. COMPARISON: Prior study dated: 12/20/2023 ____ LMP: Unknown. Beta-hCG: Unknown. Provided EGA: None. FINDINGS: INTRAUTERINE GESTATION(s): Single. HEART MOTION is 145 bpm. AMNIOTIC FLUID INDEX (SANTANA): 9.1 cm, MVP: 3.8 cm BIOPHYSICAL PROFILE (BPP): 12/18 -- Breathin/2. -- Movement: 2/2. -- Tone: /2. --SANTANA: 2/2. PRESENTATION: Cephalic PLACENTA: Fundal. There is no placenta previa or abruption. CERVIX: Cervix is not visualized. MATERNAL OVARIES: No adnexal masses. FREE FLUID: None. US/Biophysical Prof W/O Non Stres IMPRESSION: Normal biophysical profile with score of 8 out of 8. Electronically Signed: Ashok Ly MD at 11:53 EDT , CC: KERRI Kaufman; No Primary Care Physician Manager Paper: Signed Normal [facility] OB Triage Progress Noteon OB Triage Progress Note [facility] Medical Records Department [address] [place] [address] OB Triage Progress Note 12/23/23 1225 MR#: [id number] Acct: [id number] Name: KEON CASIANO Rep #: [id number] : 1990 33 From: Jessica Kaufman CNM PCP: Care Physician,No Primary Status:REG CLI Y DOS: Location: [place] [address] Progress Notes Date of Service: 12/23/23 Progress Note: Patient presents for triage evaluation secondary to NST and BPP for SANTANA. FHT: 135 Moderate variability reactive no decelerations category I tracing [place]: no Contractions Assessment and plan: BPP 12/18, SANTANA 9.1, Reactive NST, reassuring maternal and status patient discharged to home to follow-up in office as scheduled. See problem list details for additional plan information. Charges/Coding Multi Select Codes Urinary/Genital Urinary/Genital CPT Codes: 68707-60 non-stress test Interp Assessment Plan (1) History of oligohydramnios: COMMENT: previous induced at 36 weeks (2) Low amniotic fluid volume: COMMENT: santana 6.6 on 12/17/23, repeat 9.1 12/23/23, IV fluids and rom negative. repeat santana 6.2cm with 2.5cm pocket. reviewed twice daily kick counts, BPP/SANTANA twice weekly for now, recommend IOL if decreased fm or oligo (3) Low oxygen saturation: (4) LGA (large for gestational age) fetus affecting management of mother: COMMENT: history of 9 pound baby- plan 36 week scan (5) Subchorionic hemorrhage in first trimester: (6) History of miscarriage, currently : (7) COVID-19 affecting , antepartum: COMMENT: April 2023 discusses 81 mg ASA (8) Supervision of high-risk : QUALIFIERS: Trimester: first trimester Qualified Code(s): O09.91 - Supervision of high risk , unspecified, first trimester COMMENT: PRR,, boy, VERÓNICA 01/27/24, PC [facility]ra [place] Asher, Fiance- Garrison (his first child) (9) : QUALIFIERS: Weeks of gestation: 35 weeks Qualified Code(s): Z3A.35 - 35 weeks gestation of COMMENT: normal anatomy, discussed genetic carrier testing, NIPT low risk 12/23/23 1230 Date Jessica Amaya Signature (if applicable): Date _ CC: KERRI Kaufman; No Primary Care Physician Signed Normal [facility] Biophysical Prof W/O Non Str eson 12-20-2023 Biophysical Prof W/O Non Stres [facility] Imaging Services [address] [place], [place] [id number] Biophysical Prof W/O Non Stres MR#: [id number] Acct: [id number] Name: KEON CASIANO Rep #: [id number] : 1990 F 33 From: Jhonny Baptiste MD PCP: Care Physician,No Primary Status: REG CLI Study: Biophysical Prof W/O Non Stres Date of Exam: 0 12/20/23 Exam# [id number] Ordering Dr: Lanie Aguero DO [id number] INDICATION: well being EXAMINATION: Ultrasound US Biophysical Profile W/O Nonst TECHNIQUE: Transabdominal pelvic ultrasound was performed. COMPARISON: December 19, 2023. ____ Provided EGA: 34 weeks 4 days correlating with January 27, 2024 delivery date. FINDINGS: Single live intrauterine with current cephalic presentation. Cervix is obscured by cranial shadow. heart rate 150 bpm. SANTANA 12.8 cm with deepest vertical pocket 5.7 cm. Placenta fundal without evidence of abruption BIOPHYSICAL PROFILE (BPP): 12/18 -- Breathin/2. -- Movement: 2/2. -- Tone: 2/2. --SANTANA: 2/2. US/Biophysical Prof W/O Non Stres IMPRESSION: Single live intrauterine with normal heart rate. Biophysical profile normal, 8 out of 8 . Electronically Signed: Jhonny Baptiste MD at 8:57 EDT Reading Location ID and State: [facility] [place] Tel , Service support , CC: Dr. Lanie Aguero DO; No Primary Care Physician Manager Paper: Signed Normal [facility] OB Limited With Biometricson 12-20-2023 OB Limited With Biometrics [facility] Imaging Services [address] [place], [place] [id number] OB Limited With Biometrics MR#: [id number] Acct: [id number] Name: KEON CASIANO Rep #: [id number] : 1990 F 33 From: Jennifer brenner MD PCP: Care Physician,No Primary Status: REG CLI Study: OB Limited With Biometrics Date of Exam: 12/19 Exam# [id number] Ordering Dr: Lanie Aguero DO [id number] HISTORY: growth. TECHNIQUE: Transabdominal pelvic ultrasound was performed. 42 images. COMPARISON: Ultrasound same day. FINDINGS: INTRAUTERINE GESTATION(s): Single. PRESENTATION: Cephalic. HEART MOTION: 144 bpm. PLACENTA: Fundal, grade 2. CERVIX: Not well-visualized. AMNIOTIC FLUID INDEX (SANTANA): 11.5 cm. Maximum vertical pocket 3.4 cm. BIOPHYSICAL PROFILE (BPP): Refer to separately dictated report. biometry- BIPARIETAL DIAMETER: 8.7 cm, corresponding to 35 weeks 1 day. HEAD CIRCUMFERENCE: 10.7 cm, corresponding to 34 weeks 2 days. ABDOMINAL CIRCUMFERENCE: 31.5 cm, corresponding to 35 weeks 3 days. FEMUR LENGTH: 6.7 cm, corresponding to 34 weeks 2 days. ESTIMATED GESTATIONAL AGE: 34 weeks 6 days. ESTIMATED DUE DATE (VERÓNICA): 01/25/2024. ESTIMATED WEIGHT: 2614 g corresponding to 63rd percentile. US/OB Limited With Biometrics IMPRESSION: Single living intrauterine with an estimated gestational age of 34 weeks 6 days. Electronically Signed: Jennifer Vasques MD at 9:54 EDT , CC: Dr. Lanie Aguero DO; No Primary Care Physician Manager Paper: Signed Normal [facility] CNOVon 10-09-2023 CNOV Office Visit (UCWSTR) KEON CASIANO ([id number]) 1990 F Date Time Provider Department 10/09/23 5:45 PM HAILE COLE UCWSTR During your visit today, we recorded the following information about you: Temperature Pulse Respiration Blood pressure 99.1 degrees 80/minute 18/minute 108/78 Weight 108.1 kg Haile Cole, ZULMA.KELLEE 10/09/2023 6:10 PM Signed Subjective HPI Nontoxic-appearing female who is 24 weeks presents urgent care chief complaint tick bite. Patient states noticed a tick on her right upper chest Saturday night. Removed the tick. Does not think it was attached long. Patient did take a picture of the tick. Tick was not engorged. Presents today for evaluation. Overall feels well. No flulike symptoms. No decreased movement. No leaking of vaginal fluids. Denies any fever body aches chills productive cough chest pain shortness of breath pleuritic pain hemoptysis nausea vomiting abdominal pain change in bowel or bladder habits. Past medical history prescription medication use and allergies reviewed. .Patient presents with: tick biite: Right chest x 3 days History reviewed. No pertinent past medical history. No past surgical history on file. ALLERGIES Patient has no known allergies. MEDICATIONS vit no.124/iron/folic ( VITAMIN ORAL) Take by mouth. aspirin 81 mg chewable tablet Take 81 mg by mouth once daily. Magnesium 200 mg tab Take by mouth. No family history on file. Social History Tobacco Use Smoking status: Every Day Smokeless tobacco: Never BP 108/78 Pulse 80 Temp 37.3 ?C (99.1 ?F) (Tympanic) Resp 18 Wt 108.1 kg (238 lb 5.1 oz) SpO2 99% Review of Systems Constitutional: Negative for chills, fever and malaise/fatigue. HENT: Negative for congestion, ear discharge, ear pain, sinus pain and sore throat. Eyes: Negative for blurred vision, pain, discharge and redness. Respiratory: Negative for cough, hemoptysis, sputum production, shortness of breath, wheezing and stridor. Cardiovascular: Negative for chest pain. Gastrointestinal: Negative for abdominal pain, diarrhea, nausea and vomiting. Musculoskeletal: Negative for myalgias. Skin: Negative for itching and rash. Neurological: Negative for dizziness and headaches. Objective Physical Exam Constitutional: General: She is not in acute distress. Appearance: She is not toxic-appearing. HENT: Head: Normocephalic. Nose: Nose normal. Eyes: Pupils: Pupils are equal, round, and reactive to light. Cardiovascular: Rate and Rhythm: Normal rate. Pulmonary: Effort: Pulmonary effort is normal. No respiratory distress. Musculoskeletal: Cervical back: Normal range of motion. Skin: General: Skin is warm and dry. Comments: Small area representing an insect bite noted. No erythema edema. No evidence of infection noted. Neurological: General: No focal deficit present. Mental Status: She is alert. ASSESSMENT/PLAN: 1. Tick bite of chest wall, initial encounter - ICD9: 911.4, E906.4, ICD10: S20.369A, W57.XXXA Diagnosed with tick bite of chest. Tick was not engorged. Not attached greater than 36 hours. Out of prophylactic window. Is currently . Low suspicion for tick borne illness. Red flags for reevaluation discussed. Patient was educated on supportive therapies. Patient will follow up with primary care provider as needed. Patient was instructed to immediately proceed to emergency room for any new, worsening, or symptoms lasting longer than anticipated. The patient's clinical presentation is otherwise unremarkable at this time. Based on exam and clinical finding, the patient is stable for discharge. Plan of care was discussed with patient. Patient verbalizes understanding and agrees to plan of care. This note was generated using [employer] software. It may contain errors in wording, punctuation, or spelling. Haile Cole APRN.STICK FEEDER Allergies As of Date: 10/09/2023 (No Known Allergies) Date Reviewed: 10/09/2023 Reviewed by: Tara Jameosn LPN - Fully Assessed Reason for Visit: tick biite [Other] Cmt: Right chest x 3 days Primary Visit Diagnosis:Tick bite of chest wall, initial encounter [S20.369A, W57.XXXA] Prescriptions as of 10/09/2023 - vit no.124/iron/folic ( VITAMIN ORAL) Take by mouth. - aspirin 81 mg chewable tablet Take 81 mg by mouth once daily. - Magnesium 200 mg tab Take by mouth. Problem List As Of Date: 10/09/2023 (None) Level of Service: OFFICE/OUTPATIENT ESTABLISHED LOW MDM 20 MIN [07589] Encounter Status:Closed by HAILE COLE on 10/09/23 Normal [facility] Cervical or vaginal specimen microscopic examination by liquid based cytology (reportOrdered By: Jessica Kaufman on 06-20-2023 Cytology report Cyto stain.thin prep Doc (Cvx/Vag) Comment . [facility] Comment on above: Criteria not met, HP V Genotype not performed.Performed at: - [address] [id number] Director: Nancy Palacios MD, Phone: [phone] at: = - [facility] [id number] Director: Nancy Palacios MD, Phone: [phone] Cervical or vagninal specime n microscopic examination by cytology stain (reported asOrdered By: Jessica Kaufman on 06-20-2023 Cytology report Cyto stain Doc (Cvx/Vag) Comment . [facility] Comment on above: The Pap smear is a s creening test designed to aid in thedetection of premalignant and malignant conditions of theuterine cervix. It is not a diagnostic procedure andshould not be used as the sole means of detecting cervicalcancer. Both false-positive and false-negative reports dooccur. Chlamydia trachomatis rRNA d etection by probe and target amplification methodOrdered By: Jessica Kaufman on 06-20-2023 C. trachomatis rRNA DINAA+probe Ql (Unsp spec) Negative Negative [facility] Culture, urineOrdered By: Chidi Kaufman on 06-20-2023 Bacteria identified Cx Nom (U) Positive [facility] Detection in cervical specim en of any of human papilloma virus (HPV) 16, 18, 31, 33,Ordered By: Jessica Kaufman on 06-20-2023 HPV 16+18+31+33+35+39+45+51+5 2+56+58+59+66+68 DNA Probe+sig amp Ql (Cvx) Negative Negative [facility] Comment on above: This nucleic acid am plification test detects fourteen high-risk HPV types (16,18,31,33,35,39,45,51,52,56,58,59,66,68)without differentiation. Laboratory - CytologyOrdered By: Jessica Kaufman on 06-20-2023 Licensed Physical Therapist Cyto stain Nom (Cvx/Vag) [ID] Comment . 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 gonorrhoeae DNA DIANA+probe Ql (Unsp spec) Negative Negative [facility] Comment on above: Performed at: =[address] [place], [place] [id number] Director: Nancy Palacios MD, Phone: [phone] Laboratory - Miscellaneous t estsOrdered By: Jessica Kaufman on 06-20-2023 Service comment (Unsp spec) [Interp] . . [facility] Thin prep Papanicolaou smear with manual screeningOrdered By: Jessica Kaufman on 06-20-2023 Thin prep Papanicolaou smear with manual screening Comment . [facility] Comment on above: NEGATIVE FOR INTRAEP ITHELIAL LESION OR MALIGNANCY. This liquid based Th inPrep(R) pap test was screened withthe use of an image guided system. Serum or plasma choriogonado tropin detectionOrdered By: Monica Flores on 06-05-2023 HCG ( test) [place]l [address] mIU/mL <4 [facility] Comment on above: hCG levels with Gest ational AgeGestational Age hCG mIU/mL (IU/L)0.2 - 1 week 5 - 501-2 weeks 50 - 5002-3 weeks 100 - 02344-5 weeks 500 - 753203-8 weeks 1000 - 215036-1 weeks 11293 - 100,0006-8 weeks 73182 - 200,0002-3 months 27647 - 100,000 Serum or plasma choriogonado tropin detectionOrdered By: Monica Flores on 06-03-2023 HCG ( test) Ql [address]66 mIU/mL <4 [facility] Comment on above: hCG levels with Gest ational AgeGestational Age hCG mIU/mL (IU/L)0.2 - 1 week 5 - 501-2 weeks 50 - 5002-3 weeks 100 - 74487-4 weeks 500 - 327180-9 weeks 1000 - 244528-7 weeks 74978 - 100,0006-8 weeks 49209 - 200,0002-3 months 56109 - 100,000 Serum or plasma choriogonado tropin detectionOrdered By: Theresa Nance on 05-25-2023 HCG ( test) Ql 339 mIU/mL <4 [facility] Comment on above: hCG levels with Gest ational AgeGestational Age hCG mIU/mL (IU/L)0.2 - 1 week 5 - 501-2 weeks 50 - 5002-3 weeks 100 - 27770-7 weeks 500 - 453198-6 weeks 1000 - 010492-3 weeks 93789 - 100,0006-8 weeks 43571 - 200,0002-3 months 79957 - 100,000 Serum or plasma choriogonado tropin detectionOrdered By: Theresa Nance on 05-23-2023 HCG ( test) Ql 132 mIU/mL <4 [facility] [facility]: hCG levels with Gest ational AgeGestational Age hCG mIU/mL (IU/L)0.2 - 1 week 5 - 501-2 weeks 50 - 5002-3 weeks 100 - 79356-0 weeks 500 - 034691-5 weeks 1000 - 057891-9 weeks 64110 - 100,0006-8 weeks 50000 - 200,0002-3 months 26277 - 100,000 Absolute lymphocyte countOrd ered By: Dr. Nance on 10-10-2022 Lymphocytes Auto (Unsp spec) [#/Vol] 3.09 10*3/uL 0.83-4.51 [facility] Basophil percentageOrdered B y: Dr. Nance on 10-10-2022 Basophils/100 WBC (Bld) 0.4 % 0-1 [facility] Eosinophils/100 WBC (Bld) 1.8 % 0-5 [facility] Neutrophils (Bld) [#/Vol] 4.4 10*3/uL 2.0-7.7 [facility] Neutrophils/100 WBC (Bld) 54.5 % 47-70 [facility] WBC (Bld) [#/Vol] 8.1 10*3/uL 4.4-11.0 [facility] Blood erythrocytes count (nu mber/volume)Ordered By: Dr. Nance on 10-10-2022 RBC (Bld) [#/Vol] 4.45 10*6/uL 4.2-5.4 [facility] Blood hemoglobin measurement (mass/volume)Ordered By: Dr. Nance on 10-10-2022 Hemoglobin (Bld) [Mass/Vol] 13.8 g/dL 12.0-15.0 [facility] Blood lymphocytes/100 leukoc ytesOrdered By: Dr. Nance on 10-10-2022 Lymphocytes/100 WBC (Bld) 38.1 % 19-41 [facility] Blood monocytes/100 leukocyt esOrdered By: Dr. Nance on 10-10-2022 Monocytes/100 WBC (Bld) 5.0 % 0-10 [facility] Blood platelet mean volumeOr dered By: Dr. Nance on 10-10-2022 Platelet mean volume (Bld) [Entitic vol] 8.5 fL 6.2-12.0 [facility] Determination of erythrocyte mean corpuscular volume (MCV)Ordered By: Dr. Nance on 10-10-2022 MCV (RBC) [Entitic vol] 91.7 fL 81-99 [facility] Hematocrit Auto (Bld) [Volum e fraction]Ordered By: Dr. Nance on 10-10-2022 Hematocrit (Bld) [Volume fraction] 40.8 % 37-47 [facility] Laboratory - Hematology and Cell countsOrdered By: Dr. Nance on 10-10-2022 Erythrocyte distribution width (RBC) [Entitic vol] 40.1 fL 35.1-43.9 [facility] Erythrocyte distribution width (RBC) [Ratio] 11.9 % 11.6-14.6 [facility] Immature granulocytes/100 WBC (Bld) 0.200 % 0.0-0.9 [facility] Comment on above: IG% - Immature Granu locytes (promyelocytes, myelocytes and metamyelocytes) > 1% indicates that a LEFT SHIFT is Present. MCH (RBC) [Entitic mass] 31.0 pg 27.0-32.0 [facility] Nucleated RBC/100 WBC (Bld) [Ratio] 0 % 0-5 [facility] MCHC Auto (RBC) [Mass/Vol]Or dered By: Dr. Nance on 10-10-2022 MCHC (RBC) [Mass/Vol] 33.8 g/dL 32-36 [facility] No Panel InformationOrdered By: Dr. Nance on 10-10-2022 Thyroid Stimulating Hormone (TSH) 1.02 uIU/mL 0.358-3.74 [facility] Platelets bldOrdered By: Dr. Nance on 10-10-2022 Platelets (Bld) [#/Vol] 324 10*3/uL 150-450 [facility] Serum or plasma choriogonado tropin detectionOrdered By: Dr. Nance on 10-10-2022 HCG ( test) Ql 2 mIU/mL <4 [facility] Comment on above: hCG levels with Gest ational AgeGestational Age hCG mIU/mL (IU/L)0.2 - 1 week 5 - 501-2 weeks 50 - 5002-3 weeks 100 - 53267-6 weeks 500 - 046716-3 weeks 1000 - 598799-8 weeks 53004 - 100,0006-8 weeks 44297 - 200,0002-3 months 11285 - 100,000 Serum or plasma choriogonado tropin detectionOrdered By: Monica Flores on 10-03-2022 HCG ( test) Ql 3 mIU/mL <4 [facility] Comment on above: hCG levels with Gest ational AgeGestational Age hCG mIU/mL (IU/L)0.2 - 1 week 5 - 501-2 weeks 50 - 5002-3 weeks 100 - 94165-0 weeks 500 - 610193-6 weeks 1000 - 115217-8 weeks 77152 - 100,0006-8 weeks 40065 - 200,0002-3 months 95400 - 100,000 Serum or plasma choriogonado tropin detectionOrdered By: Dr. Nance on 09-26-2022 HCG ( test) Ql 5 mIU/mL <4 [facility] Serum or plasma choriogonado tropin detectionOrdered By: Dr. Nance on 09-20-2022 HCG ( test) Ql 12 mIU/mL <4 [facility] Comment on above: hCG levels with Gest ational AgeGestational Age hCG mIU/mL (IU/L)0.2 - 1 week 5 - 501-2 weeks 50 - 5002-3 weeks 100 - 92601-1 weeks 500 - 687560-5 weeks 1000 - 503101-0 weeks 14367 - 100,0006-8 weeks 43168 - 200,0002-3 months 40123 - 100,000 Serum or plasma choriogonado tropin detectionOrdered By: Dr. Nance on 09-12-2022 HCG ( test) Ql 69 mIU/mL <4 [facility] Comment on above: hCG levels with Gest ational AgeGestational Age hCG mIU/mL (IU/L)0.2 - 1 week 5 - 501-2 weeks 50 - 5002-3 weeks 100 - 04628-0 weeks 500 - 863038-5 weeks 1000 - 008112-4 weeks 64018 - 100,0006-8 weeks 23260 - 200,0002-3 months 45948 - 100,000 Serum or plasma choriogonado tropin detectionOrdered By: Dr. Nance on 09-10-2022 HCG ( test) Ql 124 mIU/mL <4 [facility] Comment on above: hCG levels with Gest ational AgeGestational Age hCG mIU/mL (IU/L)0.2 - 1 week 5 - 501-2 weeks 50 - 5002-3 weeks 100 - 60296-1 weeks 500 - 256459-3 weeks 1000 - 343467-8 weeks 42636 - 100,0006-8 weeks 26097 - 200,0002-3 months 94758 - 100,000 Absolute lymphocyte countOrd ered By: Dr. Sommers on 09-07-2022 Lymphocytes Auto (Unsp spec) [#/Vol] 2.91 10*3/uL 0.83-4.51 [facility] Basophil percentageOrdered B y: Dr. Sommers on 09-07-2022 Basophil percentage 0 SEEN /hpf 0-5 [facility] Basophils/100 WBC (Bld) 0.2 % 0-1 [facility] Chloride [Moles/Vol] 108 mmol/L 98-107 [facility] Eosinophils/100 WBC (Bld) 2.4 % 0-5 [facility] Glucose [Mass/Vol] 89 mg/dL 74-106 [facility] Neutrophils (Bld) [#/Vol] 4.6 10*3/uL 2.0-7.7 [facility] Neutrophils/100 WBC (Bld) 56.2 % 47-70 [facility] Potassium [Moles/Vol] 3.5 mmol/L 3.5-5.1 [facility] Sodium [Moles/Vol] 137 mmol/L 136-145 [facility] WBC (Bld) [#/Vol] 8.2 10*3/uL 4.4-11.0 [facility] Bilirubin Test strip Ql (U)O rdered By: Dr. Sommers on 09-07-2022 Bilirubin Ql (U) Negative Negative [facility] Blood erythrocytes count (nu mber/volume)Ordered By: Dr. Sommers on 09-07-2022 RBC (Bld) [#/Vol] 4.34 10*6/uL 4.2-5.4 [facility] Blood hemoglobin measurement (mass/volume)Ordered By: Dr. Sommers on 09-07-2022 Hemoglobin (Bld) [Mass/Vol] 13.3 g/dL 12.0-15.0 [facility] Blood lymphocytes/100 leukoc ytesOrdered By: Dr. Sommers on 09-07-2022 Lymphocytes/100 WBC (Bld) 35.4 % 19-41 [facility] Blood monocytes/100 leukocyt esOrdered By: Dr. Sommers on 09-07-2022 Monocytes/100 WBC (Bld) 5.6 % 0-10 [facility] Blood platelet mean volumeOr dered By: Dr. Sommers on 09-07-2022 Platelet mean volume (Bld) [Entitic vol] 8.6 fL 6.2-12.0 [facility] Determination of erythrocyte mean corpuscular volume (MCV)Ordered By: Dr. Sommers on 09-07-2022 MCV (RBC) [Entitic vol] 92.4 fL 81-99 [facility] Hematocrit Auto (Bld) [Volum e fraction]Ordered By: Dr. Sommers on 09-07-2022 Hematocrit (Bld) [Volume fraction] 40.1 % 37-47 [facility] Ketones Test strip Ql (U)Ord ered By: Dr. Sommers on 09-07-2022 Ketones Ql (U) 15 mg/dl Negative [facility] Laboratory - Chemistry and C hemistry - challengeOrdered By: Dr. Sommers on 09-07-2022 CO2 [Moles/Vol] 26.0 mmol/L 21.0-32.0 [facility] Urea nitrogen/Creatinine [Mass ratio] 22.7 mg/mg 10-20 [facility] Laboratory - Hematology and Cell countsOrdered By: Dr. Sommers on 09-07-2022 Erythrocyte distribution width (RBC) [Entitic vol] 42.1 fL 35.1-43.9 [facility] Erythrocyte distribution width (RBC) [Ratio] 12.2 % 11.6-14.6 [facility] Immature granulocytes/100 WBC (Bld) 0.200 % 0.0-0.9 [facility] Comment on above: IG% - Immature Granu locytes (promyelocytes, myelocytes and metamyelocytes) > 1% indicates that a LEFT SHIFT is Present. MCH (RBC) [Entitic mass] 30.6 pg 27.0-32.0 [facility] Nucleated RBC/100 WBC (Bld) [Ratio] 0 % 0-5 [facility] MCHC Auto (RBC) [Mass/Vol]Or dered By: Dr. Sommers on 09-07-2022 MCHC (RBC) [Mass/Vol] 33.2 g/dL 32-36 [facility] Mucus LM Ql (Urine sed)Order ed By: Dr. Somemrs on 09-07-2022 Mucus Ql (Urine sed) 0 SEEN /hpf [facility] Nitrite Test strip Ql (U)Ord ered By: Dr. Sommers on 09-07-2022 Nitrite Ql (U) Negative Negative [facility] No Panel InformationOrdered By: Dr. Sommers on 09-07-2022 Estimated Creatinine Clearance Calc 133.87 ml/min [facility] Estimated GFR (MDRD) Amer 158 mL/min >60 [facility] Comment on above: GFR Calc Estimated GFR (MDRD) Non-Af Amer 130 mL/min >60 [facility] Comment on above: Non- GFR Calc Platelets bldOrdered By: Dr. Sommers on 09-07-2022 Platelets (Bld) [#/Vol] 300 10*3/uL 150-450 [facility] Protein Test strip Ql (U)Ord ered By: Dr. Sommers on 09-07-2022 Protein Ql (U) Negative Negative [facility] Serum or plasma calcium pham urement (mass/volume)Ordered By: Dr. Sommers on 09-07-2022 Calcium [Mass/Vol] 8.9 mg/dL 8.5-10.1 [facility] Serum or plasma creatinine m easurement (mass/volume)Ordered By: Dr. Sommers on 09-07-2022 Creatinine [Mass/Vol] 0.57 mg/dL 0.55-1.02 [facility] Comment on above: The validity of the calculated GFR & GFRAA in patients over 70 years has not been determined. Clinical correlation is essential. Serum or plasma urea nitroge n measurement (mass/volume)Ordered By: Dr. Sommers on 09-07-2022 Urea nitrogen [Mass/Vol] 13 mg/dL 7-18 [facility] Squamous epithelial cells de tection in urine sediment by light microscopyOrdered By: Dr. Sommers on 09-07-2022 Epithelial cells.squamous LM Ql (Urine sed) 0 SEEN /hpf 5-10 [facility] Thin prep Papanicolaou smear with manual screeningOrdered By: Dr. Sommers on 09-07-2022 Thin prep Papanicolaou smear with manual screening 3 5-15 [facility] Urine blood detectionOrdered By: Dr. Sommers on 09-07-2022 RBC Ql (U) 250 /ul Negative [facility] RBC Ql (U) 0 SEEN /hpf 0-5 [facility] Urine clarityOrdered By: Dr. Sommers on 09-07-2022 Clarity (U) Sl. Cloudy Clear [facility] Urine color determinationOrd ered By: Dr. Sommers on 09-07-2022 Color (U) Yellow Yellow [facility] Urine glucose detectionOrder ed By: Dr. Sommers on 09-07-2022 Glucose Ql (U) Normal mg/dl Normal [facility] Urine leukocyte esterase det ection by dipstickOrdered By: Dr. Sommers on 09-07-2022 Leukocyte esterase Test strip Ql (U) 25 /ul Negative [facility] Urine pHOrdered By: Dr. Santosh flanagan on 09-07-2022 pH (U) 6.0 [pH] 5.0 - 8.0 [facility] Urine sediment bacteria coun t by microscopy (number/high power field)Ordered By: Dr. Sommers on 09-07-2022 Bacteria LM.HPF (Urine sed) [#/Area] 0 /[HPF] None Seen [facility] Urine specific gravity measu rementOrdered By: Dr. Sommers on 09-07-2022 Specific gravity (U) [Rel density] 1.015 1.002-1.030 [facility] Urobilinogen Auto test strip Ql (U)Ordered By: Dr. Sommers on 09-07-2022 Urobilinogen Ql (U) Normal mg/dl Normal [facility] Basophil percentageOrdered B y: Dr. Nance on 08-31-2022 WBC (Bld) [#/Vol] 9.4 10*3/uL 4.4-11.0 [facility] Blood erythrocytes count (nu mber/volume)Ordered By: Dr. Nance on 08-31-2022 RBC (Bld) [#/Vol] 4.49 10*6/uL 4.2-5.4 [facility] Blood hemoglobin measurement (mass/volume)Ordered By: Dr. Nance on 08-31-2022 Hemoglobin (Bld) [Mass/Vol] 14.2 g/dL 12.0-15.0 [facility] Blood platelet mean volumeOr dered By: Dr. Nance on 08-31-2022 Platelet mean volume (Bld) [Entitic vol] 9.1 fL 6.2-12.0 [facility] Determination of erythrocyte mean corpuscular volume (MCV)Ordered By: Dr. Nance on 08-31-2022 MCV (RBC) [Entitic vol] 91.3 fL 81-99 [facility] Hematocrit Auto (Bld) [Volum e fraction]Ordered By: Dr. Nance on 08-31-2022 Hematocrit (Bld) [Volume fraction] 41.0 % 37-47 [facility] Laboratory - Hematology and Cell countsOrdered By: Dr. Nance on 08-31-2022 Erythrocyte distribution width (RBC) [Entitic vol] 40.7 fL 35.1-43.9 [facility] Erythrocyte distribution width (RBC) [Ratio] 12.4 % 11.6-14.6 [facility] MCH (RBC) [Entitic mass] 31.6 pg 27.0-32.0 [facility] MCHC Auto (RBC) [Mass/Vol]Or dered By: Dr. Nance on 08-31-2022 MCHC (RBC) [Mass/Vol] 34.6 g/dL 32-36 [facility] Platelets bldOrdered By: Dr. Nance on 08-31-2022 Platelets (Bld) [#/Vol] 320 10*3/uL 150-450 [facility] US PELVIS NON-OB W/TRANSVAGI NALon 07-11-2022 US PELVIS NON-OB W/TRANSVAGINAL ORIGINAL EXAMINATION: TRANSVAGINAL PELVIC ULTRASOUND 07/11/2022 12:09 [...] Date: 07/11/2022 12:35:09 PM Ordering Provider: DANNIE Vicente [facility] [place] Vital Signs Date Time Vital Sign Value Performing Clinician Facility 12-25-2024 11:02-0400 Body height 167.64 cm No Primary Care Physician [facility] 12-25-2024 11:02-0400 Body mass index (BMI) [Ratio] 33.3 kg/m2 No Primary Care Physician [facility] 12-25-2024 11:02-0400 Body weight 93.66 kg No Primary Care Physician [facility] 12-25-2024 11:02-0400 Diastolic blood pressure 81 mm[Hg] No Primary Care Physician [facility] 12-25-2024 11:02-0400 Systolic blood pressure 127 mm[Hg] No Primary Care Physician [facility] 12-07-2024 10:21-0400 Body height 167.64 cm No Primary Care Physician [facility] 12-07-2024 10:21-0400 Body mass index (BMI) [Ratio] 33.2 kg/m2 No Primary Care Physician [facility] 12-07-2024 10:21-0400 Body weight 93.44 kg No Primary Care Physician [facility] 12-07-2024 10:21-0400 Diastolic blood pressure 79 mm[Hg] No Primary Care Physician [facility] 12-07-2024 10:21-0400 Systolic blood pressure 119 mm[Hg] No Primary Care Physician [facility] 11-27-2024 10:52-0400 Body height 167.64 cm No Primary Care Physician [facility] 11-27-2024 10:52-0400 Body mass index (BMI) [Ratio] 33 kg/m2 No Primary Care Physician [facility] 11-27-2024 10:52-0400 Body weight 92.98 kg No Primary Care Physician [facility] 11-27-2024 10:52-0400 Diastolic blood pressure 79 mm[Hg] No Primary Care Physician [facility] 11-27-2024 10:52-0400 Systolic blood pressure 127 mm[Hg] No Primary Care Physician [facility] 10-09-2023 17:42-0400 Body temperature 99.1 [degF] [facility] [employer] SALES [employer]SULTANT.[employer] Work Phone: [facility] 10-09-2023 17:42-0400 Body weight 108.1 kg [facility] ENERGY SALES CONSULTANT.[employer] Work Phone: [facility] 10-09-2023 17:42-0400 Diastolic blood pressure 78 mm[Hg] [facility] ENERGY SALES CONSULTANT.[employer] Work Phone: [facility] 10-09-2023 17:42-0400 Heart rate 80 /min [facility] ENERGY SALES CONSULTANT.[employer] Work Phone: [facility] 10-09-2023 17:42-0400 Respiratory rate 18 /min [facility] ENERGY SALES CONSULTANT.[employer] Work Phone: [facility] 10-09-2023 17:42-0400 SaO2% (BldA) [Mass fraction] 99 % [facility] ENERGY SALES CONSULTANT.[employer] Work Phone: [facility] 10-09-2023 17:42-0400 Systolic blood pressure 108 mm[Hg] [facility] ENERGY SALES CONSULTANT.[employer] Work Phone: [facility] 06-20-2023 08:58-0500 Body height 167.64 cm No Primary Care Physician [facility] 06-20-2023 08:57-0500 Body mass index (BMI) [Ratio] 34.4 kg/m2 No Primary Care Physician [facility] 06-20-2023 08:57-0500 Body weight 96.67 kg No Primary Care Physician [facility] 06-20-2023 08:57-0500 Diastolic blood pressure 88 mm[Hg] No Primary Care Physician [facility] 06-20-2023 08:57-0500 Systolic blood pressure 127 mm[Hg] No Primary Care Physician [facility] 04-19-2023 10:07-0500 Body height 167.64 cm No Primary Care Physician [facility] 04-19-2023 10:06-0500 Body mass index (BMI) [Ratio] 34.2 kg/m2 No Primary Care Physician [facility] 04-19-2023 10:06-0500 Body weight 96.27 kg No Primary Care Physician [facility] 04-19-2023 10:06-0500 Diastolic blood pressure 85 mm[Hg] No Primary Care Physician [facility] 04-19-2023 10:06-0500 Systolic blood pressure 132 mm[Hg] No Primary Care Physician [facility] 09-10-2022 08:10-0400 Body height 167.64 cm No Primary Care Physician [facility] 09-10-2022 08:09-0400 Body mass index (BMI) [Ratio] 32.3 kg/m2 No Primary Care Physician [facility] 09-10-2022 08:09-0400 Body weight 90.71 kg No Primary Care Physician [facility] 09-10-2022 08:09-0400 Diastolic blood pressure 82 mm[Hg] No Primary Care Physician [facility] 09-10-2022 08:09-0400 Systolic blood pressure 121 mm[Hg] No Primary Care Physician [facility] 09-07-2022 16:29-0400 Body height 167.64 cm No Primary Care Physician [facility] 09-07-2022 16:29-0400 Body mass index (BMI) [Ratio] 32.3 kg/m2 No Primary Care Physician [facility] 09-07-2022 16:29-0400 Body temperature 97.9 [degF] No Primary Care Physician [facility] 09-07-2022 16:29-0400 Body weight 90.71 kg No Primary Care Physician [facility] 09-07-2022 16:29-0400 Diastolic blood pressure 86 mm[Hg] No Primary Care Physician [facility] 09-07-2022 16:29-0400 Heart rate 81 /min No Primary Care Physician [facility] 09-07-2022 16:29-0400 Respiratory rate 18 /min No Primary Care Physician [facility] 09-07-2022 16:29-0400 SaO2% (BldA) [Mass fraction] 98 % No Primary Care Physician [facility] 09-07-2022 16:29-0400 Systolic blood pressure 134 mm[Hg] No Primary Care Physician [facility] 08-31-2022 15:04-0400 Body temperature 98.9 [degF] No Primary Care Physician [facility] 08-31-2022 15:04-0400 Diastolic blood pressure 72 mm[Hg] No Primary Care Physician [facility] 08-31-2022 15:04-0400 Heart rate 56 /min No Primary Care Physician [facility] 08-31-2022 15:04-0400 Respiratory rate 18 /min No Primary Care Physician [facility] 08-31-2022 15:04-0400 SaO2% (BldA) [Mass fraction] 100 % No Primary Care Physician [facility] 08-31-2022 15:04-0400 Systolic blood pressure 108 mm[Hg] No Primary Care Physician [facility] 08-31-2022 12:32-0400 Body height 167.64 cm No Primary Care Physician [facility] 08-31-2022 12:32-0400 Body mass index (BMI) [Ratio] 32.7 kg/m2 No Primary Care Physician [facility] 08-31-2022 12:32-0400 Body weight 92 kg No Primary Care Physician [facility] 08-28-2022 15:45-0400 Body mass index (BMI) [Ratio] 33.5 kg/m2 No Primary Care Physician [facility] 08-28-2022 15:45-0400 Body weight 94.34 kg No Primary Care Physician [facility] 08-28-2022 15:45-0400 Diastolic blood pressure 83 mm[Hg] No Primary Care Physician [facility] 08-28-2022 15:45-0400 Systolic blood pressure 121 mm[Hg] No Primary Care Physician [facility] 08-13-2022 07:51-0400 Body mass index (BMI) [Ratio] 32.8 kg/m2 No Primary Care Physician [facility] 08-13-2022 07:51-0400 Body weight 92.24 kg No Primary Care Physician [facility] 08-13-2022 07:51-0400 Diastolic blood pressure 83 mm[Hg] No Primary Care Physician [facility] 08-13-2022 07:51-0400 Systolic blood pressure 125 mm[Hg] No Primary Care Physician [facility] 08-12-2022 20:08-0400 Heart rate 78 /min [facility] 08-12-2022 20:08-0400 Respiratory rate 16 /min [facility] 08-12-2022 19:22-0400 Body temperature 97.6 [degF] [facility] 08-12-2022 19:22-0400 Diastolic blood pressure 93 mm[Hg] [facility] 08-12-2022 19:22-0400 Systolic blood pressure 150 mm[Hg] [facility] 08-12-2022 19:20-0400 Body height 167.64 cm [facility] 08-12-2022 19:20-0400 Body mass index (BMI) [Ratio] 33.4 kg/m2 [facility] 08-12-2022 19:20-0400 Body weight 93.89 kg [facility] 11-04-2021 13:11-0400 Body temperature 99.19 [degF] Anali Denbow PA-C Work Phone: [facility] 11-04-2021 13:11-0400 Body weight 89.81 kg Anali Denbow PA-C Work Phone: [facility] 11-04-2021 13:11-0400 Diastolic blood pressure 68 mm[Hg] Anali Denbow PA-C Work Phone: [facility] 11-04-2021 13:11-0400 Heart rate 106 /min Anali Denbow PA-C Work Phone: [facility] 11-04-2021 13:11-0400 Respiratory rate 16 /min Anali Denbow PA-C Work Phone: [facility] 11-04-2021 13:11-0400 SaO2% (BldA) [Mass fraction] 98 % Anali Denbow PA-C Work Phone: [facility] 11-04-2021 13:11-0400 Systolic blood pressure 110 mm[Hg] Anali Denbow PA-C Work Phone: [facility] 10-25-2021 23:13-0400 Body height 167.[address] JAMAICA NEGRON MD [facility] 10-25-2021 23:13-0400 Body temperature 98.06 [degF] DR JAMAICA NEGRON MD [facility] 10-25-2021 23:13-0400 Body weight 79.[address] JAMAICA NEGRON MD [facility] 10-25-2021 23:13-0400 Diastolic blood pressure 85 mm[Hg] DR JAMAICA NEGRON MD [facility] 10-25-2021 23:13-0400 Heart rate 90 /min DR JAMAICA NEGRON MD [facility] 10-25-2021 23:13-0400 Respiratory rate 16 /min DR JAMAICA NEGRON MD [facility] 10-25-2021 23:13-0400 Systolic blood pressure 123 mm[Hg] DR JAMAICA NEGRON MD [facility] Encounters Encounter Date Encounter Type Care Provider Facility Start: 12-25-2024 End: 12-25-2024 ambulatory No Primary Care Physician Facility:[facility] Start: 12-25-2024 End: 12-25-2024 Patient encounter procedure Jessica Kaufman CNM -[facility] Work Phone: Start: 12-07-2024 End: 12-07-2024 Patient encounter procedure Monica HUSAIN -[facility] Work Phone: Start: 12-07-2024 End: 12-07-2024 ambulatory No Primary Care Physician -[facility] Start: 11-27-2024 End: 11-27-2024 ambulatory No Primary Care Physician -Laboratory Specimen Start: 11-27-2024 End: 11-27-2024 Patient encounter procedure Armida Aranda CNM -Laboratory Specimen Work Phone: Start: 11-27-2024 End: 11-27-2024 Patient encounter procedure Armida Aranda CNM -[facility] Work Phone: Start: 11-27-2024 End: 11-27-2024 ambulatory No Primary Care Physician -[facility] Start: 11-27-2024 End: 11-27-2024 ambulatory No Primary Care Physician Facility:[facility] Start: 11-18-2024 End: 11-18-2024 ambulatory No Primary Care Physician -Ultrasound [facility] Start: 11-18-2024 End: 11-18-2024 Patient encounter procedure Jessica Kaufman CNM -Ultrasound [facility] Work Phone: Start: 11-18-2024 End: 11-18-2024 ambulatory No Primary Care Physician Facility:[facility] Start: 11-16-2024 End: 11-16-2024 ambulatory No Primary Care Physician -[facility]atory [facility] Start: 11-16-2024 End: 11-16-2024 Patient encounter procedure Jessica Kaufman CNM -[facility] Start: 11-16-2024 End: 11-16-2024 ambulatory No Primary Care Physician Facility:[facility] Start: 10-31-2024 End: 10-31-2024 Emergency department patient visit DR GLAILEO BEASLEY DO [facility] Start: 03-17-2024 End: 03-17-2024 ambulatory Monica Flores AGRICULTURAL COMMODITIES INSPECTOR Facility:[facility] Start: 02-19-2024 End: 02-19-2024 ambulatory No Primary Care Physician Facility:[facility] Start: 02-05-2024 End: 02-05-2024 ambulatory No Primary Care Physician Facility:[facility] Start: 01-28-2024 End: 01-29-2024 Evaluation and management of inpatient No Primary Care Physician Facility:[facility] Start: 01-28-2024 ambulatory Monica Flores AGRICULTURAL COMMODITIES INSPECTOR Facil ity:[facility] Start: 01-22-2024 End: 01-22-2024 ambulatory No Primary Care Physician Facility:[facility] Start: 01-16-2024 End: 01-16-2024 ambulatory No Primary Care Physician Facility:[facility] Start: 01-14-2024 End: 01-14-2024 ambulatory Lanie Aguero Facility:[facility] Start: 01-06-2024 End: 01-07-2024 ambulatory Lanie Aguero Facility:[facility] Start: 12-30-2023 End: 12-31-2023 ambulatory [facility] Start: 12-30-2023 End: 12-30-2023 ambulatory No Primary Care Physician Facility:[facility] Start: 12-30-2023 End: 12-30-2023 ambulatory Theresa Nance Facility:[facility] Start: 12-27-2023 End: 12-27-2023 ambulatory Lanie Aguero Facility:[facility] Start: 12-23-2023 ambulatory No Primary Car e Physician Facility:[facility] Start: 12-23-2023 End: 12-23-2023 ambulatory No Primary Care Physician Facility:[facility] Start: 12-20-2023 End: 12-20-2023 ambulatory Lanie Aguero Facility:[facility] Start: 12-02-2023 End: 12-02-2023 ambulatory [facility] Michael [facility] Start: 10-09-2023 End: 10-09-2023 ambulatory Facility:[facility] Start: 10-09-2023 End: 10-09-2023 Office outpatient visit 15 minutes Haile Cole APRN.CNP Work Phone: [facility] Comment on above: Tick bite of chest w all, initial encounter (Primary Dx) Start: 08-30-2023 End: 08-30-2023 ambulatory JORGE A [facility] Start: 06-20-2023 End: 06-20-2023 ambulatory No Primary Care Physician [facility] Work Phone: Start: 06-20-2023 End: 06-20-2023 Patient encounter procedure No Primary Care Physician [facility]-Laboratory, Specimen Work Phone: Start: 06-20-2023 End: 06-20-2023 Patient encounter procedure No Primary Care Physician [facility] Work Phone: Start: 06-18-2023 End: 06-18-2023 ambulatory No Primary Care Physician [facility] Work Phone: Start: 06-18-2023 End: 06-18-2023 Patient encounter procedure No Primary Care Physician [facility]-Ultrasound, [facility] Work Phone: Start: 06-05-2023 End: 06-05-2023 Patient encounter procedure No Primary Care Physician [facility]-Ultrasound, [facility] Work Phone: Start: 06-03-2023 End: 06-03-2023 ambulatory No Primary Care Physician [facility] Work Phone: Start: 06-03-2023 End: 06-03-2023 Patient encounter procedure No Primary Care Physician [facility]-Laboratory, [facility] Start: 05-25-2023 End: 05-25-2023 ambulatory No Primary Care Physician [facility] Work Phone: Start: 05-25-2023 End: 05-25-2023 Patient encounter procedure No Primary Care Physician [facility]-Laboratory Work Phone: Start: 05-23-2023 End: 05-23-2023 ambulatory No Primary Care Physician [facility] Work Phone: Start: 05-23-2023 End: 05-23-2023 Patient encounter procedure No Primary Care Physician [facility]-Laboratory, [facility] Start: 05-07-2023 End: 05-07-2023 ambulatory No Primary Care Physician [facility] Work Phone: Start: 05-07-2023 End: 05-07-2023 Patient encounter procedure No Primary Care Physician [facility]-Ultrasound, [facility] Work Phone: Start: 04-19-2023 End: 04-19-2023 Patient encounter procedure No Primary Care Physician [facility] Work Phone: Start: 10-15-2022 End: 10-15-2022 ambulatory No Primary Care Physician [facility] Work Phone: Start: 10-15-2022 End: 10-15-2022 Patient encounter procedure No Primary Care Physician [facility]-Ultrasound, [facility] Start: 10-10-2022 Patient encounter procedure No Primary Care Physician [facility]-Laboratory, [facility] Start: 10-03-2022 Patient encounter procedure No Primary Care Physician [facility]-Laboratory, [facility] Start: 09-26-2022 End: 09-26-2022 Patient encounter procedure No Primary Care Physician [facility]Labor[facility], [facility] Start: 09-20-2022 End: 09-20-2022 Patient encounter procedure No Primary Care Physician [facility], [facility] Start: 09-12-2022 End: 09-12-2022 ambulatory No Primary Care Physician [facility] Work Phone: Start: 09-12-2022 End: 09-12-2022 Patient encounter procedure No Primary Care Physician [facility]-Laboratory, [facility] Start: 09-10-2022 End: 09-10-2022 ambulatory No Primary Care Physician [facility] Work Phone: Start: 09-10-2022 End: 09-10-2022 Patient encounter procedure No Primary Care Physician [facility] Start: 09-07-2022 End: 09-07-2022 Emergency department patient visit No Primary Care Physician [facility]-Emergency Department Start: 08-31-2022 Non-patient / Non-visit No Primary Care Physician [facility] Start: 08-31-2022 End: 08-31-2022 Admission to same day surgery center No Primary Care Physician [facility]-Surgical Day [facility] Start: 08-31-2022 End: 08-31-2022 ambulatory No Primary Care Physician [facility] Work Phone: Start: 08-28-2022 End: 08-28-2022 Patient encounter procedure No Primary Care Physician [facility] Start: 08-13-2022 End: 08-13-2022 Patient encounter procedure No Primary Care Physician [facility] Start: 08-12-2022 End: 08-12-2022 Emergency department patient visit [facility]-Emergency Department Start: 07-11-2022 End: 07-12-2022 ambulatory DANNIE BAHENA DO Facility:[facility] Start: 07-11-2022 End: 07-11-2022 Patient encounter procedure DANNIE BAHENA DO [facility] Start: 11-04-2021 End: 11-04-2021 Patient encounter procedure Anali Stockton PA-C Work Phone: [facility] Comment on above: Encounter for remova l of sutures (Primary Dx) Start: 10-26-2021 End: 10-26-2021 Emergency department patient visit DR JAMAICA NEGRON MD Facility:[facility] Start: 10-25-2021 End: 10-26-2021 Emergency department patient visit DR JAMAICA NEGRON MD [facility] Procedures Date Procedure Procedure Detail Performing Clinician Start: 11-27-2024 Urine culture No Primar y Care Physician Start: 11-18-2024 Transvaginal obstetr ic ultrasonography No Primary Care Physician Start: 06-20-2023 Urine culture No Primar y Care Physician Start: 06-18-2023 Transvaginal obstetr ic ultrasonography No Primary Care Physician Start: 06-05-2023 Transvaginal obstetr ic ultrasonography No Primary Care Physician Start: 05-07-2023 Transvaginal echography No Primary Care Physician Start: 10-15-2022 Pelvic echography No Pr imary Care Physician Start: 09-07-2022 Transvaginal echography No Primary Care Physician Start: 08-31-2022 Dilation and curetta ge of uterus No Primary Care Physician Tonsillectomy and adenoidectomy DR JAMAICA NEGRON MD Plan of Treatment Date Care Activity Detail Author Start: 10-27-2031 Urine microalbumin profile DTaP,Tdap,Td Vaccine (3 - Td or Tdap) [facility] Start: 12-25-2024 CBC W Auto Differential panel - Blood [facility] Start: 12-25-2024 Hemoglobin A1c/Hemoglobin.total in Blood [facility] Start: 12-25-2024 Hepatitis C antibody measurement [facility] Start: 12-25-2024 Procedure [facility] Start: 12-25-2024 Rubella IgG measurement [facility] Start: 12-25-2024 Serologic test for syphilis [facility] Start: 12-25-2024 [facility] Start: 01-12-2024 Influenza vaccination Influenza Vaccine (Season Ended) [facility] Start: 06-20-2023 Liquid based cervical cytology screening [facility] Start: 05-13-2023 Behavioral Health Screening Behavioral Health Screening [facility] Start: 01-11-2023 Covid-19 Vaccine ( season) Covid-19 Vaccine ( season) [facility] Start: 08-31-2022 Anesthesia incomplete/missed ANESTH INC/MISSED AB PROC [facility] Start: 08-31-2022 Tx missed first trimester surgical CARE OF MISCARRIAGE [facility] Start: 08-31-2022 Patient discharge [facility] Start: 08-31-2022 Procedure discontinued [facility] Start: 08-31-2022 Ambulation without limitation [facility] Start: 08-31-2022 Medical regimen orders management [facility] Start: 08-31-2022 Medication education [facility] Start: 08-31-2022 Taking patient vital signs [facility] Start: 08-31-2022 Vital signs measurements [facility] Start: 08-31-2022 [facility] Start: 01-11-2022 Influenza vaccination INFLUENZA (Season Ended) [facility] Start: 2020 HPV TESTING HPV TESTING [facility] Start: 2020 Screening for malignant neoplasm of cervix HPV Testing [facility] Start: 12-09-2011 PAP TESTING PAP TESTING [facility] Start: 12-09-2011 Screening for malignant neoplasm of cervix Pap Testing [facility] Start: 2009 Hepatitis B Vaccine (1 of 3 - 19+ 3-dose series) Hepatitis B Vaccine (1 of 3 - 19+ 3-dose series) [facility] Start: 2009 Urine microalbumin profile DTAP,TDAP,TD (1 - Tdap) [facility] Start: 2008 HEPATITIS C SCREENING HEPATITIS C SCREENING [facility] Start: 2008 Hepatitis C screening Hepatitis C Screening [facility] Start: 2008 HIV SCREENING HIV SCREENING [facility] Start: 2008 HIV screening HIV Screening [facility] Start: 2002 Adult depression screening assessment DEPRESSION SCREENING [facility] Start: 1996 PNEUMOCOCCAL (1 - PCV) PNEUMOCOCCAL (1 - PCV) [facility] Start: 1996 Pneumococcal vaccination Pneumococcal Vaccine (1 of 2 - PCV) [facility] Start: 12-09-1995 COVID-19 VACCINE (#1) COVID-19 VACCINE (#1) [facility] CBC W Auto Different ial panel - Blood [facility] CBC W Auto Different ial panel - Blood [facility] Chlamydia deoxyribon ucleic acid detection [facility] Choriogonadotropin ( test) [Presence] in Serum or Plasma [facility] Erythrocyte mean cor puscular volume determination [facility] Hematocrit [Volume F raction] of Blood [facility] Hemoglobin [Mass/vol ume] in Blood [facility] Hemoglobin A1c/Hemoglobin.total in Blood [facility] Hepatitis B surface antigen measurement [facility] Hepatitis B virus nichols rface Ag [Presence] in Serum [facility] Hepatitis C antibody measurement [facility] Hepatitis C antibody measurement [facility] HIV 1+2 Ab+HIV1 p24 Ag [Presence] in Serum or Plasma by Immunoassay [facility] Leukocytes [#/volume ] in Blood [facility] Mean corpuscular hem oglobin concentration determination [facility] Mean corpuscular hem oglobin determination [facility] Neutrophil count [facility] Neutrophil percent differential count [facility] Path report.final Dx Spec [facility] Patient Education [facility] Work Phone: Patient referral [facility] Work Phone: Platelets [#/volume] in Blood [facility] Procedure [facility] Red blood cell count [facility] Red cell distributio n width determination [facility] Rubella IgG measurement [facility] Rubella IgG measurement [facility] Serologic test for syphilis [facility] Treponema sp Ab [Pre sence] in Serum [facility] Immunizations Immunization Date Immunization Notes Care Provider Fa paula 11-05-2023 tetanus toxoid, redu bj diphtheria toxoid, and acellular pertussis vaccine, adsorbed No Primary Care Physician [facility] 10-26-2021 tetanus toxoid, redu bj diphtheria toxoid, and acellular pertussis vaccine, adsorbed DR JAMAICA NEGRON MD [facility] 01-28-2017 Human rabies vaccine from Chicken fibroblast culture DR JAMAICA NEGRON MD [facility] 01-17-2017 Human rabies vaccine from Chicken fibroblast culture DR JAMAICA NEGRON MD [facility] 01-10-2017 Human rabies vaccine from Chicken fibroblast culture DR JAMAICA NEGRON MD [facility] 01-01-2017 Human rabies vaccine from Chicken fibroblast culture DR JAMAICA NEGRON MD [facility] Payers Date Payer Category Payer Self-pay [id number] 2022 Medicaid [id number] 2022 Unknown [id number] 2021 Unknown [id number] 2017 Medicaid [employer] [id number] 2017-Present [phone] [address] [place] [address] Medicaid [id number] 1990 Unknown [id number] 2.840.1.400454.3.579.2.627 1990 Unknown [id number] 2.840.1.813632.3.579.2.627 1990 Unknown [id number] 2.840.1.131320.3.579.2.479 1990 Unknown [id number] 2.840.1.791164.3.579.2.479 1990 Unknown [id number] 2.840.1.992422.3.579.2.479 1990 Unknown [id number] 2.840.1.001710.3.579.2.627 Unknown [id number] 2.840.1.618333.3.579.2.462 Unknown [id number] 2.840.1.959604.3.579.2.462 Unknown [id number] 2.840.1.256589.3.579.2.462 Unknown [id number] 840.1.101768.3.579.2.462 Unknown [id number] 2840.1.391345.3.579.2.462 Unknown [id number] .840.1.446969.3.579.2.462 Unknown [id number] .840.1.937693.3.579.2.462 Unknown [id number] 2.840.1.440047.3.579.2.462 Unknown [id number] 2.840.1.867256.3.579.2.462 Unknown [id number] 2.840.1.775484.3.579.2.462 Unknown [id number] 2.16.840.1.812421.3.579.2.462 Unknown [id number] 2.16.840.1.176262.3.579.2.462 Unknown [id number] 2.16.840.1.884806.3.579.2.462 Unknown [id number] 2.16.840.1.654775.3.579.2.462 Unknown [id number] 2.16.840.1.986227.3.579.2.462 Unknown [id number] 2.16.840.1.478932.3.579.2.462 Unknown [id number] 2.16.840.1.722121.3.579.2.462 Unknown [id number] 2.16.840.1.463939.3.579.2.462 Unknown [id number] 2.16.840.1.474954.3.579.2.462 Unknown [id number] 2.16.840.1.014705.3.579.2.462 Unknown [id number] 2.16.840.1.324940.3.579.2.462 Unknown [id number] 2.16.840.1.288579.3.579.2.462 Unknown [id number] 2.16.840.1.487064.3.579.2.462 Unknown [id number] 2.16.840.1.551277.3.579.2.462 Unknown [id number] 2.16.840.1.790127.3.579.2.462 Unknown [id number] 2.16.840.1.154236.3.579.2.462 Social History Date Type Detail Facility Start: 12-12-2020 Tobacco smoking status Light tobacco smoker (finding) [facility] Sex Assigned At [facility] Start: 11-04-2021 End: 10-09-2023 Tobacco smoking status NHIS Smokes tobacco daily [facility] Work Phone: Start: 11-04-2021 End: 10-09-2023 Tobacco use and exposure Smokeless tobacco non-user [facility] Work Phone: Start: 1990 Sex Assigned At Not on file [facility] Start: 08-12-2022 End: 06-20-2023 Tobacco smoking status NHIS Unknown if ever smoked [facility] Start: 1990 Sex Assigned At Female [facility] Start: 10-09-2023 History of Social function [facility] Start: 10-09-2023 Tobacco use panel [facility] Start: 09-03-2014 Sex Female (finding) [facility] Start: 11-19-2024 Tobacco smoking status NHIS Ex-smoker (finding) [facility] NEGATED: Highlighted row [facility] Goals Date Patient Goal Desired Activity /State Functional Status Date Assessment Result Facility 10-26-2021 Functional Status Ambulating in otto, Up ad miriam [facility] 10-25-2021 Functional Status Standard Safet y ID band on, Call device within reach, Bed in low position, Wheels locked, Upper/Half-Length side-rails up, personal items within reach, Visitor at bedside [facility] Mental Status Date Assessment Result Facility 08-31-2022 Cognitive function Level Of Cons ciousness Awake;Appropriate [facility] Work Phone: 08-31-2022 Cognitive function Voice/Name [facility] Work Phone: 10-26-2021 Mental Status Orientation Oriented x 4 [facility] 10-25-2021 Mental Status [facility] Clinical Notes 10-26-2021 to 12-25-2024 Note Date & Type Note Facility 12-25-2024 Progress note [facility] 11-27-2024 Evaluation note Diagnosis Onset Date Resolution Alcohol abuse acute November 27, 2024 10:49am Bleeding in early acute November 27, 2024 10:49am History of breast lump acute Ju ly 2024 10:49am History of miscarriage, currently acute November 27 10:49am History of oligohydramnios acute November 27, 2024 10:49am LGA (large for gestational age) fetus affecting management of mother acute November 27, 2024 10:49am acute November 27 10:49am Supervision of high-risk acute November 27, 2024 10:49am [facility] Work Phone: 1(839) 281-762707-18-2025 Evaluation note* Diagnosis Onset Date Resolution Status Admit Date Alcohol abuse acute November 27, 2024 10:49am Bleeding in early acute November 27, 2024 10:49am History of breast lump acute Ju ly 2024 10:49am History of miscarriage, curr ently acute November 27, 2024 10:49am History of oligohydramnios acute November 27, 2024 10:49am LGA (large for gestational a ge) fetus affecting management of mother acute November 27, 2024 10:49am acute November 27 10:49am Supervision of high-risk acute November 27, 2024 10:49am Alcohol abuse acute December 07, 2024 10:17am Bleeding in early acute December 07, 2024 10:17am History of breast lump acute Ju ly 2024 10:17am History of miscarriage, curr ently acute December 07, 2024 10:17am History of oligohydramnios acute December 07, 2024 10:17am LGA (large for gestational a ge) fetus affecting management of mother acute December 07, 2024 10:17am acute December 07 10:17am Supervision of high-risk acute December 07, 2024 10:17am [facility] Work Phone: 1(425) 458-984007-18-2025 Evaluation note* Diagnosis Onset Date Resolution Status Admit Date Alcohol abuse acute November 27, 2024 10:49am Bleeding in early acute November 27, 2024 10:49am History of breast lump acute Ju 2024 10:49am History of miscarriage, curr ently acute November 27, 2024 10:49am History of oligohydramnios acute November 27, 2024 10:49am LGA (large for gestational a ge) fetus affecting management of mother acute November 27, 2024 10:49am acute November 27 10:49am Supervision of high-risk acute November 27, 2024 10:49am Alcohol abuse acute December 07, 2024 10:17am Bleeding in early acute December 07, 2024 10:17am History of miscarriage, curr ently acute December 07, 2024 10:17am History of oligohydramnios acute December 07, 2024 10:17am LGA (large for gestational a ge) fetus affecting management of mother acute December 07, 2024 10:17am acute December 07 10:17am Supervision of high-risk acute December 07, 2024 10:17am Alcohol abuse acute December 10:56am Bleeding in early acute December 25, 2024 10:56am History of breast lump acute Au 2024 10:56am History of miscarriage, curr ently acute December 25 10:56am History of oligohydramnios acute December 25, 2024 10:56am LGA (large for gestational a ge) fetus affecting management of mother acute December 25 10:56am acute December 25, 2 025 10:56am Supervision of high-risk acute December 25 10:56am [facility] Work Phone: 1(778) 956-339007-18-2025 Progress [facility] [address] [place] [address], [address] [place] [address] OFFICE VISIT Date of Service: 11/27/24 MR#: [id number] Acct: [id number] Name: KEON CASIANO Rep #: [id number] : 1990 Provider: KERRI Aranda Age/Sex: 33/F [place] [facility] Status: Signed Intake Vital Signs 03/17/24 14:34 11/27/24 10:52 Height 5 ft 6 in 5 ft 6 in Weight: 205 lb BMI 33.0 BP 127/79 H Intake Visit Reasons: *EST* NOB, LMP 10/04, VERÓNICA 07/11 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: No Is patient in pain?: No Allergies measles, mumps, and rubella vaccine Allergy (Verified 11/27/24 10:54) seizure Medications ?Medication ?Instructions ?Recorded ?Confirmed ?Type vit no.164-ferrous tab PO 11/19/24 11/19/24 H istory gluconate 6 mg-folate 833.5 mcg DFE tablet ( PNV) Last Menstrual Period: 10/04/24 Zika: Zika virus screening: Negative : Yes Have you fallen in the past year?: No PFSH PFSH Medical History History of oligohydramnios depression Dysmenorrhea Seizures Former smoker Missed Laceration of right thumb Acute pharyngitis Sore throat Lump of right breast Encounter for screening for COVID-19 Alcohol abuse Fatigue Surgical History H/O dilation and curettage History of breast biopsy (~02/2021) History of orthopedic surgery History of tonsillectomy and adenoidectomy Family History Father Heart disease Diabetes Hypertension CVA (cerebral vascular accident) Social History adopted: No household members: significant other and children housing: house number of children: 4 current occupational status: employed 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 current occupational exposures/hazards: No pets and animals: Yes pets and animals: dog(s) and other details: rabbit - inside history of recent travel: No sexually active: Yes Smoking Status: Former smoker how long ago did patient quit smokin second hand exposure: No alcohol intake: former year quit: 2017 details: 7 years - recovering substance use type: does not use well-balanced diet: daily or most days caffeine: No eating out: rarely or never during the past year weight has: remained stable what type of physical activity do you participate in: none mike/mu-ism: Restorationism seatbelt use: always do you feel safe at home: Yes additional social history: [facility]- Nu[facility]- [employer] History 6 Elective abortions Hx Para 4 Spontaneous abortions 1 Hx # Term Pregnancies Ectopic pregnancies Hx # Pregnancies Multiple births # of living children 4 Past Pregnancies Del. Date Name GA/Weeks Outcome Route Bth Weight Infant Gen [facility] 12[facility]09 [place] 36 live - 6.8 Male epidur al [place] 07/25/11 Nas[place] 40 live - full term 6#8oz Female epidu ral [place] 06/24/13 [place] 40 live - full term 9.2 Male none [place] 08/31/22 8 spontaneous 01/28/24 [place] 40 live - full term 7lbs 13oz Male ep idural [facility] L&D Carolyn Nuñez Delivery Date: 08/31/22 Last Updated by: Gely Rosen D&Meaghan, [facility] Delivery Date: 01/28/24 Last Updated by: Florecita Otto RN see problem list for complications HPI *EST* NOB, LMP 10/04, VERÓNICA 07/11 Details: KEON CASIANO is a 33 year old who presents for New OB visit. OB Visit VERÓNICA Calculator Estimated Delivery Date Method Current WG Current Estimate 07/14/25 Ultrasound #1 7w 2d Other Estimates 07/11/25 LMP (Certain) 7w 5d Comments: HIV: Urine Culture: Sequential Screen: NIPT Screen: Estimated Due Date: 07/11/25 Expected Delivery Route/Plan Labor Preferences- CB/BF classes: [] labor support person: [] labor intervention preferences: [] pain management options preferred: [] cut cord/dad catch: [] : [] PP control planned: [] discussed possible routes of delivery and associated risks: [] special requests: [] Specific Issue/Plans Covid status: [] Flu vaccine: [] Tdap vaccine: [] Rhogam: [] LARC form signed: [] Problem list reviewed and updated with the most current plan of care details and appropriate ordersplaced. Relevant counseling for the gestational age provided. Continue routine care and follow up unless otherwise noted in visit notes/problem list details Initial Weight: Not Recorded Date -?--?-?-?-?-?-?-?-?-?-?-?- EGA Weight BP Urine Prot -?-?-?-?-?-?-?-?-?-?-?-?- Glucose FHR FuHt Pres Dilation -?-?-?-?-?-?-?-?-?-?-?-?- Effaced St Visit Note 11/27/24 -?-?-?-?-?-?-?-?-?-?-?-?- 7w 2d 205 lb 127/79 -?-?-?-?-?-?-?-?-?-?-?-?- 134 -?-?-?-?-?-?-?-?-?-?-?-?- LC- CRL 10.2mm 7 w0d con with LMP. desires genetics and will obtain with NOB labs next visit. Menstrual History Last Menstrual Period: 10/04/24 Reported LMP: definite Antepartum Record Genetic Screening: Congenital Heart Defect: Other, Neural Tube Defect: Other, Hemoglobinopathy Or Carrier: Other, Cystic Fibrosis: Other, Chromosome Abnormality: Other, Red-Sachs: Other, Hemophilia: Other, Intellectual Disability/Autism: Other, Recurrent Loss/Stillbirth: Other, Other Structural Defect: Other, Other Genetic Disease: Other and Maternal Metabolic Disorder: Other Infection History: Live with someone with TB or Exposed to TB: No, Patient or Partner has history of Genital Herpes: No, Rash or Viral illness since last mentrual period: No, Prior GBS-Infected child: No, History of STD: No, HIV Infection: No, History of Hepatitis: No, Recent travel outside of [place]: No, Concern for hepatitis exposure: No, Varicella immune: Yes and Covid Vaccinated: Yes ([employer], 2019) Medical History Medical History: Negative: Diabetes, Hypertension, Heart disease, Auto-immune disorder, Kidney disease/UTI, Neurologic/epilepsy, Psychiatric, Depression/ depression, Hepatitis/liver disease, Varicosities/phlebitis, Thyroid dysfunction, Trauma/domestic violence, History of blood transfusions, D (Rh) Sensitized, Pulmonary (e.g.,TB,Asthma), Seasonal allergies, Drug/latex allergies/reactions, Breast, Wall Man surgery, Operations/hospitalizations, Anesthetic complications, History of abnormal pap, Uterine anomaly/erum, Infertility, Anti-retroviral treatment, Relevant family history and Other ACOG First Trimester First Trimester: Second Trimester Second Trimester: Signs and Symptoms of Labor, Selecting a care provider, Reproductive Life Planning & Contreception, Care Planning, Depression/Anxiety and Intimate Partner Violence; Discussed Tobacco Cessation Third Trimester Third Trimester: Pain Management Plans, Labor support person(s), Immediate Larc, Signs and Symptoms of Preeclampsia, Infant Feeding Yes , [place] Education and Family Medical Leave or Disability Forms ROS Const Denies anorexia, Denies body aches, Denies chills, Denies excessive sweating, Denies fatigue, Denies headache(s) and Denies lethargy ENT Denies headache(s) GI Denies abdominal pain, Denies coffee ground emesis, Reports constipation, Denies cramping and Reports nausea Denies sexual dysfunction, Reports urinary frequency, Denies urinary incontinence, Denies urinary hesitancy, Denies urinary urgency, Denies vaginal discharge, Denies vaginal dryness, Denies vaginal odor and Denies vaginal pruritus Skin/Breast Details: breast discomfort Neuro No headache(s) Endo Denies cold intolerance, Denies deepening of the voice, Denies excessive sweating, Denies fatigue, Denies flushing, Denies heat intolerance, Denies polydipsia and Denies polyphagia Exam Const General: cooperative, healthy appearing, comfortable and no acute distress Neck Neck: normal visual inspection, full ROM and no lymphadenopathy Thyroid: thyroid normal Chest Chest palpation & inspection: normal inspection of the chest Breast inspection: normal inspection of the breasts and normal inspection of the axillae Resp Effort & Inspection: normal respiratory effort, able to speak in complete sentences and symmetric chest movement GI Inspection: normal to inspection Palpation: soft External Female Exam: normal external appearance and normal appearance of the urethra Urethra: normal appearance of the urethra Speculum Exam - Vagina: normal appearance of the vagina Speculum Exam - Cervix: normal appearance of the cervix Bimanual Exam- Vagina & Uterus: uterine size normal (consistent with dates of ) OB/External & Speculum: no bleeding Skin General: rashes and/or lesions noted Neuro General: patient alert, patient awake and patient oriented x3 Psych Appearance: grossly normal and well kempt Coding Level of Care Code Off vis,est,level 4 Diagnoses Alcohol abuse F10.10 History of breast lump Z87.898 LGA (large for gestational age) fetus affecting management of mother O36.60X0 History of oligohydramnios Z87.59 Supervision of high-risk O09.90 Less than 8 weeks gestation of Z3A.01 Weeks of gestation: less than 8 weeks History of miscarriage, currently O09.299 Bleeding in early O20.9 Assessment and Plan Assessment and Plan (1) Alcohol abuse: Status: Acute Comment: recovering- 7 years sober (2) History of breast lump: Status: Acute Comment: breast biopsy 02/2021 (3) LGA (large for gestational age) fetus affecting management of mother: Status: Acute Comment: history of 9 pound baby (4) History of oligohydramnios: Status: Acute Comment: previous induced at 36 weeks (5) Supervision of high-risk : Status: Acute Comment: , VERÓNICA 07/11/25 Nasra Nichols Asher, Milo Fiancee Garrison (6) : Status: Acute Qualifiers: Weeks of gestation: less than 8 weeks Qualified Code(s): Z3A.01 - Less than 8 weeks gestation of Comment: NIPT w gender- will obtain with gender in envelope. carrier - previously done 2023 (last ) (7) History of miscarriage, currently : Status: Acute Comment: D/C 2022 (8) Bleeding in early : Status: Acute Comment: currently - HCGx2, TVUS 11/18/24 Orders: Orders CBC W/Diff, Automated 11/19/24 O09.90 - Supervision of high risk , unspecified, unspecified trimester, Z34.90 - Encounter for supervision of normal , unspecified, unspecified trimester Type & Screen 11/19/24 O09.90 - Supervision of high risk , unspecified, unspecified trimester, Z34.90 - Encounter for supervision of normal , unspecified, unspecified trimester Rubella IgG 11/19/24 O09.90 - Supervision of high risk , unspecified, unspecified trimester, Z34.90 - Encounter for supervision of normal , unspecified, unspecified trimester Hepatitis C Antibody 11/19/24 O09.90 - Supervision of high risk , unspecified, unspecifiedtrimester, Z34.90 - Encounter for supervision of normal , unspecified, unspecified trimester Hepatitis B Surface Antigen 11/19/24 O09.90 - Supervision of high risk , unspecified, unspecified trimester, Z34.90 - Encounter for supervision of normal , unspecified, unspecified trimester Culture, Urine 11/19/24 O09.90 - Supervision of high risk , unspecified, unspecified trimester, Z34.90 - Encounter for supervision of normal , unspecified, unspecified trimester Syphilis Antibodies 11/19/24 O09.90 - Supervision of high risk , unspecified, unspecified trimester, Z34.90 - Encounter for supervision of normal , unspecified, unspecified trimester Chlamydia/GC DIANA aptima 11/19/24 O09.90 - Supervision of high risk , unspecified, unspecified trimester, Z34.90 - Encounter for supervision of normal , unspecified, unspecified trimester HIV 11/19/24 O09.90 - Supervision of high risk , unspecified, unspecified trimester, Z34.90 - Encounter for supervision of normal , unspecified, unspecified trimester Hemoglobin A1c 11/19/24 O09.90 - Supervision of high risk , unspecified, unspecified trimester, Z34.90 - Encounter for supervision of normal , unspecified, unspecified trimester Plan Details Additional Comments: OG trimester education reviewed and updated. oriented to practice. reviewed genetic and carrier screening patient has decided to [obtain screening]. nutrition, medication approved list reviewed. weight gain goal [] in ACOG booklet provided and reviewed see problem list details for updated plan management information and see below for orders placed atthis visit. GA appropriate handout given. Clinical Quality Measures Falls Risk Screening/Assistive Devices Have you fallen in the past year?: No 11/27/24 1124 ns KERRI> Date _ Armida Aranda CNM Cosigner Signature: Date (if applicable) CC: ~ [facility]07-09-2025 Radiology Diagnostic study note [facility] Imaging Services [address] [place] [address] Transvaginal w/Preg US MR#: [id number] Acct: [id number] Name: KEON CASIANO Rep #: [id number] : 1990 F 33 From: Gallito Martins MD PCP: Care Physician,No Primary Status: REG CLI Study:Transvaginal w/Preg US Date of Exam: 11/18/24 Exam# [id number] Ordering Dr: Jessica Kaufman CNM PROCEDURE: TRANSVAGINAL W/PREG US 11/18/2024 REASON FOR EXAM: VIABILITY TECHNIQUE: TRANSVAGINAL W/PREG US COMPARISON: No relevant comparison exam. FINDINGS: Gravid uterus appears normal in size, smooth in contour. No discrete fibroid. Closed cervix. A single intrauterine gestational sac is present, with a mean sac diameter of 1.2 cm corresponding with a 6 week gestation. A 0.2 cm yolk sac is visualized. No definitive pole is seen at this time. Both ovaries have a normal sonographic appearance. Preserved blood flow bilaterally. Right ovary contains a thick-walled cyst measuring up to 2.2 cm, compatible with a corpus luteal cyst of . No adnexal mass or significant free pelvic fluid is seen. US/Transvaginal w/Preg US IMPRESSION: Single intrauterine gestational sac, corresponding to a 6 week gestation. No pole is visualized at this time, likely due to early gestational age, and viability cannotbe confirmed as of now. No concerning findings on this exam. Follow-up as clinically warranted. Reading Location: [id number] CC: KERRI Kaufman; No Primary Care Physician ~ Manager Paper: Signed [facility]06-21-2025 Hospital Discharge instructions Patient Education 10/31/2024 17:43:36 Wound Care Wound Care Taking proper care of your wound will help it heal. Your healthcare provider may show you how to clean and dress the wound. He or she will also explain how to tell if the wound is healing normally. If you are unsure of how to take care of the wound, be sure to clarify what dressing to use and how often you should change the bandages. Here are the basic steps. A wound that's not healing normally may be dark in color or have white streaks. Wash your hands Tips for washing your hands include: Use liquid soap and lather for 2 minutes. Scrub between your fingers and under your nails. Rinse with warm water, keeping your fingers pointing down. Use a paper towel to dry your hands and to turn off the faucet. Remove the used dressing Here are suggestions for removing the dressing: If dressing changes cause you pain, be sure to take your pain medicine as prescribed by your healthcare provider 30 minutes before dressing changes. Set up your supplies. Put on disposable gloves if you re dressing a wound for someone else or your wound is infected. Loosen the tape by pulling gently toward the wound. Gently take off the old dressing. If the dressing is stuck to the wound, moisten it with saline (ifavailable) or clean water. If you have a drain or tube in the wound, be careful not to pull on it. Remove the dressing 1 layer at a time and put it in a plastic bag. Seal the bag and put it in the trash. Remove your gloves. Inspect and dress the wound Check the wound carefully: Each time you change the dressing, check the wound carefully to be sure it s healing normally by making sure your wound appears to be pink and moist, and is free of infection. Wash your hands again. Put on a new pair of gloves. Clean and dress the wound as directed by your healthcare provider or nurse. Don't put anything in the wound that is not prescribed or directed by your healthcare provider. If you have a drain or tube, be careful not to pull on it. Make sure to secure the drain or tube as well. Put all unused supplies in a clean plastic bag. Seal the bag and store it in a clean, dry area between dressing changes. Be sure to wash your hands again. Call your healthcare provider Call your healthcare provider if you see any of the following signs of a problem: Bleeding that soaks the dressing [place] fluid weeping from the wound Increased drainage or drainage that is yellow, yellow-green, or foul-smelling Increased swelling or pain, or redness or swelling in the skin around the wound A change in the color of the wound, or if streaks develop in a direction away from the wound The area between any stitches opens up An increase in the size of the wound A fever of 100.4 F (38 C) or higher, or as directed by your healthcare provider Chills, increased fatigue, or a loss of appetite [id number] [employer]. [address] [place] [address]. All rights reserved. This information is not intended as a substitute for professional medical care. Always follow yourhealthcare professional's instructions. 10/31/2024 17:34:39 Cat Bite Cat Bite A cat bite can cause a wound deep enough to break the skin. In such cases, the wound is cleaned andthen sometimes closed. If the wound is closed it is usually not closed completely. This is so that fluid can drain if the wound becomes infected. Often the wound is left open to heal. In addition to wound care, a tetanus shot may be given, if needed. Home care Wash your hands well with soap and warm water before and after caring for the wound. This helps lower the risk of infection. Care for the wound as directed. If a dressing was applied to the wound, be sure to change it as directed. If the wound bleeds, place a clean, soft cloth on the wound. Then firmly apply pressure until the bleeding stops. This may take up to 5 minutes. Don't release the pressure and look at the wound during this time. Always get medical attention for cat bites on the hand. They are highly likely to become infected. Most wounds heal within 10 days. But an infection can occur even with proper treatment. So be sure to check the wound daily for signs of infection (see below). Antibiotics may be prescribed. These help prevent or treat infection. If you re given antibiotics, take them as directed. Also be sure to complete the medicines. Rabies prevention Rabies is a virus that can be carried in certain animals. These can include domestic animals such as cats and dogs. Pets fully vaccinated against rabies (2 shots) are at very low risk of infection. But because human rabies is almost always fatal, any biting pet should be confined for 10 days as an extra precaution. In general, if there is a risk for rabies, the following steps may need to be taken: If someone s pet cat has bitten you, it should be kept in a secure area for the next 10 days to watch for signs of illness. If the pet glove brusher won t allow this, contact your local animal control center. If the cat becomes ill or dies during that time, contact your local animal control center at once so the animal may be tested for rabies. If the cat stays healthy for the next 10 days, there is no danger of rabies in the animal or you. If a stray cat bit you, contact your local animal control center. They can give information on capture, quarantine, and animal rabies testing. If you can t find the animal that bit you in the next 2 days, and if rabies exists in your area, you may need to receive the rabies vaccine series. Call your healthcare provider right away. Or returnto the emergency department promptly. All animal bites should be reported to the local animal control center. If you were not given a form to fill out, you can report this yourself. Follow-up care Follow up with your healthcare provider, or as directed. When to seek medical advice Call your healthcare provider right away if any of these occur: Signs of infection: oSpreading redness or warmth from the wound oIncreased pain or swelling oFever of 100.4 F (38 C) or higher, or as directed by your healthcare provider oColored fluid or pus draining from the wound oEnlarged lymph nodes above the area that was bitten, such as lymph nodes in the armpit if you werebitten on the hand or arm. This may be a sign of cat-scratch disease (cat-scratch fever). Signs of rabies infection: oHeadache oConfusion oStrange behavior oIncreased salivating or drooling oSeizure Decreased ability to move any body part near the bite area Bleeding that can't be stopped after 5 minutes of firm pressure 6665-6295 [employer]. [address] [place] [address]. All rights reserved. This information is not intended as a substitute for professional medical care. Always follow yourhealthcare professional's instructions. Follow Up Care 10/31/2024 17:01:33 With:JAMAICA LAND MD Address: [address] [place] [phone]- When:2-4 days [facility] 06-21-2025 Emergency department Discharge summary Discharge Instructions Thank you for allowing [facility] to assist you with your healthcare needs. The following is importantdischarge information regarding your hospital visit. Diagnosis from Today's Visit Cat bite What to Do Next Instructions from Your Care Team No qualifying data available. Post Acute Orders No qualifying data available. You Need to Schedule the Following Appointments Follow Up with JAMAICA LAND MD When:Within 2-4 days Where:[address] [facility] [place] [address]- Allergies NKA Medications Please ask your primary doctor or pharmacist before taking any other medication not listed, including over the counter drugs, herbal medications, vitamins and or supplements as they may interact withyour home medications. What How Much When Instructions Last Dose New amoxicillin-clavulanate (amoxicillin-clavulanate 875 mg-125 mg oral tablet) 1 tab(s) by mouth Every 12 hours Duration: 10 Days Take with a probiotic Printed Prescription Please take this list to your next doctor s visit. Bring all medications you take, including over the counter medications, herbals and other supplements with you to your doctor s visit. Patients and families are reminded to discard old lists and to update any records with all medication providers or retail pharmacies. Medication Leaflets amoxicillin and clavulanate potassium (am OK i MARLY in KLAV ue JOSÉ MIGUEL ate henna TAS ee um) Augmentin What is the most important information I should know about amoxicillin and clavulanate potassium? You should not use this medicine if you have severe kidney disease, if you have had liver problems or jaundice while taking amoxicillin and clavulanate potassium, or if you are allergic to any penicillin or cephalosporin antibiotic, such as Amoxil, Ceftin, Cefzil, Moxatag, Omnicef, and others. What is amoxicillin and clavulanate potassium? Amoxicillin is a penicillin antibiotic. Clavulanate potassium helps prevent certain bacteria from becoming resistant to amoxicillin. Amoxicillin and clavulanate potassium is a combination medicine used to treat many different infections caused by bacteria, such as sinusitis, pneumonia, ear infections, bronchitis, urinary tract infections, and infections of the skin. Amoxicillin and clavulanate potassium may also be used for purposes not listed in this medication guide. What should I discuss with my healthcare provider before taking amoxicillin and clavulanate potassium? You should not use this medicine if you are allergic to it, or if: you have severe kidney disease (or if you are on dialysis); you have had liver problems or jaundice while taking amoxicillin and clavulanate potassium; or you are allergic to any penicillin or cephalosporin antibiotic, such as Amoxil, Ceftin, Cefzil, Moxatag, Omnicef, and others. Tell your doctor if you have ever had: liver disease (hepatitis or jaundice); kidney disease; or mononucleosis. The liquid or chewable tablet may contain phenylalanine. Tell your doctor if you have phenylketonuria (PKU). Tell your doctor if you are or . Amoxicillin and clavulanate potassium can make control pills less effective. Ask your doctor about using a non-hormonal control (condom, diaphragm, cervical cap, or contraceptive sponge) to prevent . Do not give this medicine to a child without medical advice. How should I take amoxicillin and clavulanate potassium? Follow all directions on your prescription label and read all medication guides or instruction sheets. Use the medicine exactly as directed. Amoxicillin and clavulanate potassium may work best if you take it at the start of a meal. Take the medicine every 12 hours. Do not crush or chew the extended-release tablet. Swallow the pill whole, or break the pill in halfand take both halves one at a time. Tell your doctor if you have trouble swallowing a whole or halfpill. You must chew the chewable tablet before you swallow it. Shake the oral suspension (liquid) before you measure a dose. Use the dosing syringe provided, or use a medicine dose-measuring device (not a kitchen spoon). This medicine can affect the results of certain medical tests. Tell any doctor who treats you that you are using amoxicillin and clavulanate potassium. Use this medicine for the full prescribed length of time, even if your symptoms quickly improve. Skipping doses can increase your risk of infection that is resistant to medication. Amoxicillin and clavulanate potassium will not treat a viral infection such as the flu or a common cold. Store the tablets at room temperature away from moisture and heat. Store the liquid in the refrigerator. Throw away any unused liquid after 10 days. What happens if I miss a dose? Take the medicine as soon as you can, but skip the missed dose if it is almost time for your next dose. Do not take two doses at one time. What happens if I overdose? Seek emergency medical attention or call the Poison Help line at . Overdose can cause nausea, vomiting, stomach pain, diarrhea, skin rash, drowsiness, hyperactivity, and decreased urination. What should I avoid while taking amoxicillin and clavulanate potassium? Avoid taking this medicine together with or just after eating a high-fat meal. This will make it harder for your body to absorb the medication. Antibiotic medicines can cause diarrhea, which may be a sign of a new infection. If you have diarrhea that is watery or bloody, call your doctor before using anti-diarrhea medicine. What are the possible side effects of amoxicillin and clavulanate potassium? Get emergency medical help if you have signs of an allergic reaction (hives, difficult breathing, swelling in your face or throat) or a severe skin reaction (fever, sore throat, burning eyes, skin pain, red or purple skin rash with blistering and peeling). Stop using amoxicillin and clavulanate potassium and seek medical treatment if you have a serious drug reaction that can affect many parts of your body. Symptoms may include skin rash, fever, swollenglands, muscle aches, severe weakness, unusual bruising, or yellowing of your skin or eyes. Call your doctor at once if you have: severe stomach pain, diarrhea that is watery or bloody (even if it occurs months after your last dose); pale or yellowed skin, dark colored urine, fever, confusion or weakness; loss of appetite, upper stomach pain; little or no urination; or easy bruising or bleeding. Common side effects may include: nausea, vomiting; diarrhea; rash, itching; vaginal itching or discharge; or diaper rash. This is not a complete list of side effects and others may occur. Call your doctor for medical advice about side effects. You may report side effects to FDA at 3-189-WPL-0892. What other drugs will affect amoxicillin and clavulanate potassium? Tell your doctor about all your other medicines, especially: allopurinol; probenecid; or a blood thinner--warfarin, Coumadin, Jantoven. This list is not complete. Other drugs may affect amoxicillin and clavulanate potassium, including prescription and rktd-ckb-eofiaii medicines, vitamins, and herbal products. Not all possible drug interactions are listed here. Where can I get more information? Your doctor or pharmacist can provide more information about amoxicillin and clavulanate potassium. Remember, keep this and all other medicines out of the reach of children, never share your medicines with others, and use this medication only for the indication prescribed. Every effort has been made to ensure that the information provided by [employer]. ('[employer]') is accurate, up-to-date, and complete, but no guarantee is made to that effect. Drug information contained herein may be time sensitive. [employer] information has been compiled for use by healthcare practitioners and consumers in the [place] and therefore [employer] does not warrant that uses outside of the [place] are appropriate, unless specifically indicated otherwise. [employer] drug information does not endorse drugs, diagnose patients or recommend therapy. [employer] drug information isan informational resource designed to assist licensed healthcare practitioners in caring for their p atients and/or to serve consumers viewing this service as a supplement to, and not a substitute for, the expertise, skill, knowledge and judgment of healthcare practitioners. The absence of a warningfor a given drug or drug combination in no way should be construed to indicate that the drug or drug combination is safe, effective or appropriate for any given patient. [employer] does not assume any responsibility for any aspect of healthcare administered with the aid of information [employer] provides. The information contained herein is not intended to cover all possible uses, directions, precautions, warnings, drug interactions, allergic reactions, or adverse effects. If you have questions about the drugs you are taking, check with your doctor, nurse or pharmacist. Copyright 9647-1195 [employer]. Version: 14.. Revision Date: 02/16/2022. Education Materials Wound Care Taking proper care of your wound will help it heal. Your healthcare provider may show you how to clean and dress the wound. He or she will also explain how to tell if the wound is healing normally. If you are unsure of how to take care of the wound, be sure to clarify what dressing to use and how often you should change the bandages. Here are the basic steps. A wound that's not healing normally may be dark in color or have white streaks. Wash your hands Tips for washing your hands include: Use liquid soap and lather for 2 minutes. Scrub between your fingers and under your nails. Rinse with warm water, keeping your fingers pointing down. Use a paper towel to dry your hands and to turn off the faucet. Remove the used dressing Here are suggestions for removing the dressing: If dressing changes cause you pain, be sure to take your pain medicine as prescribed by your healthcare provider 30 minutes before dressing changes. Set up your supplies. Put on disposable gloves if you re dressing a wound for someone else or your wound is infected. Loosen the tape by pulling gently toward the wound. Gently take off the old dressing. If the dressing is stuck to the wound, moisten it with saline (ifavailable) or clean water. If you have a drain or tube in the wound, be careful not to pull on it. Remove the dressing 1 layer at a time and put it in a plastic bag. Seal the bag and put it in the trash. Remove your gloves. Inspect and dress the wound Check the wound carefully: Each time you change the dressing, check the wound carefully to be sure it s healing normally by making sure your wound appears to be pink and moist, and is free of infection. Wash your hands again. Put on a new pair of gloves. Clean and dress the wound as directed by your healthcare provider or nurse. Don't put anything in the wound that is not prescribed or directed by your healthcare provider. If you have a drain or tube, be careful not to pull on it. Make sure to secure the drain or tube as well. Put all unused supplies in a clean plastic bag. Seal the bag and store it in a clean, dry area between dressing changes. Be sure to wash your hands again. Call your healthcare provider Call your healthcare provider if you see any of the following signs of a problem: Bleeding that soaks the dressing [place] fluid weeping from the wound Increased drainage or drainage that is yellow, yellow-green, or foul-smelling Increased swelling or pain, or redness or swelling in the skin around the wound A change in the color of the wound, or if streaks develop in a direction away from the wound The area between any stitches opens up An increase in the size of the wound A fever of 100.4 F (38 C) or higher, or as directed by your healthcare provider Chills, increased fatigue, or a loss of appetite [id number] [employer]. [address] [place] [address], [place] [address]. All rights reserved. This information is not intended as a substitute for professional medical care. Always follow yourhealthcare professional's instructions. Cat Bite A cat bite can cause a wound deep enough to break the skin. In such cases, the wound is cleaned andthen sometimes closed. If the wound is closed it is usually not closed completely. This is so that fluid can drain if the wound becomes infected. Often the wound is left open to heal. In addition to wound care, a tetanus shot may be given, if needed. Home care Wash your hands well with soap and warm water before and after caring for the wound. This helps lower the risk of infection. Care for the wound as directed. If a dressing was applied to the wound, be sure to change it as directed. If the wound bleeds, place a clean, soft cloth on the wound. Then firmly apply pressure until the bleeding stops. This may take up to 5 minutes. Don't release the pressure and look at the wound during this time. Always get medical attention for cat bites on the hand. They are highly likely to become infected. Most wounds heal within 10 days. But an infection can occur even with proper treatment. So be sure to check the wound daily for signs of infection (see below). Antibiotics may be prescribed. These help prevent or treat infection. If you re given antibiotics, take them as directed. Also be sure to complete the medicines. Rabies prevention Rabies is a virus that can be carried in certain animals. These can include domestic animals such as cats and dogs. Pets fully vaccinated against rabies (2 shots) are at very low risk of infection. But because human rabies is almost always fatal, any biting pet should be confined for 10 days as an extra precaution. In general, if there is a risk for rabies, the following steps may need to be taken: If someone s pet cat has bitten you, it should be kept in a secure area for the next 10 days to watch for signs of illness. If the pet glove brusher won t allow this, contact your local animal control center. If the cat becomes ill or dies during that time, contact your local animal control center at once so the animal may be tested for rabies. If the cat stays healthy for the next 10 days, there is no danger of rabies in the animal or you. If a stray cat bit you, contact your local animal control center. They can give information on capture, quarantine, and animal rabies testing. If you can t find the animal that bit you in the next 2 days, and if rabies exists in your area, you may need to receive the rabies vaccine series. Call your healthcare provider right away. Or returnto the emergency department promptly. All animal bites should be reported to the local animal control center. If you were not given a form to fill out, you can report this yourself. Follow-up care Follow up with your healthcare provider, or as directed. When to seek medical advice Call your healthcare provider right away if any of these occur: Signs of infection: oSpreading redness or warmth from the wound oIncreased pain or swelling oFever of 100.4 F (38 C) or higher, or as directed by your healthcare provider oColored fluid or pus draining from the wound oEnlarged lymph nodes above the area that was bitten, such as lymph nodes in the armpit if you werebitten on the hand or arm. This may be a sign of cat-scratch disease (cat-scratch fever). Signs of rabies infection: oHeadache oConfusion oStrange behavior oIncreased salivating or drooling oSeizure Decreased ability to move any body part near the bite area Bleeding that can't be stopped after 5 minutes of firm pressure [phone] [employer]. [address] [place] [address]. All rights reserved. This information is not intended as a substitute for professional medical care. Always follow yourhealthcare professional's instructions. Additional Information VACCINATE! IT SAVES LIVES! Members of the community who have not yet received the COVID-19 vaccine and would like to receive it can visit one of [facility] vaccine clinics. There are many vaccine clinic locations within the [facility]. For locations and available times, please visit www.[email or web address].[place].gov/. It is important to note that some COVID mobile vaccine clinics are held outdoors and may be canceled in rainy or stormy conditions. To learn more about pediatric vaccinations (ages 5-11), we invite you to visit the [facility] webpage. [email or web address]/pages/[email or web address]-Qwlcz-Plzeqfhtedx-Lkjtemfoaq-[email or web address] stions.htmlTo learn more about the COVID-19 vaccine, we invite you to visit the CDC website for a list of frequently asked questions. https://www.cdc.gov/coronavirus/2019-ncov/vaccines/faq.html [place] [employer] Patient Portal Access Instructions: Stay connected with your healthcare team and access your personal medical information anytime with the [facility] Patient Portal. If you would like a full copy of your medical records please contact the [facility] Medical Records Department Saturday through Saturday between 8a.m. and 4:30p.m. Please follow the directions below to access the portal: 1.Access the email account you provided upon registration to the [facility].2.Look for an invitation email from [facility].3.Open the email and access the invitation link: Accept Invitation to [facility].Fill in the required curry to create your account. Sign into www.[employer] with your username and password that you created in the above steps to stay up to date. You can then view a summary of results, a summary of your visits, and the ability to download your summaries to your computer or send the information securely to a physician. Remember that your healthcare information is confidential, so carefully consider who you will allow to register on the [facility] Patient Portal for access to your information. You can also access the [facility] Patient Portal on the [employer] nohemy. Simply click on Health Records under [employer] and then click on the [employer] logo. HOW TO SAFELY DISPOSE OF PRESCRIPTION MEDICATIONS Please use one of the following methods to safely dispose of your unused medications. 1.Use a drug disposal kit: the drug disposal pouch allows you to safely discard your old and unuseddrugs. Ask your nurse to give you one when you are discharged.2.Visit a local take-back location: Many local pharmacies and police departments have programs that collect old and unwanted prescriptiondrugs. Call your local pharmacy or go to http://bit.[employer]/8P2Bi7v to find one close to you.3.Make use of household items: Use cat litter or old coffee grounds to dispose medications if other options arenot available. Mix your drugs with these household products, seal them in an airtight container andthrow it into the garbage. Call [facility]: [phone] to be sure your drugs can be disposed of in this way. Some medicines may require a different approach.4.Never flush your medications down the toilet. IF YOU HAVE BEEN PRESCRIBED AN OPIOIDS FOR PAIN If you have been prescribed an opioid (such as hydrocodone, oxycodone or morphine), it is critical to understand the possible side effects and risks of opioid pain medications. Even when taken as directed, opioids can have several side effects including: Tolerance, meaning you might need to take more of a medication for the same pain relief. Nausea, vomiting and/or constipation. Sleepiness, dizziness, dry mouth, confusion, depression or itching. Physical dependence, meaning you have withdrawal symptoms when a medication is stopped ? this can develop within a few days. KNOW YOUR RESPONSIBILITIES It is important to know exactly how much and how often to take the opioid pain medications you are prescribed. Never take opioids in higher amounts or more often than prescribed. Do not combine opioids with alcohol or other drugs that cause drowsiness, such as benzodiazepines, also known as benzos,including diazepam and alprazolam, muscle relaxants or sleep aids. Never sell or share prescriptionopioids. This is illegal. Store opioids in a secure place and out of reach of others (including children, family, friends and visitors). The last page(s) of this document has been signed and retained as a CHART COPY Signatures Patient Education Materials Wound Care Cat Bite Medication Leaflets amoxicillin and clavulanate potassium My discharge plan and instructions have been reviewed and explained to me and ISTEPHENIE ERICA L understand my current condition and have read and understand these discharge instructions. I have received a written copy of the plan/instructions. If I have questions, I am aware that I should contactmy doctor. Patient/[employer] Signature: Date/Time: Relationship to Patient: Witness Name/Signature: Date/Time: [facility] Marisol [id number] NoteHNO ID: [id number] Author: HAILE COLE APRN.[facility] Service: ? Author Type: Nurse Practitioner Type: Progress Notes Filed: 10/09/2023 18:10 Note Text: Subjective HPI Nontoxic-appearing female who is 24 weeks presents urgent care chief complaint tick bite. Patient states noticed a tick on her right upper chest Saturday night. Removed the tick. Does not think it was attached long. Patient did take a picture of the tick. Tick was not engorged. Presents today for evaluation. Overall feels well. No flulike symptoms. No decreased movement. No leaking of vaginal fluids. Denies any fever body aches chills productive cough chest pain shortness of breath pleuritic pain hemoptysis nausea vomiting abdominal pain change in bowel or bladder habits. Past medical history prescription medication use and allergies reviewed. .Patient presents with: tick biite: Right chest x 3 days History reviewed. No pertinent past medical history. No past surgical history on file. ALLERGIES Patient has no known allergies. MEDICATIONS vit no.124/iron/folic ( VITAMIN ORAL) Take by mouth. aspirin 81 mg chewable tablet Take 81 mg by mouth once daily. Magnesium 200 mg tab Take by mouth. No family history on file. Social History Tobacco Use Smoking status: Every Day Smokeless tobacco: Never BP 108/78 Pulse 80 Temp 37.3 ?C (99.1 ?F) (Tympanic) Resp 18 Wt 108.1 kg (238 lb 5.1 oz) SpO2 99% Review of Systems Constitutional: Negative for chills, fever and malaise/fatigue. HENT: Negative for congestion, ear discharge, ear pain, sinus pain and sore throat. Eyes: Negative for blurred vision, pain, discharge and redness. Respiratory: Negative for cough, hemoptysis, sputum production, shortness of breath, wheezing and stridor. Cardiovascular: Negative for chest pain. Gastrointestinal: Negative for abdominal pain, diarrhea, nausea and vomiting. Musculoskeletal: Negative for myalgias. Skin: Negative for itching and rash. Neurological: Negative for dizziness and headaches. Objective Physical Exam Constitutional: General: She is not in acute distress. Appearance: She is not toxic-appearing. HENT: Head: Normocephalic. Nose: Nose normal. Eyes: Pupils: Pupils are equal, round, and reactive to light. Cardiovascular: Rate and Rhythm: Normal rate. Pulmonary: Effort: Pulmonary effort is normal. No respiratory distress. Musculoskeletal: Cervical back: Normal range of motion. Skin: General: Skin is warm and dry. Comments: Small area representing an insect bite noted. No erythema edema. No evidence of infection noted. Neurological: General: No focal deficit present. Mental Status: She is alert. ASSESSMENT/PLAN: 1. Tick bite of chest wall, initial encounter - ICD9: 911.4, E906.4, ICD10: S20.369A, W57.XXXA Diagnosed with tick bite of chest. Tick was not engorged. Not attached greater than 36 hours. Out of prophylactic window. Is currently . Low suspicion for tick borne illness. Red flags for reevaluation discussed. Patient was educated on supportive therapies. Patient will follow up with primary care provider as needed. Patient was instructed to immediately proceed to emergency room for any new, worsening, or symptoms lasting longer than anticipated. The patient's clinical presentation is otherwise unremarkable at this time. Based onexam and clinical finding, the patient is stable for discharge. Plan of care was discussed with patient. Patient verbalizes understanding and agrees to plan of care. This note was generated using [employer] software. It may contain errors in wording, punctuation, or spelling. Haile Cole APRN.[facility]05-29-2024 History of Present illness Narrative* Haile Cole APRN.[facility] - 10/09/2023 6:00 PM EDT Images from the original note were not included. Subjective HPI Nontoxic-appearing female who is 24 weeks presents urgent care chief complaint tick bite. Patient states noticed a tick on her right upper chest Saturday night. Removed the tick. Does not think it was attached long. Patient did take a picture of the tick. Tick was not engorged. Presents today for evaluation. Overall feels well. No flulike symptoms. No decreased movement. No leaking of vaginal fluids. Denies any fever body aches chills productive cough chest pain shortness of breathpleuritic pain hemoptysis nausea vomiting abdominal pain change in bowel or bladder habits. Past medical history prescription medication use and allergies reviewed. .Patient presents with: tick biite: Right chest x 3 days History reviewed. No pertinent past medical history. No past surgical history on file. ALLERGIES Patient has no known allergies. MEDICATIONS vit no.124/iron/folic ( VITAMIN ORAL) Take by mouth. aspirin 81 mg chewable tablet Take 81 mg by mouth once daily. Magnesium 200 mg tab Take by mouth. No family history on file. Social History Tobacco Use Smoking status: Every Day Smokeless tobacco: Never BP 108/78 Pulse 80 Temp 37.3 C (99.1 F) (Tympanic) Resp 18 Wt 108.1 kg (238 lb 5.1 oz) SpO2 99% Review of Systems Constitutional: Negative for chills, fever and malaise/fatigue. HENT: Negative for congestion, ear discharge, ear pain, sinus pain and sore throat. Eyes: Negative for blurred vision, pain, discharge and redness. Respiratory: Negative for cough, hemoptysis, sputum production, shortness of breath, wheezing and stridor. Cardiovascular: Negative for chest pain. Gastrointestinal: Negative for abdominal pain, diarrhea, nausea and vomiting. Musculoskeletal: Negative for myalgias. Skin: Negative for itching and rash. Neurological: Negative for dizziness and headaches. Objective Physical Exam Constitutional: General: She is not in acute distress. Appearance: She is not toxic-appearing. HENT: Head: Normocephalic. Nose: Nose normal. Eyes: Pupils: Pupils are equal, round, and reactive to light. Cardiovascular: Rate and Rhythm: Normal rate. Pulmonary: Effort: Pulmonary effort is normal. No respiratory distress. Musculoskeletal: Cervical back: Normal range of motion. Skin: General: Skin is warm and dry. Comments: Small area representing an insect bite noted. No erythema edema. No evidence of infectionnoted. Neurological: General: No focal deficit present. Mental Status: She is alert. ASSESSMENT/PLAN: 1. Tick bite of chest wall, initial encounter - ICD9: 911.4, E906.4, ICD10: S20.369A, W57.XXXA Diagnosed with tick bite of chest. Tick was not engorged. Not attached greater than 36 hours. Out of prophylactic window. Is currently . Low suspicion for tick borne illness. Red flags for reevaluation discussed. Patient was educated on supportive therapies. Patient will follow up with primary care provider as needed. Patient was instructed to immediately proceed to emergency room for anynew, worsening, or symptoms lasting longer than anticipated. The patient's clinical presentation isotherwise unremarkable at this time. Based on exam and clinical finding, the patient is stable for discharge. Plan of care was discussed with patient. Patient verbalizes understanding and agrees to plan of care. This note was generated using [employer] software. It may contain errors in wording, punctuation, or spelling. Haile Cole APRN.[facility] NotePap Smear Specimen AdequacyFebruary 2023 11:18amComment.Satisfactory for evaluation. No endocervical component is identified.[facility] A#[id number] Clinic Fairview HospitalComment on above:Satisfactory for evaluation. No endocervical component is identified.08-31-2022 History and physical note Author Dr. Nance [facility] August 31, 2022 12:00pm Note Date/Time August 31, 2022 12: 00pm [facility] Medical Records Department [address] [place] [id number] H&P Exam - TESTER ROCKET ENGINE 08/31/22 1159 MR#: [id number] Acct: [id number] Name: KEON CASIANO Rep #:[id number] : 1990 31 From: Theresa montenegro MD PCP: Care Physician,No Primary Status :[facility] Location: [place] [address] HPI - General HPI Narrative KEON CASIANO, is a 31 F who presents with miscarriage, failed cytotec. she ishaving some bleeding and denies discharge, planning suction d and c Maternal Data Information VERÓNICA Calculator Estimated Delivery Date Method Current WG Current Estimate 03/23/23 LMP (Certain) 10w 6d PFSH PFSH Medical History Acute pharyngitis Alcohol abuse Encounter for screening for COVID-19 Fatigue Former smoker Laceration of right thumb Lump of right breast Seizures Sore throat Home Medications NK 08/29/22 [History Last Taken Unknown] Allergy/AdvReac Type Severity Reaction Status Date / Time measles, mumps, and rubella Allergy Other Verified 08/28/22 15:46 vaccine Family History Father Heart disease Diabetes Hypertension CVA (cerebral vascular accident) Surgical History History of breast biopsy (~02/2021) History of orthopedic surgery History of tonsillectomy and adenoidectomy Social History adopted: No household members: significant other and children number of children: 3 current occupational status: employed current occupation: [employer] current occupational exposures/hazards: No pets and animals: Yes pets and animals: dog(s) history of recent travel: No sexually active: Yes Smoking Status: Former smoker alcohol intake: former year quit: 2017 details: five years- recovering substance use type: does not use caffeine: No what type of physical activity do you participate in: none seatbelt use: always do you feel safe at home: Yes additional social history: BF- Nuñez History 4 Elective abortions Hx Para 3 Spontaneous abortions Hx # Term Pregnancies Ectopic pregnancies Hx # Pregnancies Multiple births # of living children 3 Past Pregnancies Del. Date Name GA/Weeks Outcome Route Bth Weight Infant Gen Labor Lgth Anesthesia Del [facility] Provider FOB 12/06/09 Simone 36 live - 6.8 Male epidur al [facility] 07/25/11 Nasra 40 live - full term Female epidu [facility] 06/24/13 Kathy 40 live - full term 9.2 Male none [facility] Visit Details Expected Delivery Route/Plan Labor Preferences- CB/BF classes: [] labor support person: [] labor intervention preferences: [] pain management options preferred: [] cut cord/dad catch: [] : [] PP control planned: [] discussed possible routes of delivery and associated risks: [] special requests: [] Plans Covid status: [] Flu vaccine: [] Tdap vaccine: [] Rhogam: [] LARC form signed: [] Problem list reviewed and updated with the most current plan of care details and appropriate orders placed. Relevant counseling for the gestational age provided. Continue routine care and follow up unless otherwise noted in visit notes/problem list details OB Flowsheet Initial Weight: Not Recorded Date -?-?-?-?-?-?-?-?-?-?-?-?- EGA Weight BP Urine Prot -?-?-?-?-?-?-?-?-?-?-?-?- Glucose FHR FuHt Pres Dilation -?-?-?-?-?-?-?-?-?-?-?-?- Effaced St Visit Note 08/31/22 -?-?-?-?-?-?-?-?-?-?-?-?- 10w 6d -?-?-?-?-?-?-?-?-?-?-?-?- -?-?-?-?-?-?-?-?-?-?-?-?- ROS Constitutional Constitutional: Reports systems reviewed and no addt'l complaints, except as documented; Denies as per HPI, change in weight, fatigue, fever(s), malaise, weakness or other Eyes Eyes: Reports systems reviewed and no addt'l complaints, except as documented; Denies as per HPI, change in vision or other ENT HEENT: Reports systems reviewed and no addt'l complaints, except as documented Respiratory/Chest Respiratory/Chest: Reports systems reviewed and no addt'l complaints, except as documented Gastrointestinal Gastrointestinal: Reports systems reviewed and no addt'l complaints, except as documented and as per HPI Genitourinary Genitourinary: Reports as per HPI Musculoskeletal Musculoskeletal: Reports systems reviewed and no addt'l complaints, except as documented Neurologic Neurologic: Reports systems reviewed and no addt'l complaints, except as documented Psychiatric Psychiatric: Reports systems reviewed and no addt'l complaints, except as documented Endocrine Endocrinology: Reports systems reviewed and no addt'l complaints, except as documented Hematologic/Lymphatic Hematologic/Lymphatic: Reports systems reviewed and no addt'l complaints, except as documented Vital Signs Vital Signs Vital Signs: Weight Weight: 204 lb Physical Exam Const alert, oriented x3 and no apparent distress HEENT normocephalic Head and Scalp: atraumatic Eyes EOMs intact bilaterally and conjunctivae normal Neck full ROM, no lymphadenopathy, supple and thyroid normal General: trachea midline Lymph Lymphatic: no lymphadenopathy noted Resp normal respiratory effort, no retractions, no use of accessory muscles and clear to auscultation bilaterally Cardio regular rhythm GI normal to inspection, nondistended, normoactive bowel sounds, soft to palpation, non-distended and no masses Inspection: Negative for abdominal distention Back/Spine no CVA tenderness Extremity normal to inspection Skin no rashes or lesions noted Neuro moves all extremities and deep tendon reflexes 2+ bilaterally Psych mental status grossly normal Labs Labs Labs: 2 Hct 44.3 % (37-47) Hgb 14.5 g/dl (12.0-15.0) Assessment & Plan (1) Missed : COMMENT: failed medication- plan d and c schedule for saturday PLAN: Plan After discussing the patient's diagnosis and treatment plan options, patient wishes to proceed with surgical management. I have discussed with the patient the risks, benefits, and alternatives of the procedure which include but are not limited to risks of anesthesia, bleeding, infection, possible damage to bowel, bladder, or surrounding vasculature which could lead to additional surgery to evaluate any complications. Patient agrees to procedure and wishes to proceed. ACOG/uptodate references given for additional information regarding procedure. 08/31/22 1200 <Electronically signed by Theresa Nance MD> Cosigner Signature (if applicable): CC: Dr. Theresa Nance MD; No Primary Care Physician~ Signed [facility] Work Phone: 1(713) 886-305504-21-2023 Procedure [facility] 07-11-2022 Note ORIGINAL EXAMINATION: TRANSVAGINAL PELVIC ULTRASOUND [...] 07/11/2022 12:35:09 PM Ordering Provider: DANNIE BAHENA [facility]03-01-2023 Note ORIGINAL EXAMINATION: TRANSVAGINAL PELVIC ULTRASOUND 07/11/2022 [...] Sign Date: 07/11/2022 12:35:09 PM Ordering Provider: [facility]06-25-2022 Instructions* Patient Instructions* Anali Stockton PA-C - 11/04/2021 2:00 PM [...] be done as well. [facility] History of Present illness Narrative* Anali Stockton PA-C - 11/04/2021 1:22 PM EDT Images from the original note were not included. Subjective HPI HPI Keon Casiano is a 30 year old female who presents today for CC of suture removal R hand. Patient was evaluated last Saturday at [facility] ED status post laceration from a shattered glass. Tdap was updated at that time. Pt notes that she was seen at [facility] for a check of wound 2 days [...] Day 10 status post suture placement at [facility]-- 9 Sutures removed without complication; Steri strips [...] plan. Anali Stockton PA-C [facility] Hospital Discharge instructions Patient Education 10/26/2021 00:06:32 Laceration, Hand: [...] date on this vaccination and the object thatcut you may carry tetanus. Home care Your healthcare provider may prescribe an antibiotic. This is to help prevent infection. Follow allinstructions for taking this medicine. Take the medicine every day until it is gone or you are toldto stop. You should not have any left [...] the stitches dry, clean the wound daily. First,remove the bandage. Then wash the area gently with soap and warm water, or as directed by the healthcare provider. Use a wet cotton swab to loosen and remove any blood or crust that forms. After cleaning, apply a thin layer of antibiotic ointment if advised. Then put on a new bandage unless you aretold not to. Caring for skin glue: Don [...] affected hand Decreased movement of the hand [id number] [employer]. [address] [place] [address]. All rights reserved. This information is not intended as a substitute for professional medical care. Always follow yourhealthcare professional's instructions. Follow Up Care 10/25/2021 23:01:32 With:JAMAICA LAND Address: [address] [place] [address] [place] [address]- Business (1) When:Within 9 Day(s) Comments:Keep wound clean and dry. Have your stitches removed in 8 to 10 days. Return if worsening severe pain numbness weakness draining pus or redness around the wound. [facility] Evaluation + Plan note No data available for this section [facility] Evaluation note* Diagnosis Encounter for removal of sutures- Primary [facility] information [facility] Work Phone: Evaluation note* Diagnosis Onset Date Resolution Status Missed acute Missed acute Missed acute [facility] Work Phone: Evaluation note* Diagnosis Onset Date Resolution Status Missed acute Missed acute Missed acute Missed acute Vaginal bleeding acute [facility] Work Phone: evaluation note* Diagnosis Onset Date Resolution Status Missed acute Missed acute Missed acute Missed acute [facility] Work Phone: evaluation note* Diagnosis Onset Date Resolution Status Dysmenorrhea acute [facility] Work Phone: Evaluation note* Diagnosis Onset Date Resolution Status Amenorrhea acute COVID-19 affecting , antepartum acute History of miscarriage, currently acute acute Spotting in early acute Supervision of high-risk acute [facility] Work Phone: evaluation note* Diagnosis Tick bite of chest wall, initial encounter- Primary [facility] Diagnosis Onset Date Resolution Status Admit Date Alcohol abuse acute November 27, 2024 10:49am Bleeding in early acute November 27, 2024 10:49am History of breast lump acute Ju 2024 10:49am History of miscarriage, curr ently acute November 27, 2024 10:49am History of oligohydramnios acute November 27, 2024 10:49am LGA (large for gestational a ge) fetus affecting management of mother acute November 27, 2024 10:49am acute November 27 10:49am Supervision of high-risk acute November 27, 2024 10:49am [facility] Work Phone: Hospital Discharge instructions No data available for this section [facility] Hospital Discharge instructions Additional Instructions Plenty of fluids and rest. Tylenol and Motrin for pain. Cytotec for 400 mg every 4 hours for the next 24 hours. A total of 6 pills in 24 hours. Return if fever, increasing pain or heavy bleeding. Otherwise Dr. Cely Crystal or her partner will see you in the office Saturday morning at 8 AM. You can just show up to be at the office at that time.[facility] Work Phone: Progress note No data available for this section [facility] Progress note Author Armida Aranda [facility] Note Date/Time November 27, 2024 11:2 4am [facility] [address] [place] [address], [address] [place] [address] OFFICE VISIT Date of Service: 11/27/24 MR#: [id number] Acct: [id number] Name: KEON CASIANO Rep #: [id number] : 1990 Provider: KERRI Aranda Age/Sex: 33/F Location: [facility] Status: Signed Intake Vital Signs 03/17/24 14:34 11/27/24 10:52 Height 5 ft 6 in 5 ft 6 in Weight: 205 lb BMI 33.0 BP 127/79 H Intake Visit Reasons: *EST* NOB, LMP 10/04, VERÓINCA 07/11 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: No Is patient in pain?: No Allergies measles, mumps, and rubella vaccine Allergy (Verified 11/27/24 10:54) seizure Medications ?Medication ?Instructions ?Recorded ?Confirmed ?Type vit no.164-ferrous tab PO 11/19/24 11/19/24 H istory gluconate 6 mg-folate 833.5 mcg DFE tablet ( PNV) Last Menstrual Period: 10/04/24 Zika: Zika virus screening: Negative : Yes Have you fallen in the past year?: No PFSH PFSH Medical History History of oligohydramnios depression Dysmenorrhea Seizures Former smoker Missed Laceration of right thumb Acute pharyngitis Sore throat Lump of right breast Encounter for screening for COVID-19 Alcohol abuse Fatigue Surgical History H/O dilation and curettage History of breast biopsy (~02/2021) History of orthopedic surgery History of tonsillectomy and adenoidectomy Family History Father Heart disease Diabetes Hypertension CVA (cerebral vascular accident) Social History adopted: No household members: significant other and children housing: house number of children: 4 current occupational status: employed 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 current occupational exposures/hazards: No pets and animals: Yes pets and animals: dog(s) and other details: rabbit - inside history of recent travel: No sexually active: Yes Smoking Status: Former smoker how long ago did patient quit smokin second hand exposure: No alcohol intake: former year quit: 2017 details: 7 years - recovering substance use type: does not use well-balanced diet: daily or most days caffeine: No eating out: rarely or never during the past year weight has: remained stable what type of physical activity do you participate in: none mike/mu-ism: Restorationism seatbelt use: always do you feel safe at home: Yes additional social history: [employer], [place]- Nuñez- [employer] History 6 Elective abortions Hx Para 4 Spontaneous abortions 1 Hx # Term Pregnancies Ectopic pregnancies Hx # Pregnancies Multiple births # of living children 4 Past Pregnancies Del. Date Name GA/Weeks Outcome Route Bth Weight Gen Labor Lgth Anesthesia Del [facility] Provider FOB 12/06/09 Simone 36 live - 6.8 Male epidur al [facility] 07/25/11 Nasra 40 live - full term 6#8oz Female epidu ral [facility] 06/24/13 Kathy 40 live - full term 9.2 Male none [facility] 08/31/22 8 spontaneous 01/28/24 Aurora 40 live - full term 7lbs 13oz Male ep idural [facility] L&D Carolyn Nuñez Delivery Date: 08/31/22 Last Updated by: Gely Rosen D&Meaghan, [facility] Delivery Date: 01/28/24 Last Updated by: Florecita Otto, MARIAN see problem list for complications HPI *EST* NOB, LMP 10/04, VERÓNICA 07/11 Details: KEON CASIANO is a 33 year old who presents for New OB visit. OB Visit VERÓNICA Calculator Estimated Delivery Date Method Current WG Current Estimate 07/14/25 Ultrasound #1 7w 2d Other Estimates 07/11/25 LMP (Certain) 7w 5d Comments: HIV: Urine Culture: Sequential Screen: NIPT Screen: Estimated Due Date: 07/11/25 Expected Delivery Route/Plan Labor Preferences- CB/BF classes: [] labor support person: [] labor intervention preferences: [] pain management options preferred: [] cut cord/dad catch: [] : [] PP control planned: [] discussed possible routes of delivery and associated risks: [] special requests: [] Specific Issue/Plans Covid status: [] Flu vaccine: [] Tdap vaccine: [] Rhogam: [] LARC form signed: [] Problem list reviewed and updated with the most current plan of care details and appropriate orders placed. Relevant counseling for the gestational age provided. Continue routine care and follow up unless otherwise noted in visit notes/problem list details Initial Weight: Not Recorded Date -?--?-?-?-?-?-?-?-?-?-?-?- EGA Weight BP Urine Prot -?-?-?-?-?-?-?-?-?-?-?-?- Glucose FHR FuHt Pres Dilation -?-?-?-?-?-?-?-?-?-?-?-?- Effaced St Visit Note 11/27/24 -?-?-?-?-?-?-?-?-?-?-?-?- 7w 2d 205 lb 127/79 -?-?-?-?-?-?-?-?-?-?-?-?- 134 -?-?-?-?-?-?-?-?-?-?-?-?- LC- CRL 10.2mm 7 w0d con with LMP. desires genetics and will obtain with NOB labs next visit. Menstrual History Last Menstrual Period: 10/04/24 Reported LMP: definite Antepartum Record Genetic Screening: Congenital Heart Defect: Other, Neural Tube Defect: Other, Hemoglobinopathy Or Carrier: Other, Cystic Fibrosis: Other, Chromosome Abnormality: Other, Red-Sachs: Other, Hemophilia: Other, Intellectual Disability/Autism: Other, Recurrent Loss/Stillbirth: Other, Other Structural Defect: Other, Other Genetic Disease: Other and Maternal Metabolic Disorder: Other Infection History: Live with someone with TB or Exposed to TB: No, Patient or Partner has history of Genital Herpes: No, Rash or Viral illness since last mentrual period: No, Prior GBS-Infected child: No, History of STD: No, HIV Infection: No, History of Hepatitis: No, Recent travel outside of [place]: No, Concern for hepatitis exposure: No, Varicella immune: Yes and Covid Vaccinated: Yes ([employer], 2019) Medical History Medical History: Negative: Diabetes, Hypertension, Heart disease, Auto-immune disorder, Kidney disease/UTI, Neurologic/epilepsy, Psychiatric, Depression/ depression, Hepatitis/liver disease, Varicosities/phlebitis, Thyroid dysfunction, Trauma/domestic violence, History of blood transfusions, D (Rh) Sensitized, Pulmonary (e.g.,TB,Asthma), Seasonal allergies, Drug/latex allergies/reactions, Breast, Wall Man surgery, Operations/hospitalizations, Anesthetic complications, History of abnormal pap, Uterine anomaly/erum, Infertility, Anti-retroviral treatment, Relevant family history and Other ACOG First Trimester First Trimester: Second Trimester Second Trimester: Signs and Symptoms of Labor, Selecting a care provider, Reproductive Life Planning & Contreception, Care Planning, Depression/Anxiety and Intimate Partner Violence; Discussed Tobacco Cessation Third Trimester Third Trimester: Pain Management Plans, Labor support person(s), Immediate Larc, Signs and Symptoms of Preeclampsia, Infant Feeding Yes , Education and Family Medical Leave or Disability Forms ROS Const Denies anorexia, Denies body aches, Denies chills, Denies excessive sweating, Denies fatigue, Denies headache(s) and Denies lethargy ENT Denies headache(s) GI Denies abdominal pain, Denies coffee ground emesis, Reports constipation, Denies cramping and Reports nausea Denies sexual dysfunction, Reports urinary frequency, Denies urinary incontinence, Denies urinary hesitancy, Denies urinary urgency, Denies vaginal discharge, Denies vaginal dryness, Denies vaginal odor and Denies vaginal pruritus Skin/Breast Details: breast discomfort Neuro No headache(s) Endo Denies cold intolerance, Denies deepening of the voice, Denies excessive sweating, Denies fatigue, Denies flushing, Denies heat intolerance, Denies polydipsia and Denies polyphagia Exam Const General: cooperative, healthy appearing, comfortable and no acute distress Neck Neck: normal visual inspection, full ROM and no lymphadenopathy Thyroid: thyroid normal Chest Chest palpation & inspection: normal inspection of the chest Breast inspection: normal inspection of the breasts and normal inspection of the axillae Resp Effort & Inspection: normal respiratory effort, able to speak in complete sentences and symmetric chest movement GI Inspection: normal to inspection Palpation: soft External Female Exam: normal external appearance and normal appearance of the urethra Urethra: normal appearance of the urethra Speculum Exam - Vagina: normal appearance of the vagina Speculum Exam - Cervix: normal appearance of the cervix Bimanual Exam- Vagina & Uterus: uterine size normal (consistent with dates of ) OB/External & Speculum: no bleeding Skin General: rashes and/or lesions noted Neuro General: patient alert, patient awake and patient oriented x3 Psych Appearance: grossly normal and well kempt Coding Level of Care Code Off vis,est,level 4 Diagnoses Alcohol abuse F10.10 History of breast lump Z87.898 LGA (large for gestational age) fetus affecting management of mother O36.60X0 History of oligohydramnios Z87.59 Supervision of high-risk O09.90 Less than 8 weeks gestation of Z3A.01 Weeks of gestation: less than 8 weeks History of miscarriage, currently O09.299 Bleeding in early O20.9 Assessment and Plan Assessment and Plan (1) Alcohol abuse: Status: Acute Comment: recovering- 7 years sober (2) History of breast lump: Status: Acute Comment: breast biopsy 02/2021 (3) LGA (large for gestational age) fetus affecting management of mother: Status: Acute Comment: history of 9 pound baby (4) History of oligohydramnios: Status: Acute Comment: previous induced at 36 weeks (5) Supervision of high-risk : Status: Acute Comment: , VERÓNICA 07/11/25 Nasra Nichols Asher, Milo Fiancee Garrison (6) : Status: Acute Qualifiers: Weeks of gestation: less than 8 weeks Qualified Code(s): Z3A.01 - Less than 8 weeks gestation of Comment: NIPT w gender- will obtain with gender in envelope. carrier - previously done 2023 (last ) (7) History of miscarriage, currently : Status: Acute Comment: D/C 2022 (8) Bleeding in early : Status: Acute Comment: currently - HCGx2, TVUS 11/18/24 Orders: Orders CBC W/Diff, Automated 11/19/24 O09.90 - Supervision of high risk , unspecified, unspecified trimester, Z34.90 - Encounter for supervision of normal , unspecified, unspecified trimester Type & Screen 11/19/24 O09.90 - Supervision of high risk , unspecified, unspecified trimester, Z34.90 - Encounter for supervision of normal , unspecified, unspecified trimester Rubella IgG 11/19/24 O09.90 - Supervision of high risk , unspecified, unspecified trimester, Z34.90 - Encounter for supervision of normal , unspecified, unspecified trimester Hepatitis C Antibody 11/19/24 O09.90 - Supervision of high risk , unspecified, unspecified trimester, Z34.90 - Encounter for supervision of normal , unspecified, unspecified trimester Hepatitis B Surface Antigen 11/19/24 O09.90 - Supervision of high risk , unspecified, unspecified trimester, Z34.90 - Encounter for supervision of normal , unspecified, unspecified trimester Culture, Urine 11/19/24 O09.90 - Supervision of high risk , unspecified, unspecified trimester, Z34.90 - Encounter for supervision of normal , unspecified, unspecified trimester Syphilis Antibodies 11/19/24 O09.90 - Supervision of high risk , unspecified, unspecified trimester, Z34.90 - Encounter for supervision of normal , unspecified, unspecified trimester Chlamydia/GC DIANA aptima 11/19/24 O09.90 - Supervision of high risk , unspecified, unspecified trimester, Z34.90 - Encounter for supervision of normal , unspecified, unspecified trimester HIV 11/19/24 O09.90 - Supervision of high risk , unspecified, unspecified trimester, Z34.90 - Encounter for supervision of normal , unspecified, unspecified trimester Hemoglobin A1c 11/19/24 O09.90 - Supervision of high risk , unspecified, unspecified trimester, Z34.90 - Encounter for supervision of normal , unspecified, unspecified trimester Plan Details Additional Comments: ACOG trimester education reviewed and updated. oriented to practice. reviewed genetic and carrier screening patient has decided to [obtain screening]. nutrition, medication approved list reviewed. weight gain goal [] in ACOG booklet provided and reviewed see problem list details for updated plan management information and see below for orders placed at this visit. GA appropriate handout given. Clinical Quality Measures Falls Risk Screening/Assistive Devices Have you fallen in the past year?: No 11/27/24 1124 <Electronically signed by Armida rich CNM> Date _ Armida Aranda CNM Cosigner Signature: Date (if applicable) CC: ~ [facility] Work Phone: Progress note Author Jessica Kaufman [facility] Note Date/Time December 25, 2024 11 :22am [facility] [address], [address] [place] [address] OFFICE VISIT Date of Service: 12/25/24 MR#: [id number] Acct: [id number] Name: KEON CASIANO DORI Rep #: [id number] : 1990 Provider: KERRI Kaufman Age/Sex: 34/F Location: [facility] Status: Signed Intake Vital Signs 03/17/24 14:34 12/07/24 10:21 12/25/24 11:02 Height 5 ft 6 in 5 ft 6 in 5 ft 6 in Weight: 206 lb 8 oz BMI 33.3 BP 127/81 H Intake Visit Reasons: 11wk ob Chief Complaint: 11wk 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: No Is patient in pain?: No Allergies measles, mumps, and rubella vaccine Allergy (Verified 12/25/24 10:59) seizure Medications ?Medication ?Instructions ?Recorded ?Confirmed ?Type vit no.164-ferrous tab PO 11/19/24 12/25/24 H istory gluconate 6 mg-folate 833.5 mcg DFE tablet ( PNV) Last Menstrual Period: 10/04/24 [facility] Medical History History of oligohydramnios depression Dysmenorrhea Seizures Former smoker Missed Laceration of right thumb Acute pharyngitis Sore throat Lump of right breast Encounter for screening for COVID-19 Alcohol abuse Fatigue Surgical History H/O dilation and curettage History of breast biopsy (~02/2021) History of orthopedic surgery History of tonsillectomy and adenoidectomy Family History Father Heart disease Diabetes Hypertension CVA (cerebral vascular accident) Social History adopted: No household members: significant other and children housing: house number of children: 4 current occupational status: employed 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 current occupational exposures/hazards: No pets and animals: Yes pets and animals: dog(s) and other details: rabbit - inside history of recent travel: No sexually active: Yes Smoking Status: Former smoker how long ago did patient quit smokin second hand exposure: No alcohol intake: former year quit: 2017 details: 7 years - recovering substance use type: does not use well-balanced diet: daily or most days caffeine: No eating out: rarely or never during the past year weight has: remained stable what type of physical activity do you participate in: none mike/mu-ism: Restorationism seatbelt use: always do you feel safe at home: Yes additional social history: [employer] History 6 Elective abortions Hx Para 4 Spontaneous abortions 1 Hx # Term Pregnancies Ectopic pregnancies Hx # Pregnancies Multiple births # of living children 4 Past Pregnancies Del. Date Name GA/Weeks Outcome Route Bth Weight Gen Labor Lgth Anesthesia Del Locatn Provider FOB 12/06/09 Simone 36 live - 6.8 Male epidur al [facility] 07/25/11 Nasra 40 live - full term 6#8oz Female epidu [facility] 06/24/13 Kathy 40 live - full term 9.2 Male none [facility] 08/31/22 8 spontaneous 01/28/24 Aurora 40 live - full term 7lbs 13oz Male ep idural [facility] L&D Carolyn Nuñez Delivery Date: 08/31/22 Last Updated by: Gely Rosen D&Meaghan, ALANNA Delivery Date: 01/28/24 Last Updated by: Florecita Otto, MARIAN see problem list for complications HPI 11wk ob Details: KEON CASIANO is a 34 year old who presents for routine OB visit. OB Visit VERÓNICA Calculator Estimated Delivery Date Method Current WG Current Estimate 07/14/25 Ultrasound #1 11w 2d Other Estimates 07/11/25 LMP (Certain) 11w 5d Expected Delivery Route/Plan Labor Preferences- CB/BF classes: [] labor support person: [] labor intervention preferences: [] pain management options preferred: [] cut cord/dad catch: [] : [] PP control planned: [] discussed possible routes of delivery and associated risks: [] special requests: [] Specific Issue/Plans Covid status: [] Flu vaccine: [] Tdap vaccine: [] Rhogam: [] LARC form signed: [] Problem list reviewed and updated with the most current plan of care details and appropriate orders placed. Relevant counseling for the gestational age provided. Continue routine care and follow up unless otherwise noted in visit notes/problem list details Initial Weight: Not Recorded Date -?-?-?-?-?-?-?-?-?-?-?-?- EGA Weight BP Urine Prot -?-?-?-?-?-?-?-?-?-?-?-?- Glucose FHR FuHt Pres Dilation -?-?-?-?-?-?-?-?-?-?-?-?- Effaced St Visit Note 11/27/24 -?-?-?-?-?-?-?-?-?-?-?-?- 7w 2d 205 lb 127/79 -?-?-?-?-?-?-?-?-?-?-?-?- 134 -?-?-?-?-?-?-?-?-?-?-?-?- LC- CRL 10.2mm 7 w0d con with LMP. desires genetics and will obtain with NOB labs next visit. 12/07/24 -?-?-?-?-?-?-?-?-?-?-?-?- 8w 5d 206 lb 119/79 Negative -?-?-?-?-?--?-?-?-?-?-?-?- Negative 171 -?-?-?-?-?-?-?-?-?-?-?-?- MH-wanted confir m FHT. Diffusing oils caused illness in rabbit. Br US confirmed live IUP/FHT. No VB 12/25/24 -?-?-?-?-?-?-?-?-?-?-?-?- 11w 2d 206 lb 8 oz 127/81 Nega tive -?-?-?-?-?-?-?-?-?-?-?-?- Negative 160 -?-?-?-?-?-?-?-?-?-?-?-?- KW- no vb/crampi ng. labs drawn today. MFM US order placed. handheld US used for FHT and +fm. ACOG Second Trimester Second Trimester: Signs and Symptoms of Labor, Selecting a care provider, Reproductive Life Planning & Contreception, Care Planning, Depression/Anxiety and Intimate Partner Violence; Discussed Tobacco Cessation Third Trimester Third Trimester: Pain Management Plans, Labor support person(s), Immediate Larc, Signs and Symptoms of Preeclampsia, Infant Feeding, [place] Education and Family Medical Leave or Disability Forms ROS Const Reports system reviewed and no additional complaints, except as documented Eyes Reports system reviewed and no additional complaints, except as documented ENT Reports system reviewed and no additional complaints, except as documented Card Reports system reviewed and no additional complaints, except as documented Resp Reports system reviewed and no additional complaints, except as documented GI Reports system reviewed and no additional complaints, except as documented, Denies nausea and Denies vomiting Reports system reviewed and no additional complaints, except as documented Musc Reports system reviewed and no additional complaints, except as documented Skin/Breast Reports system reviewed and no additional complaints, except as documented Neuro Yes system reviewed and no additional complaints, except as documented Psych Reports system reviewed and no additional complaints, except as documented Endo Reports system reviewed and no additional complaints, except as documented Danilo/Lymph Reports system reviewed and no additional complaints, except as documented Aller/Immun Reports system reviewed and no additional complaints, except as documented Exam Const General: cooperative, healthy appearing and no acute distress Orientation: alert, awake and oriented x3 Neck Neck: normal visual inspection and full ROM Resp Effort & Inspection: normal respiratory effort, able to speak in complete sentences and symmetric chest movement GI Inspection: normal to inspection Palpation: soft and other Other: gravid Skin General: no rashes or lesions noted Neuro General: patient alert, patient awake and patient oriented x3 Cognition: normal cognition Speech: speech normal Gait: normal gait Motor: muscle tone normal throughout Extrem General: normal to inspection and full ROM Psych Appearance: grossly normal Mental Status: mental status grossly normal Mood: congruent mood Affect: normal affect Speech and Movement: speech and movement normal Attitude: cooperative Thought Process: normal Thought Content: normal Judgment: judgment good Results POC Urinalysis 2 Dip (Clinic) Office Urine Glucose Negative Last Edit by Domonique Harper on 12/25/24 11:05 Office Urine Protein Negative Last Edit by Domonique Harper on 12/25/24 11:05 Coding Level of Care Code Off vis,est,level 3 Diagnoses Alcohol abuse F10.10 History of breast lump Z87.898 Excessive growth affecting management of in first trimester, single or unspecified fetus O36.61X0 Fetus number: single or unspecified fetus Trimester: first trimester History of oligohydramnios Z87.59 Supervision of high risk in first trimester O09.91 Trimester: first trimester 11 weeks gestation of Z3A.11 Weeks of gestation: 11 weeks History of miscarriage, currently O09.299 Bleeding in early O20.9 Assessment and Plan Assessment and Plan (1) Alcohol abuse: Status: Acute Comment: recovering- 7 years sober (2) History of breast lump: Status: Acute Comment: breast biopsy 02/2021 (3) LGA (large for gestational age) fetus affecting management of mother: Status: Acute Qualifiers: Fetus number: single or unspecified fetus Trimester: first trimester Qualified Code(s): O36.61X0 - Maternal care for excessive growth, first trimester, not applicable or unspecified Comment: history of 9 pound baby (4) History of oligohydramnios: Status: Acute Comment: previous induced at 36 weeks (5) Supervision of high-risk : Status: Acute Qualifiers: Trimester: first trimester Qualified Code(s): O09.91 - Supervision of high risk , unspecified, first trimester Comment: , VERÓNICA 07/11/25 Nasra Nichols Asher, Milo Fiancee Garrison (6) : Status: Acute Qualifiers: Weeks of gestation: 11 weeks Qualified Code(s): Z3A.11 - 11 weeks gestation of Comment: NIPT w gender- will obtain with gender in envelope. carrier - previously done 2023 (last ) (7) History of miscarriage, currently : Status: Acute Comment: D/C 2022 (8) Bleeding in early : Status: Acute Comment: currently - HCGx2, TVUS 11/18/24 Orders: Orders POC Urinalysis 2 Dip (Clinic) Today Plan Details Additional Comments: ACOG trimester education reviewed and updated. see problem list details for updated plan management information and see below for orders placed at this visit. GA appropriate handout given. 12/25/24 1122 <Electronically signed by Jessica campbell CNM> Date _ Jessica Kaufman CNM Cosigner Signature: Date (if applicable) CC: ~ [facility] Work Phone: Reason for referral (narrative)No reason for referral information availableWAd[facility] Work Phone: Summary Purpose Family History Relationship Condition Age at Onset Recorded Date/T lee father Cardiac disease Unknown Diabetes mellitus Unknown Hypertension Unknown Cerebrovascular accident (CVA) Unknown Advance Directives Advance Directive Response Recorded Date/ Time Living Will No August 12, 2022 7:36pm Power of Clam Dredger No August 12 7:36pm Advance Directive Response Recorded Date/ Time Living Will No August 29, 2022 2:26pm Power of Clam Dredger No August 29 2:26pm Advance Directive Response Recorded Date/ Time Living Will No September 07, 2022 5:01pm Power of Clam Dredger No September 07 5:01pm Advance Directive Response Recorded Date/ Time Living Will No September 07, 2022 4:01pm Power of Clam Dredger No September 07 4:01pm Chief Complaint and Reason for Visit Chief Complaint POSSIBLE MISSCARRIAG E Chief Complaint POSSIBLE MISSCARRIAG E ultrasound, er f/u miscarriage f/u SUCTION D&C SUCTION D&C Reason for Visit Missed Missed Missed Chief Complaint POSSIBLE MISSCARRIAG E ultrasound, er f/u miscarriage f/u SUCTION D&C SUCTION D&C FEMALE C/O Reason for Visit Missed Missed Missed Chief Complaint POSSIBLE MISSCARRIAG E ultrasound, er f/u miscarriage f/u SUCTION D&C SUCTION D&C FEMALE C/O f/u, ok per sm Reason for Visit Missed Missed Missed Missed Vaginal bleeding Chief Complaint POSSIBLE MISSCARRIAG E ultrasound, er f/u miscarriage f/u SUCTION D&C SUCTION D&C FEMALE C/O f/u, ok per sm Reason for Visit Missed Missed Missed Missed Chief Complaint POSSIBLE MISSCARRIAG E ultrasound, er f/u miscarriage f/u SUCTION D&C SUCTION D&C FEMALE C/O f/u, ok per sm AUB Reason for Visit Missed Missed Missed Missed Chief Complaint Fertility consult Dysmenorrhea, unspecified Reason for Visit Dysmenorrhea Chief Complaint Fertility consult Dysmenorrhea, unspecified E-ORDER Reason for Visit Dysmenorrhea Chief Complaint Fertility consult Dysmenorrhea, unspecified E-ORDER Spotting complicating , unspecified trime Reason for Visit Dysmenorrhea Chief Complaint Fertility consult Dysmenorrhea, unspecified E-ORDER Spotting complicating , unspecified trime SPOTTING NOB LMP 04/28 Reason for Visit Amenorrhea COVID-19 affecting , antepartum History of miscarriage, currently Spotting in early Supervision of high-risk Chief Complaint Admit Date bleeding in early , history of miscarriag November 18, 2024 3:04pm Chief Complaint Admit Date bleeding in early , history of miscarriag November 18, 2024 3:04pm *EST* NOB, LMP 10/04, VERÓNICA 07/11November 27, 2024 10:49am Reason for Visit Admit Date Alcohol abuse November 27, 2024 10:4 9am Bleeding in early November 27, 025 10:49am History of breast lump November 27, 2024 1 0:49am History of miscarriage, currently pregna nt November 27, 2024 10:49am History of oligohydramnios November 27 10:49am LGA (large for gestational a ge) fetus affecting management of mother November 27, 2024 10:49am November 27, 2024 10:4 9am Supervision of high-risk November 27, 2024 10:49am Chief Complaint Admit Date bleeding in early , history of miscarriag November 18, 2024 3:04pm *EST* NOB, LMP 10/04, VERÓNICA 07/11November 27, 2024 10:49am wellbeing check December 07, 2024 10 :17am Reason for Visit Admit Date Alcohol abuse November 27, 2024 10:4 9am Bleeding in early November 27 10:49am History of breast lump November 27, 2024 1 0:49am History of miscarriage, currently pregna nt November 27, 2024 10:49am History of oligohydramnios November 27 10:49am LGA (large for gestational a ge) fetus affecting management of mother November 27, 2024 10:49am November 27, 2024 10:4 9am Supervision of high-risk November 27, 2024 10:49am Alcohol abuse December 07, 2024 10:1 7am Bleeding in early December 07 025 10:17am History of breast lump December 07, 2024 1 0:17am History of miscarriage, currently pregna nt December 07, 2024 10:17am History of oligohydramnios December 07 10:17am LGA (large for gestational a ge) fetus affecting management of mother December 07, 2024 10:17am December 07, 2024 10:1 7am Supervision of high-risk December 07, 2024 10:17am Chief Complaint Admit Date bleeding in early , history of miscarriag November 18, 2024 3:04pm *EST* NOB, LMP 10/04, VERÓNICA 3/November 27, 2024 10:49am wellbeing check December 07, 2024 10 :17am 11wk ob December 25, 2024 10 :56am Reason for Visit Admit Date Alcohol abuse November 27, 2024 10:4 9am Bleeding in early November 27 10:49am History of breast lump November 27, 2024 1 0:49am History of miscarriage, currently pregna nt November 27, 2024 10:49am History of oligohydramnios November 27 10:49am LGA (large for gestational a ge) fetus affecting management of mother November 27, 2024 10:49am November 27, 2024 10:4 9am Supervision of high-risk November 27, 2024 10:49am Alcohol abuse December 07, 2024 10:1 7am Bleeding in early December 07 10:17am History of miscarriage, currently pregna nt December 07, 2024 10:17am History of oligohydramnios December 07 10:17am LGA (large for gestational a ge) fetus affecting management of mother December 07, 2024 10:17am December 07, 2024 10:1 7am Supervision of high-risk December 07, 2024 10:17am Alcohol abuse December 25, 2024 10 :56am Bleeding in early December 25, 2024 10:56am History of breast lump December 25, 2024 10:56am History of miscarriage, currently pregna nt December 25, 2024 10:56am History of oligohydramnios December 25, 2024 10:56am LGA (large for gestational a ge) fetus affecting management of mother December 25, 2024 10:56am December 25, 2024 10 :56am Supervision of high-risk Augus t 2024 10:56am Additional Source Comments Care Team (unrecognized sect ion and content) Team Status: Active Member Role Status Dates Dr. Kanika Boyer MD Family Provider Active No Primary Care Physician Primary Care Provider Active Team Status: Inactive Member Role Status Dates Dr. Letty Vaughan DO Emergency Provider Active No Primary Care Physician Primary Care Provider Active Team Status: Inactive Member Role Status Dates No Primary Care Physician Primary Care Provider, Refer ring Provider Active Dr. Theresa Nance MD Attending Provider Active Team Status: Active Member Role Status Dates No Primary Care Physician Primary Care Provider Active Dr. Theresa Nance MD Attending Pr ovider, Referring Provider, Other Provider Active Team Status: Inactive Member Role Status Dr. Letty Vaughan DO Attending Provider, Emergency Pro vider Active No Primary Care Physician Primary Care Provider Active Team Status: Inactive Member Role Status Dates No Primary Care Physician Primary Care Provider Active Dr. Theresa Nance MD Attending Provider, Referr ing Provider Active Team Status: Inactive Member Role Status Dates No Primary Care Physician Primary Care Provider Active Dr. Toy Sommers MD Referring Provider, Emergency Pro vider Active Team Status: Inactive Member Role Status Dates No Primary Care Physician Primary Care Provider Active Dr. Toy Sommers MD Attending Provider, Referring Provider, Emergency Provider Active Team Status: Active Member Role Status No Primary Care Physician Primary Care Provider Active Dr. Theresa Nance MD Attending Provider, Referr ing Provider Active Team Status: Active Member Role Status Dates No Primary Care Physician Primary Care Provider Active Monica Flores AGRICULTURAL COMMODITIES INSPECTOR, AGRICULTURAL COMMODITIES INSPECTOR-C Attending Provider, Referring Provider Active Dr. Theresa Nance MD Other Provider Active Team Status: Inactive Member Role Status Dates No Primary Care Physician Primary Care Provider, Refer ring Provider Active Jessica Kaufman CNM Attending Provider Active Team Status: Inactive Member Role Status No Primary Care Physician Primary Care Provider Active Jessica Kaufman CNM Attending Provider, Referring Pro vider Active Team Status: Inactive Member Role Status Dates No Primary Care Physician Primary Care Provider Active Monica Flores AGRICULTURAL COMMODITIES INSPECTOR, AGRICULTURAL COMMODITIES INSPECTOR-C Attending Provider Active Team Status: Active Member Role Status Dates No Primary Care Physician Primary Care Provider Active Monica Flores AGRICULTURAL COMMODITIES INSPECTOR, AGRICULTURAL COMMODITIES INSPECTOR-C Attending Provider, Referring Provider Active Team Status: Active Member Role Status Dates Dr. Kanika Boyer MD Family Provider Active Team Status: Inactive Member Role Status Dates No Primary Care Physician Referring Provider Active Jessica Kaufman CNM Attending Provider Active Team Status: Active Member Role Status Dates Jessica Kaufman CNM Attending Provider, Referring Pro vider Active Team Status: Inactive Member Role Status Dates No Primary Care Physician Primary Care Provider Active Monica Flores AGRICULTURAL COMMODITIES INSPECTOR, AGRICULTURAL COMMODITIES INSPECTOR-C Attending Provider, Referring Provider Active Team Status: Inactive Member Role Status Dates Jessica Kaufman CNM Attending Provider, Referring Pro vider Active Team Status: Active Member Role/Relationship Status Dates No Primary Care Physician Primary Care Provider Active Team Status: Inactive Member Role/Relationship Status Dates No Primary Care Physician Primary Care Provider Active Start: November 16, 2024 End: November 16, 2024 Jessica Kaufman CNM Attending Provider Active S tart: November 16, 2024 End: November 16, 2024 Jessica Kaufman CNM Referring Provider Active S tart: November 16, 2024 End: November 16, 2024 Team Status: Active Member Role/Relationship Status Dates No Primary Care Physician Primary Care Provider Active Start: November 18, 2024 Jessica Kaufman CNM Attending Provider Active S tart: November 18, 2024 Jessica Kaufman CNM Referring Provider Active S tart: November 18, 2024 Team Status: Inactive Member Role/Relationship Status Dates No Primary Care Physician Primary Care Provider Active Start: November 18, 2024 End: November 18, 2024 Jessica Kaufman CNM Attending Provider Active S tart: November 18, 2024 End: November 18, 2024 Jessica Kaufman CNM Referring Provider Active S tart: November 18, 2024 End: November 18, 2024 Team Status: Inactive Member Role/Relationship Status Dates No Primary Care Physician Primary Care Provider Active Start: November 27, 2024 End: November 27, 2024 No Primary Care Physician Referring Provider Active Start: November 27, 2024 End: November 27, 2024 Armida Aranda CNM Attending Provider Active Start: November 27, 2024 End: November 27, 2024 Team Status: Inactive Member Role/Relationship Status Dates No Primary Care Physician Primary Care Provider Active Start: November 27, 2024 End: November 27, 2024 Armida Aranda CNM Attending Provider Active Start: November 27, 2024 End: November 27, 2024 Team Status: Inactive Member Role/Relationship Status Dates No Primary Care Physician Primary Care Provider Active Start: December 07, 2024 End: December 07, 2024 No Primary Care Physician Referring Provider Active Start: December 07, 2024 End: December 07, 2024 ERNESTO Andersen NPC Attending Provider Active Start: December 07, 2024 End: December 07, 2024 Team Status: Inactive Member Role/Relationship Status Dates No Primary Care Physician Primary Care Provider Active Start: December 25, 2024 End: December 25, 2024 No Primary Care Physician Referring Provider Active Start: December 25, 2024 End: December 25, 2024 Jessica Kaufman CNM Attending Provider Active S tart: December 25, 2024 End: December 25, 2024 Team Status: Active Member Role/Relationship Status Dates No Primary Care Physician Primary Care Provider Active Start: December 25, 2024 Jessica Kaufman CNM Attending Provider Active S tart: December 25, 2024 Source Comments (unrecognize d section and content) In the event this informatio n is protected by the Federal Confidentiality of Alcohol and Drug Abuse Patient Records regulations: The Federal rules restrict any use of the information to criminally investigate or prosecute any alcohol or drug abuse patient.[facility] the event this information is protected by the Federal Confidentiality of Alcohol and Drug Abuse Patient Records regulations: The Federal rules restrict any use of the information to criminally investigate or prosecute any alcohol or drug abuse patient.[facility] Reason for Visit (unrecogniz ed section and content) Reason Comments Suture Removal x 10 days, 9 sutures right thumb Reason Comments tick biite Right chest x 3 days Care Team (unrecognized sect ion and content) Care Team Personnel Name: CELY PAVON MD Position: P4 Physician - General Surgery Member Role: Surgeon Address: Address: [address] [facility] General [place], [place] [address] Name: JAMAICA LAND MD Position: P4 Physician - Primary Care Member Role: Primary Care Physician Address: Address: [address] [place] [address]- Care Team Related Persons Name: KATHY SHOEMAKER Address: [address] [place] [address] Name: NASRA SHOEMAKER Address: Home [address] [place], [place] [id number] [place] Address: Temporary [address] [place], [place] [id number] Name: JOSE CASIANO Name: CATALINA THAPA Name: CATALINA THAPA INFORMATION SOURCE (unrecogn ized section and content) DATE CREATED AUTHOR 07/13/2022 [facility] DATE CREATED AUTHOR AUTHOR'S ORGANIZ ATION 10/11/2023 [facility] DATE CREATED AUTHOR AUTHOR'S ORGANIZ ATION 12/31/2023 [facility] DATE CREATED AUTHOR AUTHOR'S ORGANIZ ATION 11/06/2024 [facility] DATE CREATED AUTHOR AUTHOR'S ORGANIZ ATION 12/18/2024 [facility] Goals (unrecognized section and content) Goals may be documented in a n alternate section FOR RECORDS PERTAINING TO PATIENTS WHO ARE [...] BE BASED ON THE PRIMARY CLINICAL RECORDS. [employer] [facility]. provides no warranty or guarantee of the accuracy or completeness of information in this document.
== END | disposition home or self-care (01) ==
PROVIDERS: Registered Nurse; Visit Provider Advanced Practice Midwife
DX: Z34.81 Encounter for supervision of other normal pregnancy, first trimester (principal)
CPT/HCPCS: 36415; 83036; 85025; 86703; 86762; 86780; 86803; 86850; 86900; 86901; 87340

== ENCOUNTER → 2025-04-12 | Outpatient (CLI) | payer MEDICAID, SELFPAY ==
[2025-04-12 12:01] LABS: Hematocrit 38.9 % (37-47); Hemoglobin 13.4 g/dL (12.0-15.0); Immature Granulocytes Count 0.070 X10^3/uL (0.0-0.0); Mean Corp Hgb Conc 34.4 g/dL (32-36); Mean Corpuscular Volume 92.6 fL (81-99); Mean Platelet Vol. 9.3 fl (6.2-12.0); NRBC Flagged by Analyzer 0 % (0-5); Platelet Count 266 K/mm3 (150-450); RBC Distribution Width CV 12.6 % (11.6-14.6); RBC Distribution Width SD 42.7 fl (35.1-43.9); Red Blood Count 4.20 M/mm3 (4.2-5.4); White Blood Count 9.3 K/mm3 (4.4-11.0)
[2025-04-12 13:22] LABS: Glucose Challenge Gest 1H 50g 144 mg/dL (70-140); HIV Nonreactive (Nonreactive); Syphilis Antibodies Nonreactive (Nonreactive)
== END | disposition home or self-care (01) ==
PROVIDERS: Advanced Practice Midwife; Visit Provider Obstetrics & Gynecology
DX: O09.91 Supervision of high risk pregnancy, unspecified, first trimester (principal); Z13.1 Encounter for screening for diabetes mellitus; Z3A.00 Weeks of gestation of pregnancy not specified
CPT/HCPCS: 36415; 82950; 85025; 86703; 86780

== ENCOUNTER 2025-04-21 22:07 | Emergency (ER) | payer MEDICAID, SELFPAY ==
[2025-04-21 22:07] VITALS: BP 131/75; PULSE 96; RESP 16; TEMP 36.8; O2SAT 99; BMI 33.9
--- NOTE | 2025-04-21 22:16 | ED.RN ---
this rn called ob d/t pt saying she has been having worsenig pubic pain/ pressure. jerica soares stated if pt wants evaluated for pubic pain / pressure that pt is to come down after ed evaluation. dr. driver consulted.
--- NOTE | 2025-04-21 22:36 | US_ITS ---
PROCEDURE: VENOUS DUPLEX IMAG/LIMITED/UNI 04/21/2025 REASON FOR EXAM: F 34 y/o TECHNIQUE: Procedure Code: USVDUL Modality: US Procedure: VENOUS DUPLEX IMAG/LIMITED/UNI COMPARISON: None. FINDINGS: Real-time ultrasound images of the deep venous system with Doppler evaluation. Normal compression, spontaneity and augmentation. Normal color Doppler. No intraluminal thrombus is seen. US/Venous Duplex Imag/Limited/Uni IMPRESSION: No evidence of deep venous thrombosis. Reading [facility]
--- OUTSIDE RECORDS SUMMARY | 2025-04-21 23:29 | XMS RPT_ITS | CCD ---
Author Organization [facility] Care Team Providers Care Rail Bonder Name Role Phone SHANDA DEAN, JAMAICA Salcedo Primary Care Physician Unavailable Primary Care Provider Delfina NEGRON MD, DR BERUMEN Attending Delfina LAND MD, JAMAICA Salcedo Primary Care Unavailable DANNIE BAHENA DO Attending Unavailab JAMAICA Rose MD Primary Care Unavailable Care Physician, No Primary Primary Care Provider Unavailable Care Physician, No Primary Referring Provider Un available Dr. Theresa Nance Attending Provider [phone] Dr. Theresa Nance Referring Provider [phone] Dr. Theresa Nance Other Provider [phone] Care Physician, No Primary Primary Care Provider Unavailable Care Physician, No Primary Referring Provider Un available KERRI Kaufman Attending Provider [phone] Unavailable Primary Care Provider Delfina LAND MD, JAMAICA Salcedo Primary Care Unavailable GALILEO BEASLEY Attending Unavailable Care Physician, No Primary Primary Care Provider Unavailable Jessica Kaufman CNM Attending Provider [phone] Jessica Kaufman CNM Referring Provider [phone] Care Physician, No Primary Referring Provider Un available Armida Aranda CNM Attending Provider [phone] Monica Cobb Attending Provider [phone] Dr. Theresa Nance MD Attending Provider NO PRIMARY CARE, MD Primary Care Unavailable ANGELES ALEXIS Attending Unavailable JESSICA KAUFMAN Referring Unavailable Care Physician, No Primary Primary Care Physicia n Unavailable Jessica Kaufman CNM Attending Physician [phone] Armida Aranda CNM Attending Physician [phone] Sandra HUSAIN, Monica Attending Physician [phone] Lee Ann DEAN, Dr. Cardenas Attending Physician Armida Aranda Attending Unavailable Care Physician, No Primary Referring Unava ilable Care Physician, No Primary Primary Care Unava ilable Sandra SUPERVISOR REACTOR FUELING, Monica Attending Unavailable Care Physician, No Primary Referring Unava ilable Care Physician, No Primary Primary Care Unava ilable Jessica Kaufman Attending Unavailable Care Physician, No Primary Referring Unava ilable Care Physician, No Primary Primary Care Unava ilable Theresa Nance Attending Unavailable Care Physician, No Primary Referring Unava ilable Care Physician, No Primary Primary Care Unava ilable Care Physician, No Primary Referring Unava ilable Care Physician, No Primary Primary Care Unava ilable Theresa Nance Attending Unavailable Siddhartha, Jessica Attending Unavailable Care Physician, No Primary Primary Care Unava ilable Jessica Kaufman Attending Unavailable Siddhartha, Jessica Referring Unavailable Care Physician, No Primary Primary Care Unava ilable Jessica Kaufman Attending Unavailable Siddhartha, Jessica Referring Unavailable Care Physician, No Primary Primary Care Unava ilable Armida Aranda Attending Unavailable Care Physician, No Primary Primary Care Unava ilable Jessica Kaufman Attending Unavailable Care Physician, No Primary Referring Unava ilable Care Physician, No Primary Primary Care Unava ilable Sandra SUPERVISOR REACTOR FUELING, Monica Attending Unavailable Care Physician, No Primary Referring Unava ilable Care Physician, No Primary Primary Care Unava ilable Allergies Allergy Classification Reported Allergen(s) Allergy Type Date of Onset Reaction(s) Facility (7 sources) measles, mumps, and rubella vaccine; Translations: [measles, mumps, and rubella vaccine] Allergy to substance 08-12-2022 Other [facility] Medications Current Medications Medication Drug Class(es) [...] mg tab Take by mouth. 0 Active [place] (Nk) (1 source) Start: 08-29-2022 [place] (Nk) Active August 29, 2022 12:00am Vit 857-Hmbz-Yabnou 6 ( Pnv) 6 mg iron- 833.5 mcg DFE tablet (9 sources) Start: 11-19-2024 Vit 164-Wnse-Aaqzgz 6 (Yanira Pnv) 6 mg iron- 833.5 mcg DFE tablet Active {tbl} PO November 19, 2024 12:00am Complies with drug therapy Start: 11-19-2024 Vit 1 41-Llhg-Linrqj 6 ( Pnv) 6 mg iron- 833.5 mcg DFE tablet Active {tbl} PO November 19, 2024 12:00am vit no.124/iron/fol ic ( VITAMIN ORAL) (1 source) vit no. 124/iron/folic ( VITAMIN ORAL) Take by mouth. 0 Active Completed/Discontinued Medications Medication Drug Class(es) Dates Sig (Normalized) Sig (Original) acetaminophen 325 mg / oxyCODONE hydrochloride 5 mg oral tablet (20 sources) Opioid Agonist Start: 08-13-2022 End: 08-20-2022 Oxycodone-Acetamin ophen (Percocet) 5-325 mg tablet Discontinued 1 {tbl} PO Q4H 28 7 0 August 13, 2022 August 19, 2022 12:00am August 20, 2022 12:04am Missed Missed [id number] 200 actuat albuterol 0.09 mg/actuat metered dose inhaler (9 sources) beta2-Adrenergic Agonist Start: 11-26-2023 End: 03-17-2024 Albuterol Sulfate 90 mcg/actuation HFA aerosol inhaler Discontinued 2 NMA INHALATION Q4H as needed for shortness of breath 6.7 4 November 26, 2023 12:00am March 17, 2024 3:34pm amoxicillin 500 mg oral capsule (20 sources) Penicillin-class Antibacterial Start: 01-30-2018 End: 02-09-2018 [...] 2018 11:09pm aspirin 81 mg oral tablet (10 sources) Platelet Aggregation Inhibitor, Nonsteroidal Anti-inflammatory Drug Start: 12-03-2023 End: 03-17-2024 take 1 capsule by mouth once daily Aspirin 81 mg capsule Discontinued 81 mg PO DAILY December 03, 2023 12:00am March 17, 2024 3:34pm take 1 tablet by mouth once nhan y aspirin 81 mg chewable tablet Take 81 mg by mouth once daily. 0 Active cephalexin 500 mg oral capsule (9 sources) Cephalosporin Antibacterial Start: 11-17-2024 End: 11-24-2024 take 1 capsule by mouth every six hours Cephalexin 500 mg capsule Discontinued 500 mg PO EVERY 6 HOURS 28 7 0 November 17, 2024 12:00am November 23, 2024 12:00am November 24, 2024 12:05am dicloxacillin 500 mg oral capsule (9 sources) Penicillin-class Antibacterial Start: 02-19-2024 End: 03-17-2024 take 1 tablet by mouth every six hours Dicloxacillin 500 mg capsule Discontinued 500 mg PO EVERY 6 HOURS 40 0 February 19, 2024 12:00am March 17, 2024 3:34pm Take 1 tablet PO q 6 hours for 10 days metroNIDAZOLE 500 mg oral tablet (9 sources) Nitroimidazole Antimicrobial Start: 11-07-2023 End: 11-14-2023 take 1 tablet by mouth twice daily Metronidazole 500 mg tablet Discontinued 500 mg PO TWICE A DAY 14 7 0 November 07, 2023 12:00am November 13, 2023 12:00am November 14, 2023 12:05am miSOPROStol 0.2 mg oral tablet (19 sources) Prostaglandin E1 Analog Start: 09-07-2022 End: 04-19-2023 Misoprostol (Cytotec) 200 mcg tablet Discontinued 200 ug VAGINAL Q4H 6 1 0 September 07, 2022 12:00am April 19, 2023 11:20am Start: 09-07-2022 End: 04-19-2023 Misoprostol (Cytotec) 200 mc g tablet Discontinued 200 MCG VAGINAL Q4H 6 1 September 06, 2022 11:00pm April 19, 2023 10:20am Multivit 40-Zgfz-Whtlli 1-Dh a (Pnv-Dha) 27 mg iron-1 mg -300 mg capsule (11 sources) Start: 06-14-2023 End: 03-17-2024 Multivit 78-Upyb-Ftorab 1-Dh a (Pnv-Dha) 27 mg iron-1 mg -300 mg capsule Discontinued 1 NMA PO DAILY June 14, 2023 1:00am March 17, 2024 3:34pm Start: 06-14-2023 Multivit 47-Ir on-Folate 1-Dha (Pnv-Dha) 27 mg iron-1 mg -300 mg capsule Active CAP PO June 14, 2023 12:00am omeprazole 20 mg delayed release oral capsule (20 sources) Proton Pump Inhibitor Start: 07-22-2018 End: 03-06-2021 take 1 capsule by mouth once daily Omeprazole 20 mg capsule,delayed release(DR/EC) Discontinued 20 mg PO DAILY 90 0 July 22, 2018 12:00am March 06, 2021 9:15am ,Calc 54-Ezks-Oneliv 1 (Pnv-Select) 27-1 mg tablet (2 sources) Start: 06-14-2023 End: 06-14-2023 ,Calc 49-Enhk-Kbqhmv 1 (Pnv-Select) 27-1 mg tablet Discontinued {tbl} PO June 14, 2023 1:00am June 14, 2023 4:14pm ,Calc.40- Iron-Folate 1 (Pnv-Select) 27-1 mg tablet (9 sources) Start: 06-14-2023 End: 06-14-2023 ,Calc.40-Iron -Folate 1 (Pnv-Select) 27-1 mg tablet Discontinued {tbl} PO June 14, 2023 1:00am June 14, 2023 4:14pm Start: 06-14-2023 End: 06-14-2023 ,Calc.64-Xmki-Gfpzgg 1 (Pnv-Select) 27-1 mg tablet Discontinued TABLET PO June 14, 2023 12:00am June 14, 2023 3:14pm Problems Active Problems Problem Classification Problem Date Documented Date Episodic/Chronic Alcohol-related disorders (20 sources) Alcohol abuse; Translations: [Alcohol abuse, uncomplicated] Onset: 03-15-2025 08-08-2022 Chronic Comment on above: recovering- 7 years sober Cardiac dysrhythmias (3 sources) Palpitations 08-27-2015 Episodic E Codes: Natural/environment (2 sources) Bitten by cat, initial encounter; Translations: [Cat bite (finding)] Onset: 10-31-2024 Episodic Epilepsy; convulsions (9 sources) Seizure; Translations: [Unspecified convulsions] 11-19-2024 Episodic Comment on above: REACTION TO MMR SHOT Hemorrhage during ; abruptio placenta; placenta previa (20 sources) Antepartum hemorrhage; Translations: [Hemorrhage in early , unspecified] Onset: 12-25-2024 11-19-2024 Episodic Comment on above: currently - HCGx2, TVUS 11/18/24 MFM 02/16.Rpt US @ 28 . Immunizations and screening for infectious disease (20 sources) Patient encounter status; Translations: [Encounter for screening for COVID-19] 08-08-2022 Episodic Malaise and fatigue (20 sources) Fatigue; Translations: [Other fatigue] 08-08-2022 Episodic Menstrual disorders (20 sources) Dysmenorrhea; Translations: [Dysmenorrhea, unspecified] 04-19-2023 Chronic Comment on above: hcgX2 Nausea and vomiting (3 sources) Nausea and vomiting 08-07-2015 Episodic Nonmalignant breast conditions (20 sources) Breast lump; Translations: [Unspecified lump in the right breast, unspecified quadrant] 08-08-2022 Episodic Open wounds of extremities (20 sources) Laceration of hand without foreign body; [...] Sanders Asher, Fiance- Garrison (his first child) EVRÓNICA 03/23/23, P C: Nasra Nichols Asher BF: Nuñez PRR , VERÓNICA 07/11/25 Nasra Nichols Asher, Milo Fiancee Garrison Other complications of (20 sources) Missed miscarriage; Translations: [Missed ] 08-28-2022 Episodic Comment on above: s/p d and c. recurre nt bleeding after with 3 cm and now 2 cm lining appears to be clot, patient clinically improving. quants ordered and reviewed precautions, await new until negative quant. Other complications of (18 sources) Missed ; Translations: [Missed ] 08-13-2022 Episodic Other complications of (12 sources) Spotting per vagina in ; Translations: [Spotting complicating , unspecified trimester] 06-04-2023 Episodic Other complications of (11 sources) Disease caused by 2019-nCoV; Translations: [Other viral diseases complicating , unspecified trimester] 06-20-2023 Episodic Comment on above: April 2023 discus ses 81 mg ASA Other complications of (2 sources) Other viral diseases complicating , unspecified trimester; Translations: [Other viral diseases in the mother, antepartum condition or complication] 06-20-2023 Episodic Other complications of (3 sources) Supervision of with other poor reproductive or obstetric history, unspecified trimester; Translations: [Supervision of high-risk with history of ] Onset: 03-15-2025 06-20-2023 Episodic Other complications of (2 sources) Spotting complicating , unspecified trimester; Translations: [Spotting complicating , antepartum condition or complication] 06-20-2023 Episodic Other complications of (20 sources) Excessive growth affecting management of mother; Translations: [Maternal care for excessive growth, unspecified trimester, not applicable or unspecified] 11-19-2024 Episodic Comment on above: history of 9 pound b chris Other complications of (1 source) Maternal care for excessive growth, first trimester, not applicable or unspecified; Translations: [Maternal care for excessive growth, first trimester, not applicable or unspecified] Onset: 03-15-2025 Episodic Other complications of (1 source) Supervision of high risk , unspecified, first trimester; Translations: [Supervision of high risk , unspecified, first trimester] Onset: 03-15-2025 Episodic Other female genital disorders (19 sources) Vaginal bleeding; Translations: [Abnormal uterine and vaginal bleeding, unspecified] 09-07-2022 Chronic Other female genital disorders (1 source) Abnormal uterine and vaginal bleeding, unspecified; Translations: [Other specified noninflammatory disorders of vagina] 09-10-2022 Chronic Other and delivery including normal (20 sources) ; Translations: [Encounter for supervision of normal , unspecified, unspecified trimester] Onset: 03-17-2024 08-08-2022 Episodic Comment on above: 01/28/24 JV Sasser NIPT w gender- undec ided. carrier - previously done 2023 (last ) Declines NIPT GBS Negative, normal anatomy, discussed genetic & carrier testing, NIPT low risk NIPT w gender- will obtain with gender in envelope. carrier - previously done 2023 (last ) NIPT w gender- will obtain with gender in envelope. low risk carrier - previously done 2023 (last ) NIPT w gender- will obtain with gender in envelope. low risk carrier - previously done 2023 (last ). Other screening for suspected conditions (not mental disorders or infectious disease) (9 sources) Oxygen saturation below reference range; Translations: [Abnormal blood-gas level] 03-17-2024 Episodic Other upper respiratory infections (20 sources) Acute pharyngitis; Translations: [Acute pharyngitis, unspecified] 08-08-2022 Episodic Polyhydramnios and other problems of amniotic cavity (9 sources) Oligohydramnios, unspecified trimester, not applicable or unspecified; Translations: [Low amniotic fluid volume] 01-29-2024 Episodic Comment on above: santana 6.6 on 12/17/23, r epeat 9.1 12/23/23, IV fluids and rom negative. repeat santana 6.2cm with 2.5cm pocket. reviewed twice daily kick counts, BPP/SANTANA twice weekly for now, recommend IOL if decreased fm or oligo Prolapse of female genital organs (20 sources) Uterine prolapse; Translations: [Incomplete uterovaginal prolapse] 08-12-2022 Chronic Residual codes; unclassified (20 sources) H/O: miscarriage; Translations: [Personal history of other complications of , childbirth and the puerperium] 09-07-2022 Episodic Comment on above: D/C 2022 Residual codes; unclassified (20 sources) History of clinical finding in subject; Translations: [Personal history of other specified conditions] 11-19-2024 Episodic Comment on above: breast biopsy Residual codes; unclassified (20 sources) H/O: Disorder; Translations: [Personal history of other complications of , childbirth and the puerperium] 11-19-2024 Episodic Comment on above: previous i nduced at 36 weeks Residual codes; unclassified (1 source) Personal history of other complications of , childbirth and the puerperium; Translations: [Personal history of other complications of , childbirth and the puerperium] Onset: 03-15-2025 Episodic Residual codes; unclassified (1 source) 22 weeks gestation of ; Translations: [22 weeks gestation of ] Onset: 03-15-2025 Episodic Residual codes; unclassified (1 source) 19 weeks gestation of ; Translations: [19 weeks gestation of ] Onset: 02-17-2025 Episodic Residual codes; unclassified (1 source) 15 weeks gestation of ; Translations: [15 weeks gestation of ] Onset: 01-22-2025 Episodic Residual codes; unclassified (1 source) Personal history of other specified conditions; Translations: [Personal history of other specified conditions] Onset: 12-25-2024 Episodic Residual codes; unclassified (1 source) 11 weeks gestation of ; Translations: [11 weeks gestation of ] Onset: 12-25-2024 Episodic Superficial injury; contusion (1 source) Tick bite; Translations: [Insect bite (nonvenomous) of unspecified front wall of thorax, initial encounter] 10-09-2023 Episodic Past or Other Problems Problem Classification Problem Date Documented Da te Episodic/Chronic Other complications of (3 sources) Supervision of high risk , unspecified, unspecified trimester; Translations: [Supervision of unspecified high-risk ] Onset: 12-03-2024 06-20-2023 Episodic Other complications of (1 source) Maternal care for excessive growth, unspecified trimester, not applicable or unspecified; Translations: [Maternal care for excessive growth, unspecified trimester, not applicable or unspecified] Onset: 11-27-2024 Episodic Residual codes; unclassified (1 source) Less than 8 weeks gestation of ; Translations: [Less than 8 weeks gestation of ] Onset: 11-27-2024 Episodic Results Test Name Value Interpretation Reference Range Facility Air Director Office Visit Reporton 03-15-2025 Air Director Office Visit Report [facility] [address], [address] [place] [address] OFFICE VISIT Date of Service: 03/15/25 MR#: [id number] Acct: [id number] Name: KEON FINCH Rep #: [id number] : 1990 Provider: KERRI Swenson ams Age/Sex: 34/F Location: [facility] Status: Signed Intake Vital Signs 12/25/24 11:02 02/17/25 09:01 03/15/25 09:57 03/15/25 09:59 Height 5 ft 6 in 5 ft 6 in 5 ft 6 in 5 ft 6 in Weight: 216 lb 220 lb 4 oz BMI 34.8 35.5 BP 107/76 114/71 Intake Visit Reasons: 23wk ob *ppu Dairy Husbandman Required: No Is patient in pain?: No Allergies measles, mumps, and rubella vaccine Allergy (Verified 03/15/25 09:57) seizure Medications ???Medication ???Instructions ???Recorded ???Confirmed ???Type vit no.164-ferrous tab PO 11/19/24 03/15/25 History gluconate 6 mg-folate 833.5 mcg DFE tablet (Yanira PNV) Last Menstrual Period: 10/04/24 Zika: Zika virus screening: Negative : No PFSH PFSH Medical History History of [...] 4 current occupational status: employed 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 Date Name GA/Weeks Outcome Route Bth Weight Gen Labor Lgth Anesthesia Del Locatn Provider FOB 12/06/09 Simone 36 live - 6.8 Male epidural [facility] 07/25/11 Nasra 40 live - full term 6#8oz Female epidural [facility] 06/24/13 [place] 40 live - full term 9.2 Male none [place] 08/31/22 8 spontaneous 01/28/24 Sasser 40 live - full term 7lbs 13oz Male epidural [facility] L D Carolyn Nuñez Delivery Date: 08/31/22 Last Updated by: Gely Harding, ALANNA Delivery Date: 01/28/24 Last Updated by: Florecita Otto, RN see problem list for complications HPI 23wk ob *ppu Details: KEON FINCH is a 34 year old who presents for routine OB visit. OB Visit VERÓNICA Calculator Estimated Delivery Date Method Current WG Current Estimate 07/14/25 Ultrasound #1 22w 5d Other Estimates 07/11/25 LMP (Certain) 23w 1d Expected Delivery Route/Plan Labor Preferences- CB/BF [...] list details Initial Weight: Not Recorded Date -???-???-???-???-?? ?-???-???-???-???-? ??-???-???- EGA Weight BP Urine Prot -???-???-???-???-?? ?-???-???-???-???-? ??-???-???- Glucose FHR FuHt Pres Dilation -???-???-???-???-?? ?-???-???-???-???-? ? (more content not included)... Normal [facility] Air Director Office Visit Reporton 02-17-2025 Air Director Office Visit Report [facility] [address], [address] [place] [address] OFFICE VISIT Date of Service: 02/17/25 MR#: [id number] Acct: [id number] Name: KEON FINCH Rep #: [id number] : 1990 Provider: Dr. Theresa cota MD Age/Sex: 34/F Location: [facility] Status: Signed Intake Vital Signs 12/25/24 11:02 01/22/25 10:09 02/17/25 09:01 Height 5 ft 6 in 5 ft 6 in 5 ft 6 in Weight: 216 lb BMI 34.8 BP 107/76 Intake Visit Reasons: 19 WK OB Dairy Husbandman Required: No Is patient in pain?: No Allergies measles, mumps, and rubella vaccine Allergy (Verified 02/17/25 09:01) seizure Medications ???Medication ???Instructions ???Recorded ???Confirmed ???Type vit no.164-ferrous tab PO 11/19/24 02/17/25 History gluconate 6 mg-folate 833.5 mcg DFE tablet ( PNV) Last Menstrual Period: 10/04/24 Zika: Zika virus screening: Negative : No PFSH PFSH Medical History History of [...] current occupational status: employed 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 Date Name GA/Weeks Outcome Route Bth Weight Gen Labor Lgth Anesthesia Del Locatn Provider FOB 12/06/09 Nichols 36 live - 6.8 Male epidural [facility] 07/25/11 Nasra 40 live - full term 6#8oz Female epidural [facility] 06/24/13 Kathy 40 live - full term 9.2 Male none [place] 08/31/22 8 spontaneous 01/28/24 Sasser 40 live - full term 7lbs 13oz Male epidural WC L D Carolyn Nuñez Delivery Date: 08/31/22 Last Updated by: Gely Harding, [facility] Delivery Date: 01/28/24 Last Updated by: Florecita Otto RN see problem list for complications HPI 19 WK OB Details: KEON FINCH is a 34 year old who presents for routine OB visit. OB Visit VERÓNICA Calculator Estimated Delivery Date Method Current WG Current Estimate 07/14/25 Ultrasound #1 19w 0d Other Estimates 07/11/25 LMP (Certain) 19w 3d Expected Delivery Route/Plan Labor Preferences- CB/BF classes: [...] list details Initial Weight: Not Recorded Date -???-???-???-???-?? ?-???-???-???-???-? ??-???-???- EGA Weight BP Urine Prot -???-???-???-???-?? ?-???-???-???-???-? ??-???-???- Glucose FHR FuHt Pres Dilation -???-???-???-???-?? ?-???-???-???-???-? ??-???-???- Effaced St Visit Note 11/27/24 -?? (more content not included)... Normal [facility] Laboratory - Chemistry and C hemistry - challengeOrdered By: Theresa Nance on 01-22-2025 Glucose Ql (U) Negative [facility] Laboratory - UrinalysisOrder ed By: Theresa Nance on 01-22-2025 Protein Ql (U) Negative [facility] Air Director Office Visit Reporton 01-22-2025 Air Director Office Visit Report [facility] [address], [address] [place] [address] OFFICE VISIT Date of Service: 01/22/25 MR#: [id number] Acct: [id number] Name: KEON FINCH Rep #: [id number] : 1990 Provider: Dr. Theresa cota MD Age/Sex: 34/F Location: [facility] Status: Signed Intake Vital Signs 11/27/24 10:52 12/25/24 11:02 01/22/25 10:09 Height 5 ft 6 in 5 ft 6 in 5 ft 6 in Weight: 208 lb 4 oz BMI 33.6 BP 113/76 Intake Visit Reasons: 15wk ob Dairy Husbandman Required: No Is patient in pain?: No Allergies measles, mumps, and rubella vaccine Allergy (Verified 01/22/25 10:06) seizure Medications ???Medication ???Instructions ???Recorded ???Confirmed ???Type vit no.164-ferrous tab PO 11/19/24 01/22/25 History gluconate 6 mg-folate 833.5 mcg DFE tablet ( PNV) Last Menstrual Period: 10/04/24 Zika: Zika virus screening: Negative PFSH PFSH Medical History History of oligohydramnios [...] current occupational status: employed 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 Date Name GA/Weeks Outcome [facility]09 Nichols 36 live - 6.8 Male epidural [facility] 07/25/11 Nasra 40 live - full term 6#8oz Female epidural [place] 06/24/13 [place] 40 live - full term 9.2 Male none [place] 08/31/22 8 spontaneous 01/28/24 Sasser 40 live - full term 7lbs 13oz Male epidural [facility] L D Carolyn Nuñez Delivery Date: 08/31/22 Last Updated by: Gely Harding, ALANNA Delivery Date: 01/28/24 Last Updated by: Florecita Otto, RN see problem list for complications HPI 15wk ob Details: KEON FINCH is a 34 year old who presents for routine OB visit. OB Visit VERÓNICA Calculator Estimated Delivery Date Method Current WG Current Estimate 07/14/25 Ultrasound #1 15w 2d Other Estimates 07/11/25 LMP (Certain) 15w 5d Expected Delivery Route/Plan Labor Preferences- CB/BF [...] list details Initial Weight: Not Recorded Date -???-???-???-???-?? ?-???-???-???-???-? ??-???-???- EGA Weight BP Urine Prot -???-???-???-???-?? ?-???-???-???-???-? ??-???-???- Glucose FHR FuHt Pres Dilation -???-???-???-???-?? ?-???-???-???-???-? ??-???-???- Effaced St Visit Note 11/27/24 -???-???-???-???-?? ? (more content not included)... Normal [facility] Absolute lymphocyte countOrd ered By: Armida Aranda on 12-25-2024 Lymphocytes Auto (Unsp spec) [#/Vol] 2.11 10*3/uL 0.83-4.51 [facility] Absolute neutrophil countOrd ered By: Armida Aranda on 12-25-2024 Neutrophils (Bld) [#/Vol] 5.3 10*3/uL 2.0-7.7 [facility] Automated lymphocyte count a s percentage of total leukocytesOrdered By: Armida Aranda on 12-25-2024 Lymphocytes/100 WBC Auto (Unsp spec) 26.6 % 19-41 [facility] Basophil percentageOrdered B y: Armida Aranda on 12-25-2024 Basophils/100 WBC (Bld) 0.3 % 0-1 [facility] CBC W/Diff, Automatedon 12-11 Absolute Lymph 2.11 X10 3/uL Normal 0.83-4.51 [facility] Comment on above: Performed By: #### B TS, L3890.6006, L900.0098, L3890.6301, L501.9985, L3890.6102, L100.0100, L509.8002, L509.4006 #### [facility] [address] [place], [address] Absolute Neut 5.3 X10 3/uL Normal 2.0-7.7 [facility] Comment on above: Performed By: #### B TS, L3890.6006, L900.0098, L3890.6301, L501.9985, L3890.6102, L100.0100, L509.8002, L509.4006 #### [facility] [address] [place], [address] Basophils/100 WBC (Bld) 0.3 % Normal 0-1 [facility] Comment on above: Performed By: #### B TS, L3890.6006, L900.0098, L3890.6301, L501.9985, L3890.6102, L100.0100, L509.8002, L509.4006 #### [facility] [address] [place], [address] Eosinophils/100 WBC (Bld) 1.0 % Normal 0-5 [facility] Comment on above: Performed By: #### B TS, L3890.6006, L900.0098, L3890.6301, L501.9985, L3890.6102, L100.0100, L509.8002, L509.4006 #### [facility] [address] [place], [address] Erythrocyte distribution width (RBC) [Ratio] 12.4 % Normal 11.6-14.6 [facility] Comment on above: Performed By: #### B TS, L3890.6006, L900.0098, L3890.6301, L501.9985, L3890.6102, L100.0100, L509.8002, L509.4006 #### [facility] [address] [place], [address] Hematocrit (Bld) [Volume fraction] 40.8 % Normal 37-47 [facility] Comment on above: Performed By: #### B TS, L3890.6006, L900.0098, L3890.6301, L501.9985, L3890.6102, L100.0100, L509.8002, L509.4006 #### [facility] [address] [place], [address] Hemoglobin (Bld) [Mass/Vol] 14.1 g/dL Normal 12.0-15.0 [facility] Comment on above: Performed By: #### B TS, L3890.6006, L900.0098, L3890.6301, L501.9985, L3890.6102, L100.0100, L509.8002, L509.4006 #### [facility] [address] [place], [address] IG% 0.400 Normal 0.0-0.9 [facility] Comment on above: Result Comment: IG% - Immature Granulocytes (promyelocytes, myelocytes and metamyelocytes) > 1% indicates that a LEFT SHIFT is Present. Performed By: #### B TS, L3890.6006, L900.0098, L3890.6301, L501.9985, L3890.6102, L100.0100, L509.8002, L509.4006 #### [facility] [address] [place], [address] Lymphocytes/100 WBC (Bld) 26.6 % Normal 19-41 [facility] Comment on above: Performed By: #### B TS, L3890.6006, L900.0098, L3890.6301, L501.9985, L3890.6102, L100.0100, L509.8002, L509.4006 #### [facility] [address] [place], [address] MCH (RBC) [Entitic mass] 31.3 pg Normal 27.0-32.0 [facility] Comment on above: Performed By: #### B TS, L3890.6006, L900.0098, L3890.6301, L501.9985, L3890.6102, L100.0100, L509.8002, L509.4006 #### [facility] [address] [place], [address] MCHC (RBC) [Mass/Vol] 34.6 g/dL Normal 32-36 [facility] Comment on above: Performed By: #### B TS, L3890.6006, L900.0098, L3890.6301, L501.9985, L3890.6102, L100.0100, L509.8002, L509.4006 #### [facility] [address] [place], [address] MCV (RBC) [Entitic vol] 90.5 fL Normal 81-99 [facility] Comment on above: Performed By: #### B TS, L3890.6006, L900.0098, L3890.6301, L501.9985, L3890.6102, L100.0100, L509.8002, L509.4006 #### [facility] [address] [place], [address] Monocytes/100 WBC (Bld) 4.8 % Normal 0-10 [facility] Comment on above: Performed By: #### B TS, L3890.6006, L900.0098, L3890.6301, L501.9985, L3890.6102, L100.0100, L509.8002, L509.4006 #### [facility] [address] [place], [address] Neutrophils/100 WBC (Bld) 66.9 % Normal 47-70 [facility] Comment on above: Performed By: #### B TS, L3890.6006, L900.0098, L3890.6301, L501.9985, L3890.6102, L100.0100, L509.8002, L509.4006 #### [facility] [address] [place], [address] Nucleated RBC (Bld) [#/Vol] 0 10*3/uL Normal 0-5 [facility] Comment on above: Performed By: #### B TS, L3890.6006, L900.0098, L3890.6301, L501.9985, L3890.6102, L100.0100, L509.8002, L509.4006 #### [facility] [address] [facility] [place], [address] ( Platelet mean volume (Bld) [Entitic vol] 9.2 fL Normal 6.2-12.0 [facility] Comment on above: Performed By: #### B TS, L3890.6006, L900.0098, L3890.6301, L501.9985, L3890.6102, L100.0100, L509.8002, L509.4006 #### [facility] [address] [facility] [place], [address] ( Platelets (Bld) [#/Vol] 293 10*3/uL Normal 150-450 [facility] Comment on above: Performed By: #### B TS, L3890.6006, L900.0098, L3890.6301, L501.9985, L3890.6102, L100.0100, L509.8002, L509.4006 #### [facility] [address] [facility] [place], [address] RBC (Bld) [#/Vol] 4.51 10*6/uL Normal 4.2-5.4 [facility] Comment on above: Performed By: #### B TS, L3890.6006, L900.0098, L3890.6301, L501.9985, L3890.6102, L100.0100, L509.8002, L509.4006 #### [facility] [address] [facility] [place], [address] RDW SD 40.2 fl Normal 35.1-43.9 [facility] Comment on above: Performed By: #### B TS, L3890.6006, L900.0098, L3890.6301, L501.9985, L3890.6102, L100.0100, L509.8002, L509.4006 #### [facility] [address] [place], [place], [id number] (974) WBC (Bld) [#/Vol] 7.9 10*3/uL Normal 4.4-11.0 [facility] Comment on above: Performed By: #### B TS, L3890.6006, L900.0098, L3890.6301, L501.9985, L3890.6102, L100.0100, L509.8002, L509.4006 #### [facility] [address] [place], [place], [id number] (959) Eosinophil percentageOrdered By: Armida Aranda on 12-25-2024 Eosinophils/100 WBC (Bld) 1.0 % 0-5 [facility] Erythrocyte distribution wid th ratioOrdered By: Armida Aranda on 12-25-2024 Erythrocyte distribution width (RBC) [Ratio] 12.4 % 11.6-14.6 [facility] Erythrocyte distribution wid th standard deviationOrdered By: Armida Aranda on 12-25-2024 Erythrocyte distribution width (RBC) [Ratio] 40.2 fl 35.1-43.9 [facility] HIVon 12-25-2024 HIV Non-Reactive Normal Nonreactive [facility] Comment on above: Result Comment: Non- Reactive Reactive Repeatedly reactive samples must be confirmed according to CDC recommended confirmatory algorithms. The subresults for either HIVAG or AHIV can be used as an aid in the selection of the confirmation algorithm for reactive samples. Send out specimens with Reactive results to [facility] for confirmation. Order the HIV antibody detection and differentiation: lc#[id number] Performed By: #### B TS, L3890.6006, L900.0098, L3890.6301, L501.9985, L3890.6102, L100.0100, L509.8002, L509.4006 ####[facility] [address] [place], [address] Hematocrit Auto (Bld) [Volum e fraction]Ordered By: Armida Aranda on 12-25-2024 Hematocrit (Bld) [Volume fraction] 40.8 % 37-47 [facility] Hemoglobin A1con 12-25-2024 HbA1c (Bld) [Mass fraction] 5.2 % Normal <=5.6 [facility] Comment on above: Result Comment: Norm al < 5.7 % Prediabetic 5.7 - 6.4 % Diabetic >or= 6.5 % Please note range changes. Performed By: #### B TS, L3890.6006, L900.0098, L3890.6301, L501.9985, L3890.6102, L100.0100, L509.8002, L509.4006 #### [facility] [address] [place], [address] Hemoglobin A1c percentageOrd ered By: Armida Aranda on 12-25-2024 HbA1c (Bld) [Mass fraction] 5.2 % <5.7 [facility] Comment on above: Normal < 5.7 % Predi abetic 5.7 - 6.4 % Diabetic >or= 6.5 % Please note range changes. Hemoglobin measurementOrdere d By: Armida Aranda on 12-25-2024 Hemoglobin (Bld) [Mass/Vol] 14.1 g/dL 12.0-15.0 [facility] Hepatitis C Antibodyon 12-25 Hepatitis C Ab Non-Reactive Normal Nonreactive [facility] Comment on above: Result Comment: Reac tive: Presumptive evidence of antibodies to HCV. Follow CDC recommendations for supplemental testing. Non-Reactive: Antibodies to HCV were not detected; does not exclude the possibility of exposure to HCV Reactive Results are presumptive evidence of antibodies to HCV. Follow CDC recommendations for supplemental testing. Order confirmation testing: HCV Quant by PCR testing - HCVPCR #[id number] Non Reactive: < 0.8 Equivocal: >/= 0.8 to < 1.0 Reactive: >/= 1.0 The CDC requires that a reactive/equivocal HCV antibody result be sent out for confirmation. HCV Quant by PCR testing. Performed By: #### B TS, L3890.6006, L900.0098, L3890.6301, L501.9985, L3890.6102, L100.0100, L509.8002, L509.4006 ####[facility] [address] [facility]. [place], [place], [id number] Immature granulocytes/100 WB C Auto (Bld)Ordered By: Armida Aranda on 12-25-2024 Immature granulocytes/100 WBC (Bld) 0.400 % 0.0-0.9 [facility] Comment on above: IG% - Immature Granu locytes (promyelocytes, myelocytes and metamyelocytes) > 1% indicates that a LEFT SHIFT is Present. L3890.6102on 12-25-2024 HEP B Surf Ag Non-Reactive Normal Nonreactive [facility] Comment on above: Result Comment: Reac tive: Presumptive evidence of HBV. Repeatedly reactive samples must be confirmed using a neutralization test ([employer] HBsAg Confirmatory Test) Non-Reactive: HBsAg not detected; does not exclude the possibility of exposure to HBV Performed By: #### B TS, L3890.6006, L900.0098, L3890.6301, L501.9985, L3890.6102, L100.0100, L509.8002, L509.4006 ####[facility] [address] [facility] [place], [address] L509.4006on 12-25-2024 Rubella IgG REAC Normal Nonreactive [facility] Comment on above: Result Comment: Anti body Result: Interpretation Non-Reactive: Non-Immune Reactive: Immune The following results were obtained with the [employer] Rubella IgG assay. Results from assays of other manufacturers cannot be used interchangeably. Performed By: #### B TS, L3890.6006, L900.0098, L3890.6301, L501.9985, L3890.6102, L100.0100, L509.8002, L509.4006 #### [facility] [address] [facility] [address] [place], [place], [id number] Laboratory - Chemistry and C hemistry - challengeOrdered By: Jessica Kaufman on 12-25-2024 Glucose Ql (U) Negative [facility] - Microbiology an d Antimicrobial susceptibilityOrdered By: Armida Aranda on 12-25-2024 HBV surface Ag Ql (S) Non-Reactive Nonreactive [facility] Comment on above: Reactive: Presumptiv e evidence of HBV. Repeatedly reactive samples must be confirmed using a neutralization test ([employer] HBsAg Confirmatory Test)Non-Reactive: HBsAg not detected; does not exclude the possibility of exposure to HBV Laboratory - UrinalysisOrder ed By: Jessica Kaufman on 12-25-2024 Protein Ql (U) Negative [facility] MCV (mean corpuscular volume ) determinationOrdered By: Armida Aranda on 12-25-2024 MCV (RBC) [Entitic vol] 90.5 fL 81-99 [facility] Mean corpuscular hemoglobin (MCH) determinationOrdered By: Armida Aranda on 12-25-2024 MCH (RBC) [Entitic mass] 31.3 pg 27.0-32.0 [facility] Mean corpuscular hemoglobin concentration (MCHC) determinationOrdered By: Armida Aranda on 12-25-2024 MCHC (RBC) [Mass/Vol] 34.6 g/dL 32-36 [facility] Mean platelet volume determi nationOrdered By: Armida Aranda on 12-25-2024 Platelet mean volume (Bld) [Entitic vol] 9.2 fL 6.2-12.0 [facility] Monocyte percentageOrdered B y: Armida Aranda on 12-25-2024 Monocytes/100 WBC (Bld) 4.8 % 0-10 [facility] NATERAon 12-25-2024 NATURA SEE SCANNED REPORT Normal [facility] Comment on above: Performed By: #### B TS, L3890.6006, L900.0098, L3890.6301, L501.9985, L3890.6102, L100.0100, L509.8002, L509.4006 #### [facility] [address] [place], [address] Neutrophil percentageOrdered By: Armida Aranda on 12-25-2024 Neutrophils/100 WBC (Bld) 66.9 % 47-70 [facility] No Panel InformationOrdered By: Armida Aranda on 12-25-2024 HIV (1&2) Antibody Non-Reactive Nonreactive [facility] Comment on above: Non-ReactiveReactive Repeatedly reactive samples must be confirmed according to CDC recommended confirmatory algorithms. The subresults for either HIVAG or AHIV can be used as an aid in the selection of the confirmation algorithm for reactive samples.Send out specimens with Reactive results to [facility] for confirmation.Order the HIV antibody detection and differentiation: #[id number] Nucleated red blood cell per centageOrdered By: Armida Aranda on 12-25-2024 Nucleated RBC/100 WBC (Bld) [Ratio] 0 % 0-5 [facility] Air Director Office Visit Reporton 12-25-2024 Air Director Office Visit Report [facility] [address], [address] [place] [address] OFFICE VISIT Date of Service: 12/25/24 MR#: [id number] Acct: [id number] Name: KEON FINCH Rep #: [id number] : 1990 Provider: KERRI Swenson ams Age/Sex: 34/F Location: [facility] Status: Signed Intake Vital Signs 03/17/24 14:34 12/07/24 10:21 12/25/24 11:02 Height 5 ft 6 in 5 ft 6 in 5 ft 6 in Weight: 206 lb 8 oz BMI 33.3 BP 127/81 H Intake Visit Reasons: 11wk ob Chief Complaint: 11wk OB Dairy Husbandman Required: No Is patient in pain?: No Allergies measles, mumps, and rubella vaccine Allergy (Verified 12/25/24 10:59) seizure Medications ???Medication ???Instructions ???Recorded ???Confirmed ???Type vit no.164-ferrous tab PO 11/19/24 12/25/24 History gluconate 6 mg-folate 833.5 mcg DFE tablet ( PNV) Last Menstrual Period: 10/04/24 PFSH PFSH Medical History History of oligohydramnios [...] 4 current occupational status: employed 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 Date Name GA/Weeks Outcome Route Bth Weight Gen Labor Lgth Anesthesia Del Locatn Provider FOB 12/06/09 Simone 36 live - 6.8 Male epidural Cos[facility] 07/25/11 Nasra 40 live - full term 6#8oz Female epidural [facility] 06/24/13 Kathy 40 live - full term 9.2 Male none Cos[place] 08/31/22 8 spontaneous 01/28/24 Sasser 40 live - full term 7lbs 13oz Male epidural [facility] Laurie Wells Delivery Date: 08/31/22 Last Updated by: ALANNA Cunningham Delivery Date: 01/28/24 Last Updated by: Florecita Otto, RN see problem list for complications HPI 11wk ob Details: KEON FINCH is a 34 year old who presents [...] list details Initial Weight: Not Recorded Date -???-???-???-???-?? ?-???-???-???-???-? ??-???-???- EGA Weight BP Urine Prot -???-???-???-???-?? ?-???-???-???-???-? ??-???-???- Glucose FHR FuHt Pres Dilation -???-???-???-???-?? ?-???-???-???-???-? ??-???-???- Effaced St Visit Note 11/27/24 -???-???-???-???-?? ?-???-???-???-???-? ??-???-? (more content not included)... Normal [facility] Platelet countOrdered By: Keisha Aranda on 12-25-2024 Platelets (Bld) [#/Vol] 293 10*3/uL 150-450 [facility] RBC Auto (Bld) [#/Vol]Ordere d By: Armida Aranda on 12-25-2024 RBC (Bld) [#/Vol] 4.51 10*6/uL 4.2-5.4 [facility] Syphilis Antibodieson 2024 Syphilis Abs Non-Reactive Normal Nonreactive [facility] Comment on above: Performed By: #### B TS, L3890.6006, L900.0098, L3890.6301, L501.9985, L3890.6102, L100.0100, L509.8002, L509.4006 ####[facility] [address] [place], [place], [id number] Type AND Screenon 12-25-2024 ABO and Rh group Nom (Bld) Blood group A Rh(D) positive Normal [facility] Comment on above: Order Comment: PN Performed By: #### B TS, L3890.6006, L900.0098, L3890.6301, L501.9985, L3890.6102, L100.0100, L509.8002, L509.4006 ####[facility] [address] [place], [place], [id number] White blood cell (WBC) count Ordered By: Armida Aranda on 12-25-2024 WBC (Bld) [#/Vol] 7.9 10*3/uL 4.4-11.0 [facility] Laboratory - Chemistry and C hemistry - challengeOrdered By: Monica Flores on 12-07-2024 Glucose Ql (U) Negative [facility] Laboratory - UrinalysisOrder ed By: Monica Flores on 12-07-2024 Protein Ql (U) Negative [facility] Air Director Office Visit Reporton 12-07-2024 Air Director Office Visit Report [address], [address] [place] [address] OFFICE VISIT Date of Service: 12/07/24 MR#: [id number] Acct: [id number] Name: KEON FINCH Rep #: [id number] : 1990 Provider: LISHA norman Age/Sex: 33/F Location: [facility] Status: Signed Intake Vital Signs 11/27/24 10:52 [...] current occupational status: employed 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 Date Name GA/Weeks Outcome Route Bth Weight Gen Labor Lgth Anesthesia Del Locatn Provider FOB 12/06/09 Nichols 36 live - 6.8 Male epidural Cosby 07/25/11 Nasra 40 live - full term 6#8oz Female epidural [facility] 06/24/13 [place] 40 live - full term 9.2 Male none Cosby 08/31/22 8 spontaneous 01/28/24 Sasser 40 live - full term 7lbs 13oz Male epidural [facility] L D Carolyn Nuñez Delivery Date: 08/31/22 Last Updated by: Gely Harding, ALANNA Delivery Date: 01/28/24 Last Updated by: Florecita Otto, RN see problem list for complications HPI wellbeing check Details: KEON FINCH is a 33 year old who presents [...] list details Initial Weight: Not Recorded Date -???-???-???-???-?? ?-???-???-???-???-? ??-???-???- EGA Weight BP Urine Prot -???-???-???-???-?? ?-???-???-???-???-? ??-???-???- Glucose FHR FuHt Pres Dilation -???-???-???-???-?? ?-???-???-???-???-? ??-???-???- Effaced St Visit Note 11/27/24 -???-???-???-???-?? ?-???-???-???-???-? ??-???-???- 7w 2d 205 lb 127/79 -???-???-???-???-?? ?-???-???-???-???-? ??-???-???- 134 -???-???-???-???-?? ?-???-???-???-???-? ??-???-???- LC- CRL 10.2 mm 7w0d con with LMP. desires genetics and will obtain with NOB labs next visit. 12/07/24 -???-???-???-???-?? ?-???-???-???-??? (more content not included)... Normal [facility] Chlamydia/GC DIANA aptimaon CHLAMY,NUC ACID Negative Normal Negative [facility] Comment on above: Performed By: #### M 100.2200, L7000.1800 #### [facility] [address] [place], [id number] GC BY NUC ACID Negative Normal Negative [facility] Comment on above: Result Comment: Perf ormed at: =G - [facility] [address] [place] [id number] Warehouse Attendant: Nancy Palacios MD, Phone: [phone] Performed By: #### M 100.2200, L7000.1800 #### [facility] [address] [place], [place], [address] Urine Cultureon 11-29-2024 URC Mixed Gram Positive Organisms [place] Count 1000-10,000 MIXC Mixed contaminants. Submit a new specimen if indicated. Normal [facility] Comment on above: Performed By: #### M 100.2200, L7000.1800 #### [facility] [address] [place], [place], [address] Chlamydia trachomatis rRNA d etection by probe and target amplification methodOrdered By: Armida Aranda on 11-27-2024 C. trachomatis rRNA DIANA+probe Ql (Unsp spec) Negative Negative [facility] Neisseria gonorrhoeae nuclei c acid detection by amplified probe techniqueOrdered By: Armida Aranda on 11-27-2024 N. gonorrhoeae DNA DIANA+probe Ql (Unsp spec) Negative Negative [facility] Comment on above: Performed at: =[address] [id number] Director: Nancy Palacios MD, Phone: [phone] Air Director Office Visit Reporton 11-27-2024 Air Director Office Visit Report [facility] [address], [address] [place] [address] OFFICE VISIT Date of Service: 11/27/24 MR#: [id number] Acct: [id number] Name: KEON FINCH Rep #: [id number] : 1990 Provider: KERRI danielson Age/Sex: 33/F Location: [facility] Status: Signed Intake Vital Signs 03/17/24 14:34 11/27/24 10:52 Height 5 ft 6 in 5 ft 6 in Weight: 205 lb BMI 33.0 BP 127/79 H Intake Visit Reasons: *EST* NOB, LMP 10/04, VERÓNICA 07/11 Dairy Husbandman Required: No Is patient in pain?: No [...] 4 current occupational status: employed 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 Date Name GA/Weeks Outcome Route Bth Weight Gen Labor Lgth Anesthesia Del Locatn Provider HARLEY 12/06/09 Simone 36 live - 6.8 Male epidural Renato 07/25/11 Nasra 40 live - full term 6#8oz Female epidural [facility] 06/24/13 Kathy 40 live - full term 9.2 Male none [facility] 08/31/22 8 spontaneous 01/28/24 Sasser 40 live - full term 7lbs 13oz Male epidural [facility] L D Carolyn Nuñez Delivery Date: 08/31/22 Last Updated by: Gely Harding, ALANNA Delivery Date: 01/28/24 Last Updated by: Florecita Otto RN see problem list for complications HPI *EST* NOB, LMP 10/04, VERÓNICA 07/11 Details: KEON FINCH is a 33 year old who presents [...] list details Initial Weight: Not Recorded Date -???-???-???-???-?? ?-???-???-???-???-? ??-???-???- EGA Weight BP Urine Prot -???-???-???-???-?? ?-???-???-???-???-? ??-?? (more content not included)... Normal [facility] Urine cultureOrdered By: Evelyn Aranda on 11-27-2024 Bacteria identified Cx Nom (U) Positive Abnormal [facility] Serum human chorionic gonado tropin detection for pregnancyOrdered By: Jessica Kaufman on 11-18-2024 HCG ( [place]) [place]l [address] mIU/mL High <9 [facility] Comment on above: Gestational Age0.2-1 Week: 5-50 mIU/mL1-2 Weeks: 50-500 mIU/mL2-3 Weeks: 100-5000 mIU/mL3-4 Weeks: 500-10,000 mIU/mL4-5 Weeks:1000-50,000 mIU/mL5-6 Weeks: 10,000-100,000 mIU/mL6-8 Weeks: 15,000-200,000 mIU/mL2-3 Months:10,000-100,000 mIU/mL Transvaginal w/Preg USon Transvaginal w/Preg US [facility] Imaging Services [address] [place], [place] [address] Transvaginal w/Preg US MR#: [id number] Acct: [id number] Name: KEON FINCH Rep #: [id number] : 1990 F 33 From: Vidal Martins MD PCP: Care Physician,No Primary Status: REG CLI Study: Transvaginal w/Preg US Date of Exam: 11/18/24 Exam# [id number] Ordering Dr: Jessica Kaufman CNM PROCEDURE: TRANSVAGINAL [...] exam. Follow-up as clinically warranted. Reading Location: [facility] CC: KERRI Kaufman; No Primary Care Physician [employer]: Signed Normal [facility] hCG Titer Quant., Serumon HCG QUANT. 96103 mIU/mL High <9 non-preg [facility] Comment on above: Result Comment: Gest ational Age 0.2-1 Week: 5-50 mIU/mL 1-2 Weeks: 50-500 mIU/mL 2-3 Weeks: 100-5000 mIU/mL 3-4 Weeks: 500-10,000 mIU/mL 4-5 Weeks:1000-50,000 mIU/mL 5-6 Weeks: 10,000-100,000 mIU/mL 6-8 Weeks: 15,000-200,000 mIU/mL 2-3 Months:10,000-100,000 mIU/mL Performed By: #### L 700.8000 ####[facility] [address] [place], [place], [address] Serum human chorionic gonado tropin detection for pregnancyOrdered By: Jessica Kaufman on 11-16-2024 HCG ( test) Ql 6025 mIU/mL High <9 [facility] Comment on above: Gestational Age0.2-1 Week: 5-50 mIU/mL1-2 Weeks: 50-500 mIU/mL2-3 Weeks: 100-5000 mIU/mL3-4 Weeks: 500-10,000 mIU/mL4-5 Weeks:1000-50,000 mIU/mL5-6 Weeks: 10,000-100,000 mIU/mL6-8 Weeks: 15,000-200,000 mIU/mL2-3 Months:10,000-100,000 mIU/mL hCG Titer Quant., Serumon HCG QUANT. 6025 mIU/mL High <9 non-preg [facility] Comment on above: Result Comment: Gest ational Age 0.2-1 Week: 5-50 mIU/mL 1-2 Weeks: 50-500 mIU/mL 2-3 Weeks: 100-5000 mIU/mL 3-4 Weeks: 500-10,000 mIU/mL 4-5 Weeks:1000-50,000 mIU/mL 5-6 Weeks: 10,000-100,000 mIU/mL 6-8 Weeks: 15,000-200,000 mIU/mL 2-3 Months:10,000-100,000 mIU/mL Performed By: #### L 700.8000 #### [facility] [address] [place], [place], [address] Air Director Office Visit Reporton 03-17-2024 Air Director Office Visit Report [facility] [address], [address] [place] [address] OFFICE VISIT Date of Service: 03/17/24 MR#: [id number] Acct: [id number] Name: KEON FINCH Rep #: [id number] : 1990 Provider: LISHA norman Age/Sex: 33/F Location: [facility] Status: Signed Intake Vital Signs 01/28/24 07:14 02/19/24 11:14 03/17/24 14:28 03/17/24 14:34 Height 5 ft 6 in 5 ft 6 in 5 ft 6 in 5 ft 6 in Weight: 236 lb 4 oz BMI 38.1 BP 110/74 Intake Visit Reasons: visit (obstetrics) Chief Complaint: 6 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 Is patient in pain?: No Allergies measles, mumps, and rubella vaccine Allergy (Verified 03/17/24 14:27) seizure Medications ???Medication ???Instructions ???Recorded ???Confirmed ???Type NK 03/17/24 03/17/24 History Last Menstrual Period: 03/09/24 : Yes [facility] Medical History (Updated 03/17/24 @ 15:06 by Monica Flores NP, JOHN-C) History of oligohydramnios depression Dysmenorrhea Seizures Former [...] physical activity do you participate in: none mike/buddhist: Mormon seatbelt use: always do you feel safe at home: Yes additional social history: - [place] History 5 Elective abortions Hx Para 4 Spontaneous abortions 1 Hx # Term Pregnancies Ectopic pregnancies Hx # Pregnancies Multiple births # of living children 4 Past Pregnancies Del. Date Name GA/Weeks Outcome Route Bth Weight Gen Labor Lgth Anesthesia Del [facility] Provider FOB 12/06/09 iSmone 36 live - 6.8 Male epidural Cosby 07/25/11 Nasra 40 live - full term 6#8oz Female epidural Cosby 06/24/13 [place] 40 live - full term 9.2 Male none Cosby 08/31/22 8 spontaneous 01/28/24 Sasser 40 live - full term 7lbs 13oz Male epidural [facility] Laurie Gruberalma Ulloafamilia Nuñez Delivery Date: 08/31/22 Last Updated by: ALANNA Cunningham Delivery Date: 01/28/24 Last Updated by: Florecita [...] 0 Post HPI Routine Follow-Up: Details: KEON FINCH is a 33 year old who presents for her post visit. Infant Feeding: Breast Menses resumed: Yes [place] since delivery: No Emotional Support: Yes Last [...] vagina a (more content not included)... [facility] ([facility]) ---- KEON FINCH ([id number]) 1990 F Date Time Provider Department 10/09/23 5:45 PM [facility] During your visit today, we recorded the following information about you: Temperature Pulse Respiration Blood pressure 99.1 degrees 80/minute 18/minute 108/78 Weight 108.1 kg Haile Cole APRN.CNP 10/09/2023 6:10 PM Signed Subjective HPI Nontoxic-appearing [...] of care. This note was generated using [employer] software. It may contain errors in wording, punctuation, or spelling. Haile Cole APRN.REGIONAL DRIVER Allergies As of Date: 10/09/2023 (No Known Allergies) Date Reviewed: 10/09/2023 Reviewed by: Tara Jameson LPN - Fully Assessed Reason for Visit: [...] Service: OFFICE/OUTPATIENT ESTABLISHED LOW MDM 20 MIN [61465] Encounter Status:Closed by HAILE COLE on 10/09/23 Normal [facility] Cervical or vaginal specimen microscopic examination by liquid based cytology (reportOrdered By: Jessica Kaufman on 06-20-2023 Cytology report Cyto stain.thin prep Doc (Cvx/Vag) Comment . [facility] Comment on above: Criteria not met, HP V Genotype not performed.Performed at: [facility] - [address] [id number] Director: Nancy Palacios MD, Phone: [phone] at: =[facility] [place], [place] [id number] Director: Nancy Palacios MD, Phone: [phone] Cervical or vagninal specime n microscopic examination by cytology stain (reported asOrdered By: Jessica Kaufman on 06-20-2023 Cytology report Cyto stain Doc (Cvx/Vag) Comment . [facility] Comment on above: The Pap smear [...] Jessica Kaufman on 06-20-2023 C. trachomatis rRNA DIANA+probe Ql (Unsp spec) Negative Negative [facility] Culture, urineOrdered By: Chidi Kaufman on 06-20-2023 Bacteria identified Cx Nom (U) Positive [facility] Detection in cervical specim en of any of human papilloma virus (HPV) 16, 18, 31, 33,Ordered By: Jessica Kaufman on 06-20-2023 HPV 16+18+31+33+35+39+45+51+ 52+56+58+59+66+68 DNA Probe+sig amp Ql (Cvx) Negative Negative [facility] Comment on above: This nucleic acid am plification test detects fourteen high-risk HPV types (16,18,31,33,35,39,45,51,52,56,58,59,66,68)without differentiation. Laboratory - CytologyOrdered By: Jessica Kaufman on 06-20-2023 Stock Associate Cyto stain Nom (Cvx/Vag) [ID] Comment . [facility] Comment on above: Milka ace, Container Crane Operator (ASCP) Laboratory - Microbiology an d Antimicrobial susceptibilityOrdered By: Jessica Kaufman on 06-20-2023 N. gonorrhoeae DNA DIANA+probe Ql (Unsp spec) Negative Negative [facility] Comment on above: Performed at: =[facility] [id number] Director: Nancy Palacios MD, Phone: [phone] Laboratory - Miscellaneous t estsOrdered By: Jessica Kaufman on 06-20-2023 Service comment (Unsp spec) [Interp] . . [facility] Thin prep Papanicolaou smear with manual screeningOrdered By: Jessica Kaufman on 06-20-2023 Thin prep Papanicolaou smear with manual screening Comment . [facility] Comment on above: NEGATIVE FOR INTRAEP ITHELIAL LESION OR MALIGNANCY. This liquid based Th inPrep(R) pap test was screened withthe use of an image guided system. Serum or plasma choriogonado tropin detectionOrdered By: Monica Flores on 06-05-2023 HCG ( test) Ql 59028 mIU/mL <4 [facility] Comment on above: hCG levels with Gest ational AgeGestational Age hCG mIU/mL (IU/L)0.2 - 1 week 5 - 501-2 weeks 50 - 5002-3 weeks 100 - 63620-3 weeks 500 - 381399-0 weeks 1000 - 410175-8 weeks 02201 - 100,0006-8 weeks 01072 - 200,0002-3 months 10586 - 100,000 Serum or plasma choriogonado tropin detectionOrdered By: Monica Flores on 06-03-2023 HCG ( [place]) Ql 02623 mIU/mL <4 [facility] Comment on above: hCG levels with Gest ational AgeGestational Age hCG mIU/mL (IU/L)0.2 - 1 week 5 - 501-2 weeks 50 - 5002-3 weeks 100 - 34592-7 weeks 500 - 482098-2 weeks 1000 - 979758-2 weeks 87192 - 100,0006-8 weeks 06560 - 200,0002-3 months 01449 - 100,000 Serum or plasma choriogonado tropin detectionOrdered By: Theresa Nance on 05-25-2023 HCG ( test) Ql 339 mIU/mL <4 [facility] Comment on above: hCG levels with Gest ational AgeGestational Age hCG mIU/mL (IU/L)0.2 - 1 week 5 - 501-2 weeks 50 - 5002-3 weeks 100 - 66874-7 weeks 500 - 001941-7 weeks 1000 - 173082-0 weeks 40128 - 100,0006-8 weeks 42125 - 200,0002-3 months 77443 - 100,000 Serum or plasma choriogonado tropin detectionOrdered By: Theresa Nance on 05-23-2023 HCG ( test) Ql 132 mIU/mL <4 [facility] Comment on above: hCG levels with Gest ational AgeGestational Age hCG mIU/mL (IU/L)0.2 - 1 week 5 - 501-2 weeks 50 - 5002-3 weeks 100 - 81803-2 weeks 500 - 073771-8 weeks 1000 - 055485-8 weeks 42572 - 100,0006-8 weeks 34531 - 200,0002-3 months 98270 - 100,000 Absolute lymphocyte countOrd ered By: Dr. Nance on 10-10-2022 Lymphocytes Auto (Unsp spec) [#/Vol] 3.09 10*3/uL 0.83-4.51 [facility] Basophil percentageOrdered B y: Dr. Nance on 10-10-2022 Basophils/100 WBC (Bld) 0.4 % 0-1 [facility] Eosinophils/100 WBC (Bld) 1.8 % 0-5 [facility] Neutrophils (Bld) [#/Vol] 4.4 10*3/uL 2.0-7.7 [facility] Neutrophils/100 WBC (Bld) 54.5 % 47-70 [facility] WBC (Bld) [#/Vol] 8.1 10*3/uL 4.4-11.0 [facility] Blood erythrocytes count (nu mber/volume)Ordered By: Dr. Nance on 10-10-2022 RBC (Bld) [#/Vol] 4.45 10*6/uL 4.2-5.4 [facility] Blood hemoglobin measurement (mass/volume)Ordered By: Dr. Nance on 10-10-2022 Hemoglobin (Bld) [Mass/Vol] 13.8 g/dL 12.0-15.0 [facility] Blood lymphocytes/100 leukoc ytesOrdered By: Dr. Nance on 10-10-2022 Lymphocytes/100 WBC (Bld) 38.1 % 19-41 [facility] Blood monocytes/100 leukocyt esOrdered By: Dr. Nance on 10-10-2022 Monocytes/100 WBC (Bld) 5.0 % 0-10 [facility] Blood platelet mean volumeOr dered By: Dr. Nance on 10-10-2022 Platelet mean volume (Bld) [Entitic vol] 8.5 fL 6.2-12.0 [facility] Determination of erythrocyte mean corpuscular volume (MCV)Ordered By: Dr. Nance on 10-10-2022 MCV (RBC) [Entitic vol] 91.7 fL 81-99 [facility] Hematocrit Auto (Bld) [Volum e fraction]Ordered By: Dr. Nance on 10-10-2022 Hematocrit (Bld) [Volume fraction] 40.8 % 37-47 [facility] Laboratory - Hematology and Cell countsOrdered By: Dr. Nance on 10-10-2022 Erythrocyte distribution width (RBC) [Entitic vol] 40.1 fL 35.1-43.9 [facility] Erythrocyte distribution width (RBC) [Ratio] 11.9 % 11.6-14.6 [facility] Immature granulocytes/100 WBC (Bld) 0.200 % 0.0-0.9 [facility] Comment on above: IG% - Immature Granu locytes (promyelocytes, myelocytes and metamyelocytes) > 1% indicates that a LEFT SHIFT is Present. MCH (RBC) [Entitic mass] 31.0 pg 27.0-32.0 [facility] Nucleated RBC/100 WBC (Bld) [Ratio] 0 % 0-5 [facility] MCHC Auto (RBC) [Mass/Vol]Or dered By: Dr. Nance on 10-10-2022 MCHC (RBC) [Mass/Vol] 33.8 g/dL 32-36 [facility] No Panel InformationOrdered By: Dr. Nance on 10-10-2022 Thyroid Stimulating Hormone (TSH) 1.02 uIU/mL 0.358-3.74 [facility] Platelets bldOrdered By: Dr. Nance on 10-10-2022 Platelets (Bld) [#/Vol] 324 10*3/uL 150-450 [facility] Serum or plasma choriogonado tropin detectionOrdered By: Dr. Nance on 10-10-2022 HCG ( test) Ql 2 mIU/mL <4 [facility] Comment on above: hCG levels with Gest ational AgeGestational Age hCG mIU/mL (IU/L)0.2 - 1 week 5 - 501-2 weeks 50 - 5002-3 weeks 100 - 09938-8 weeks 500 - 692594-1 weeks 1000 - 762296-6 weeks 12488 - 100,0006-8 weeks 55762 - 200,0002-3 months 39606 - 100,000 Serum or plasma choriogonado tropin detectionOrdered By: Monica Flores on 10-03-2022 HCG ( test) Ql 3 mIU/mL <4 [facility] Comment on above: hCG levels with Gest ational AgeGestational Age hCG mIU/mL (IU/L)0.2 - 1 week 5 - 501-2 weeks 50 - 5002-3 weeks 100 - 16716-3 weeks 500 - 284041-9 weeks 1000 - 787675-8 weeks 61397 - 100,0006-8 weeks 79102 - 200,0002-3 months 62621 - 100,000 Serum or plasma choriogonado tropin detectionOrdered By: Dr. Nance on 09-26-2022 HCG ( test) Ql 5 mIU/mL <4 [facility] Serum or plasma choriogonado tropin detectionOrdered By: Dr. Nance on 09-20-2022 HCG ( test) Ql 12 mIU/mL <4 [facility] Comment on above: hCG levels with Gest ational AgeGestational Age hCG mIU/mL (IU/L)0.2 - 1 week 5 - 501-2 weeks 50 - 5002-3 weeks 100 - 49236-8 weeks 500 - 533392-0 weeks 1000 - 287078-7 weeks 66377 - 100,0006-8 weeks 83077 - 200,0002-3 months 54954 - 100,000 Serum or plasma choriogonado tropin detectionOrdered By: Dr. Nance on 09-12-2022 HCG ( test) Ql 69 mIU/mL <4 [facility] Comment on above: hCG levels with Gest ational AgeGestational Age hCG mIU/mL (IU/L)0.2 - 1 week 5 - 501-2 weeks 50 - 5002-3 weeks 100 - 37861-3 weeks 500 - 187326-3 weeks 1000 - 720505-9 weeks 86827 - 100,0006-8 weeks 06869 - 200,0002-3 months 37190 - 100,000 Serum or plasma choriogonado tropin detectionOrdered By: Dr. Nance on 09-10-2022 HCG ( test) Ql 124 mIU/mL <4 [facility] Comment on above: hCG levels with Gest ational AgeGestational Age hCG mIU/mL (IU/L)0.2 - 1 week 5 - 501-2 weeks 50 - 5002-3 weeks 100 - 23194-0 weeks 500 - 228021-2 weeks 1000 - 935342-2 weeks 68213 - 100,0006-8 weeks 84618 - 200,0002-3 months 25638 - 100,000 Absolute lymphocyte countOrd ered By: Dr. Sommers on 09-07-2022 Lymphocytes Auto (Unsp spec) [#/Vol] 2.91 10*3/uL 0.83-4.51 [facility] Basophil percentageOrdered B y: Dr. Sommers on 09-07-2022 Basophil percentage 0 SEEN /hpf 0-5 [facility] Basophils/100 WBC (Bld) 0.2 % 0-1 [facility] Chloride [Moles/Vol] 108 mmol/L 98-107 [facility] Eosinophils/100 WBC (Bld) 2.4 % 0-5 [facility] Glucose [Mass/Vol] 89 mg/dL 74-106 [facility] Neutrophils (Bld) [#/Vol] 4.6 10*3/uL 2.0-7.7 [facility] Neutrophils/100 WBC (Bld) 56.2 % 47-70 [facility] Potassium [Moles/Vol] 3.5 mmol/L 3.5-5.1 [facility] Sodium [Moles/Vol] 137 mmol/L 136-145 [facility] WBC (Bld) [#/Vol] 8.2 10*3/uL 4.4-11.0 [facility] Bilirubin Test strip Ql (U)O rdered By: Dr. Sommers on 09-07-2022 Bilirubin Ql (U) Negative Negative [facility] Blood erythrocytes count (nu mber/volume)Ordered By: Dr. Sommers on 09-07-2022 RBC (Bld) [#/Vol] 4.34 10*6/uL 4.2-5.4 [facility] Blood hemoglobin measurement (mass/volume)Ordered By: Dr. Sommers on 09-07-2022 Hemoglobin (Bld) [Mass/Vol] 13.3 g/dL 12.0-15.0 [facility] Blood lymphocytes/100 leukoc ytesOrdered By: Dr. Sommers on 09-07-2022 Lymphocytes/100 WBC (Bld) 35.4 % 19-41 [facility] Blood monocytes/100 leukocyt esOrdered By: Dr. Sommers on 09-07-2022 Monocytes/100 WBC (Bld) 5.6 % 0-10 [facility] Blood platelet mean volumeOr dered By: Dr. Sommers on 09-07-2022 Platelet mean volume (Bld) [Entitic vol] 8.6 fL 6.2-12.0 [facility] Determination of erythrocyte mean corpuscular volume (MCV)Ordered By: Dr. Sommers on 09-07-2022 MCV (RBC) [Entitic vol] 92.4 fL 81-99 [facility] Hematocrit Auto (Bld) [Volum e fraction]Ordered By: Dr. Sommers on 09-07-2022 Hematocrit (Bld) [Volume fraction] 40.1 % 37-47 [facility] Ketones Test strip Ql (U)Ord ered By: Dr. Sommers on 09-07-2022 Ketones Ql (U) 15 mg/dl Negative [facility] - Chemistry and C hemistry - challengeOrdered By: Dr. Sommers on 09-07-2022 CO2 [Moles/Vol] 26.0 mmol/L 21.0-32.0 [facility] Urea nitrogen/Creatinine [Mass ratio] 22.7 mg/mg 10-20 [facility] - Hematology and Cell countsOrdered By: Dr. Sommers on 09-07-2022 Erythrocyte distribution width (RBC) [Entitic vol] 42.1 fL 35.1-43.9 [facility] Erythrocyte distribution width (RBC) [Ratio] 12.2 % 11.6-14.6 [facility] Immature granulocytes/100 WBC (Bld) 0.200 % 0.0-0.9 [facility] Comment on above: IG% - Immature Granu locytes (promyelocytes, myelocytes and metamyelocytes) > 1% indicates that a LEFT SHIFT is Present. MCH (RBC) [Entitic mass] 30.6 pg 27.0-32.0 [facility] Nucleated RBC/100 WBC (Bld) [Ratio] 0 % 0-5 [facility] MCHC Auto (RBC) [Mass/Vol]Or dered By: Dr. Sommers on 09-07-2022 MCHC (RBC) [Mass/Vol] 33.2 g/dL 32-36 [facility] Mucus LM Ql (Urine sed)Order ed By: Dr. Sommers on 09-07-2022 Mucus Ql (Urine sed) 0 SEEN /hpf [facility] Nitrite Test strip Ql (U)Ord ered By: Dr. Sommers on 09-07-2022 Nitrite Ql (U) Negative Negative [facility] No Panel InformationOrdered By: Dr. Sommers on 09-07-2022 Estimated Creatinine Clearance Calc 133.87 ml/min [facility] Estimated GFR (MDRD) Amer 158 mL/min >60 [facility] Comment on above: GFR Calc Estimated GFR (MDRD) Non-Af Amer 130 mL/min >60 [facility] Comment on above: Non- GFR Calc Platelets bldOrdered By: Dr. Sommers on 09-07-2022 Platelets (Bld) [#/Vol] 300 10*3/uL 150-450 [facility] Protein Test strip Ql (U)Ord ered By: Dr. Sommers on 09-07-2022 Protein Ql (U) Negative Negative [facility] Serum or plasma calcium pham urement (mass/volume)Ordered By: Dr. Sommers on 09-07-2022 Calcium [Mass/Vol] 8.9 mg/dL 8.5-10.1 [facility] Serum or plasma creatinine m easurement (mass/volume)Ordered By: Dr. Sommers on 09-07-2022 Creatinine [Mass/Vol] 0.57 mg/dL 0.55-1.02 [facility] Comment on above: The validity of the calculated GFR & GFRAA in patients over 70 years has not been determined. Clinical correlation is essential. Serum or plasma urea nitroge n measurement (mass/volume)Ordered By: Dr. Sommers on 09-07-2022 Urea nitrogen [Mass/Vol] 13 mg/dL 7-18 [facility] Squamous epithelial cells de tection in urine sediment by light microscopyOrdered By: Dr. Sommers on 09-07-2022 Epithelial cells.squamous LM Ql (Urine sed) 0 SEEN /hpf 5-10 [facility] Thin prep Papanicolaou smear with manual screeningOrdered By: Dr. Sommers on 09-07-2022 Thin prep Papanicolaou smear with manual screening 3 5-15 [facility] Urine blood detectionOrdered By: Dr. Sommers on 09-07-2022 RBC Ql (U) 250 /ul Negative [facility] RBC Ql (U) 0 SEEN /hpf 0-5 [facility] Urine clarityOrdered By: Dr. Sommers on 09-07-2022 Clarity (U) Sl. Cloudy Clear [facility] Urine color determinationOrd ered By: Dr. Sommers on 09-07-2022 Color (U) Yellow Yellow [facility] Urine glucose detectionOrder ed By: Dr. Sommers on 09-07-2022 Glucose Ql (U) Normal mg/dl Normal [facility] Urine leukocyte esterase det ection by dipstickOrdered By: Dr. Sommers on 09-07-2022 Leukocyte esterase Test strip Ql (U) 25 /ul Negative [facility] Urine pHOrdered By: Dr. Santosh flanagan on 09-07-2022 pH (U) 6.0 [pH] 5.0 - 8.0 [facility] Urine sediment bacteria coun t by microscopy (number/high power field)Ordered By: Dr. Sommers on 09-07-2022 Bacteria LM.HPF (Urine sed) [#/Area] 0 /[HPF] None Seen [facility] Urine specific gravity measu rementOrdered By: Dr. Sommers on 09-07-2022 Specific gravity (U) [Rel density] 1.015 1.002-1.030 [facility] Urobilinogen Auto test strip Ql (U)Ordered By: Dr. Sommers on 09-07-2022 Urobilinogen Ql (U) Normal mg/dl Normal [facility] Basophil percentageOrdered B y: Dr. Nance on 08-31-2022 WBC (Bld) [#/Vol] 9.4 10*3/uL 4.4-11.0 [facility] Blood erythrocytes count (nu mber/volume)Ordered By: Dr. Nance on 08-31-2022 RBC (Bld) [#/Vol] 4.49 10*6/uL 4.2-5.4 [facility] Blood hemoglobin measurement (mass/volume)Ordered By: Dr. Nance on 08-31-2022 Hemoglobin (Bld) [Mass/Vol] 14.2 g/dL 12.0-15.0 [facility] Blood platelet mean volumeOr dered By: Dr. Nance on 08-31-2022 Platelet mean volume (Bld) [Entitic vol] 9.1 fL 6.2-12.0 [facility] Determination of erythrocyte mean corpuscular volume (MCV)Ordered By: Dr. Nance on 08-31-2022 MCV (RBC) [Entitic vol] 91.3 fL 81-99 [facility] Hematocrit Auto (Bld) [Volum e fraction]Ordered By: Dr. Nance on 08-31-2022 Hematocrit (Bld) [Volume fraction] 41.0 % 37-47 [facility] - Hematology and Cell countsOrdered By: Dr. Nance on 08-31-2022 Erythrocyte distribution width (RBC) [Entitic vol] 40.7 fL 35.1-43.9 [facility] Erythrocyte distribution width (RBC) [Ratio] 12.4 % 11.6-14.6 [facility] MCH (RBC) [Entitic mass] 31.6 pg 27.0-32.0 [facility] MCHC Auto (RBC) [Mass/Vol]Or dered By: Dr. Nance on 08-31-2022 MCHC (RBC) [Mass/Vol] 34.6 g/dL 32-36 [facility] Platelets bldOrdered By: Dr. Nance on 08-31-2022 Platelets (Bld) [#/Vol] 320 10*3/uL 150-450 [facility] PELVIS NON-OB W/TRANSVAGI NALon 07-11-2022 US PELVIS [...] 07/11/2022 12:35:09 PM Ordering Provider: DANNIE BAHENA [facility] ([place]) Vital Signs Date Time Vital Sign Value Performing Clinician Facility 02-17-2025 09:01-0400 Body height 167.64 cm No Primary Care Physician [facility] 02-17-2025 09:01-0400 Body mass index (BMI) [Ratio] 34.8 kg/m2 No Primary Care Physician [facility] 02-17-2025 09:01-0400 Body weight 97.97 kg No Primary Care Physician [facility] 02-17-2025 09:01-0400 Diastolic blood pressure 76 mm[Hg] No Primary Care Physician [facility] 02-17-2025 09:01-0400 Systolic blood pressure 107 mm[Hg] No Primary Care Physician [facility] 01-22-2025 10:09-0400 Body height 167.64 cm No Primary Care Physician [facility] 01-22-2025 10:09-0400 Body mass index (BMI) [Ratio] 33.6 kg/m2 No Primary Care Physician [facility] 01-22-2025 10:09-0400 Body weight 94.46 kg No Primary Care Physician [facility] 01-22-2025 10:09-0400 Diastolic blood pressure 76 mm[Hg] No Primary Care Physician [facility] 01-22-2025 10:09-0400 Systolic blood pressure 113 mm[Hg] No Primary Care Physician [facility] 12-25-2024 11:02-0400 Body height 167.64 cm No [facility] [facility] 12-25-2024 11:02-0400 Body mass index (BMI) [Ratio] 33.3 kg/m2 No Primary Care Physician [facility] 12-25-2024 11:02-0400 Body weight 93.66 kg No Primary Care Physician [facility] 12-25-2024 11:02-0400 Diastolic blood pressure 81 mm[Hg] No Primary Care Physician [facility] 12-25-2024 11:02-0400 Systolic blood pressure 127 mm[Hg] No Primary Care Physician [facility] 12-07-2024 10:21-0400 Body height 167.64 cm No Primary Care Physician [facility] 12-07-2024 10:21-0400 Body mass index (BMI) [Ratio] 33.2 kg/m2 No Primary Care Physician [facility] 12-07-2024 10:21-0400 Body weight 93.44 kg No Primary Care Physician [facility] 12-07-2024 10:21-0400 Diastolic blood pressure 79 mm[Hg] No Primary Care Physician [facility] 12-07-2024 10:21-0400 Systolic blood pressure 119 mm[Hg] No Primary Care Physician [facility] 11-27-2024 10:52-0400 Body height 167.64 cm No Primary Care Physician [facility] 11-27-2024 10:52-0400 Body mass index (BMI) [Ratio] 33 kg/m2 No Primary Care Physician [facility] 11-27-2024 10:52-0400 Body weight 92.98 kg No Primary Care Physician [facility] 11-27-2024 10:52-0400 Diastolic blood pressure 79 mm[Hg] No Primary Care Physician [facility] 11-27-2024 10:52-0400 Systolic blood pressure 127 mm[Hg] No Primary Care Physician [facility] 10-09-2023 17:42-0400 Body temperature 99.1 [degF] Haile Cole [employer]ER.REGIONAL DRIVER Work Phone: [facility] 10-09-2023 17:42-0400 Body weight 108.1 kg Haile Cole [employer]ER.REGIONAL DRIVER Work Phone: [facility] 10-09-2023 17:42-0400 Diastolic blood pressure 78 mm[Hg] Haile Cole L[employer] BREAKER AND WIRE P[employer]ER.REGIONAL DRIVER Work Phone: [facility] 10-09-2023 17:42-0400 Heart rate 80 /min Haile Cole L[employer] BRE[employer]ER AND WIRE P[employer]ER.REGIONAL DRIVER Work Phone: [facility] 10-09-2023 17:42-0400 Respiratory rate 18 /min Haile Cole L[employer] BRE[employer]ER AND WIRE P[employer]ER.REGIONAL DRIVER Work Phone: [facility] 10-09-2023 17:42-0400 SaO2% (BldA) [Mass fraction] 99 % Haile Cole L[employer] WIRE P[employer]ER.REGIONAL DRIVER Work Phone: [facility] 10-09-2023 17:42-0400 Systolic blood pressure 108 mm[Hg] Haile Cole L[employer] AND [employer] P[employer]ER.REGIONAL DRIVER Work Phone: [facility] 06-20-2023 08:58-0500 Body height 167.64 cm No Primary Care Physician [facility] 06-20-2023 08:57-0500 Body mass index (BMI) [Ratio] 34.4 kg/m2 No Primary Care Physician [facility] 06-20-2023 08:57-0500 Body weight 96.67 kg No Primary Care Physician [facility] 06-20-2023 08:57-0500 Diastolic blood pressure 88 mm[Hg] No Primary Care Physician [facility] 06-20-2023 08:57-0500 Systolic blood pressure 127 mm[Hg] No Primary Care Physician [facility] 04-19-2023 10:07-0500 Body height 167.64 cm No Primary Care Physician [facility] 04-19-2023 10:06-0500 Body mass index (BMI) [Ratio] 34.2 kg/m2 No Primary Care Physician [facility] 04-19-2023 10:06-0500 Body weight 96.27 kg No Primary Care Physician [facility] 04-19-2023 10:06-0500 Diastolic blood pressure 85 mm[Hg] No Primary Care Physician [facility] 04-19-2023 10:06-0500 Systolic blood pressure 132 mm[Hg] No Primary Care Physician [facility] 09-10-2022 08:10-0400 Body height 167.64 cm No Primary Care Physician [facility] 09-10-2022 08:09-0400 Body mass index (BMI) [Ratio] 32.3 kg/m2 No Primary Care Physician [facility] 09-10-2022 08:09-0400 Body weight 90.71 kg No Primary Care Physician [facility] 09-10-2022 08:09-0400 Diastolic blood pressure 82 mm[Hg] No Primary Care Physician [facility] 09-10-2022 08:09-0400 Systolic blood pressure 121 mm[Hg] No Primary Care Physician [facility] 09-07-2022 16:29-0400 Body height 167.64 cm No Primary Care Physician [facility] 09-07-2022 16:29-0400 Body mass index (BMI) [Ratio] 32.3 kg/m2 No Primary Care Physician [facility] 09-07-2022 16:29-0400 Body temperature 97.9 [degF] No Primary Care Physician [facility] 09-07-2022 16:29-0400 Body weight 90.71 kg No Primary Care Physician [facility] 09-07-2022 16:29-0400 Diastolic blood pressure 86 mm[Hg] No Primary Care Physician [facility] 09-07-2022 16:29-0400 Heart rate 81 /min No Primary Care Physician [facility] 09-07-2022 16:29-0400 Respiratory rate 18 /min No Primary Care Physician [facility] 09-07-2022 16:29-0400 SaO2% (BldA) [Mass fraction] 98 % No Primary Care Physician [facility] 09-07-2022 16:29-0400 Systolic blood pressure 134 mm[Hg] No Primary Care Physician [facility] 08-31-2022 15:04-0400 Body temperature 98.9 [degF] No Primary Care Physician [facility] 08-31-2022 15:04-0400 Diastolic blood pressure 72 mm[Hg] No Primary Care Physician [facility] 08-31-2022 15:04-0400 Heart rate 56 /min No Primary Care Physician [facility] 08-31-2022 15:04-0400 Respiratory rate 18 /min No Primary Care Physician [facility] 08-31-2022 15:04-0400 SaO2% (BldA) [Mass fraction] 100 % No Primary Care Physician [facility] 08-31-2022 15:04-0400 Systolic blood pressure 108 mm[Hg] No Primary Care Physician [facility] 08-31-2022 12:32-0400 Body height 167.64 cm No Primary Care Physician [facility] 08-31-2022 12:32-0400 Body mass index (BMI) [Ratio] 32.7 kg/m2 No Primary Care Physician [facility] 08-31-2022 12:32-0400 Body weight 92 kg No Primary Care Physician [facility] 08-28-2022 15:45-0400 Body mass index (BMI) [Ratio] 33.5 kg/m2 No Primary Care Physician [facility] 08-28-2022 15:45-0400 Body weight 94.34 kg No Primary Care Physician [facility] 08-28-2022 15:45-0400 Diastolic blood pressure 83 mm[Hg] No Primary Care Physician [facility] 08-28-2022 15:45-0400 Systolic blood pressure 121 mm[Hg] No Primary Care Physician [facility] 08-13-2022 07:51-0400 Body mass index (BMI) [Ratio] 32.8 kg/m2 No Primary Care Physician [facility] 08-13-2022 07:51-0400 Body weight 92.24 kg No Primary Care Physician [facility] 08-13-2022 07:51-0400 Diastolic blood pressure 83 mm[Hg] No Primary Care Physician [facility] 08-13-2022 07:51-0400 Systolic blood pressure 125 mm[Hg] No Primary Care Physician [facility] 08-12-2022 20:08-0400 Heart rate 78 /min [facility] 08-12-2022 20:08-0400 Respiratory rate 16 /min [facility] 08-12-2022 19:22-0400 Body temperature 97.6 [degF] [facility] 08-12-2022 19:22-0400 Diastolic blood pressure 93 mm[Hg] [facility] 08-12-2022 19:22-0400 Systolic blood pressure 150 mm[Hg] [facility] 08-12-2022 19:20-0400 Body height 167.64 cm [facility] 08-12-2022 19:20-0400 Body mass index (BMI) [Ratio] 33.4 kg/m2 [facility] 08-12-2022 19:20-0400 Body weight 93.89 kg [facility] 11-04-2021 13:11-0400 Body temperature 99.19 [degF] Anali Stockton PA-C Work Phone: [facility] 11-04-2021 13:11-0400 Body weight 89.81 kg Analirich Cernabow PA-C Work Phone: [facility] 11-04-2021 13:11-0400 Diastolic blood pressure 68 mm[Hg] Analirich Cernabow PA-C Work Phone: [facility] 11-04-2021 13:11-0400 Heart rate 106 /min Anali Denbow PA-C Work Phone: [facility] 11-04-2021 13:11-0400 Respiratory rate 16 /min Anali Denbow PA-C Work Phone: [facility] 11-04-2021 13:11-0400 SaO2% (BldA) [Mass fraction] 98 % Anali Denbow PA-C Work Phone: [facility] 11-04-2021 13:11-0400 Systolic blood pressure 110 mm[Hg] Anali Denbow PA-C Work Phone: [facility] 10-25-2021 23:13-0400 Body height 167.[address] JAMAICA NEGRON MD [facility] 10-25-2021 23:13-0400 Body temperature 98.06 [degF] DR JAMAICA NEGRON MD [facility] 10-25-2021 23:13-0400 Body weight 79.[address] JAMAICA NEGRON MD [facility] 10-25-2021 23:13-0400 Diastolic blood pressure 85 mm[Hg] DR JAMAICA NEGRON MD [facility] 10-25-2021 23:13-0400 Heart rate 90 /min DR JAMAICA NEGRON MD [facility] 10-25-2021 23:13-0400 Respiratory rate 16 /min DR JAMAICA NEGRON MD [facility] 10-25-2021 23:13-0400 Systolic blood pressure 123 mm[Hg] DR JAMAICA NEGRON MD [facility] Encounters Encounter Date Encounter Type Care Provider Facility Start: 03-15-2025 End: 03-15-2025 ambulatory Jessica Kaufman Facility:[facility] Start: 02-17-2025 End: 02-17-[address] [facility] Start: 02-17-2025 End: 02-17-2025 ambulatory No Primary Care Physician -[facility] Start: 02-16-2025 End: 02-16-2025 ambulatory MD NO PRIMARY CARE [facility] Start: 01-22-2025 End: 01-22-[address] [facility] Work Phone: Start: 01-22-2025 End: 01-22-2025 ambulatory No Primary Care Physician -[facility] Start: 12-25-2024 End: 12-25-2024 Patient encounter procedure [facility] Work Phone: Start: 12-25-2024 End: 12-25-2024 ambulatory No Primary Care Physician -[facility] Start: 12-25-2024 End: 12-25-2024 ambulatory Jessica Kaufman Facility:[facility] Start: 12-07-2024 End: 12-07-2024 Patient encounter procedure Monica HUSAIN -[facility] Work Phone: Start: 12-07-2024 End: 12-07-2024 ambulatory No Primary Care Physician -[facility] Start: 11-27-2024 End: 11-27-2024 ambulatory No Primary Care Physician -Laboratory Specimen Start: 11-27-2024 End: 11-27-2024 Patient encounter procedure Armida Aranda CNM -Laboratory Specimen Work Phone: Start: 11-27-2024 End: 11-27-2024 Patient encounter procedure Armida Aranda CNM -[facility] Work Phone: Start: 11-27-2024 End: 11-27-2024 ambulatory No [facility] Start: 11-27-2024 End: 11-27-2024 ambulatory Armidadanii Aranda Facility:[facility] Start: 11-18-2024 End: 11-18-2024 ambulatory No Primary Care Physician -Ultrasound [facility] Start: 11-18-2024 End: 11-18-2024 Patient encounter procedure Jessica Kaufman CNM -Ultrasound [facility] Work Phone: Start: 11-18-2024 End: 11-18-2024 ambulatory Jessica Siddhartha Facility:[facility] Start: 11-16-2024 End: 11-16-2024 ambulatory No Primary Care Physician -[facility] Start: 11-16-2024 End: 11-16-2024 Patient encounter procedure Jessica Kaufman CNM -[facility] Start: 11-16-2024 End: 11-16-2024 ambulatory Jessica Siddhartha Facility:[facility] Start: 10-31-2024 End: 10-31-2024 Emergency department patient visit DR GALILEO BEASLEY DO [facility] Start: 03-17-2024 End: 03-17-2024 ambulatory Monica Flores NP Facility:[facility] Start: 10-09-2023 End: 10-09-2023 ambulatory Facility:[facility] Start: 10-09-2023 End: 10-09-2023 Office outpatient visit 15 minutes Haile Cole APRN.CNP Work Phone: [facility] Comment on above: Tick bite of chest w all, initial encounter (Primary Dx) Start: 06-20-2023 End: 06-20-2023 ambulatory No Primary Care Physician [facility] Work Phone: Start: 06-20-2023 End: 06-20-2023 Patient encounter procedure No Primary Care Physician [facility]-Laboratory, Specimen Work Phone: Start: 06-20-2023 End: 06-20-2023 Patient encounter procedure No [facility] Work Phone: Start: 06-18-2023 End: 06-18-2023 ambulatory No Primary Care Physician [facility] Work Phone: Start: 06-18-2023 End: 06-18-2023 Patient encounter procedure No Primary Care Physician [facility]-Ultrasound, [facility] Work Phone: Start: 06-05-2023 End: 06-05-2023 Patient encounter procedure No Primary Care Physician [facility]-Ultrasound, [facility] Work Phone: Start: 06-03-2023 End: 06-03-2023 ambulatory No Primary Care Physician [facility] Work Phone: Start: 06-03-2023 End: 06-03-2023 Patient encounter procedure No Primary Care Physician [facility]-Laboratory, [facility] Start: 05-25-2023 End: 05-25-2023 ambulatory No Primary Care Physician [facility] Work Phone: Start: 05-25-2023 End: 05-25-2023 Patient encounter procedure No Primary Care Physician [facility]-Laboratory Work Phone: Start: 05-23-2023 End: 05-23-2023 ambulatory No Primary Care Physician [facility] Work Phone: Start: 05-23-2023 End: 05-23-2023 Patient encounter procedure No Primary Care Physician [facility]-Laboratory, [facility] Start: 05-07-2023 End: 05-07-2023 ambulatory No Primary Care Physician [facility] Work Phone: Start: 05-07-2023 End: 05-07-2023 Patient encounter procedure No Primary Care Physician [facility]-Ultrasound, [facility] Work Phone: Start: 04-19-2023 End: 04-19-2023 Patient encounter procedure No Primary Care Physician [facility] Work Phone: Start: 10-15-2022 End: 10-15-2022 ambulatory No Primary Care Physician [facility] Work Phone: Start: 10-15-2022 End: 10-15-2022 Patient encounter procedure No Primary Care Physician [facility]-Ultrasound, [facility] Start: 10-10-2022 Patient encounter procedure No Primary Care Physician [facility]-Laboratory, [facility] Start: 10-03-2022 Patient encounter procedure No Primary Care Physician [facility]-Labor[facility], [facility] Start: 09-26-2022 End: 09-26-2022 Patient encounter procedure No Primary Care Physician [facility]-Labor[facility], [facility] Start: 09-20-2022 End: 09-20-2022 Patient encounter procedure No Primary Care Physician [facility]-Laboratory, [facility] Start: 09-12-2022 End: 09-12-2022 ambulatory No Primary Care Physician [facility] Work Phone: Start: 09-12-2022 End: 09-12-2022 Patient encounter procedure No Primary Care Physician [facility], [facility] Start: 09-10-2022 End: 09-10-2022 ambulatory No Primary Care Physician [facility] Work Phone: Start: 09-10-2022 End: 09-10-2022 Patient encounter procedure No Primary Care Physician [facility] Start: 09-07-2022 End: 09-07-2022 Emergency department patient visit No Primary Care Physician [facility]-Emergency Department Start: 08-31-2022 Non-patient / Non-visit No Primary Care Physician [facility] Start: 08-31-2022 End: 08-31-2022 Admission to same day surgery center No Primary Care Physician [facility] Start: 08-31-2022 End: 08-31-2022 ambulatory No Primary Care Physician [facility] Work Phone: Start: 08-28-2022 End: 08-28-2022 Patient encounter procedure No Primary Care Physician [facility] Start: 08-13-2022 End: 08-13-2022 Patient encounter procedure No Primary Care Physician [facility] Start: 08-12-2022 End: 08-12-2022 [facility] Start: 07-11-2022 End: 07-12-2022 ambulatory DANNIEDMITRI BAHENA Facility:[facility] Start: 07-11-2022 End: 07-11-2022 Patient encounter procedure DANNIE BAHENA DO [facility] Start: 11-04-2021 End: 11-04-2021 Patient encounter procedure Anali Stockton PA-C Work Phone: [facility] Comment on above: Encounter for remova l of sutures (Primary Dx) Start: 10-26-2021 End: 10-26-2021 Emergency department patient visit DR JAMAICA NEGRON MD Facility:[facility] Start: 10-25-2021 End: 10-26-2021 Emergency department patient visit DR JAMAICA NEGRON MD [facility] Procedures Date Procedure Procedure Detail Performing Clinician Start: 12-25-2024 Hepatitis C antibody measurement No Primary Care Physician Comment on above: Reactive: Presumptiv e evidence of antibodies to HCV. Follow CDC recommendations for supplemental testing.Non-Reactive: Antibodies to HCV were not detected; does not exclude the possibility of exposure to HCVReactive Results are presumptive evidence of antibodies to HCV. Follow CDC recommendations for supplemental testing.Order confirmation testing: HCV Quant by PCR testing - HCVPCR #[id number] Non Reactive: < 0.8 Equivocal: >/= 0.8 to < 1.0 Reactive: >/= 1.0The CDC requires that a reactive/equivocal HCV antibody result be sent out for confirmation. HCV Quant by PCR testing. Start: 12-25-2024 Procedure No Primary Care Physician Start: 12-25-2024 Rubella IgG measurement No Primary Care Physician Comment on above: Antibody Result: Int erpretationNon-Reactive: Non- ImmuneReactive: ImmuneThe following results were obtained with the [employer] Rubella IgG assay. Results from assays of other manufacturers cannot be used interchangeably. Start: 12-25-2024 Serologic test for syphilis No Primary Care Physician Start: 11-27-2024 Urine culture No Primar y [...] DTaP,Tdap,Td Vaccine (3 - Td or Tdap) [facility] Start: 12-25-2024 CBC W Auto Differential panel - Blood [facility] Start: 12-25-2024 Hemoglobin A1c/Hemoglobin.total in Blood [facility] Start: 12-25-2024 Hepatitis C antibody measurement [facility] Start: 12-25-2024 Procedure [facility] Start: 12-25-2024 Rubella IgG measurement [facility] Start: 12-25-2024 Serologic test for syphilis [facility] Start: 12-25-2024 [facility] Start: 01-12-2024 Influenza vaccination Influenza Vaccine (Season Ended) [facility] Start: 06-20-2023 Liquid based cervical cytology screening [facility] Start: 05-13-2023 Behavioral Health Screening Behavioral Health Screening [facility] Start: 01-11-2023 Covid-19 Vaccine ( season) Covid-19 Vaccine () [facility] Start: 08-31-2022 Anesthesia incomplete/missed ANESTH INC/MISSED AB PROC [facility] Start: 08-31-2022 Tx missed first trimester surgical CARE OF MISCARRIAGE [facility] Start: 08-31-2022 Patient discharge [facility] Start: 08-31-2022 Procedure discontinued [facility] Start: 08-31-2022 Ambulation without limitation [facility] Start: 08-31-2022 Medical regimen orders management [facility] Start: 08-31-2022 Medication education [facility] Start: 08-31-2022 Taking patient vital signs [facility] Start: 08-31-2022 Vital signs measurements [facility] Start: 08-31-2022 [facility] Start: 01-11-2022 Influenza vaccination INFLUENZA (Season Ended) [facility] Start: 2020 HPV TESTING HPV TESTING [facility] Start: 2020 Screening for malignant neoplasm of cervix HPV Testing [facility] Start: 12-09-2011 PAP TESTING PAP TESTING [facility] Start: 12-09-2011 Screening for malignant neoplasm of cervix Pap Testing [facility] Start: 2009 Hepatitis B Vaccine (1 of 3 - 19+ 3-dose series) Hepatitis B Vaccine (1 of 3 - 19+ 3-dose series) [facility] Start: 2009 Urine microalbumin profile DTAP,TDAP,TD (1 - Tdap) [facility] Start: 2008 HEPATITIS C SCREENING HEPATITIS C SCREENING [facility] Start: 2008 Hepatitis C screening Hepatitis C Screening [facility] Start: 2008 HIV SCREENING HIV SCREENING [facility] Start: 2008 HIV screening HIV Screening [facility] Start: 2002 Adult depression screening assessment DEPRESSION SCREENING [facility] Start: 1996 PNEUMOCOCCAL (1 - PCV) PNEUMOCOCCAL (1 - PCV) [facility] Start: 1996 Pneumococcal vaccination Pneumococcal Vaccine (1 of 2 - PCV) [facility] Start: 12-09-1995 COVID-19 VACCINE (#1) COVID-19 VACCINE (#1) [facility] CBC W Auto Different ial panel - Blood [facility] CBC W Auto Different ial panel - Blood [facility] Chlamydia deoxyribon ucleic acid detection [facility] Choriogonadotropin ( test) [Presence] in Serum or Plasma [facility] Erythrocyte mean cor puscular volume determination [facility] Hematocrit [Volume F raction] of Blood [facility] Hemoglobin [Mass/vol ume] in Blood [facility] Hemoglobin A1c/Hemoglobin.total in Blood [facility] Hepatitis B surface antigen measurement [facility] Hepatitis B virus nichols rface Ag [Presence] in Serum [facility] Hepatitis C antibody measurement [facility] Hepatitis C antibody measurement [facility] HIV 1+2 Ab+HIV1 p24 Ag [Presence] in Serum or Plasma by Immunoassay [facility] Leukocytes [#/volume ] in Blood [facility] Mean corpuscular hem oglobin concentration determination [facility] Mean corpuscular hem oglobin determination [facility] Neutrophil count [facility] Neutrophil percent differential count [facility] Path report.final Dx Spec [facility] Patient Education [facility] Work Phone: Patient referral [facility] Work Phone: Platelets [#/volume] in Blood [facility] Procedure [facility] Red blood cell count [facility] Red cell distributio n width determination [facility] Rubella IgG measurement [facility] Rubella IgG measurement [facility] Serologic test for syphilis [facility] Treponema sp Ab [Pre sence] in Serum [facility] Immun[place] Immunization Date Immunization Notes Care Provider [facility] 11-05-2023 tetanus toxoid, redu bj diphtheria toxoid, and acellular pertussis vaccine, adsorbed No Primary Care Physician [facility] 10-26-2021 tetanus toxoid, redu bj diphtheria toxoid, and acellular pertussis vaccine, adsorbed DR JAMAICA NEGRON MD [facility] 01-28-2017 Human rabies vaccine from Chicken fibroblast culture DR JAMAICA NEGRON MD [facility] 01-17-2017 Human rabies vaccine from Chicken fibroblast culture DR JAMAICA NEGRON MD [facility] 01-10-2017 Human rabies vaccine from Chicken fibroblast culture DR JAMAICA NEGRON MD [facility] 01-01-2017 Human rabies vaccine from Chicken fibroblast culture DR JAMAICA NEGRON MD [facility] Payers Date Payer Category Payer Self-pay [id number] 2022 Medicaid [id number] 2022 Unknown [id number] 2021 Unknown [id number] 2017 Medicaid [facility] MEDICAID [id number] 2017-Present [phone] [address] [place] [address] Medicaid [id number] 1990 Unknown [id number] 1990 Unknown [id number] 2.840.1.889647.3.579.2.627 1990 Unknown [id number] 1990 Unknown [id number] 2.16840.1.885827.3.579.2.479 Unknown [id number] 2.16840.1.426948.3.579.2.462 Unknown [id number] 2.16840.1.825509.3.579.2.462 Unknown [id number] 2.16840.1.691585.3.579.2.462 Unknown [id number] 2.16.840.1.711140.3.579.2.462 Unknown [id number] 2.16.840.1.811159.3.579.2.462 Unknown [id number] 2.16.840.1.722601.3.579.2.462 Unknown [id number] 2.16.840.1.523730.3.579.2.462 Unknown [id number] 2.16.840.1.482178.3.579.2.462 Unknown [id number] 2.16.840.1.473024.3.579.2.462 Unknown [id number] 2.16.840.1.378203.3.579.2.462 Unknown [id number] 2.16.840.1.044367.3.579.2.462 Social History Date Type Detail Facility Start: 12-12-2020 Tobacco smoking status Light tobacco smoker (finding) [facility] Sex Assigned At [facility] Start: 11-04-2021 End: 10-09-2023 Tobacco smoking status NHIS Smokes tobacco daily [facility] Work Phone: Start: 11-04-2021 End: 10-09-2023 Tobacco use and exposure Smokeless tobacco non-user [facility] Work Phone: Start: 1990 Sex Assigned At Not on file [facility] Start: 08-12-2022 End: 06-20-2023 Tobacco smoking status NHIS Unknown if ever smoked [facility] Start: 1990 Sex Assigned At Female [facility] Start: 10-09-2023 History of Social function [facility] Start: 10-09-2023 Tobacco use panel [facility] Start: 09-03-2014 Sex Female (finding) [facility] Start: 11-19-2024 Tobacco smoking status NHIS Ex-smoker (finding) [facility] NEGATED: Highlighted row [facility] Goals Date Patient Goal Desired Activity /State Functional Status Date Assessment Result Facility 10-26-2021 Functional Status Ambulating in otto, Up ad miriam [facility] 10-25-2021 Functional Status Standard Safet y ID band on, Call device within reach, Bed in low position, Wheels locked, Upper/Half-Length side-rails up, personal items within reach, Visitor at bedside [facility] Mental Status Date Assessment Result Facility 08-31-2022 Cognitive function Level Of Cons ciousness Awake;Appropriate [facility] Work Phone: 08-31-2022 Cognitive function Voice/Name [facility] Work Phone: 10-26-2021 Mental Status Orientation Oriented x 4 [facility] 10-25-2021 Mental Status [facility] Clinical Notes 10-26-2021 to 02-17-2025 Note Date & Type Note Facility 02-17-2025 Progress note [facility] 01-22-2025 Progress note [facility] 12-25-2024 Progress note [facility] 11-27-2024 Evaluation note Diagnosis Onset Date Resolution [...] of high-risk acute November 27, 2024 10:49am [facility] Work Phone: 1(285) 724-633107-18-2025 Evaluation note* Diagnosis Onset Date Resolution Status [...] 10:17am History of breast lump acute Ju 2024 10:17am History of miscarriage, curr ently acute December 07, 2024 10:17am History of oligohydramnios acute December 07, 2024 10:17am LGA (large for gestational a ge) fetus affecting management of mother acute December 07, 2024 10:17am acute December 07 10:17am Supervision of high-risk acute December 07, 2024 10:17am [facility] Work Phone: 1(203) 424-220207-18-2025 Evaluation note* Diagnosis Onset Date Resolution Status [...] mother acute December 25 10:56am acute December 25 10:56am Supervision of high-risk acute December 25 10:56am [facility] Work Phone: 1(103) 334-199607-18-2025 Evaluation note* Diagnosis Onset Date Resolution Status Admit Date Alcohol abuse acute November 27, 2024 10:49am History of miscarriage, currently acute November 27 10:49am History of oligohydramnios acute November 27, 2024 10:49am LGA (large for gestational age) fetus affecting management of mother acute November 27, 2024 10:49am acute November 27 10:49am Supervision of high-risk acute November 27, 2024 10:49am Bleeding in early resolved November 27, 2024 10:49am History of breast lump resolved Ju 2024 10:49am Alcohol abuse acute December 07, 2024 10:17am History of miscarriage, currently acute December 07 10:17am History of oligohydramnios acute December 07, 2024 10:17am LGA (large for gestational age) fetus affecting management of mother acute December 07, 2024 10:17am acute December 07 10:17am Supervision of high-risk acute December 07, 2024 10:17am Bleeding in early resolved December 07, 2024 10:17am Alcohol abuse acute December 10:56am History of miscarriage, currently acute December 25, 2024 10:56am History of oligohydramnios acute December 25, 2024 10:56am LGA (large for gestational age) fetus affecting management of mother acute December 10:56am acute [place] [facility], 2 025 10:56am Supervision of high-risk acute December 25 10:56am Bleeding in early resolved December 25, 2024 10:56am History of breast lump resolved Au 2024 10:56am Alcohol abuse acute January 112024 10:00am History of miscarriage, currently acute January 10:00am History of oligohydramnios acute January 22, 2025 10:00am LGA (large for gestational age) fetus affecting management of mother acute January 112024 10:00am acute January 10:00am Supervision of high-risk acute January 22, 2025 10:00am [facility] Work Phone: 1(555) 220-120707-18-2025 Evaluation note* Diagnosis Onset Date Resolution Status Admit Date Alcohol abuse acute November 27, 2024 10:49am History of miscarriage, currently acute November 27 10:49am History of oligohydramnios acute November 27, 2024 10:49am LGA (large for gestational age) fetus affecting management of mother acute November 27, 2024 10:49am acute November 27 10:49am Supervision of high-risk acute November 27, 2024 10:49am Bleeding in early resolved November 27, 2024 10:49am History of breast lump resolved Ju 2024 10:49am Alcohol abuse acute December 07, 2024 10:17am History of miscarriage, currently acute December 07 10:17am History of oligohydramnios acute December 07, 2024 10:17am LGA (large for gestational age) fetus affecting management of mother acute December 07, 2024 10:17am acute December 07 10:17am Supervision of high-risk acute December 07, 2024 10:17am Bleeding in early resolved December 07, 2024 10:17am Alcohol abuse acute December 10:56am History of miscarriage, currently acute December 25, 2024 10:56am History of oligohydramnios acute December 25, 2024 10:56am LGA (large for gestational age) fetus affecting management of mother acute December 10:56am acute December 25, 2 025 10:56am Supervision of high-risk acute December 25 10:56am Bleeding in early resolved December 25, 2024 10:56am History of breast lump resolved Au 2024 10:56am Alcohol abuse acute January 112024 10:00am History of miscarriage, currently acute January 10:00am History of oligohydramnios acute January 22, 2025 10:00am LGA (large for gestational age) fetus affecting management of mother acute January 112024 10:00am acute January 10:00am Supervision of high-risk acute January 22, 2025 10:00am Alcohol abuse acute February 8:55am History of miscarriage, currently acute February 17, 2025 8:55am History of oligohydramnios acute February 17, 2025 8:55am LGA (large for gestational age) fetus affecting management of mother acute February 8:55am Placenta previa acute February 172024 8:55am acute February 17 8:55am Supervision of high-risk acute February 17 8:55am [facility] Work Phone: 1(164) 125-283007-18-2025 Progress [facility] [address] [place] [address], [address] [place] [address] OFFICE VISIT Date of Service: 11/27/24 MR#: [id number] Acct: [id number] Name: GADIELILEANAKEON DORI Rep #: [id number] : 1990 Provider: KERRI Aarnda Age/Sex: 33/F Location: [facility] Status: Signed Intake Vital Signs 03/17/24 14:34 11/27/24 10:52 Height 5 ft 6 in 5 ft 6 in Weight: 205 lb BMI 33.0 BP 127/79 H Intake Visit Reasons: *EST* NOB, LMP 10/04, VERÓNICA 07/11 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 Date Name GA/Weeks Outcome Route Bth Weight Infant Gen Labor Lgth Anesthesia Del Locatn Provider FOB 12/06/09 Nichols 36 live - 6.8 Male epidmartin al Cosby 07/25/11 Nasra 40 live - full term 6#8oz Female ortiz ral [facility] 06/24/13 Kathy 40 live - full term 9.2 Male none Cosby 08/31/22 8 spontaneous 01/28/24 Sasser 40 live - full term 7lbs 13oz Male ep idural [facility] L&D Carolyn Nuñez Delivery Date: 08/31/22 Last Updated by: Gely Rosen D&C, ALANNA Delivery Date: 01/28/24 Last Updated by: Florecita Otto, RN see problem list for complications HPI *EST* NOB, LMP 10/04, VERÓNICA 07/11 Details: KEON FINCH is a 33 year old who presents [...] Varicella immune: Yes and Covid Vaccinated: Yes ([employer], 2020) Medical History Medical History: Negative: Diabetes, Hypertension, Heart disease, Auto-immune disorder, Kidney disease/UTI, Neurologic/epilepsy, Psychiatric, Depression/ depression, Hepatitis/liver disease, Varicosities/phlebitis, Thyroid dysfunction, Trauma/domestic violence, History of blood transfusions, D (Rh) Sensitized, Pulmonary (e.g.,TB,Asthma), Seasonal allergies, Drug/latex allergies/reactions, Breast, 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 oriented to [...] the past year?: No 11/27/24 1124 ns CNM> Date _ Armida Aranda CNM Cosigner Signature: Date (if applicable) CC: ~ [facility]07-09-2025 Radiology Diagnostic study note [facility] Imaging Services [address] [place] [address] Transvaginal w/Preg MR#: [id number] Acct: [id number] Name: KEON FINCH DORI Rep #: [id number] : 1990 F 33 From: Gallito Martins MD PCP: Care Physician,No Primary Status: REG CLI Study:Transvaginal w/Preg US Date of Exam: 11/18/24 Exam# [id number] Ordering Dr: Jessica Kaufman CNM PROCEDURE: TRANSVAGINAL [...] exam. Follow-up as clinically warranted. Reading Location: [id number] CC: KERRI Kaufman; No Primary Care Physician ~ [employer]: Signed [facility]06-21-2025 Hospital Discharge instructions Patient Education 10/31/2024 [...] a problem: Bleeding that soaks the dressing [place] fluid weeping from the wound Increased drainage [...] increased fatigue, or a loss of appetite [id number] [employer]. [address] [place] [address], [place] [address]. All rights reserved. This information is not intended as a substitute for professional medical care. Always follow [facility] professional's instructions. 10/31/2024 17:34:39 Cat Bite Cat [...] for signs of illness. If the pet personal financial advisor won t allow this, contact your local [...] stopped after 5 minutes of firm pressure 9905-4890 [employer]. [address] [place] [address]. All rights reserved. This information is not intended as a substitute for professional medical care. Always follow yourhealthcare professional's instructions. Follow Up Care 10/31/2024 17:01:33 With:JAMAICA LAND MD Address: [address] [place] [address] [place] [address]- When:2-4 days [facility] 06-21-2025 Emergency department Discharge summary Discharge Instructions Thank you for allowing [facility] to assist you with your healthcare needs. The following is importantdischarge information regarding your hospital visit. Diagnosis from Today's Visit Cat bite What to Do Next Instructions from Your Care Team No qualifying data available. Post Acute Orders No qualifying data available. You Need to Schedule the Following Appointments Follow Up with JAMAICA LAND MD When:Within 2-4 days Where:[address] [facility] [place] [address]- Allergies NKA Medications Please ask your primary [...] may report side effects to FDA at 2-940-ASR-9778. What other drugs will affect amoxicillin and clavulanate potassium? Tell your doctor about all your other medicines, especially: allopurinol; probenecid; or a blood thinner--warfarin, Coumadin, Jantoven. This list is not complete. Other drugs may affect amoxicillin and clavulanate potassium, including prescription and uncj-iul-llggjpz medicines, vitamins, and herbal products. Not all [...] to ensure that the information provided by [employer]. ('[employer]') is accurate, up-to-date, and complete, but no guarantee is made to that effect. Drug information contained herein may be time sensitive. [employer] information has been compiled for use by healthcare practitioners and consumers in the [place] and therefore [employer] does not warrant that uses outside of the [place] are appropriate, unless specifically indicated otherwise. [employer] drug information does not endorse drugs, diagnose patients or recommend therapy. [employer] drug information isan informational resource designed to [...] effective or appropriate for any given patient. [employer] does not assume any responsibility for any aspect of healthcare administered with the aid of information [employer] provides. The information contained herein is not intended to cover all possible uses, directions, precautions, warnings, drug interactions, allergic reactions, or adverse effects. If you have questions about the drugs you are taking, check with your doctor, nurse or pharmacist. Copyright 5904-6730 [employer]. Version: 14.01. Revision Date: 02/16/2022. Education Materials Wound Care [...] a problem: Bleeding that soaks the dressing [place] fluid weeping from the wound Increased drainage [...] increased fatigue, or a loss of appetite 7727-6673 [employer]. [address] [place] [address], [place] [address]. All rights reserved. This information is not [...] for signs of illness. If the pet personal financial advisor won t allow this, contact your local [...] stopped after 5 minutes of firm pressure 7961-8004 [employer]. [address] [place] [address]. All rights reserved. This information is not intended as a substitute for professional medical care. Always follow yourhealthcare professional's instructions. Additional Information VACCINATE! IT SAVES LIVES! Members of the community who have not yet received the COVID-19 vaccine and would like to receive it can visit one of [facility] vaccine clinics. There are many vaccine clinic locations within the [facility]. For locations and available times, please visit www.gettheshot.coronavirus.[place].gov/. It is important to note that some COVID mobile vaccine clinics are held outdoors and may be canceled in rainy or stormy conditions. To learn more about pediatric vaccinations (ages 5-11), we invite you to visit the [facility] webpage. https://www.[facility].org/pages/8865-Cxzzt-Dtjmjulptxh-Wdngjksism-Xxbzu-Dcg stions.htmlTo learn more about the COVID-19 vaccine, we invite you to visit the CDC website for a list of frequently asked questions. https://www.cdc.gov/coronavirus/2019-ncov/vaccines/faq.html [employer] Patient Portal Access Instructions: Stay connected with your healthcare team and access your personal medical information anytime with the [employer] Patient Portal. If you would like a full copy of your medical records please contact the [facility] Medical Records Department Saturday through Saturday between 8a.m. and 4:30p.m. Please follow the directions below to access the portal: 1.Access the email account you provided upon registration to the [facility].2.Look for an invitation email from [facility].3.Open the email and access the invitation link: Accept Invitation to [facility] [employer]4.Fill in the required curry to create your account. Sign into [email or web address] with your username and password that you [...] you will allow to register on the [employer] Patient Portal for access to your information. You can also access the [employer] Patient Portal on the [employer]. Simply click on Health Records under [facility] and then click on the [employer] logo. HOW TO SAFELY DISPOSE OF PRESCRIPTION [...] Call your local pharmacy or go to http://bit.ly/6X2Ow9f to find one close to you.3.Make use of household items: Use cat litter or old coffee grounds to dispose medications if other options arenot available. Mix your drugs with these household products, seal them in an airtight container andthrow it into the garbage. Call [facility]: [phone] to be sure your drugs can be [...] been reviewed and explained to me and I,KEON FINCH understand my current condition and have read and understand these discharge instructions. I have received a written copy of the plan/instructions. If I have questions, I am aware that I should contactmy doctor. 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 Author Type: Nurse Practitioner Type: Progress Notes Filed: 10/09/2023 18:10 Note Text: Subjective HPI Nontoxic-appearing female who is 24 weeks presents urgent care chief complaint tick bite. Patient states noticed a tick on her right upper chest Lxex night. Removed the tick. Does not think [...] of care. This note was generated using [employer] software. It may contain errors in wording, punctuation, or spelling. Haile Cole APRN.[facility]05-29-2024 History of Present illness Narrative* Haile Cole APRN.[facility] - 10/09/2023 6:00 PM EDT Images [...] of care. This note was generated using [employer] software. It may contain errors in wording, punctuation, or spelling. Haile Cole APRN.REGIONAL DRIVER documented [facility] NotePap Smear Specimen AdequacyFebruary 2023 11:18amComment.Satisfactory for evaluation. No endocervical component is identified.[facility] INTERFACED A#[id number] HospitalComment on above:Satisfactory for evaluation. No endocervical component is identified.08-31-2022 History and physical note Author Dr. 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 1159 MR#: [id number] Acct: [id number] Name: KEON FINCH Rep #:[id number] : 1990 31 From: Theresa montenegro MD PCP: Care Physician,No Primary Status :[facility] Location: [place] [address] HPI - General HPI Narrative KEON FINCH, is a 31 F who presents with [...] 3 current occupational status: employed current occupation: [employer] current occupational exposures/hazards: No pets and animals: [...] 36 live - 6.8 Male epidur al [facility] 07/25/11 Nasra 40 live - full term Female epidu [facility] 06/24/13 Kathy 40 live - full term 9.2 Male none [facility] Visit Details Expected Delivery Route/Plan Labor Preferences- [...] Nance MD; No Primary Care Physician~ Signed [facility] Work Phone: 1(124) 109-504504-21-2023 Procedure [facility] 07-11-2022 Note ORIGINAL EXAMINATION: TRANSVAGINAL [...] Date: 07/11/2022 12:35:09 PM Ordering Provider: DANNIE [facility]03-01-2023 Note ORIGINAL EXAMINATION: TRANSVAGINAL PELVIC ULTRASOUND 07/11/2022 [...] Sign Date: 07/11/2022 12:35:09 PM Ordering Provider: [facility]06-25-2022 Instructions* Patient Instructions* Anali Stockton PA-C - [...] be done as well. documented in [facility] History of Present illness Narrative* Anali Stockton PA-C - 11/04/2021 1:22 PM EDT Images from the original note were not included. Subjective HPI HPI Keon Finch is a 30 year old female who presents today for CC of suture removal R hand. Patient was evaluated last Saturday at [facility] ED status post laceration from a shattered glass. Tdap was updated at that time. Pt notes that she was seen at [facility] for a check of wound 2 days [...] Day 10 status post suture placement at [facility]-- 9 Sutures removed without complication; Steri [...] plan. Anali Stockton PA-C documented in this encounterMer[facility]06-[facility]22 Hospital Discharge instructions Patient Education 10/26/2021 [...] affected hand Decreased movement of the hand [phone] [employer]. [address] [place] [address]. All rights reserved. This information is not intended as a substitute for professional medical care. Always follow yourhealthcare professional's instructions. Follow Up Care 10/25/2021 23:01:32 With:JAMAICA LAND Address: [address] [place] [address] [place] [address] Business (1) When:Within 9 Day(s) Comments:Keep wound clean and dry. Have your stitches removed in 8 to 10 days. Return if worsening severe pain numbness weakness draining pus or redness around the wound. [facility] Evaluation + Plan note No data available for this section [facility] Evaluussck note* Diagnosis Encounter for removal of sutures- Primary documented in this encounter [facility] Hospital[facility] noteNo assessment information availableWGerman Hospital Work Phone: Evaluation note* Diagnosis Onset Date Resolution Status Missed acute Missed acute Missed [facility] Work Phone: Evaluation note* Diagnosis Onset Date Resolution Status Missed acute Missed acute Missed acute Missed acute Vaginal bleeding [facility] Work Phone: Evaluation note* Diagnosis Onset Date Resolution Status Missed acute Missed acute Missed acute Missed acute [facility] Work Phone: Evaluation note* Diagnosis Onset Date Resolution Status Dysmenorrhea acute [facility] Work Phone: Evaluation note* Diagnosis Onset Date Resolution Status Amenorrhea acute COVID-19 affecting , antepartum acute History of miscarriage, currently acute acute Spotting in early acute Supervision of high-risk acute [facility] Work Phone: Evaluation note* Diagnosis Tick bite of chest wall, initial encounter- Primary documented in this encounter [facility]* Diagnosis Onset Date Resolution Status Admit Date Alcohol abuse acute November 27, 2024 10:49am Bleeding in early acute November 27, 2024 10:49am History of breast lump acute 2024 10:49am History of miscarriage, curr ently acute November 27, 2024 10:49am History of oligohydramnios acute November 27, 2024 10:49am LGA (large for gestational a ge) fetus affecting management of mother acute November 27, 2024 10:49am acute November 27 10:49am Supervision of high-risk acute November 27, 2024 10:49am [facility] Work Phone: Hospital Discharge instructions No data available for this section [facility] Hospital Discharge instructions Additional Instructions Plenty of [...] to be at the office at that time.[facility] Work Phone: Progress note No data available for this section [facility] Progress note Author Armida Aranda [facility] Note Date/Time November 27, 2024 11:2 4am [facility] [address] [place] [address], [address] [place] [address] OFFICE VISIT Date of Service: 11/27/24 MR#: [id number] Acct: [id number] Name: KEON FINCH Rep #: [id number] : 1990 Provider: KERRI Aranda Age/Sex: 33/F Location: [facility] Status: Signed Intake Vital Signs 03/17/24 14:34 11/27/24 10:52 Height 5 ft 6 in 5 ft 6 in Weight: 205 lb BMI 33.0 BP 127/79 H Intake Visit Reasons: *EST* NOB, LMP 10/04, VERNÓICA 07/11 Dairy Husbandman Required: No Is patient in pain?: No [...] current occupational status: employed 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 Date Name GA/Weeks Outcome Route Bth Weight Gen Labor Lgth Anesthesia Del Locatn Provider FOB 12/06/09 Nichols 36 live - 6.8 Male epidur al Cosby 07/25/11 Nasra 40 live - full term 6#8oz Female epidu ral Cosby 06/24/13 Kathy 40 live - full term 9.2 Male none Cosby 08/31/22 8 spontaneous 01/28/24 Sasser 40 live - full term 7lbs 13oz Male ep idural [facility] L&D Carolyn Nuñez Delivery Date: 08/31/22 Last Updated by: Gely Rosen D&Meaghan, [facility] Delivery Date: 01/28/24 Last Updated by: Florecita Otto, RN see problem list for complications HPI *EST* NOB, LMP 10/04, VERÓNICA 07/11 Details: KEON FINCH is a 33 year old who presents [...] Varicella immune: Yes and Covid Vaccinated: Yes ([email or web address], 2020) Medical History Medical History: Negative: Diabetes, Hypertension, Heart disease, Auto-immune disorder, Kidney disease/UTI, Neurologic/epilepsy, Psychiatric, Depression/ depression, Hepatitis/liver disease, Varicosities/phlebitis, Thyroid dysfunction, Trauma/domestic violence, History of blood transfusions, D (Rh) Sensitized, Pulmonary (e.g.,TB,Asthma), Seasonal allergies, Drug/latex allergies/reactions, Breast, Restaurant 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, Operations/hospitalizations, Anesthetic complications, History of abnormal [...] Symptoms of Preeclampsia, Infant Feeding Yes , [place] Education and Family Medical Leave or Disability [...] Cosigner Signature: Date (if applicable) CC: ~ [facility] Work Phone: Progress note Author Jessica Kaufman [facility] Note Date/Time December 25, 2024 11 :22am [facility] [address] [place] [address], [address] [place] [address] OFFICE VISIT Date of Service: 12/25/24 MR#: [id number] Acct: [id number] Name: KEON FINCH Rep #: [id number] : 1990 Provider: KERRI Kaufman Age/Sex: 34/F Location: [facility] Status: Signed Intake Vital Signs 03/17/24 14:34 12/07/24 10:21 12/25/24 11:02 Height 5 ft 6 in 5 ft 6 in 5 ft 6 in Weight: 206 lb 8 oz BMI 33.3 BP 127/81 H Intake Visit Reasons: 11wk ob Chief Complaint: 11wk OB Dairy Husbandman Required: No Is patient in pain?: No Allergies measles, mumps, and rubella vaccine Allergy (Verified 12/25/24 10:59) seizure Medications ?Medication ?Instructions ?Recorded ?Confirmed ?Type vit no.164-ferrous tab PO 11/19/24 12/25/24 H istory gluconate 6 mg-folate 833.5 mcg DFE tablet (Yanira PNV) Last Menstrual Period: 10/04/24 PFSH PFSH Medical History History of oligohydramnios [...] 4 current occupational status: employed 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 Date Name GA/Weeks Outcome Route Bth Weight [facility]/09 Simone 36 live - 6.8 Male epidur al Cosby 07/25/11 Nasra 40 live - full term 6#8oz Female epidu ral Cosby 06/24/13 Clanton 40 live - full term 9.2 Male none Cosby 08/31/22 8 spontaneous 01/28/24 Sasser 40 live - full term 7lbs 13oz Male ep idural [facility] L&D Carolyn Nuñez Delivery Date: 08/31/22 Last Updated by: Gely Rosen D&C, ALANNA Delivery Date: 01/28/24 Last Updated by: Florecita Otto, RN see problem list for complications HPI 11wk ob Details: KEON FINCH is a 34 year old who presents [...] lb 119/79 Negative -?-?-?-?-?--?-?-?-?-?-?-?- Negative 171 -?-?-?-?-?-?-?-?-?-?-?-?- -wanted confir m FHT. Diffusing oils caused illness [...] Signs and Symptoms of Preeclampsia, Infant Feeding, Education and Family Medical Leave or Disability [...] Cosigner Signature: Date (if applicable) CC: ~ [facility] Work Phone: Progress note Author Theresa Nance [facility] Note Date/Time January 22, 2025 10:26am [facility] [address], [address] [place] [address] OFFICE VISIT Date of Service: 01/22/25 MR#: [id number] Acct: [id number] Name: STEPHENIEKEONPAZ MEADOWS Rep #: [id number] : 1990 Provider: Dr. Freddie Nance MD Age/Sex: 34/F Location: [facility] Status: Signed Intake Vital Signs 11/27/24 10:52 12/25/24 11:02 01/22/25 10:09 Height 5 ft 6 in 5 ft 6 in 5 ft 6 in Weight: 208 lb 4 oz BMI 33.6 BP 113/76 Intake Visit Reasons: 15wk ob Dairy Husbandman Required: No Is patient in pain?: No Allergies measles, mumps, and rubella vaccine Allergy (Verified 01/22/25 10:06) seizure Medications ?Medication ?Instructions ?Recorded ?Confirmed ?Type vit no.164-ferrous tab PO 11/19/24 01/22/25 H istory gluconate 6 mg-folate 833.5 mcg DFE tablet ( PNV) Last Menstrual Period: 10/04/24 Zika: Zika virus screening: Negative [facility] Medical History History of oligohydramnios depression Dysmenorrhea [...] current occupational status: employed 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 Date Name GA/Weeks Outcome Route Bth Weight Gen Labor Lgth Anesthesia Del Locatn Provider HARLEY 12/06/09 Simone 36 live - 6.8 Male eder Carnes 07/25/11 Nasra 40 live - full term 6#8oz Female epidu ral Cosby 06/24/13 Clanton 40 live - full term 9.2 Male none Cosby 08/31/22 8 spontaneous 01/28/24 Sasser 40 live - full term 7lbs 13oz Male ep idural [facility] L&D Carolyn Nuñez Delivery Date: 08/31/22 Last Updated by: Gely Rosen D&Meaghan, [facility] Delivery Date: 01/28/24 Last Updated by: Florecita Otto, RN see problem list for complications HPI 15wk ob Details: KEON FINCH is a 34 year old who presents for routine OB visit. OB Visit VERÓNICA Calculator Estimated Delivery Date Method Current WG Current Estimate 07/14/25 Ultrasound #1 15w 2d Other Estimates 07/11/25 LMP (Certain) 15w 5d Expected Delivery Route/Plan Labor Preferences- CB/BF [...] 7w 2d 205 lb 127/79 -?-?-?-?-?-?-?-?-?-?-?-?- 134 -?-?-?-?-?-?-?-?-?-?-?--?- LC- CRL 10.2mm 7 w0d con with LMP. desires genetics and will obtain with NOB labs next visit. 12/07/24 -?-?-?-?-?-?-?-?-?-?-?-?- 8w 5d 206 lb 119/79 Negative -?-?-?-?-?-?-?-?-?-?-?-?- Negative 171 -?-?-?-?-?-?-?-?-?-?-?-?- MH-wanted confir m FHT. Diffusing oils caused illness in rabbit. Br US confirmed live IUP/FHT. No VB 12/25/24 -?-?-?-?-?-?-?-?-?-?-?-?- 11w 2d 206 lb 8 oz 127/81 Nega tive -?-?-?-?-?-?-?-?-?-?-?-?- Negative 160 -?-?-?-?--?-?-?-?-?-?-?-?- KW- no vb/crampi ng. labs drawn today. MFM US order placed. handheld US used for FHT and +fm. 01/22/25 -?-?-?-?-?-?-?-?-?-?-?-?- 15w 2d 208 lb 4 oz 113/76 Nega tive -?-?-?-?-?-?-?-?-?-?-?-?- Negative 150 -?-?-?-?-?-?-?-?-?-?-?-?- SM- no vb lof ct x ACOG Second Trimester Second Trimester: Signs and Symptoms of Labor, Selecting a care provider, Reproductive Life Planning & Contreception, Care Planning, Depression/Anxiety and Intimate Partner Violence; Discussed Tobacco Cessation Third Trimester Third Trimester: Pain Management Plans, Labor support person(s), Immediate Larc, Signs and Symptoms of Preeclampsia, Feeding, Education and Family Medical Leave or Disability Forms ROS Const Denies fever(s) GI Reports as per HPI and Denies abdominal pain Reports as per HPI, Denies abnormal vaginal bleeding, Denies dysuria and Denies vaginal discharge Exam Const General: healthy appearing, comfortable and no acute distress GI Inspection: normal to inspection Palpation: soft and nontender Results POC Urinalysis 2 Dip (Clinic) Office Urine Glucose Negative Last Edit by Monica Del Toro on 01/22/25 10:13 Office Urine Protein Negative Last Edit by Monica Del Toro on 01/22/25 10:13 Coding Level of Care Code Off vis,est,level 3 Diagnoses Alcohol abuse F10.10 Excessive growth affecting management of in first trimester, single or unspecified fetus O36.61X0 Fetus number: single or unspecified fetus Trimester: first trimester History of oligohydramnios Z87.59 Supervision of high risk in first trimester O09.91 Trimester: first trimester 15 weeks gestation of Z3A.15 Weeks of gestation: 15 weeks History of miscarriage, currently O09.299 Assessment and Plan Assessment and Plan (1) Alcohol abuse: Status: Acute Comment: recovering- 7 years sober (2) LGA (large for gestational age) fetus affecting management of mother: Status: Acute Qualifiers: Fetus number: single or unspecified fetus Trimester: first trimester Qualified Code(s): O36.61X0 - Maternal care for excessive growth, first trimester, not applicable or unspecified Comment: history of 9 pound baby (3) History of oligohydramnios: Status: Acute Comment: previous induced at 36 weeks (4) Supervision of high-risk : Status: Acute Qualifiers: Trimester: first trimester Qualified Code(s): O09.91 - Supervision of high risk , unspecified, first trimester Comment: PRR , VERÓNICA 07/11/25 Nasra Nichols Asher, Milo Fiancee Garrison (5) : Status: Acute Qualifiers: Weeks of gestation: 15 weeks Qualified Code(s): Z3A.15 - 15 weeks gestation of Comment: NIPT w gender- will obtain with gender in envelope. low risk carrier - previously done 2023 (last ) (6) History of miscarriage, currently : Status: Acute Comment: D/C 2022 Orders: Orders POC Urinalysis 2 Dip (Clinic) Today 01/22/25 1026 <Electronically signed by Theresa crow MD> Date _ Theresa Nance MD Cosigner Signature: Date (if applicable) CC: ~ [facility] Work Phone: Progress note Author Theresa Nance [facility] Note Date/Time February 17, 2025 9: 24am [facility] [address] [place] [address], [address] [place] [address] OFFICE VISIT Date of Service: 02/17/25 MR#: [id number] Acct: [id number] Name: KEON FINCH DORI Rep #: [id number] : 1990 Provider: Dr. Freddie Nance MD Age/Sex: 34/F Location: [facility] Status: Signed Intake Vital Signs 12/25/24 11:02 01/22/25 10:09 02/17/25 09:01 Height 5 ft 6 in 5 ft 6 in 5 ft 6 in Weight: 216 lb BMI 34.8 BP 107/76 Intake Visit Reasons: 19 WK OB Dairy Husbandman Required: No Is patient in pain?: No Allergies measles, mumps, and rubella vaccine Allergy (Verified 02/17/25 09:01) seizure Medications ?Medication ?Instructions ?Recorded ?Confirmed ?Type vit no.164-ferrous tab PO 11/19/24 02/17/25 H istory gluconate 6 mg-folate 833.5 mcg DFE tablet (Yanira PNV) Last Menstrual Period: 10/04/24 Zika: Zika virus screening: Negative : No PFSH PFSH Medical History History of [...] 4 current occupational status: employed 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 Date Name GA/Weeks Outcome Route Bth Weight Infant Gen Labor Lgth Anesthesia Del [facility] Provider FOB 12/06/09 Simone 36 live - 6.8 Male epidur al Cosby 07/25/11 Nasra 40 live - full term 6#8oz Female epidu ral Cosby 06/24/13 Kathy 40 live - full term 9.2 Male none Cosby 08/31/22 8 spontaneous 01/28/24 Sasser 40 live - full term 7lbs 13oz Male ep idural [facility] L&D Carolyn Nuñez Delivery Date: 08/31/22 Last Updated by: Gely Rosen D&Meaghan, [facility] Delivery Date: 01/28/24 Last Updated by: Florecita Otto, RN see problem list for complications HPI 19 WK OB Details: KEON FINCH is a 34 year old who presents for routine OB visit. OB Visit VERÓNICA Calculator Estimated Delivery Date Method Current WG Current Estimate 07/14/25 Ultrasound #1 19w 0d Other Estimates 07/11/25 LMP (Certain) 19w 3d Expected Delivery Route/Plan Labor Preferences- CB/BF classes: [...] list details Initial Weight: Not Recorded Date -?-?-?-?-?-?-?-?--?-?-?-?- EGA Weight BP Urine Prot -?-?-?-?-?-?-?-?-?-?-?-?- Glucose FHR FuHt Pres Dilation -?-?-?-?-?-?-?-?-?-?-?-?- Effaced St Visit Note 11/27/24 -?-?-?-?-?-?-?-?-?-?-?-?- 7w 2d 205 lb 127/79 -?-?-?-?-?-?-?-?-?-?-?-?- 134 -?-?-?-?-?-?-?-?-?-?-?-?- LC- CRL 10.2mm 7 w0d con with LMP. desires genetics and will obtain with NOB labs next visit. 12/07/24 -?-?-?-?-?-?-?-?-?-?-?-?- 8w 5d 206 lb 119/79 Negative -?-?-?-?-?-?-?-?-?-?-?-?- Negative 171 -?-?-?-?-?-?-?-?-?-?-?-?- -wanted confir m FHT. Diffusing oils caused illness in rabbit. Br US confirmed live IUP/FHT. No VB 12/25/24 -?-?-?-?-?-?-?-?-?-?-?-?- 11w 2d 206 lb 8 oz 127/81 Nega tive -?-?-?-?-?-?-?-?-?-?-?-?- Negative 160 -?-?-?-?-?-?-?-?-?-?-?-?- KW- no vb/jak ng. labs drawn today. M US order placed. handheld US used for FHT and +fm. 01/22/25 -?-?-?-?-?-?-?-?-?-?-?--?- 15w 2d 208 lb 4 oz 113/76 Nega tive -?-?-?-?-?-?-?-?-?-?-?-?- Negative 150 -?-?-?-?-?-?-?-?-?-?-?-?- SM- no vb lof ct x 02/17/25 -?-?-?-?-?-?-?-?-?-?-?-?- 19w 0d 216 lb 107/76 Negative -?-?-?-?-?-?-?-?-?-?-?-?- Negative 150 -?-?-?-?-?-?-?-?-?-?-?-?- SM- no vb lof hernandez s previa. ACOG First Trimester First Trimester: Discussed Second Trimester Second Trimester: Signs and Symptoms of Labor, Selecting a care provider, Reproductive Life Planning & Contreception, Care Planning, Depression/Anxiety and Intimate Partner Violence; Discussed Tobacco Cessation Third Trimester Third Trimester: Pain Management Plans, Labor support person(s), Immediate Larc, Signs and Symptoms of Preeclampsia, Infant Feeding No , Education and Family Medical Leave or Disability Forms Results POC Urinalysis 2 Dip (Clinic) Office Urine Glucose Negative Last Edit by Monica Del Toro on 02/17/25 09:05 Office Urine Protein Negative Last Edit by Monica Del Toro on 02/17/25 09:05 Coding Level of Care Code OB Routine Diagnoses Placenta previa O44.00 Alcohol abuse F10.10 Excessive growth affecting management of in first trimester, single or unspecified fetus O36.61X0 Fetus number: single or unspecified fetus Trimester: first trimester History of oligohydramnios Z87.59 Supervision of high risk in first trimester O09.91 Trimester: first trimester 19 weeks gestation of Z3A.19 Weeks of gestation: 19 weeks History of miscarriage, currently O09.299 Assessment and Plan Assessment and Plan (1) Placenta previa: Status: Acute Comment: MARIELA 02/16.Rpt US @ 28. (2) Alcohol abuse: Status: Acute Comment: recovering- 7 years sober (3) LGA (large for gestational age) fetus [...] high risk , unspecified, first trimester Comment: PRR , VERÓNICA 07/11/25 Nasra Nichols Asher, Milo Fiancee Garrison (6) : Status: Acute Qualifiers: Weeks of gestation: 19 weeks Qualified Code(s): Z3A.19 - 19 weeks gestation of Comment: NIPT w gender- will obtain with gender in envelope. low risk carrier - previously done 2023 (last ). (7) History of miscarriage, currently : Status: Acute Comment: D/C 2022 Orders: Orders POC Urinalysis 2 Dip (Clinic) Today 02/17/25 0924 <Electronically signed by Theresa crow MD> Date _ Theresa Amaya Signature: Date (if applicable) CC: ~ [facility] Work Phone: Reason for referral (narrative)No reason for referral [facility] Work Phone: Summary Purpose Family History No Family History Records Found Relationship Condition Age at Onset Recorded Date/T lee father Cardiac disease Unknown Diabetes mellitus Unknown Hypertension Unknown Cerebrovascular accident (CVA) Unknown Advance Directives No Advanced Directives Records Found Advance Directive Response Recorded Date/ Time Living Will No August 12, 2022 7:36pm Power of Upkeep Worker No August 12 7:36pm Advance Directive Response Recorded Date/ Time Living Will No August 29, 2022 2:26pm Power of Upkeep Worker No August 29 2:26pm Advance Directive Response Recorded Date/ Time Living Will No September 07, 2022 5:01pm Power of Upkeep Worker No September 07 5:01pm Advance Directive Response Recorded Date/ Time Living Will No September 07, 2022 4:01pm Power of Upkeep Worker No September 07 4:01pm Chief Complaint and [...] 10:4 9am Bleeding in early November 27, 2 025 10:49am History of breast lump November [...] 10:4 9am Bleeding in early November 27 025 10:49am History of breast lump November [...] 2024 10:1 7am Bleeding in early December 07, 025 10:17am History of miscarriage, currently pregna nt [...] Supervision of high-risk Augus t 2024 10:56am Chief Complaint Admit Date bleeding in early , history of miscarriag November 18, 2024 3:04pm *EST* NOB, LMP 10/04, VERÓNICA 07/11November 27, 2024 10:49am wellbeing check December 07, 2024 10 :17am 11wk ob December 25, 2024 10 :56am 15wk ob January 22, 2025 10:00am Reason for Visit Admit Date Alcohol abuse November 27, 2024 10:4 9am History of miscarriage, currently pregna nt November 27, 2024 10:49am History of oligohydramnios November 27 10:49am LGA (large for gestational a ge) fetus affecting management of mother November 27, 2024 10:49am November 27, 2024 10:4 9am Supervision of high-risk November 27, 2024 10:49am Bleeding in early November 27, 2 025 10:49am History of breast lump November 27, 2024 1 0:49am Alcohol abuse December 07, 2024 10:1 7am History of miscarriage, currently pregna nt December 07, 2024 10:17am History of oligohydramnios December 07 10:17am LGA (large for gestational a ge) fetus affecting management of mother December 07, 2024 10:17am December 07, 2024 10:1 7am Supervision of high-risk December 07, 2024 10:17am Bleeding in early December 07, 2 025 10:17am Alcohol abuse December 25, 2024 10 :56am History of miscarriage, currently pregna nt December 25, 2024 10:56am History of oligohydramnios December 25, 2024 10:56am LGA (large for gestational a ge) fetus affecting management of mother December 25, 2024 10:56am December 25, 2024 10 :56am Supervision of high-risk Augus t 2024 10:56am Bleeding in early December 25, 2024 10:56am History of breast lump December 25, 2024 10:56am Alcohol abuse January 22, 2025 10:00am History of miscarriage, currently pregna nt January 22, 2025 10:00am History of oligohydramnios January 10:00am LGA (large for gestational a ge) fetus affecting management of mother January 22, 2025 10:00am January 22, 2025 10:00am Supervision of high-risk Arun burgos 2024 10:00am Chief Complaint Admit Date bleeding in early , history of miscarriag November 18, 2024 3:04pm *EST* NOB, LMP 10/04, VERÓNICA 07/11November 27, 2024 10:49am wellbeing check December 07, 2024 10 :17am 11wk ob December 25, 2024 10 :56am 15wk ob January 22, 2025 10:00am 19 WK OB February 17, 2025 8: 55am Reason for Visit Admit Date Alcohol abuse November 27, 2024 10:4 9am History of miscarriage, currently pregna nt November 27, 2024 10:49am History of oligohydramnios November 27 10:49am LGA (large for gestational a ge) fetus affecting management of mother November 27, 2024 10:49am November 27, 2024 10:4 9am Supervision of high-risk November 27, 2024 10:49am Bleeding in early November 27, 2 025 10:49am History of breast lump November 27, 2024 1 0:49am Alcohol abuse December 07, 2024 10:1 7am History of miscarriage, currently pregna nt December 07, 2024 10:17am History of oligohydramnios December 07 10:17am LGA (large for gestational a ge) fetus affecting management of mother December 07, 2024 10:17am December 07, 2024 10:1 7am Supervision of high-risk December 07, 2024 10:17am Bleeding in early December 07, 025 10:17am Alcohol abuse December 25, 2024 10 :56am History of miscarriage, currently pregna nt December 25, 2024 10:56am History of oligohydramnios December 25, 2024 10:56am LGA (large for gestational a ge) fetus affecting management of mother December 25, 2024 10:56am December 25, 2024 10 :56am Supervision of high-risk Augus t 2024 10:56am Bleeding in early December 25, 2024 10:56am History of breast lump December 25, 2024 10:56am Alcohol abuse January 22, 2025 10:00am History of miscarriage, currently pregna nt January 22, 2025 10:00am History of oligohydramnios January 10:00am LGA (large for gestational a ge) fetus affecting management of mother January 22, 2025 10:00am January 22, 2025 10:00am Supervision of high-risk Septe mber 2024 10:00am Alcohol abuse February 17, 2025 8: 55am History of miscarriage, currently pregna nt February 17, 2025 8:55am History of oligohydramnios February 17, 2025 8:55am LGA (large for gestational a ge) fetus affecting management of mother February 17, 2025 8:55am Placenta previa February 17, 2025 8: 55am February 17, 2025 8: 55am Supervision of high-risk Octob 2024 8:55am Additional Source Comments Care Team (unrecognized sect [...] Role Status Dates Dr. Letty Vaughan DO Attending Provider, Emergency [...] Physician Primary Care Provider Active Monica Flores SUPERVISOR REACTOR FUELING, SUPERVISOR REACTOR FUELING-C Attending Provider, Referring Provider Active Dr. Theresa [...] Physician Primary Care Provider Active Monica Flores SUPERVISOR REACTOR FUELING, SUPERVISOR REACTOR FUELING-C Attending Provider Active Team Status: Active Member Role Status Dates No Primary Care Physician Primary Care Provider Active Monica Flores SUPERVISOR REACTOR FUELING, SUPERVISOR REACTOR FUELING-C Attending Provider, Referring Provider Active Team Status: [...] Physician Primary Care Provider Active Monica Flores SUPERVISOR REACTOR FUELING, SUPERVISOR REACTOR FUELING-C Attending Provider, Referring Provider Active Team Status: [...] December 07, 2024 End: December 07, 2024 Monica Flores NP, JOHN-C Attending Provider Active Start: December 07, 2024 [...] Provider Active S tart: December 25, 2024 Team Status: Inactive Member Role/Relationship Status Dates No Primary Care Physician Primary Care Provider Active Start: December 25, 2024 End: December 25, 2024 Jessica Kaufman CNM Attending Provider Active S tart: December 25, 2024 End: December 25, 2024 Team Status: Inactive Member Role/Relationship Status Dates No Primary Care Physician Primary Care Provider Active Start: January 22, 2025 End: January 22, 2025 No Primary Care Physician Referring Provider Active Start: January 22, 2025 End: January 22, 2025 Dr. Theresa Nance MD Attending Provider Active Start: January 22, 2025 End: January 22, 2025 Team Status: Active Member Role/Relationship Status Dates No Primary Care Physician Primary care physician Activ e Team Status: Inactive Member Role/Relationship Status Dates No Primary Care Physician Primary care physician Activ e Start: November 16, 2024 End: November 16, 2024 Jessica Kaufman CNM Attending physician Active Start: November 16, 2024 End: November 16, 2024 Jessica Kaufman CNM Referring Provider Active S tart: November 16, 2024 End: November 16, 2024 Team Status: Inactive Member Role/Relationship Status Dates No Primary Care Physician Primary care physician Activ e Start: November 18, 2024 End: November 18, 2024 Jessica Kaufman CNM Attending physician Active Start: November 18, 2024 End: November 18, 2024 Jessica Kaufman CNM Referring Provider Active S tart: November 18, 2024 End: November 18, 2024 Team Status: Inactive Member Role/Relationship Status Dates No Primary Care Physician Primary care physician Activ e Start: November 27, 2024 End: November 27, 2024 No Primary Care Physician Referring Provider Active Start: November 27, 2024 End: November 27, 2024 Armida Aranda CNM Attending physician Active Start: November 27, 2024 End: November 27, 2024 Team Status: Inactive Member Role/Relationship Status Dates No Primary Care Physician Primary care physician Activ e Start: November 27, 2024 End: November 27, 2024 Armida Aranda CNM Attending physician Active Start: November 27, 2024 End: November 27, 2024 Team Status: Inactive Member Role/Relationship Status Dates No Primary Care Physician Primary care physician Activ e Start: December 07, 2024 End: December 07, 2024 No Primary Care Physician Referring Provider Active Start: December 07, 2024 End: December 07, 2024 Monica Flores NP, [employer] Attending physician Active Start: December 07, 2024 End: December 07, 2024 Team Status: Inactive Member Role/Relationship Status Dates No Primary Care Physician Primary care physician Activ e Start: December 25, 2024 End: December 25, 2024 No Primary Care Physician Referring Provider Active Start: December 25, 2024 End: December 25, 2024 Jessica Kaufman CNM Attending physician Active Start: December 25, 2024 End: December 25, 2024 Team Status: Inactive Member Role/Relationship Status Dates No Primary Care Physician Primary care physician Activ e Start: December 25, 2024 End: December 25, 2024 Jessica Kaufman CNM Attending physician Active Start: December 25, 2024 End: December 25, 2024 Team Status: Inactive Member Role/Relationship Status Dates No Primary Care Physician Primary care physician Activ e Start: January 22, 2025 End: January 22, 2025 No Primary Care Physician Referring Provider Active Start: January 22, 2025 End: January 22, 2025 Dr. Theresa Nance MD Attending physician Active Start: January 22, 2025 End: January 22, 2025 Team Status: Inactive Member Role/Relationship Status Dates No Primary Care Physician Primary care physician Activ e Start: February 17, 2025 End: February 17, 2025 No Primary Care Physician Referring Provider Active Start: February 17, 2025 End: February 17, 2025 Dr. Theresa Nance MD Attending physician Active Start: February 17, 2025 End: February 17, 2025 Source Comments (unrecognize d section and content) In the event this informatio n is protected by the Federal Confidentiality of Alcohol and Drug Abuse Patient Records regulations: The Federal rules restrict any use of the information to criminally investigate or prosecute any alcohol or drug abuse patient.[facility] the event this information is protected by the Federal Confidentiality of Alcohol and Drug Abuse Patient Records regulations: The Federal rules restrict any use of the information to criminally investigate or prosecute any alcohol or drug abuse patient.[facility] Reason for Visit (unrecogniz ed section and content) Reason Comments Suture Removal x 10 days, 9 sutures right thumb Reason Comments tick biite Right chest x 3 days Care Team (unrecognized sect ion and content) Care Team Personnel Name: CELY PAVON MD Position: P4 Physician - General Surgery Member Role: Surgeon Address: Address: [address] AM General Surgery [place], [place] [address] Name: JAMAICA LAND MD Position: P4 Physician - Primary Care Member Role: Primary Care Physician Address: Address: [address] [place] [address] Physicians [place], [place] [address] Care Team Related Persons Name: KATHY SHOEMAKER Address: Home [address] [place] [address] Name: NASRA SHOEMAKER Address: Home [address] [place] [place], [place] [id number] [place] Address: [facility] [address] [place], [place] [id number] Name: JOSE FINCH Name: CATALINA THAPA Name: CATALINA THAPA INFORMATION SOURCE (unrecogn ized section and content) DATE CREATED AUTHOR 07/13/2022 [facility] ([place]) DATE CREATED AUTHOR AUTHOR'S ORGANIZ ATION 10/11/2023 [facility] DATE CREATED AUTHOR AUTHOR'S ORGANIZ ATION 11/06/2024 [facility] DATE CREATED AUTHOR AUTHOR'S ORGANIZ ATION 02/18/2025 [facility] DATE CREATED AUTHOR AUTHOR'S ORGANIZ ATION 03/15/2025 [facility] Goals (unrecognized section and content) Type Care Experience Labor Preferences-CB /BF classes: []labor support person: []labor intervention preferences: []pain management options preferred: []cut cord/dad catch: []: []PP control planned: []discussed possible routes of delivery and associated risks: []special requests: [] Goals may be documented in an alternate section FOR RECORDS PERTAINING TO PATIENTS [...] BE BASED ON THE PRIMARY CLINICAL RECORDS. [employer] [facility]. provides no warranty or guarantee of the accuracy or completeness of information in this document.
--- NOTE | 2025-04-21 23:53 | EX.ED.DYSGE1 ---
HPI History of Present Illness Chief Complaint: Numb/Ting Informant: patient Narrative Narrative: Patient is a 34-year-old female who is a G6, P4 approximately 28 weeks . She had her glucose tolerance test today and noted around 11 AM that she felt numbness and tingling essentially in the left half from just below the knee to the ankle. She states there has been no recent trauma or excessive activity. She denies any excessive bouts of vomiting or diarrhea. She states that she does not have any back pain or pain in the left thigh. She states she is still able to walk and move the leg at baseline. She contacted her DIRECTOR AND PROFESSOR because of the symptoms and they advised her to come to the ER for evaluation. [facility] Medical History History of oligohydramnios depression Dysmenorrhea Seizures Former smoker Missed Laceration of right thumb Acute pharyngitis Sore throat Lump of right breast Encounter for screening for COVID-19 Alcohol abuse Fatigue Home Medications ?Medication ?Instructions ?Recorded ?Last Taken ?Type vit no.164-ferrous 1 tab PO 11/19/24 Unknown History gluconate 6 mg-folate 833.5 mcg DFE tablet (Yanira PNV) Allergy/AdvReac Type Severity Reaction Status Date / Time measles, mumps, and rubella Allergy seizure Verified 04/21/25 22:15 vaccine Family History Father Heart disease Diabetes Hypertension CVA (cerebral vascular accident) Surgical History H/O dilation and curettage History of breast biopsy (~02/2021) History of orthopedic surgery History of tonsillectomy and adenoidectomy Social History adopted: No household members: significant other and children housing: house number of children: 4 current occupational status: employed 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 current occupational exposures/hazards: No pets and animals: Yes pets and animals: dog(s) and other details: rabbit - inside history of recent travel: No sexually active: Yes Smoking Status: Former smoker how long ago did patient quit smokin second hand exposure: No alcohol intake: former year quit: 2018 details: 7 years - recovering substance use type: does not use well-balanced diet: daily or most days caffeine: No eating out: rarely or never during the past year weight has: remained stable what type of physical activity do you participate in: none mike/amish: Faith seatbelt use: always do you feel safe at home: Yes additional social history: [employer] ROS ROS ED Constitutional Constitutional ED: Denies chills or fever(s) ENT ENT ED: Denies sore throat Cardiovascular Cardiovascular: Denies chest pain, palpitations or racing heartbeat Respiratory/Chest Respiratory/Chest: Denies cough or dyspnea Gastrointestinal Gastrointestinal: Denies abdominal pain, diarrhea, nausea or vomiting Genitourinary Genitourinary ED: Denies dysuria or hematuria Musculoskeletal Musculoskeletal: Reports other Details: Positive left calf numbness/tingling ; Denies back pain Integumentary Denies rash Neurologic Neurologic: Reports paresthesias; Denies headache(s) Hematologic/Lymphatic Hematologic/Lymphatic: Denies easy bleeding or easy bruising EXAM Physical Exam Const Vital Signs: 04/21/25 22:07 04/22/25 00:06 Temperature 98.3 F 98.3 F Temperature Source Oral Pulse Rate 96 81 Respiratory Rate 16 16 Blood Pressure 131/75 H 130/80 H Blood Pressure Mean 93 96 Pulse Ox 99 100 Oxygen Delivery Method Room Air Positive well nourished and well developed General Appearance ED: well developed; Negative for pallor HEENT HEENT Narrative: Normocephalic atraumatic Eyes PERRL and EOMs intact bilaterally General Eye ED: Negative for scleral icterus Neck supple Resp normal respiratory effort and clear to auscultation bilaterally Cardio regular rate and regular rhythm Rate: other Other Details: Radial and carotid pulses are equal and symmetric Back/Spine Back/Spine Narrative: No bony deformity or step-off of the thoracic or lumbar spine no midline tenderness to palpation No saddle anesthesia. Negative straight leg raise. No clonus. Patellar reflexes are +2-4 bilaterally Extremity normal to inspection Extremity Narrative: Left lower extremity is neurovascularly intact No surrounding soft tissue skin changes to suggest trauma or infection such as erythema warmth abrasions or ecchymosis Negative Homans' sign All compartments are soft and compressible going against compartment syndrome Neuro oriented x3 and CN's II-XII intact bilaterally Neuro Narrative: Patient reports that the posterior calf feels like it is a sleep but can still sense light touch and palpation Sensorium / Orientation: alert Psych mental status grossly normal Skin no rashes or lesions noted and no wounds General Skin Exam: Negative for jaundice or pallor MDM MDM MDM Narrative Medical decision making narrative: Patient arrived to the ER complaining of paresthesia sensation in the left lower leg without any trauma or excessive activity. In order to assess for potential DVT as a cause because she is at a higher risk with her status a venous duplex was obtained. We discussed obtaining basic labs to assess for electrolyte abnormality such as hyponatremia or hypokalemia as a potential cause but with the patient only having symptoms in the left calf this is less likely and therefore we elected not to perform laboratory studies. Physical exam did not reveal any changes or compartment syndrome and the symptoms do not change or improved with activity or rest going against exertional compartment. At this time vitals are stable the venous duplex confirms no DVT and physical exam shows no sign of infection therefore I do not feel the need for further workup and she is otherwise safe for discharge and can follow-up as an outpatient for further evaluation History & Record Review Discussion w/independent historian: Patient Radiography Diagnostic Testing: Clinical Impression(s) from Imaging Studies Venous Duplex 04/21/25 22:36 IMPRESSION: No evidence of deep venous thrombosis. Reading Location: [place] [address] Discharge Plan Triage Chief Complaint: Numb/Ting ED Provider: Javon Quintana Dx/Rx/DC Orders Clinical Impression: Paresthesia of left lower extremity, Instructions: ED Paresthesia Prescriptions: No Action Yanira PNV 6 mg iron- 833.5 mcg DFE tablet 1 tab PO Primary Care Provider: Care Physician,No Primary Referrals: Care Physician,No Primary [Primary Care Provider, Medical] Activity Restrictions/Additional Instructions: The venous duplex of your left leg reveals no sign of blood clot/DVT. Follow-up with your family doctor and/or DIRECTOR AND PROFESSOR for repeat evaluation and return to the ER should you have any further concerns Print Language: Maltese Disposition Disposition: Home, Self Care Discharge Date/Time: 04/22/25 00:07
[2025-04-22 00:06] VITALS: BP 130/80; PULSE 81; RESP 16; TEMP 36.8; O2SAT 100
== END 2025-04-22 00:07 | disposition home or self-care (01) ==
PROVIDERS: Emergency Provider Emergency Medicine; Visit Provider Emergency Medicine
DX: O99.891 Other specified diseases and conditions complicating pregnancy (principal); Z87.891 Personal history of nicotine dependence; R20.2 Paresthesia of skin; Z3A.28 28 weeks gestation of pregnancy
CPT/HCPCS: 36415; 82951; 82952; 93971; 99282

== ENCOUNTER → 2025-04-21 | Outpatient (CLI) | payer MEDICAID, SELFPAY ==
[2025-04-21 10:53] LABS: Glucose GTT-Gestation. Fasting 102 mg/dL (<105)
[2025-04-21 13:40] LABS: Glucose GTT-Gestational 2 Hr 133 mg/dL (<165)
[2025-04-21 13:40] LABS: Glucose GTT-Gestational 1 Hr 179 mg/dL (<190)
[2025-04-21 15:00] LABS: Glucose GTT-Gestational 3 Hr 107 L (<145)
== END | disposition home or self-care (01) ==
LOC: LAB 09:52
PROVIDERS: Referring Provider Advanced Practice Midwife; Visit Provider Advanced Practice Midwife
DX: Z00.00 Encounter for general adult medical examination without abnormal findings (principal)
CPT/HCPCS: 36415; 82951; 82952

== ENCOUNTER 2025-04-24 18:35 | Outpatient (CLI) | payer MEDICAID, SELFPAY ==
--- OUTSIDE RECORDS SUMMARY | 2025-04-24 18:43 | XMS RPT_ITS | CCD ---
Author Organization [facility] Care Team Providers Care Apartment Maintenance Technician Name Role Phone SHANDA DEAN, JAMAICA Salcedo Primary Care Physician Unavailable Primary Care Provider Delfina NEGRON MD, DR BERUMEN Attending Delfina LAND MD, JAMAICA Salcedo Primary Care Unavailable DANNIE BAHENA DO Attending Unavailab JAMAICA Rose MD Primary Care Unavailable Care Physician, No Primary Primary Care Provider Unavailable Care Physician, No Primary Referring Provider Un available Dr. Theresa Nance Attending Provider [phone] Dr. Theresa Nance Referring Provider [phone] Dr. Theresa Nance Other Provider [phone] Care Physician, No Primary Primary Care Provider Unavailable Care Physician, No Primary Referring Provider Un available KERRI Kaufman Attending Provider [phone] Unavailable Primary Care Provider Delfina LAND MD, JAMAICA Salcedo Primary Care Unavailable GALILEO BEASLEY Attending Unavailable Care Physician, No Primary Primary Care Provider Unavailable Jessica Kaufman CNM Attending Provider [phone] Jessica Kaufman CNM Referring Provider [phone] Care Physician, No Primary Referring Provider Un available Armida Aranda CNM Attending Provider [phone] Monica Cobb Attending Provider [phone] Dr. Theresa Nance MD Attending Provider [phone] NO PRIMARY CARE, MD Primary Care Unavailable ANGELES ALEXIS Attending Unavailable JESSICA KAUFMAN Referring Unavailable Care Physician, No Primary Primary Care Physicia n Unavailable Jessica Kaufman CNM Attending Physician [phone] Armida Aranda CNM Attending Physician [phone] Sandra HUSAIN, Monica Attending Physician [phone] Lee Ann DEAN, Dr. Cardenas Attending Physician Armida Aranda Attending Unavailable Care Physician, No Primary Referring Unava ilable Care Physician, No Primary Primary Care Unava ilable Sandra ASSISTANT DIRECTOR, Monica Attending Unavailable Care Physician, No Primary [...] No Primary Primary Care Unava ilable Sandra ASSISTANT DIRECTOR, Monica Attending Unavailable Care Physician, No Primary Referring Unava ilable Care Physician, No Primary Primary Care Unava ilable Allergies Allergy Classification Reported Allergen(s) Allergy Type Date of Onset Reaction(s) Facility (7 sources) measles, mumps, and rubella vaccine; Translations: [measles, mumps, and rubella vaccine] Allergy to substance 08-12-2022 Other [facility] Medications Current Medications Medication Drug Class(es) Dates [...] mg tab Take by mouth. 0 Active [place] (Nk) (1 source) Start: 08-29-2022 [place] (Nk) Active August 29, 2022 12:00am Vit 374-Yyji-Fcjvqi 6 ( Pnv) 6 mg iron- 833.5 mcg DFE tablet (9 sources) Start: 11-19-2024 Vit 920-Qhip-Uevple 6 (Yanira Pnv) 6 mg iron- 833.5 mcg DFE tablet Active {tbl} PO November 19, 2024 12:00am Complies with drug therapy Start: 11-19-2024 Vit 1 22-Zwqe-Cldkjh 6 ( Pnv) 6 mg iron- 833.5 [...] 12:00am August 20, 2022 12:04am Missed Missed [id number] 200 actuat albuterol 0.09 mg/actuat metered dose [...] 2022 11:00pm April 19, 2023 10:20am Multivit 79-Qxwh-Nwhyag 1-Dh a (Pnv-Dha) 27 mg iron-1 mg -300 mg capsule (11 sources) Start: 06-14-2023 End: 03-17-2024 Multivit 42-Xtja-Vtultr 1-Dh a (Pnv-Dha) 27 mg iron-1 mg [...] 2018 12:00am March 06, 2021 9:15am ,Calc 30-Ajzd-Cbflew 1 (Pnv-Select) 27-1 mg tablet (2 sources) Start: 06-14-2023 End: 06-14-2023 ,Calc 27-Sfeq-Cxhkmv 1 (Pnv-Select) 27-1 mg tablet Discontinued {tbl} PO June 14, 2023 1:00am June 14, 2023 4:14pm ,Calc.40- Iron-Folate 1 (Pnv-Select) 27-1 mg tablet (9 sources) Start: 06-14-2023 End: 06-14-2023 ,Calc.40-Iron -Folate 1 (Pnv-Select) 27-1 mg tablet Discontinued {tbl} PO June 14, 2023 1:00am June 14, 2023 4:14pm Start: 06-14-2023 End: 06-14-2023 ,Calc.53-Xpmf-Itbqnf 1 (Pnv-Select) 27-1 mg tablet Discontinued TABLET [...] 08-08-2022 Episodic Comment on above: 01/28/24 JV Mccarley NIPT w gender- undec ided. carrier - [...] Test Name Value Interpretation Reference Range Facility [facility] Office Visit Reporton 03-15-2025 [facility] Office Visit Report [facility] [address], [address] [place] [address] OFFICE VISIT Date of Service: 03/15/25 MR#: [id number] Acct: [id number] Name: KEON FINCH Rep #: [id number] : 1990 Provider: KERRI Swenson ams Age/Sex: 34/F Location: [facility] Status: Signed Intake Vital Signs 12/25/24 11:02 02/17/25 09:01 03/15/25 09:57 03/15/25 09:59 Height 5 ft 6 in 5 ft 6 in 5 ft 6 in 5 ft 6 in Weight: 216 lb 220 lb 4 oz BMI 34.8 35.5 BP 107/76 114/71 Intake Visit Reasons: 23wk ob *ppu Childcare Teacher Required: No Is patient in pain?: No [...] 4 current occupational status: employed 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 Date Name GA/Weeks Outcome Route Bth Weight Gen Labor Lgth Anesthesia Del Locatn Provider FOB 12/06/09 [place] 36 live - 6.8 Male epidural [place] 07/25/11 [place] 40 live - full term 6#8oz Female epidural [place] 06/24/13 [place] 40 live - full term 9.2 Male none [place] 08/31/22 8 spontaneous 01/28/24 Mccar[place] 40 live - full term 7lbs 13oz Male epidural [facility] L D Carolyn Nuñez Delivery Date: [...] ?-???-???-???-???-? ? (more content not included)... Normal [facility] Office Visit Reporton 02-17-2025 Flower [facility]er Office Visit Report [facility]'s [address], [address] [place] [address] OFFICE VISIT Date of Service: 02/17/25 MR#: [id number] Acct: [id number] Name: KEON FINCH Rep #: [id number] : 1990 Provider: Dr. 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 Date Name GA/Weeks Outcome Route Bth Weight Gen Labor Lgth Anesthesia Del Locatn Provider FOB 12/06/09 [place] 36 live - 6.8 Male epidural [place] 07/25/11 Nas[place] 40 live - full term 6#8oz Female epidural [place] 06/24/13 Kathy 40 live - full term 9.2 Male none [place] 08/31/22 8 spontaneous 01/28/24 Mccarley 40 live - full term 7lbs 13oz Male epidural [facility] L D Carolyn Nuñez Delivery Date: 08/31/22 Last Updated by: Gely Harding, [facility] Delivery Date: 01/28/24 Last Updated by: [...] 11/27/24 -?? (more content not included)... Normal [facility] Laboratory - Chemistry and C hemistry - challengeOrdered By: Theresa Nance on 01-22-2025 Glucose Ql (U) Negative [facility] Laboratory - UrinalysisOrder ed By: Theresa Nance on 01-22-2025 Protein Ql (U) Negative [facility] Flower Grower Office Visit Reporton 01-22-2025 Flower [facility]er Office Visit Report [facility]'s [address], [address] [place] [address] OFFICE VISIT Date of Service: 01/22/25 MR#: [id number] Acct: [id number] Name: KEON FINCH Rep #: [id number] : 1990 Provider: Dr. 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 Date Name GA/Weeks Outcome Route Bth Weight [facility] F[facility] 12/06/09 [place] 36 live - 6.8 Male epidural [place] 07/25/11 [place] 40 live - full term 6#8oz Female epidural [place] 06/24/13 [place] 40 live - full term 9.2 Male none [place] 08/31/22 8 spontaneous 01/28/24 M[place] 40 live - full term 7lbs 13oz Male epidural [facility] L D Carolyn Nuñez Delivery Date: [...] -???-???-???-???-?? ? (more content not included)... Normal [facility] Absolute lymphocyte countOrd ered By: Armida Aranda on 12-25-2024 Lymphocytes Auto (Unsp spec) [#/Vol] 2.11 10*3/uL 0.83-4.51 [facility] Absolute neutrophil countOrd ered By: Armida Aranda on 12-25-2024 Neutrophils (Bld) [#/Vol] 5.3 10*3/uL 2.0-7.7 [facility] Automated lymphocyte count a s percentage of total leukocytesOrdered By: Armida Aranda on 12-25-2024 Lymphocytes/100 WBC Auto (Unsp spec) 26.6 % 19-41 [facility] Basophil percentageOrdered B y: Armida Aranda on 12-25-2024 Basophils/100 WBC (Bld) 0.3 % 0-[address] [facility] CBC W/Diff, Automatedon 12-11 Absolute Lymph 2.11 X10 3/uL Normal 0.83-4.51 [facility] Comment on above: Performed By: #### B TS, L3890.6006, L900.0098, L3890.6301, L501.9985, L3890.6102, L100.0100, L509.8002, L509.4006 #### [facility] [address] [place], [address] Absolute Neut 5.3 X10 3/uL Normal 2.0-7.7 [facility] Comment on above: Performed By: #### B TS, L3890.6006, L900.0098, L3890.6301, L501.9985, L3890.6102, L100.0100, L509.8002, L509.4006 #### [facility] [address] [place], [address] Basophils/100 WBC (Bld) 0.3 % Normal 0-[address] [facility] Comment on above: Performed By: #### B TS, L3890.6006, L900.0098, L3890.6301, L501.9985, L3890.6102, L100.0100, L509.8002, L509.4006 #### [facility] [address] [place], [address] Eosinophils/100 WBC (Bld) 1.0 % Normal 0-5 [facility] Comment on above: Performed By: #### B TS, L3890.6006, L900.0098, L3890.6301, L501.9985, L3890.6102, L100.0100, L509.8002, L509.4006 #### [facility] [address] [place], [address] Erythrocyte distribution width (RBC) [Ratio] 12.4 % Normal 11.6-14.6 [facility] Comment on above: Performed By: #### B TS, L3890.6006, L900.0098, L3890.6301, L501.9985, L3890.6102, L100.0100, L509.8002, L509.4006 #### [facility] [address] [place], [address] Hematocrit (Bld) [Volume fraction] 40.8 % Normal 37-47 [facility] Comment on above: Performed By: #### B TS, L3890.6006, L900.0098, L3890.6301, L501.9985, L3890.6102, L100.0100, L509.8002, L509.4006 #### [facility] [address] [place], [address] Hemoglobin (Bld) [Mass/Vol] 14.1 g/dL Normal 12.0-15.0 [facility] Comment on above: Performed By: #### B TS, L3890.6006, L900.0098, L3890.6301, L501.9985, L3890.6102, L100.0100, L509.8002, L509.4006 #### [facility] [address] [place], [address] IG% 0.400 Normal 0.0-0.9 [facility] Comment on above: Result Comment: IG% - Immature Granulocytes (promyelocytes, myelocytes and metamyelocytes) > 1% indicates that a LEFT SHIFT is Present. Performed By: #### B TS, L3890.6006, L900.0098, L3890.6301, L501.9985, L3890.6102, L100.0100, L509.8002, L509.4006 #### [facility] [address] [place], [address] Lymphocytes/100 WBC (Bld) 26.6 % Normal 19-41 [facility] Comment on above: Performed By: #### B TS, L3890.6006, L900.0098, L3890.6301, L501.9985, L3890.6102, L100.0100, L509.8002, L509.4006 #### [facility] [address] [place], [address] MCH (RBC) [Entitic mass] 31.3 pg Normal 27.0-32.0 [facility] Comment on above: Performed By: #### B TS, L3890.6006, L900.0098, L3890.6301, L501.9985, L3890.6102, L100.0100, L509.8002, L509.4006 #### [facility] [address] [place], [address] MCHC (RBC) [Mass/Vol] 34.6 g/dL Normal 32-36 [facility] Comment on above: Performed By: #### B TS, L3890.6006, L900.0098, L3890.6301, L501.9985, L3890.6102, L100.0100, L509.8002, L509.4006 #### [facility] [address] [place], [address] MCV (RBC) [Entitic vol] 90.5 fL Normal 81-[address] [facility] Comment on above: Performed By: #### B TS, L3890.6006, L900.0098, L3890.6301, L501.9985, L3890.6102, L100.0100, L509.8002, L509.4006 #### [facility] [address] [place], [address] Monocytes/100 WBC (Bld) 4.8 % Normal 0-10 [facility] Comment on above: Performed By: #### B TS, L3890.6006, L900.0098, L3890.6301, L501.9985, L3890.6102, L100.0100, L509.8002, L509.4006 #### [facility] [address] [place], [address] Neutrophils/100 WBC (Bld) 66.9 % Normal 47-70 [facility] Comment on above: Performed By: #### B TS, L3890.6006, L900.0098, L3890.6301, L501.9985, L3890.6102, L100.0100, L509.8002, L509.4006 #### [facility] [address] [place], [address] Nucleated RBC (Bld) [#/Vol] 0 10*3/uL Normal 0-5 [facility] Comment on above: Performed By: #### B TS, L3890.6006, L900.0098, L3890.6301, L501.9985, L3890.6102, L100.0100, L509.8002, L509.4006 #### [facility] [address] [facility] [place], [address] ( Platelet mean volume (Bld) [Entitic vol] 9.2 fL Normal 6.2-12.0 [facility] Comment on above: Performed By: #### B TS, L3890.6006, L900.0098, L3890.6301, L501.9985, L3890.6102, L100.0100, L509.8002, L509.4006 #### [facility] [address] [facility] [place], [address] ( Platelets (Bld) [#/Vol] 293 10*3/uL Normal 150-450 [facility] Comment on above: Performed By: #### B TS, L3890.6006, L900.0098, L3890.6301, L501.9985, L3890.6102, L100.0100, L509.8002, L509.4006 #### [facility] [address] [facility] [place], [address] RBC (Bld) [#/Vol] 4.51 10*6/uL Normal 4.2-5.4 [facility] Comment on above: Performed By: #### B TS, L3890.6006, L900.0098, L3890.6301, L501.9985, L3890.6102, L100.0100, L509.8002, L509.4006 #### [facility] [address] [place], [address] RDW SD 40.2 fl Normal 35.1-43.9 [facility] Comment on above: Performed By: #### B TS, L3890.6006, L900.0098, L3890.6301, L501.9985, L3890.6102, L100.0100, L509.8002, L509.4006 #### [facility] [address] [place], [place], [id number] (757) WBC (Bld) [#/Vol] 7.9 10*3/uL Normal 4.4-11.0 [facility] Comment on above: Performed By: #### B TS, L3890.6006, L900.0098, L3890.6301, L501.9985, L3890.6102, L100.0100, L509.8002, L509.4006 #### [facility] [address] [place], [place], [id number] ([address]) Eosinophil percentageOrdered By: Armida Aranda on 12-25-2024 Eosinophils/100 WBC (Bld) 1.0 % 0-5 [facility] Erythrocyte distribution wid th ratioOrdered By: Armida Aranda on 12-25-2024 Erythrocyte distribution width (RBC) [Ratio] 12.4 % 11.6-14.6 [facility] Erythrocyte distribution wid th standard deviationOrdered By: Armida Aranda on 12-25-2024 Erythrocyte distribution width (RBC) [Ratio] 40.2 fl 35.1-43.9 [facility] HIVon 12-25-2024 HIV Non-Reactive Normal Nonreactive [facility] Comment on above: Result Comment: Non- Reactive Reactive Repeatedly reactive samples must be confirmed according to CDC recommended confirmatory algorithms. The subresults for either HIVAG or AHIV can be used as an aid in the selection of the confirmation algorithm for reactive samples. Send out specimens with Reactive results to [facility] for confirmation. Order the HIV antibody detection and differentiation: lc#[id number] Performed By: #### B TS, L3890.6006, L900.0098, L3890.6301, L501.9985, L3890.6102, L100.0100, L509.8002, L509.4006 ####[facility] [id number] [place], [address] Hematocrit Auto (Bld) [Volum e fraction]Ordered By: Armida Aranda on 12-25-2024 Hematocrit (Bld) [Volume fraction] 40.8 % 37-47 [facility] Hemoglobin A1con 12-25-2024 HbA1c (Bld) [Mass fraction] 5.2 % Normal <=5.6 [facility] Comment on above: Result Comment: Norm al < 5.7 % Prediabetic 5.7 - 6.4 % Diabetic >or= 6.5 % Please note range changes. Performed By: #### B TS, L3890.6006, L900.0098, L3890.6301, L501.9985, L3890.6102, L100.0100, L509.8002, L509.4006 #### [facility] [address] [place], [address] Hemoglobin A1c percentageOrd ered By: Armida Aranda on 12-25-2024 HbA1c (Bld) [Mass fraction] 5.2 % <5.7 [facility] Comment on above: Normal < 5.7 % Predi abetic 5.7 - 6.4 % Diabetic >or= 6.5 % Please note range changes. Hemoglobin measurementOrdere d By: Armida Aranda on 12-25-2024 Hemoglobin (Bld) [Mass/Vol] 14.1 g/dL 12.0-15.0 [facility] Hepatitis C Antibodyon 12-25 Hepatitis C Ab Non-Reactive Normal Nonreactive [facility] Comment on above: Result Comment: Reac tive: Presumptive evidence of antibodies to HCV. Follow CDC recommendations for supplemental testing. Non-Reactive: Antibodies to HCV were not detected; does not exclude the possibility of exposure to HCV Reactive Results are presumptive evidence of antibodies to HCV. Follow CDC recommendations for supplemental testing. Order confirmation testing: HCV Quant by PCR testing - HCVPCR #[id number] Non Reactive: < 0.8 Equivocal: >/= 0.8 to < 1.0 Reactive: >/= 1.0 The CDC requires that a reactive/equivocal HCV antibody result be sent out for confirmation. HCV Quant by PCR testing. Performed By: #### B TS, L3890.6006, L900.0098, L3890.6301, L501.9985, L3890.6102, L100.0100, L509.8002, L509.4006 ####[facility] [id number] [facility] [place], [place], [id number] Immature granulocytes/100 WB C Auto (Bld)Ordered By: Armida Aranda on 12-25-2024 Immature granulocytes/100 WBC (Bld) 0.400 % 0.0-0.9 [facility] Comment on above: IG% - Immature Granu locytes (promyelocytes, myelocytes and metamyelocytes) > 1% indicates that a LEFT SHIFT is Present. L3890.6102on 12-25-2024 HEP B Surf Ag Non-Reactive Normal Nonreactive [facility] Comment on above: Result Comment: Reac tive: Presumptive evidence of HBV. Repeatedly reactive samples must be confirmed using a neutralization test ([employer] HBsAg Confirmatory Test) Non-Reactive: HBsAg not detected; does not exclude the possibility of exposure to HBV Performed By: #### B TS, L3890.6006, L900.0098, L3890.6301, L501.9985, L3890.6102, L100.0100, L509.8002, L509.4006 ####[facility] [id number] [facility] [place], [address] L509.4006on 12-25-2024 Rubella IgG REAC Normal Nonreactive [facility] Comment on above: Result Comment: Anti body Result: Interpretation Non-Reactive: Non-Immune Reactive: Immune The following results were obtained with the [employer] Rubella IgG assay. Results from assays of other manufacturers cannot be used interchangeably. Performed By: #### B TS, L3890.6006, L900.0098, L3890.6301, L501.9985, L3890.6102, L100.0100, L509.8002, L509.4006 #### [facility] [address] [facility] [address] [place], [place], [id number] Laboratory - Chemistry and C hemistry - challengeOrdered By: Jessica Kaufman on 12-25-2024 Glucose Ql (U) Negative [facility] Laboratory - Microbiology an d Antimicrobial susceptibilityOrdered By: Armida Aranda on 12-25-2024 HBV surface Ag Ql (S) Non-Reactive Nonreactive [facility] Comment on above: Reactive: Presumptiv e evidence of HBV. Repeatedly reactive samples must be confirmed using a neutralization test ([employer] HBsAg Confirmatory Test)Non-Reactive: HBsAg not detected; does not exclude the possibility of exposure to HBV Laboratory - UrinalysisOrder ed By: Jessica Kaufman on 12-25-2024 Protein Ql (U) Negative [facility] MCV (mean corpuscular volume ) determinationOrdered By: Armida Aranda on 12-25-2024 MCV (RBC) [Entitic vol] 90.5 fL 81-99 [facility] Mean corpuscular hemoglobin (MCH) determinationOrdered By: Armida Aranda on 12-25-2024 MCH (RBC) [Entitic mass] 31.3 pg 27.0-32.0 [facility] Mean corpuscular hemoglobin concentration (MCHC) determinationOrdered By: Armida Aranda on 12-25-2024 MCHC (RBC) [Mass/Vol] 34.6 g/dL 32-36 [facility] Mean platelet volume determi nationOrdered By: Armida Aranda on 12-25-2024 Platelet mean volume (Bld) [Entitic vol] 9.2 fL 6.2-12.0 [facility] Monocyte percentageOrdered B y: Armida Aranda on 12-25-2024 Monocytes/100 WBC (Bld) 4.8 % 0-[address] [facility] NATERAon 12-25-2024 NATURA SEE SCANNED REPORT Normal [facility] Comment on above: Performed By: #### B TS, L3890.6006, L900.0098, L3890.6301, L501.9985, L3890.6102, L100.0100, L509.8002, L509.4006 #### [facility] [address] [place], [address] Neutrophil percentageOrdered By: Armida Aranda on 12-25-2024 Neutrophils/100 WBC (Bld) 66.9 % 47-70 [facility] No Panel InformationOrdered By: Armida Aranda on 12-25-2024 HIV (1&2) Antibody Non-Reactive Nonreactive [facility] Comment on above: Non-ReactiveReactive Repeatedly reactive samples must be confirmed according to CDC recommended confirmatory algorithms. The subresults for either HIVAG or AHIV can be used as an aid in the selection of the confirmation algorithm for reactive samples.Send out specimens with Reactive results to [facility] for confirmation.Order the HIV antibody detection and differentiation: #[id number] Nucleated red blood cell per centageOrdered By: Armida Aranda on 12-25-2024 Nucleated RBC/100 WBC (Bld) [Ratio] 0 % 0-5 [facility] Flower Grower Office Visit Reporton 12-25-2024 Flower [employer]er Office Visit Report [facility] [address], [address] [place] [address] OFFICE VISIT Date of Service: 12/25/24 MR#: [id number] Acct: [id number] Name: KEON FINCH Rep #: [id number] : 1990 Provider: KERRI Swenson ams Age/Sex: 34/F Location: [facility] Status: Signed Intake Vital Signs 03/17/24 14:34 12/07/24 10:21 12/25/24 11:02 Height 5 ft 6 in 5 ft 6 in 5 ft 6 in Weight: 206 lb 8 oz BMI 33.3 BP 127/81 H Intake Visit Reasons: 11wk ob Chief Complaint: 11wk OB Childcare Teacher Required: No Is patient in pain?: No [...] 4 current occupational status: employed 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 Date Name GA/Weeks Outcome Route Bth Weight Gen Labor Lgth Anesthesia Del Locatn Provider FOB 12/06/09 Simone 36 live - 6.8 Male epidural [place] 07/25/11 Nasra 40 live - full term 6#8oz Female epidural [place] 06/24/13 Kathy 40 live - full term 9.2 Male none [place] 08/31/22 8 spontaneous 01/28/24 Mccarley 40 live - full term 7lbs 13oz Male epidural [facility] Laurie Wells Delivery Date: 08/31/22 Last [...] ?-???-???-???-???-? ??-???-? (more content not included)... Normal [facility] Platelet countOrdered By: Keisha Aranda on 12-25-2024 Platelets (Bld) [#/Vol] 293 10*3/uL 150-450 [facility] RBC Auto (Bld) [#/Vol]Ordere d By: Armida Aranda on 12-25-2024 RBC (Bld) [#/Vol] 4.51 10*6/uL 4.2-5.4 [facility] Syphilis Antibodieson 2024 Syphilis Abs Non-Reactive Normal Nonreactive [facility] Comment on above: Performed By: #### B TS, L3890.6006, L900.0098, L3890.6301, L501.9985, L3890.6102, L100.0100, L509.8002, L509.4006 ####[facility] [address] [place], [place], [id number] Type AND Screenon 12-25-2024 ABO and Rh group Nom (Bld) Blood group A Rh(D) positive Normal [facility] Comment on above: Order Comment: PN Performed By: #### B TS, L3890.6006, L900.0098, L3890.6301, L501.9985, L3890.6102, L100.0100, L509.8002, L509.4006 ####[facility] [address] [place], [place], [id number] White blood cell (WBC) count Ordered By: Armida Aranda on 12-25-2024 WBC (Bld) [#/Vol] 7.9 10*3/uL 4.4-11.0 [facility] Laboratory - Chemistry and C hemistry - challengeOrdered By: Monica Flores on 12-07-2024 Glucose Ql (U) Negative [facility] Laboratory - UrinalysisOrder ed By: Monica Flores on 12-07-2024 Protein Ql (U) Negative [facility] [employer] Office Visit Reporton 12-07-2024 [facility] Office Visit Report [address], [address] [place] [address] OFFICE VISIT Date of Service: 12/07/24 MR#: [id number] Acct: [id number] Name: KEON FINCH Rep #: [id number] : 1990 Provider: LISHA norman Age/Sex: 33/F Location: [facility] Status: Signed Intake Vital Signs 11/27/24 10:52 [...] current occupational status: employed 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 ?-???-???-???-??? (more content not included)... Normal [facility] Chlamydia/GC DIANA aptimaon CHLAMY,NUC ACID Negative Normal Negative [facility] Comment on above: Performed By: #### M 100.2200, L7000.1800 #### [facility] Laboratory [address] [place], [id number] GC BY NUC ACID Negative Normal Negative [facility] Comment on above: Result Comment: Perf ormed at: =G - [facility] [address] [place] [id number] Patrol Sergeant: Nancy Palacios MD, Phone: [phone] Performed By: #### M 100.2200, L7000.1800 #### [facility] [address] [place], [place], [address] Urine Cultureon 11-29-2024 [facility] Mixed Gram Positive Organisms Barto Count 1000-10,000 MIXC Mixed contaminants. Submit a new specimen if indicated. Normal [facility] Comment on above: Performed By: #### M 100.2200, L7000.1800 #### [facility] [address] [place], [place], [address] Chlamydia trachomatis rRNA d etection by probe and target amplification methodOrdered By: Armida Aranda on 11-27-2024 C. trachomatis rRNA DIANA+probe Ql (Unsp spec) Negative Negative [facility] Neisseria gonorrhoeae nuclei c acid detection by amplified probe techniqueOrdered By: Armida Aranda on 11-27-2024 N. gonorrhoeae DNA DIANA+probe Ql (Unsp spec) Negative Negative [facility] Comment on above: Performed at: =[address] [id number] Director: Nancy Palacios MD, Phone: [phone] F[employer] Office Visit Reporton 11-27-2024 Flower [employer]er Office Visit Report [facility] [address], [address] [place] [address] OFFICE VISIT Date of Service: 11/27/24 MR#: [id number] Acct: [id number] Name: KEON FINCH Rep #: [id number] : 1990 Provider: KERRI danielson Age/Sex: 33/F Location: [facility] Status: Signed Intake Vital Signs 03/17/24 14:34 11/27/24 10:52 Height 5 ft 6 in 5 ft 6 in Weight: 205 lb BMI 33.0 BP 127/79 H Intake Visit Reasons: *EST* NOB, LMP 10/04, VERÓNICA 07/11 Childcare Teacher Required: No Is patient in pain?: No [...] 4 current occupational status: employed 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 Date Name GA/Weeks Outcome Route Bth Weight Gen Labor Lgth Anesthesia Del Locatn Provider HARLEY 12/06/09 Simone 36 live - 6.8 Male epidural [place] 07/25/11 Nasra 40 live - full term 6#8oz Female epidural [place] 06/24/13 Kathy 40 live - full term 9.2 Male none [place] 08/31/22 8 spontaneous 01/28/24 Mccarley 40 live - full term 7lbs 13oz Male epidural [facility] L D Carolyn Nuñez Delivery Date: [...] ?-???-???-???-???-? ??-?? (more content not included)... Normal [facility] Urine cultureOrdered By: Evelyn Aranda on 11-27-2024 Bacteria identified Cx Nom (U) Positive Abnormal [facility] Serum human chorionic gonado tropin detection for pregnancyOrdered By: Jessica Kaufman on 11-18-2024 HCG ( test) Ql [address] mIU/mL High <9 [facility] Comment on above: Gestational Age0.2-1 Week: 5-50 mIU/mL1-2 Weeks: 50-500 mIU/mL2-3 Weeks: 100-5000 mIU/mL3-4 Weeks: 500-10,000 mIU/mL4-5 Weeks:1000-50,000 mIU/mL5-6 Weeks: 10,000-100,000 mIU/mL6-8 Weeks: 15,000-200,000 mIU/mL2-3 Months:10,000-100,000 mIU/mL Transvaginal w/Preg USon Transvaginal w/Preg US [facility] [address] [place], [place] [address] Transvaginal w/Preg US MR#: [id number] Acct: [id number] Name: KEON FINCH Rep #: [id number] : 1990 F 33 From: Vidal Martins MD PCP: Care Physician,No Primary Status: REG CLI Study: Transvaginal w/Preg US Date of Exam: 11/18/24 Exam# [id number] Ordering Dr: Jessica Kaufman CNM PROCEDURE: TRANSVAGINAL [...] exam. Follow-up as clinically warranted. Reading Location: [id number] CC: KERRI Kaufman; No Primary Care Physician Plan Checker: Signed Normal [facility] hCG Titer Quant., Serumon HCG QUANT. 45825 mIU/mL High <9 non-preg [facility] Comment on above: Result Comment: Gest ational Age 0.2-1 Week: 5-50 mIU/mL 1-2 Weeks: 50-500 mIU/mL 2-3 Weeks: 100-5000 mIU/mL 3-4 Weeks: 500-10,000 mIU/mL 4-5 Weeks:1000-50,000 mIU/mL 5-6 Weeks: 10,000-100,000 mIU/mL 6-8 Weeks: 15,000-200,000 mIU/mL 2-3 Months:10,000-100,000 mIU/mL Performed By: #### L 700.8000 ####[facility] [address] [place], [place], [address] Serum human chorionic gonado tropin detection for pregnancyOrdered By: Jessica Kaufman on 11-16-2024 HCG ( test) Ql 6025 mIU/mL High <9 [facility] Comment on above: Gestational Age0.2-1 Week: 5-50 mIU/mL1-2 Weeks: 50-500 mIU/mL2-3 Weeks: 100-5000 mIU/mL3-4 Weeks: 500-10,000 mIU/mL4-5 Weeks:1000-50,000 mIU/mL5-6 Weeks: 10,000-100,000 mIU/mL6-8 Weeks: 15,000-200,000 mIU/mL2-3 Months:10,000-100,000 mIU/mL hCG Titer Quant., Serumon HCG QUANT. 6025 mIU/mL High <9 non-preg [facility] Comment on above: Result Comment: Gest ational Age 0.2-1 Week: 5-50 mIU/mL 1-2 Weeks: 50-500 mIU/mL 2-3 Weeks: 100-5000 mIU/mL 3-4 Weeks: 500-10,000 mIU/mL 4-5 Weeks:1000-50,000 mIU/mL 5-6 Weeks: 10,000-100,000 mIU/mL 6-8 Weeks: 15,000-200,000 mIU/mL 2-3 Months:10,000-100,000 mIU/mL Performed By: #### L 700.8000 #### [facility] [address] [place], [place], [address] Flower Grower Office Visit Reporton 03-17-2024 Flower Grower Office Visit Report [facility] [address], [address] [place] [address] OFFICE VISIT Date of Service: 03/17/24 MR#: [id number] Acct: [id number] Name: KEON FINCH Rep #: [id number] : 1990 Provider: LISHA norman Age/Sex: 33/F Location: [facility] Status: Signed Intake Vital Signs 01/28/24 07:14 02/19/24 11:14 03/17/24 14:28 03/17/24 14:34 Height 5 ft 6 in 5 ft 6 in 5 ft 6 in 5 ft 6 in Weight: 236 lb 4 oz BMI 38.1 BP 110/74 Intake Visit Reasons: visit (obstetrics) Chief Complaint: 6 Week PP Childcare Teacher Required: No Is patient in pain?: No Allergies measles, mumps, and rubella vaccine Allergy (Verified 03/17/24 14:27) seizure Medications ???Medication ???Instructions ???Recorded ???Confirmed ???Type NK 03/17/24 03/17/24 History Last Menstrual Period: 03/09/24 : Yes [facility] Medical History (Updated 03/17/24 @ 15:06 by [...] physical activity do you participate in: none mike/rastafarian: Jewish seatbelt use: always do you feel safe at home: Yes additional social history: - Nuñez- Avanzit History 5 Elective abortions Hx Para 4 Spontaneous abortions 1 Hx # Term Pregnancies Ectopic pregnancies Hx # Pregnancies Multiple births # of living children 4 Past Pregnancies Del. Date Name GA/Weeks Outcome Route Bth Weight Gen Labor Lgth Anesthesia Del [facility] Provider FOB 12/06/09 Simone 36 live - 6.8 Male epidural [place] 07/25/11 Nasra 40 live - full term 6#8oz Female epidural [place] 06/24/13 [place] 40 live - full term 9.2 Male none [place] 08/31/22 8 spontaneous 01/28/24 [place] 40 live - full term 7lbs 13oz Male epidural [facility] Laurie Gruberalma Ulloafamilia Nuñez Delivery Date: [...] visit. Infant Feeding: Breast Menses resumed: Yes [place] since delivery: No Emotional Support: Yes Last [...] vagina a (more content not included)... [facility] ([facility] ---- KEON FINCH ([id number]) 1990 F Date Time Provider Department 10/09/23 5:45 PM HAILE COLE [facility] During your visit today, we recorded [...] of care. This note was generated using [employer] software. It may contain errors in wording, punctuation, or spelling. Haile Cole APRN.PYTHON PROGRAMMER Allergies As of Date: 10/09/2023 (No Known [...] Service: OFFICE/OUTPATIENT ESTABLISHED LOW MDM 20 MIN [88155] Encounter Status:Closed by HAILE COLE on 10/09/23 Normal [facility] Cervical or vaginal specimen microscopic examination by liquid based cytology (reportOrdered By: Jessica Kaufman on 06-20-2023 Cytology report Cyto stain.thin prep Doc (Cvx/Vag) Comment . [facility] Comment on above: Criteria not met, HP V Genotype not performed.Performed at: [facility] - [address] [id number] Director: Nancy Palacios MD, Phone: [phone] at: =[facility] [place], [place] [id number] Director: Nancy Palacios MD, Phone: [phone] Cervical or vagninal specime n microscopic examination by cytology stain (reported asOrdered By: Jessica Kaufman on 06-20-2023 Cytology report Cyto stain Doc (Cvx/Vag) Comment . [facility] Comment on above: The Pap smear is [...] rRNA DIANA+probe Ql (Unsp spec) Negative Negative [facility] Culture, urineOrdered By: Chidi Kaufman on 06-20-2023 Bacteria identified Cx Nom (U) Positive [facility] Detection in cervical specim en of any of human papilloma virus (HPV) 16, 18, 31, 33,Ordered By: Jessica Kaufman on 06-20-2023 HPV 16+18+31+33+35+39+45+51+ 52+56+58+59+66+68 DNA Probe+sig amp Ql (Cvx) Negative Negative [facility] Comment on above: This nucleic acid am plification test detects fourteen high-risk HPV types (16,18,31,33,35,39,45,51,52,56,58,59,66,68)without differentiation. Laboratory - CytologyOrdered By: Jessica Kaufman on 06-20-2023 Oracle Erp Developer Cyto stain Nom (Cvx/Vag) [ID] Comment . [facility] Comment on above: Milka ace, Revenue Cycle Consultant (ASCP) Laboratory - Microbiology an d Antimicrobial susceptibilityOrdered By: Jessica Kaufman on 06-20-2023 N. gonorrhoeae DNA DIANA+probe Ql (Unsp spec) Negative Negative [facility] Comment on above: Performed at: =[facility] [id number] Director: Nancy Palacios MD, Phone: [phone] Laboratory - Miscellaneous t estsOrdered By: Jessica Kaufman on 06-20-2023 Service comment (Unsp spec) [Interp] . . [facility] Thin prep Papanicolaou smear with manual screeningOrdered By: Jessica Kaufman on 06-20-2023 Thin prep Papanicolaou smear with manual screening Comment . [facility] Comment on above: NEGATIVE FOR INTRAEP ITHELIAL LESION OR MALIGNANCY. This liquid based Th inPrep(R) pap test was screened withthe use of an image guided system. Serum or plasma choriogonado tropin detectionOrdered By: Monica Flores on 06-05-2023 HCG ( test) [place]l [address]679 mIU/mL <4 [facility] Comment on above: hCG levels with Gest ational AgeGestational Age hCG mIU/mL (IU/L)0.2 - 1 week 5 - 501-2 weeks 50 - 5002-3 weeks 100 - 12146-4 weeks 500 - 399366-1 weeks 1000 - 641732-6 weeks 10504 - 100,0006-8 weeks 94897 - 200,0002-3 months 94057 - 100,000 Serum or plasma choriogonado tropin detectionOrdered By: Monica Flores on 06-03-2023 HCG ( test) Ql 35126 mIU/mL <4 [facility] Comment on above: hCG levels with Gest ational AgeGestational Age hCG mIU/mL (IU/L)0.2 - 1 week 5 - 501-2 weeks 50 - 5002-3 weeks 100 - 63778-9 weeks 500 - 709899-8 weeks 1000 - 854321-2 weeks 78787 - 100,0006-8 weeks 89413 - 200,0002-3 months 81410 - 100,000 Serum or plasma choriogonado tropin detectionOrdered By: Theresa Nance on 05-25-2023 HCG ( test) Ql 339 mIU/mL <4 [facility] Comment on above: hCG levels with Gest ational AgeGestational Age hCG mIU/mL (IU/L)0.2 - 1 week 5 - 501-2 weeks 50 - 5002-3 weeks 100 - 12732-7 weeks 500 - 488265-5 weeks 1000 - 019397-6 weeks 98424 - 100,0006-8 weeks 78743 - 200,0002-3 months 48431 - 100,000 Serum or plasma choriogonado tropin detectionOrdered By: Theresa Nance on 05-23-2023 HCG ( test) Ql 132 mIU/mL <[address] [facility] Comment on above: hCG levels with Gest ational AgeGestational Age hCG mIU/mL (IU/L)0.2 - 1 week 5 - 501-2 weeks 50 - 5002-3 weeks 100 - 32945-7 weeks 500 - 955229-9 weeks 1000 - 082860-3 weeks 57853 - 100,0006-8 weeks 97994 - 200,0002-3 months 87064 - 100,000 Absolute lymphocyte countOrd ered By: Dr. Nance on 10-10-2022 Lymphocytes Auto (Unsp spec) [#/Vol] 3.09 10*3/uL 0.83-4.51 [facility] Basophil percentageOrdered B y: Dr. Nance on 10-10-2022 Basophils/100 WBC (Bld) 0.4 % 0-[address] [facility] Eosinophils/100 WBC (Bld) 1.8 % 0-5 [facility] Neutrophils (Bld) [#/Vol] 4.4 10*3/uL 2.0-7.7 [facility] Neutrophils/100 WBC (Bld) 54.5 % 47-70 [facility] WBC (Bld) [#/Vol] 8.1 10*3/uL 4.4-11.0 [facility] Blood erythrocytes count (nu mber/volume)Ordered By: Dr. Nance on 10-10-2022 RBC (Bld) [#/Vol] 4.45 10*6/uL 4.2-5.4 [facility] Blood hemoglobin measurement (mass/volume)Ordered By: Dr. Nacne on 10-10-2022 Hemoglobin (Bld) [Mass/Vol] 13.8 g/dL 12.0-15.0 [facility] Blood lymphocytes/100 leukoc ytesOrdered By: Dr. Nance on 10-10-2022 Lymphocytes/100 WBC (Bld) 38.1 % 19-41 [facility] Blood monocytes/100 leukocyt esOrdered By: Dr. Nance on 10-10-2022 Monocytes/100 WBC (Bld) 5.0 % 0-[address] [facility] Blood platelet mean volumeOr dered By: Dr. Nance on 10-10-2022 Platelet mean volume (Bld) [Entitic vol] 8.5 fL 6.2-12.0 [facility] Determination of erythrocyte mean corpuscular volume (MCV)Ordered By: Dr. Nance on 10-10-2022 MCV (RBC) [Entitic vol] 91.7 fL 81-[address] [facility] Hematocrit Auto (Bld) [Volum e fraction]Ordered By: Dr. Nance on 10-10-2022 Hematocrit (Bld) [Volume fraction] 40.8 % 37-47 [facility] Laboratory - Hematology and Cell countsOrdered By: Dr. Nance on 10-10-2022 Erythrocyte distribution width (RBC) [Entitic vol] 40.1 fL 35.1-43.9 [facility] Erythrocyte distribution width (RBC) [Ratio] 11.9 % 11.6-14.6 [facility] Immature granulocytes/100 WBC (Bld) 0.200 % 0.0-0.9 [facility] Comment on above: IG% - Immature Granu locytes (promyelocytes, myelocytes and metamyelocytes) > 1% indicates that a LEFT SHIFT is Present. MCH (RBC) [Entitic mass] 31.0 pg 27.0-32.0 [facility] Nucleated RBC/100 WBC (Bld) [Ratio] 0 % 0-5 [facility] MCHC Auto (RBC) [Mass/Vol]Or dered By: Dr. Nance on 10-10-2022 MCHC (RBC) [Mass/Vol] 33.8 g/dL 32-36 [facility] No Panel InformationOrdered By: Dr. Nance on 10-10-2022 Thyroid Stimulating Hormone (TSH) 1.02 uIU/mL 0.358-3.74 [facility] Platelets bldOrdered By: Dr. Nance on 10-10-2022 Platelets (Bld) [#/Vol] 324 10*3/uL 150-450 [facility] Serum or plasma choriogonado tropin detectionOrdered By: Dr. Nance on 10-10-2022 HCG ( test) Ql 2 mIU/mL <[address] [facility] Comment on above: hCG levels with Gest ational AgeGestational Age hCG mIU/mL (IU/L)0.2 - 1 week 5 - 501-2 weeks 50 - 5002-3 weeks 100 - 68857-1 weeks 500 - 651881-0 weeks 1000 - 318643-0 weeks 73545 - 100,0006-8 weeks 91673 - 200,0002-3 months 78121 - 100,000 Serum or plasma choriogonado tropin detectionOrdered By: Monica Flores on 10-03-2022 HCG ( test) Ql 3 mIU/mL <[address] [facility] Comment on above: hCG levels with Gest ational AgeGestational Age hCG mIU/mL (IU/L)0.2 - 1 week 5 - 501-2 weeks 50 - 5002-3 weeks 100 - 44756-3 weeks 500 - 590166-2 weeks 1000 - 433804-9 weeks 30355 - 100,0006-8 weeks 48689 - 200,0002-3 months 93924 - 100,000 Serum or plasma choriogonado tropin detectionOrdered By: Dr. Nance on 09-26-2022 HCG ( test) Ql 5 mIU/mL <[address] [facility] Serum or plasma choriogonado tropin detectionOrdered By: Dr. Nance on 09-20-2022 HCG ( test) Ql 12 mIU/mL <[address] [facility] Comment on above: hCG levels with Gest ational AgeGestational Age hCG mIU/mL (IU/L)0.2 - 1 week 5 - 501-2 weeks 50 - 5002-3 weeks 100 - 91130-2 weeks 500 - 671526-8 weeks 1000 - 288089-8 weeks 64400 - 100,0006-8 weeks 43250 - 200,0002-3 months 84889 - 100,000 Serum or plasma choriogonado tropin detectionOrdered By: Dr. Nance on 09-12-2022 HCG ( test) Ql 69 mIU/mL <[address] [facility] Comment on above: hCG levels with Gest ational AgeGestational Age hCG mIU/mL (IU/L)0.2 - 1 week 5 - 501-2 weeks 50 - 5002-3 weeks 100 - 54553-8 weeks 500 - 274900-6 weeks 1000 - 760077-8 weeks 05484 - 100,0006-8 weeks 59562 - 200,0002-3 months 77387 - 100,000 Serum or plasma choriogonado tropin detectionOrdered By: Dr. Nance on 09-10-2022 HCG ( test) Ql 124 mIU/mL <[address] [facility] Comment on above: hCG levels with Gest ational AgeGestational Age hCG mIU/mL (IU/L)0.2 - 1 week 5 - 501-2 weeks 50 - 5002-3 weeks 100 - 83091-0 weeks 500 - 411556-2 weeks 1000 - 844935-8 weeks 75838 - 100,0006-8 weeks 53410 - 200,0002-3 months 92995 - 100,000 Absolute lymphocyte countOrd ered By: Dr. Sommers on 09-07-2022 Lymphocytes Auto (Unsp spec) [#/Vol] 2.91 10*3/uL 0.83-4.51 [facility] Basophil percentageOrdered B y: Dr. Sommers on 09-07-2022 Basophil percentage 0 SEEN /hpf 0-5 [facility] Basophils/100 WBC (Bld) 0.2 % 0-[address] [facility] Chloride [Moles/Vol] 108 mmol/L 98-107 [facility] Eosinophils/100 WBC (Bld) 2.4 % 0-5 [facility] Glucose [Mass/Vol] 89 mg/dL 74-106 [facility] Neutrophils (Bld) [#/Vol] 4.6 10*3/uL 2.0-7.7 [facility] Neutrophils/100 WBC (Bld) 56.2 % 47-70 [facility] Potassium [Moles/Vol] 3.5 mmol/L 3.5-5.1 [facility] Sodium [Moles/Vol] 137 mmol/L 136-145 [facility] WBC (Bld) [#/Vol] 8.2 10*3/uL 4.4-11.0 [facility] Bilirubin Test strip Ql (U)O rdered By: Dr. Sommers on 09-07-2022 Bilirubin Ql (U) Negative Negative [facility] Blood erythrocytes count (nu mber/volume)Ordered By: Dr. Sommers on 09-07-2022 RBC (Bld) [#/Vol] 4.34 10*6/uL 4.2-5.4 [facility] Blood hemoglobin measurement (mass/volume)Ordered By: Dr. Sommers on 09-07-2022 Hemoglobin (Bld) [Mass/Vol] 13.3 g/dL 12.0-15.0 [facility] Blood lymphocytes/100 leukoc ytesOrdered By: Dr. Sommers on 09-07-2022 Lymphocytes/100 WBC (Bld) 35.4 % 19-41 [facility] Blood monocytes/100 leukocyt esOrdered By: Dr. Sommers on 09-07-2022 Monocytes/100 WBC (Bld) 5.6 % 0-[address] [facility] Blood platelet mean volumeOr dered By: Dr. Sommers on 09-07-2022 Platelet mean volume (Bld) [Entitic vol] 8.6 fL 6.2-12.0 [facility] Determination of erythrocyte mean corpuscular volume (MCV)Ordered By: Dr. Sommers on 09-07-2022 MCV (RBC) [Entitic vol] 92.4 fL 81-[address] [facility] Hematocrit Auto (Bld) [Volum e fraction]Ordered By: Dr. Sommers on 09-07-2022 Hematocrit (Bld) [Volume fraction] 40.1 % 37-47 [facility] Ketones Test strip Ql (U)Ord ered By: Dr. Sommers on 09-07-2022 Ketones Ql (U) 15 mg/dl Negative [facility] Laboratory - Chemistry and C hemistry - challengeOrdered By: Dr. Sommers on 09-07-2022 CO2 [Moles/Vol] 26.0 mmol/L 21.0-32.0 [facility] Urea nitrogen/Creatinine [Mass ratio] 22.7 mg/mg 10-20 [facility] Laboratory - Hematology and Cell countsOrdered By: Dr. Sommers on 09-07-2022 Erythrocyte distribution width (RBC) [Entitic vol] 42.1 fL 35.1-43.9 [facility] Erythrocyte distribution width (RBC) [Ratio] 12.2 % 11.6-14.6 [facility] Immature granulocytes/100 WBC (Bld) 0.200 % 0.0-0.9 [facility] Comment on above: IG% - Immature Granu locytes (promyelocytes, myelocytes and metamyelocytes) > 1% indicates that a LEFT SHIFT is Present. MCH (RBC) [Entitic mass] 30.6 pg 27.0-32.0 [facility] Nucleated RBC/100 WBC (Bld) [Ratio] 0 % 0-5 [facility] MCHC Auto (RBC) [Mass/Vol]Or dered By: Dr. Sommers on 09-07-2022 MCHC (RBC) [Mass/Vol] 33.2 g/dL 32-36 [facility] Mucus LM Ql (Urine sed)Order ed By: Dr. Sommers on 09-07-2022 Mucus Ql (Urine sed) 0 SEEN /hpf [facility] Nitrite Test strip Ql (U)Ord ered By: Dr. Sommers on 09-07-2022 Nitrite Ql (U) Negative Negative [facility] No Panel InformationOrdered By: Dr. Sommers on 09-07-2022 Estimated Creatinine Clearance Calc 133.87 ml/min [facility] Estimated GFR (MDRD) Amer 158 mL/min >60 [facility] Comment on above: GFR Calc Estimated GFR (MDRD) Non-Af Amer 130 mL/min >60 [facility] Comment on above: Non- GFR Calc Platelets bldOrdered By: Dr. Sommers on 09-07-2022 Platelets (Bld) [#/Vol] 300 10*3/uL 150-450 [facility] Protein Test strip Ql (U)Ord ered By: Dr. Sommers on 09-07-2022 Protein Ql (U) Negative Negative [facility] Serum or plasma calcium pham urement (mass/volume)Ordered By: Dr. Sommers on 09-07-2022 Calcium [Mass/Vol] 8.9 mg/dL 8.5-10.1 [facility] Serum or plasma creatinine m easurement (mass/volume)Ordered By: Dr. Sommers on 09-07-2022 Creatinine [Mass/Vol] 0.57 mg/dL 0.55-1.02 [facility] Comment on above: The validity of the calculated GFR & GFRAA in patients over 70 years has not been determined. Clinical correlation is essential. Serum or plasma urea nitroge n measurement (mass/volume)Ordered By: Dr. Sommers on 09-07-2022 Urea nitrogen [Mass/Vol] 13 mg/dL 7-18 [facility] Squamous epithelial cells de tection in urine sediment by light microscopyOrdered By: Dr. Sommers on 09-07-2022 Epithelial cells.squamous LM Ql (Urine sed) 0 SEEN /hpf 5-10 [facility] Thin prep Papanicolaou smear with manual screeningOrdered By: Dr. Sommers on 09-07-2022 Thin prep Papanicolaou smear with manual screening 3 5-15 [facility] Urine blood detectionOrdered By: Dr. Sommers on 09-07-2022 RBC Ql (U) 250 /ul Negative [facility] RBC Ql (U) 0 SEEN /hpf 0-5 [facility] Urine clarityOrdered By: Dr. Sommers on 09-07-2022 Clarity (U) Sl. Cloudy Clear [facility] Urine color determinationOrd ered By: Dr. Sommers on 09-07-2022 Color (U) Yellow Yellow [facility] Urine glucose detectionOrder ed By: Dr. Sommers on 09-07-2022 Glucose Ql (U) Normal mg/dl Normal [facility] Urine leukocyte esterase det ection by dipstickOrdered By: Dr. Sommers on 09-07-2022 Leukocyte esterase Test strip Ql (U) 25 /ul Negative [facility] Urine pHOrdered By: Dr. Santsoh flanagan on 09-07-2022 pH (U) 6.0 [pH] 5.0 - 8.0 [facility] Urine sediment bacteria coun t by microscopy (number/high power field)Ordered By: Dr. Sommers on 09-07-2022 Bacteria LM.HPF (Urine sed) [#/Area] 0 /[HPF] None Seen [facility] Urine specific gravity measu rementOrdered By: Dr. Sommers on 09-07-2022 Specific gravity (U) [Rel density] 1.015 1.002-1.030 [facility] Urobilinogen Auto test strip Ql (U)Ordered By: Dr. Sommers on 09-07-2022 Urobilinogen Ql (U) Normal mg/dl Normal [facility] Basophil percentageOrdered B y: Dr. Nance on 08-31-2022 WBC (Bld) [#/Vol] 9.4 10*3/uL 4.4-11.0 [facility] Blood erythrocytes count (nu mber/volume)Ordered By: Dr. Nance on 08-31-2022 RBC (Bld) [#/Vol] 4.49 10*6/uL 4.2-5.4 [facility] Blood hemoglobin measurement (mass/volume)Ordered By: Dr. Nance on 08-31-2022 Hemoglobin (Bld) [Mass/Vol] 14.2 g/dL 12.0-15.0 [facility] Blood platelet mean volumeOr dered By: Dr. Nance on 08-31-2022 Platelet mean volume (Bld) [Entitic vol] 9.1 fL 6.2-12.0 [facility] Determination of erythrocyte mean corpuscular volume (MCV)Ordered By: Dr. Nance on 08-31-2022 MCV (RBC) [Entitic vol] 91.3 fL 81-99 [facility] Hematocrit Auto (Bld) [Volum e fraction]Ordered By: Dr. Nance on 08-31-2022 Hematocrit (Bld) [Volume fraction] 41.0 % 37-47 [facility] Laboratory - Hematology and Cell countsOrdered By: Dr. Nance on 08-31-2022 Erythrocyte distribution width (RBC) [Entitic vol] 40.7 fL 35.1-43.9 [facility] Erythrocyte distribution width (RBC) [Ratio] 12.4 % 11.6-14.6 [facility] MCH (RBC) [Entitic mass] 31.6 pg 27.0-32.0 [facility] MCHC Auto (RBC) [Mass/Vol]Or dered By: Dr. Nance on 08-31-2022 MCHC (RBC) [Mass/Vol] 34.6 g/dL 32-36 [facility] Platelets bldOrdered By: Dr. Nance on 08-31-2022 Platelets (Bld) [#/Vol] 320 10*3/uL 150-450 [facility] PELVIS NON-OB W/TRANSVAGI NALon 07-11-2022 [place] [...] 07/11/2022 12:35:09 PM Ordering Provider: DANNIE BAHENA [facility] ([place]) Vital Signs Date Time Vital Sign Value Performing Clinician Facility 02-17-2025 09:01-0400 Body height 167.64 cm No Primary Care Physician [facility] 02-17-2025 09:01-0400 Body mass index (BMI) [Ratio] 34.8 kg/m2 No Primary Care Physician [facility] 02-17-2025 09:01-0400 Body weight 97.97 kg No Primary Care Physician [facility] 02-17-2025 09:01-0400 Diastolic blood pressure 76 mm[Hg] No Primary Care Physician [facility] 02-17-2025 09:01-0400 Systolic blood pressure 107 mm[Hg] No Primary Care Physician [facility] 01-22-2025 10:09-0400 Body height 167.64 cm No Primary Care Physician [facility] 01-22-2025 10:09-0400 Body mass index (BMI) [Ratio] 33.6 kg/m2 No Primary Care Physician [facility] 01-22-2025 10:09-0400 Body weight 94.46 kg No Primary Care Physician [facility] 01-22-2025 10:09-0400 Diastolic blood pressure 76 mm[Hg] No Primary Care Physician [facility] 01-22-2025 10:09-0400 Systolic blood pressure 113 mm[Hg] No Primary Care Physician [facility] 12-25-2024 11:02-0400 Body height 167.64 cm No Primary Care Physician [facility] 12-25-2024 11:02-0400 Body mass index (BMI) [Ratio] 33.3 kg/m2 No Primary Care Physician [facility] 12-25-2024 11:02-0400 Body weight 93.66 kg No Primary Care Physician [facility] 12-25-2024 11:02-0400 Diastolic blood pressure 81 mm[Hg] No Primary Care Physician [facility] 12-25-2024 11:02-0400 Systolic blood pressure 127 mm[Hg] No Primary Care Physician [facility] 12-07-2024 10:21-0400 Body height 167.64 cm No Primary Care Physician [facility] 12-07-2024 10:21-0400 Body mass index (BMI) [Ratio] 33.2 kg/m2 No Primary Care Physician [facility] 12-07-2024 10:21-0400 Body weight 93.44 kg No Primary Care Physician [facility] 12-07-2024 10:21-0400 Diastolic blood pressure 79 mm[Hg] No Primary Care Physician [facility] 12-07-2024 10:21-0400 Systolic blood pressure 119 mm[Hg] No Primary Care Physician [facility] 11-27-2024 10:52-0400 Body height 167.64 cm No Primary Care Physician [facility] 11-27-2024 10:52-0400 Body mass index (BMI) [Ratio] 33 kg/m2 No Primary Care Physician [facility] 11-27-2024 10:52-0400 Body weight 92.98 kg No Primary Care Physician [facility] 11-27-2024 10:52-0400 Diastolic blood pressure 79 mm[Hg] No Primary Care Physician [facility] 11-27-2024 10:52-0400 Systolic blood pressure 127 mm[Hg] No Primary Care Physician [facility] 10-09-2023 17:42-0400 Body temperature 99.1 [degF] Haile Cole LABORATORY TESTER.PY[employer]ON PROGRAMMER Work Phone: [facility] 10-09-2023 17:42-0400 Body weight 108.1 kg Haile Cole LABORATORY TESTER.PYTHON PROGRAMMER Work Phone: [facility] 10-09-2023 17:42-0400 Diastolic blood pressure 78 mm[Hg] Haile Cole LABORATORY TESTER.PYTHON PROGRAMMER Work Phone: [facility] 10-09-2023 17:42-0400 Heart rate 80 /min Haile Cole LABORATORY TESTER.PYTHON PROGRAMMER Work Phone: [facility] 10-09-2023 17:42-0400 Respiratory rate 18 /min Haile Cole LABORATORY TESTER.PYTHON PROGRAMMER Work Phone: [facility] 10-09-2023 17:42-0400 SaO2% (BldA) [Mass fraction] 99 % Haile Cole LABORATORY TESTER.PYTHON PROGRAMMER Work Phone: [facility] 10-09-2023 17:42-0400 Systolic blood pressure 108 mm[Hg] Haile Cole LABORATORY TESTER.PYTHON PROGRAMMER Work Phone: [facility] 06-20-2023 08:58-0500 Body height 167.64 cm No Primary Care Physician [facility] 06-20-2023 08:57-0500 Body mass index (BMI) [Ratio] 34.4 kg/m2 No Primary Care Physician [facility] 06-20-2023 08:57-0500 Body weight 96.67 kg No Primary Care Physician [facility] 06-20-2023 08:57-0500 Diastolic blood pressure 88 mm[Hg] No Primary Care Physician [facility] 06-20-2023 08:57-0500 Systolic blood pressure 127 mm[Hg] No Primary Care Physician [facility] 04-19-2023 10:07-0500 Body height 167.64 cm No Primary Care Physician [facility] 04-19-2023 10:06-0500 Body mass index (BMI) [Ratio] 34.2 kg/m2 No Primary Care Physician [facility] 04-19-2023 10:06-0500 Body weight 96.27 kg No Primary Care Physician [facility] 04-19-2023 10:06-0500 Diastolic blood pressure 85 mm[Hg] No Primary Care Physician [facility] 04-19-2023 10:06-0500 Systolic blood pressure 132 mm[Hg] No Primary Care Physician [facility] 09-10-2022 08:10-0400 Body height 167.64 cm No Primary Care Physician [facility] 09-10-2022 08:09-0400 Body mass index (BMI) [Ratio] 32.3 kg/m2 No Primary Care Physician [facility] 09-10-2022 08:09-0400 Body weight 90.71 kg No Primary Care Physician [facility] 09-10-2022 08:09-0400 Diastolic blood pressure 82 mm[Hg] No Primary Care Physician [facility] 09-10-2022 08:09-0400 Systolic blood pressure 121 mm[Hg] No Primary Care Physician [facility] 09-07-2022 16:29-0400 Body height 167.64 cm No Primary Care Physician [facility] 09-07-2022 16:29-0400 Body mass index (BMI) [Ratio] 32.3 kg/m2 No Primary Care Physician [facility] 09-07-2022 16:29-0400 Body temperature 97.9 [degF] No Primary Care Physician [facility] 09-07-2022 16:29-0400 Body weight 90.71 kg No Primary Care Physician [facility] 09-07-2022 16:29-0400 Diastolic blood pressure 86 mm[Hg] No Primary Care Physician [facility] 09-07-2022 16:29-0400 Heart rate 81 /min No Primary Care Physician [facility] 09-07-2022 16:29-0400 Respiratory rate 18 /min No Primary Care Physician [facility] 09-07-2022 16:29-0400 SaO2% (BldA) [Mass fraction] 98 % No Primary Care Physician [facility] 09-07-2022 16:29-0400 Systolic blood pressure 134 mm[Hg] No Primary Care Physician [facility] 08-31-2022 15:04-0400 Body temperature 98.9 [degF] No Primary Care Physician [facility] 08-31-2022 15:04-0400 Diastolic blood pressure 72 mm[Hg] No Primary Care Physician [facility] 08-31-2022 15:04-0400 Heart rate 56 /min No Primary Care Physician [facility] 08-31-2022 15:04-0400 Respiratory rate 18 /min No Primary Care Physician [facility] 08-31-2022 15:04-0400 SaO2% (BldA) [Mass fraction] 100 % No Primary Care Physician [facility] 08-31-2022 15:04-0400 Systolic blood pressure 108 mm[Hg] No Primary Care Physician [facility] 08-31-2022 12:32-0400 Body height 167.64 cm No Primary Care Physician [facility] 08-31-2022 12:32-0400 Body mass index (BMI) [Ratio] 32.7 kg/m2 No Primary Care Physician [facility] 08-31-2022 12:32-0400 Body weight 92 kg No Primary Care Physician [facility] 08-28-2022 15:45-0400 Body mass index (BMI) [Ratio] 33.5 kg/m2 No Primary Care Physician [facility] 08-28-2022 15:45-0400 Body weight 94.34 kg No Primary Care Physician [facility] 08-28-2022 15:45-0400 Diastolic blood pressure 83 mm[Hg] No Primary Care Physician [facility] 08-28-2022 15:45-0400 Systolic blood pressure 121 mm[Hg] No Primary Care Physician [facility] 08-13-2022 07:51-0400 Body mass index (BMI) [Ratio] 32.8 kg/m2 No Primary Care Physician [facility] 08-13-2022 07:51-0400 Body weight 92.24 kg No Primary Care Physician [facility] 08-13-2022 07:51-0400 Diastolic blood pressure 83 mm[Hg] No Primary Care Physician [facility] 08-13-2022 07:51-0400 Systolic blood pressure 125 mm[Hg] No Primary Care Physician [facility] 08-12-2022 20:08-0400 Heart rate 78 /min [facility] 08-12-2022 20:08-0400 Respiratory rate 16 /min [facility] 08-12-2022 19:22-0400 Body temperature 97.6 [degF] [facility] 08-12-2022 19:22-0400 Diastolic blood pressure 93 mm[Hg] [facility] 08-12-2022 19:22-0400 Systolic blood pressure 150 mm[Hg] [facility] 08-12-2022 19:20-0400 Body height 167.64 cm [facility] 08-12-2022 19:20-0400 Body mass index (BMI) [Ratio] 33.4 kg/m2 [facility] 08-12-2022 19:20-0400 Body weight 93.89 kg [facility] 11-04-2021 13:11-0400 Body temperature 99.19 [degF] Anali Stockton PA-C Work Phone: [facility] 11-04-2021 13:11-0400 Body weight 89.81 kg Analirich Cernabow PA-C Work Phone: [facility] 11-04-2021 13:11-0400 Diastolic blood pressure 68 mm[Hg] Analirich Cernabow PA-C Work Phone: [facility] 11-04-2021 13:11-0400 Heart rate 106 /min Anali Denbow PA-C Work Phone: [facility] 11-04-2021 13:11-0400 Respiratory rate 16 /min Anali Denbow PA-C Work Phone: [facility] 11-04-2021 13:11-0400 SaO2% (BldA) [Mass fraction] 98 % Anali Denbow PA-C Work Phone: [facility] 11-04-2021 13:11-0400 Systolic blood pressure 110 mm[Hg] Anali Denbow PA-C Work Phone: [facility] 10-25-2021 23:13-0400 Body height 167.[address] JAMAICA NEGRON MD [facility] 10-25-2021 23:13-0400 Body temperature 98.06 [degF] DR JAMAICA NEGRON MD [facility] 10-25-2021 23:13-0400 Body weight 79.[address] JAMAICA NEGRON MD [facility] 10-25-2021 23:13-0400 Diastolic blood pressure 85 mm[Hg] DR JAMAICA NEGRON MD [facility] 10-25-2021 23:13-0400 Heart rate 90 /min DR JAMAICA NEGRON MD [facility] 10-25-2021 23:13-0400 Respiratory rate 16 /min DR JAMAICA NEGRON MD [facility] 10-25-2021 23:13-0400 Systolic blood pressure 123 mm[Hg] DR JAMAICA NEGRON MD [facility] Encounters Encounter Date Encounter Type Care Provider Facility Start: 03-15-2025 End: 03-15-2025 ambulatory Jessica Kaufman Facility:[facility] Start: 02-17-2025 End: 02-17-[address] Theresa Nance MD -[facility] Work Phone: Start: 02-17-2025 End: 02-17-2025 ambulatory No Primary Care Physician -[facility] Start: 02-16-2025 End: 02-16-2025 ambulatory MD NO PRIMARY CARE [facility] Start: 01-22-2025 End: 01-22-[address] Theresa Nance MD -[facility] Work Phone: Start: 01-22-2025 End: 01-22-2025 ambulatory No Primary Care Physician -[facility] Start: 12-25-2024 End: 12-25-2024 Patient encounter procedure Jessica Kaufman CN -[facility] Work Phone: Start: 12-25-2024 End: 12-25-2024 ambulatory No Primary Care Physician -[facility] Start: 12-25-2024 End: 12-25-2024 ambulatory Jessica Kaufman Facility:[facility] Start: 12-07-2024 End: 12-07-2024 Patient encounter procedure Monica HUSAIN -[facility] Work Phone: Start: 12-07-2024 End: 12-07-2024 ambulatory No Primary Care Physician -[facility] Start: 11-27-2024 End: 11-27-2024 ambulatory No Primary Care Physician -Laboratory [facility] Start: 11-27-2024 End: 11-27-2024 Patient encounter procedure Armida Aranda CNM -[facility] Work Phone: Start: 11-27-2024 End: 11-27-2024 Patient encounter procedure Armida Aranda CNM -[facility] Work Phone: Start: 11-27-2024 End: 11-27-2024 ambulatory No Primary Care Physician -[facility] Start: 11-27-2024 End: 11-27-2024 ambulatory Armidadanii Aranda Facility:[facility] Start: 11-18-2024 End: 11-18-2024 ambulatory No Primary Care Physician -Ultrasound [facility] Start: 11-18-2024 End: 11-18-2024 Patient encounter procedure Jessica Kaufman CNM -Ultrasound [facility] Work Phone: Start: 11-18-2024 End: 11-18-2024 ambulatory Jessica Siddhartha Facility:[facility] Start: 11-16-2024 End: 11-16-2024 ambulatory No Primary Care Physician -[facility] Start: 11-16-2024 End: 11-16-2024 Patient encounter procedure Jessica Kaufamn CNM -[facility] Start: 11-16-2024 End: 11-16-2024 ambulatory Jessica Siddhartha Facility:[facility] Start: 10-31-2024 End: 10-31-2024 Emergency department patient visit DR GALILEO BEASLEY DO [facility] Start: 03-17-2024 End: 03-17-2024 ambulatory Monica Flores NP Facility:[facility] Start: 10-09-2023 End: 10-09-2023 ambulatory Facility:[facility] Start: 10-09-2023 End: 10-09-2023 Office outpatient visit 15 minutes Haile Cole APRN.CNP Work Phone: [facility] Comment on above: Tick bite of chest w all, initial encounter (Primary Dx) Start: 06-20-2023 End: 06-20-2023 ambulatory No Primary Care Physician [facility] Work Phone: Start: 06-20-2023 End: 06-20-2023 Patient encounter procedure No Primary Care Physician [facility]-Laboratory, Specimen Work Phone: Start: 06-20-2023 End: 06-20-2023 Patient encounter procedure [facility] Work Phone: Start: 06-18-2023 End: 06-18-2023 ambulatory No Primary Care Physician [facility] Work Phone: Start: 06-18-2023 End: 06-18-2023 Patient encounter procedure No Primary Care Physician [facility]-Ultrasound, [facility] Work Phone: Start: 06-05-2023 End: 06-05-2023 Patient encounter procedure No Primary Care Physician [facility]-Ultrasound, [facility] Work Phone: Start: 06-03-2023 End: 06-03-2023 ambulatory No Primary Care Physician [facility] Work Phone: Start: 06-03-2023 End: 06-03-2023 Patient encounter procedure No Primary Care Physician [facility], [facility] Start: 05-25-2023 End: 05-25-2023 ambulatory No Primary Care Physician [facility] Work Phone: Start: 05-25-2023 End: 05-25-2023 Patient encounter procedure No Primary Care Physician [facility]-Laboratory Work Phone: Start: 05-23-2023 End: 05-23-2023 ambulatory No Primary Care Physician [facility] Work Phone: Start: 05-23-2023 End: 05-23-2023 Patient encounter procedure No Primary Care Physician [facility], [facility] Start: 05-07-2023 End: 05-07-2023 ambulatory No Primary Care Physician [facility] Work Phone: Start: 05-07-2023 End: 05-07-2023 Patient encounter procedure No Primary Care Physician [facility]-Ultrasound, [facility] Work Phone: Start: 04-19-2023 End: 04-19-2023 Patient encounter procedure No Primary Care Physician [facility] Work Phone: Start: 10-15-2022 End: 10-15-2022 ambulatory No Primary Care Physician [facility] Work Phone: Start: 10-15-2022 End: 10-15-2022 Patient encounter procedure No Primary Care Physician [facility]-Ultrasound, [facility] Start: 10-10-2022 Patient encounter procedure No Primary Care Physician [facility], [facility] Start: 10-03-2022 Patient encounter procedure No Primary Care Physician [facility], [facility] Start: 09-26-2022 End: 09-26-2022 Patient encounter procedure No Primary Care Physician [facility], [facility] Start: 09-20-2022 End: 09-20-2022 Patient encounter procedure No Primary Care Physician [facility] Start: 09-12-2022 End: 09-12-2022 ambulatory No Primary Care Physician [facility] Work Phone: Start: 09-12-2022 End: 09-12-2022 Patient encounter procedure No Primary Care Physician [facility] Start: 09-10-2022 End: 09-10-2022 ambulatory No Primary Care Physician [facility] Work Phone: Start: 09-10-2022 End: 09-10-2022 Patient encounter procedure No Primary Care Physician [facility] Start: 09-07-2022 End: 09-07-2022 Emergency department patient visit No Primary Care Physician [facility]-Emergency Department Start: 08-31-2022 Non-patient / Non-visit No Primary Care Physician [facility] Start: 08-31-2022 End: 08-31-2022 Admission to same day surgery center No Primary Care Physician [facility] Start: 08-31-2022 End: 08-31-2022 ambulatory No Primary Care Physician [facility] Work Phone: Start: 08-28-2022 End: 08-28-2022 Patient encounter procedure No Primary Care Physician [facility] Start: 08-13-2022 End: 08-13-2022 Patient encounter procedure No Primary Care Physician [facility] Start: 08-12-2022 End: 08-12-2022 [facility] Start: 07-11-2022 End: 07-12-2022 ambulatory DANNIEDMITRI BAHENA Facility:[facility] Start: 07-11-2022 End: 07-11-2022 Patient encounter procedure DANNIE BAHENA DO [facility] Start: 11-04-2021 End: 11-04-2021 Patient encounter procedure Anali Stockton PA-C Work Phone: [facility] Comment on above: Encounter for remova l of sutures (Primary Dx) Start: 10-26-2021 End: 10-26-2021 Emergency department patient visit DR JAMAICA NEGRON MD Facility:[facility] Start: 10-25-2021 End: 10-26-2021 Emergency department patient visit DR JAMAICA NEGRON MD [facility] Procedures Date Procedure Procedure Detail Performing [...] HCV Quant by PCR testing - HCVPCR #[id number] Non Reactive: < 0.8 Equivocal: >/= 0.8 [...] DTaP,Tdap,Td Vaccine (3 - Td or Tdap) [facility] Start: 12-25-2024 CBC W Auto Differential panel - Blood [facility] Start: 12-25-2024 Hemoglobin A1c/Hemoglobin.total in Blood [facility] Start: 12-25-2024 Hepatitis C antibody measurement [facility] Start: 12-25-2024 Procedure [facility] Start: 12-25-2024 Rubella IgG measurement [facility] Start: 12-25-2024 Serologic test for syphilis [facility] Start: 12-25-2024 [facility] Start: 01-12-2024 Influenza vaccination Influenza Vaccine (Season Ended) [facility] Start: 06-20-2023 Liquid based cervical cytology screening [facility] Start: 05-13-2023 Behavioral Health Screening Behavioral Health Screening [facility] Start: 01-11-2023 Covid-19 Vaccine ( season) Covid-19 Vaccine () [facility] Start: 08-31-2022 Anesthesia incomplete/missed ANESTH INC/MISSED AB PROC [facility] Start: 08-31-2022 Tx missed first trimester surgical CARE OF MISCARRIAGE [facility] Start: 08-31-2022 Patient discharge [facility] Start: 08-31-2022 Procedure discontinued [facility] Start: 08-31-2022 Ambulation without limitation [facility] Start: 08-31-2022 Medical regimen orders management [facility] Start: 08-31-2022 Medication education [facility] Start: 08-31-2022 Taking patient vital signs [facility] Start: 08-31-2022 Vital signs measurements [facility] Start: 08-31-2022 [facility] Start: 01-11-2022 Influenza vaccination INFLUENZA (Season Ended) [facility] Start: 2020 HPV TESTING HPV TESTING [facility] Start: 2020 Screening for malignant neoplasm of cervix HPV Testing [facility] Start: 12-09-2011 PAP TESTING PAP TESTING [facility] Start: 12-09-2011 Screening for malignant neoplasm of cervix Pap Testing [facility] Start: 2009 Hepatitis B Vaccine (1 of 3 - 19+ 3-dose series) Hepatitis B Vaccine (1 of 3 - 19+ 3-dose series) [facility] Start: 2009 Urine microalbumin profile DTAP,TDAP,TD (1 - Tdap) [facility] Start: 2008 HEPATITIS C SCREENING HEPATITIS C SCREENING [facility] Start: 2008 Hepatitis C screening Hepatitis C Screening [facility] Start: 2008 HIV SCREENING HIV SCREENING [facility] Start: 2008 HIV screening HIV Screening [facility] Start: 2002 Adult depression screening assessment DEPRESSION SCREENING [facility] Start: 1996 PNEUMOCOCCAL (1 - PCV) PNEUMOCOCCAL (1 - PCV) [facility] Start: 1996 Pneumococcal vaccination Pneumococcal Vaccine (1 of 2 - PCV) [facility] Start: 12-09-1995 COVID-19 VACCINE (#1) COVID-19 VACCINE (#1) [facility] CBC W Auto Different ial panel - Blood [facility] CBC W Auto Different ial panel - Blood [facility] Chlamydia deoxyribon ucleic acid detection [facility] Choriogonadotropin ( test) [Presence] in Serum or Plasma [facility] Erythrocyte mean cor puscular volume determination [facility] Hematocrit [Volume F raction] of Blood [facility] Hemoglobin [Mass/vol ume] in Blood [facility] Hemoglobin A1c/Hemoglobin.total in Blood [facility] Hepatitis B surface antigen measurement [facility] Hepatitis B virus nichols rface Ag [Presence] in Serum [facility] Hepatitis C antibody measurement [facility] Hepatitis C antibody measurement [facility] HIV 1+2 Ab+HIV1 p24 Ag [Presence] in Serum or Plasma by Immunoassay [facility] Leukocytes [#/volume ] in Blood [facility] Mean corpuscular hem oglobin concentration determination [facility] Mean corpuscular hem oglobin determination [facility] Neutrophil count [facility] Neutrophil percent differential count [facility] Path report.final Dx Spec [facility] Patient Education [facility] Work Phone: Patient referral [facility] Work Phone: Platelets [#/volume] in Blood [facility] Procedure [facility] Red blood cell count [facility] Red cell distributio n width determination [facility] Rubella IgG measurement [facility] Rubella IgG measurement [facility] Serologic test for syphilis [facility] Treponema sp Ab [Pre sence] in Serum [facility] Immunizations Immunization Date Immunization Notes Care Provider [facility] 11-05-2023 tetanus toxoid, redu bj diphtheria toxoid, and acellular pertussis vaccine, adsorbed No Primary Care Physician [facility] 10-26-2021 tetanus toxoid, redu bj diphtheria toxoid, and acellular pertussis vaccine, adsorbed DR JAMAICA NEGRON MD [facility] 01-28-2017 Human rabies vaccine from Chicken fibroblast culture DR JAMAICA NEGRON MD [facility] 01-17-2017 Human rabies vaccine from Chicken fibroblast culture DR JAMAICA NEGRON MD [facility] 01-10-2017 Human rabies vaccine from Chicken fibroblast culture DR JAMAICA NEGRON MD [facility] 01-01-2017 Human rabies vaccine from Chicken fibroblast culture DR JAMAICA NEGRON MD [facility] Payers Date Payer Category Payer Self-pay [id number] 2022 Medicaid [id number] 2022 Unknown [id number] 2021 Unknown [id number] 2017 Medicaid [facility] MEDICAID [id number] 2017-Present [phone] [address] [place] [address] Medicaid [id number] 1990 Unknown [id number] 1990 Unknown [id number] [id number] 1990 Unknown [id number] 1990 Unknown [id number] [id number] Unknown [id number] [id number] Unknown [id number] [id number] Unknown [id number] 2.16840.1.492837.3.579.2.462 Unknown [id number] 2.16.840.1.149561.3.579.2.462 Unknown [id number] 2.16.840.1.611254.3.579.2.462 Unknown [id number] 2.16.840.1.642542.3.579.2.462 Unknown [id number] [id number] Unknown [id number] 2.16.840.1.704141.3.579.2.462 Unknown [id number] 2.16.840.1.107888.3.579.2.462 Unknown [id number] [id number] Unknown [id number] [id number] Social History Date Type Detail Facility Start: 12-12-2020 Tobacco smoking status Light tobacco smoker (finding) [facility] Sex Assigned At [facility] Start: 11-04-2021 End: 10-09-2023 Tobacco smoking status NHIS Smokes tobacco daily [facility] Work Phone: Start: 11-04-2021 End: 10-09-2023 Tobacco use and exposure Smokeless tobacco non-user [facility] Work Phone: Start: 1990 Sex Assigned At Not on file [facility] Start: 08-12-2022 End: 06-20-2023 Tobacco smoking status NHIS Unknown if ever smoked [facility] Start: 1990 Sex Assigned At Female [facility] Start: 10-09-2023 History of Social function [facility] Start: 10-09-[address] [facility] Start: 09-03-2014 Sex Female (finding) [facility] Start: 11-19-2024 Tobacco smoking status NHIS Ex-smoker (finding) [facility] NEGATED: Highlighted row [facility] Goals Date Patient Goal Desired Activity /State Functional Status Date Assessment Result Facility 10-26-2021 Functional Status Ambulating in otto, Up ad miriam [facility] 10-25-2021 Functional Status Standard Safet y ID band on, Call device within reach, Bed in low position, Wheels locked, Upper/Half-Length side-rails up, personal items within reach, Visitor at bedside [facility] Mental Status Date Assessment Result Facility 08-31-2022 Cognitive function Level Of Cons ciousness Awake;Appropriate [facility] Work Phone: 08-31-2022 Cognitive function Voice/Name [facility] Work Phone: 10-26-2021 Mental Status Orientation Oriented x 4 [facility] 10-25-[address] [facility] Clinical Notes 10-26-2021 to 02-17-2025 Note Date & Type Note Facility 02-17-2025 Progress note [facility] 01-22-2025 Progress note [facility] 12-25-2024 Progress note [facility] 11-27-2024 Evaluation note Diagnosis Onset [...] of high-risk acute November 27, 2024 10:49am [facility] Work Phone: 1(793) 204-413507-18-2025 Evaluation note* Diagnosis Onset Date Resolution Status [...] of high-risk acute December 07, 2024 10:17am [facility] Work Phone: 1(584) 993-899507-18-2025 Evaluation note* Diagnosis Onset Date Resolution Status [...] Supervision of high-risk acute December 25 10:56am [facility] Work Phone: 1(443) 750-868707-18-2025 Evaluation note* Diagnosis Onset Date Resolution Status [...] management of mother acute December 10:56am acute [place] 15th, 2 025 10:56am Supervision of high-risk [...] of high-risk acute January 22, 2025 10:00am [facility] Work Phone: 1(536) 704-284307-18-2025 Evaluation note* Diagnosis Onset Date Resolution Status [...] Supervision of high-risk acute February 17 8:55am [facility] Work Phone: 1(412) 883-590207-18-2025 Progress [facility] [address] [place] [address], [address] [place] [address] OFFICE VISIT Date of Service: 11/27/24 MR#: [id number] Acct: [id number] Name: GADIELILEANAKEON DORI Rep #: [id number] : 1990 Provider: KERRI Aranda Age/Sex: 33/F Location: [facility] Status: Signed Intake Vital Signs 03/17/24 14:34 11/27/24 10:52 Height 5 ft 6 in 5 ft 6 in Weight: 205 lb BMI 33.0 BP 127/79 H Intake Visit Reasons: *EST* NOB, LMP 10/04, VERÓNICA 07/11 Childcare Teacher Required: No Is patient in pain?: No [...] 4 current occupational status: employed 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 current occupational exposures/hazards: No pets and animals: [...] physical activity do you participate in: none mike/rastafarian: Jewish seatbelt use: always do you feel safe [...] 36 live - 6.8 Male epidmartin al [place] 07/25/11 Nasra 40 live - full term 6#8oz Female ortiz ral [place] 06/24/13 Kathy 40 live - full term 9.2 Male none [place] 08/31/22 8 spontaneous 01/28/24 Mccarley 40 live - full term 7lbs 13oz Male ep idural [facility] L&D Carolyn Nuñez Delivery Date: 08/31/22 [...] Varicella immune: Yes and Covid Vaccinated: Yes ([employer], 2020) Medical History Medical History: Negative: Diabetes, Hypertension, Heart disease, Auto-immune disorder, Kidney disease/UTI, Neurologic/epilepsy, Psychiatric, Depression/ depression, Hepatitis/liver disease, Varicosities/phlebitis, Thyroid dysfunction, Trauma/domestic violence, History of blood transfusions, D (Rh) Sensitized, Pulmonary (e.g.,TB,Asthma), Seasonal allergies, Drug/latex allergies/reactions, Breast, Bed Operator surgery, Operations/hospitalizations, Anesthetic complications, History of abnormal [...] and Symptoms of Preeclampsia, Feeding Yes , [place] Education and Family Medical Leave or Disability [...] unspecified, unspecified trimester Plan Details Additional Comments: [facility] trimester education reviewed and updated. oriented to [...] Cosigner Signature: Date (if applicable) CC: ~ [facility]07-09-2025 Radiology Diagnostic study note [facility] Imaging Services [address] [place] [address] Transvaginal w/Preg MR#: [id number] Acct: [id number] Name: KEON FINCH DORI Rep #: [id number] : 1990 F 33 From: Gallito Martins MD PCP: Care Physician,No Primary Status: REG CLI Study:Transvaginal w/Preg US Date of Exam: 11/18/24 Exam# [id number] Ordering Dr: Jessica Kaufman CNM PROCEDURE: TRANSVAGINAL [...] exam. Follow-up as clinically warranted. Reading Location: [id number] CC: KERRI Kaufman; No Primary Care Physician ~ Plan Checker: Signed [facility]06-21-2025 Hospital Discharge instructions Patient Education 10/31/2024 17:43:36 [...] a problem: Bleeding that soaks the dressing Esperance fluid weeping from the wound Increased drainage [...] increased fatigue, or a loss of appetite [phone] [employer]. [address] [place] [address], [place] [address]. All rights reserved. This information is not intended as a substitute for professional medical care. Always follow [facility] professional's instructions. 10/31/2024 17:34:39 Cat Bite [...] for signs of illness. If the pet theatrical trouper won t allow this, contact your local [...] stopped after 5 minutes of firm pressure [phone] [employer]. [address] [place] [address]. All rights reserved. This information is not intended as a substitute for professional medical care. Always follow yourhealthcare professional's instructions. Follow Up Care 10/31/2024 17:01:33 With:JAMAICA LAND MD Address: [address] [place] [address] [place] [address]- When:2-[address] [facility] 06-21-2025 Emergency department Discharge summary Discharge Instructions Thank you for allowing [facility] to assist you with your healthcare needs. The following is importantdischarge information regarding your hospital visit. Diagnosis from Today's Visit Cat bite What to Do Next Instructions from Your Care Team No qualifying data available. Post Acute Orders No qualifying data available. You Need to Schedule the Following Appointments Follow Up with JAMAICA LAND MD When:Within 2-4 days Where:[address] [place] [address]- Allergies NKA Medications Please ask your primary [...] may report side effects to FDA at 5-715-QCN-5038. What other drugs will affect amoxicillin and clavulanate potassium? Tell your doctor about all your other medicines, especially: allopurinol; probenecid; or a blood thinner--warfarin, Coumadin, Jantoven. This list is not complete. Other drugs may affect amoxicillin and clavulanate potassium, including prescription and rltt-ivf-nuciios medicines, vitamins, and herbal products. Not all [...] to ensure that the information provided by [employer]. ('[employer]') is accurate, up-to-date, and complete, but no guarantee is made to that effect. Drug information contained herein may be time sensitive. [employer] information has been compiled for use by healthcare practitioners and consumers in the [place] and therefore [employer] does not warrant that uses outside of the [place] are appropriate, unless specifically indicated otherwise. [employer] drug information does not endorse drugs, diagnose patients or recommend therapy. [employer] drug information isan informational resource designed to [...] effective or appropriate for any given patient. [employer] does not assume any responsibility for any aspect of healthcare administered with the aid of information [employer] provides. The information contained herein is not intended to cover all possible uses, directions, precautions, warnings, drug interactions, allergic reactions, or adverse effects. If you have questions about the drugs you are taking, check with your doctor, nurse or pharmacist. Copyright 1248-6086 [employer]. Version: 14.01. Revision Date: 02/16/2022. Education Materials [...] a problem: Bleeding that soaks the dressing Esperance fluid weeping from the wound Increased drainage [...] increased fatigue, or a loss of appetite 1946-9815 [employer]. [address] [place] [address], [place] [address]. All rights reserved. This information is not [...] for signs of illness. If the pet theatrical trouper won t allow this, contact your local [...] stopped after 5 minutes of firm pressure 9172-2796 [employer]. [address] [place] [address]. All rights reserved. This information is not intended as a substitute for professional medical care. Always follow yourhealthcare professional's instructions. Additional Information VACCINATE! IT SAVES LIVES! Members of the community who have not yet received the COVID-19 vaccine and would like to receive it can visit one of [facility] vaccine clinics. There are many vaccine clinic locations within the [facility]. For locations and available times, please visit www.gettheshot.coronavirus.[place].gov/. It is important to note that some COVID mobile vaccine clinics are held outdoors and may be canceled in rainy or stormy conditions. To learn more about pediatric vaccinations (ages 5-11), we invite you to visit the [facility] webpage. https://www.[facility].org/pages/1868-Zkjro-Ndwndkcnwdq-Qybsgkrxlc-Iopzw-Fwl stions.htmlTo learn more about the COVID-19 vaccine, we invite you to visit the CDC website for a list of frequently asked questions. https://www.cdc.gov/coronavirus/2019-ncov/vaccines/faq.html [employer] Patient Portal Access Instructions: Stay connected with your healthcare team and access your personal medical information anytime with the [employer] Patient Portal. If you would like a full copy of your medical records please contact the [facility] Medical Records Department Saturday through Saturday between 8a.m. and 4:30p.m. Please follow the directions below to access the portal: 1.Access the email account you provided upon registration to the [facility].2.Look for an invitation email from [facility].3.Open the email and access the invitation link: Accept Invitation to [facility]4.Fill in the required curry to create your account. Sign into [email or web address] with your username and password that you [...] you will allow to register on the [employer] Patient Portal for access to your information. You can also access the [employer] Patient Portal on the [employer]. Simply click on Health Records under [employer] and then click on the [employer] logo. [...] Call your local pharmacy or go to http://bit.ly/6R0He6w to find one close to you.3.Make use of household items: Use cat litter or old coffee grounds to dispose medications if other options arenot available. Mix your drugs with these household products, seal them in an airtight container andthrow it into the garbage. Call [facility]: [phone] to be sure your drugs can be [...] am aware that I should contactmy doctor. Patient/Chest Pain Coordinator Signature: Date/Time: Relationship to Patient: Witness Name/Signature: Date/Time: [facility]05-29-2024 NoteHNO ID: [id number] Author: HAILE COLE APRN.PYTHON PROGRAMMER Service: ? Author Type: Nurse Practitioner Type: Progress Notes Filed: 10/09/2023 18:10 Note Text: Subjective HPI Nontoxic-appearing female who is 24 weeks presents urgent care chief complaint tick bite. Patient states noticed a tick on her right upper chest Lexx night. Removed the tick. Does not think [...] of care. This note was generated using Placements.io software. It may contain errors in wording, punctuation, or spelling. Haile Cole APRN.[facility]05-29-2024 History of Present illness Narrative* Haile Cole APRN.[facility] - 10/09/2023 6:00 PM EDT Images [...] of care. This note was generated using Placements.io software. It may contain errors in wording, punctuation, or spelling. Haile Cole APRN.PYTHON PROGRAMMER documented [facility] NotePap Smear Specimen AdequacyFebruary 2023 11:18amComment.Satisfactory for evaluation. No endocervical component is identified.[facility]ACED A#[id number] Health St. Elizabeth Young[facility] HospitalComment on above:Satisfactory for evaluation. No endocervical component is identified.08-31-2022 History and physical note Author Dr. Nance [facility] August 31, 2022 12:00pm Note Date/Time August 31, 2022 12: 00pm [facility] Medical Records Department [address] [place] [address] H&P Exam - CUSTOMS EXAMINER 08/31/22 1159 MR#: [id number] Acct: [id number] Name: KEON FINCH Rep #:[id number] : 1990 31 From: Theresa montenegro MD PCP: Care Physician,No Primary Status :[facility] Location: [place] [address] HPI - General HPI Narrative KEON FINCH, [...] 3 current occupational status: employed current occupation: [employer] current occupational exposures/hazards: No pets and animals: [...] 36 live - 6.8 Male epidur al [place] 07/25/11 Nasra 40 live - full term Female epidu [facility] 06/24/13 Kathy 40 live - full term 9.2 Male none [place] Visit Details Expected Delivery Route/Plan Labor Preferences- [...] Nance MD; No Primary Care Physician~ Signed [facility] Work Phone: 1(235) 673-934004-21-2023 Procedure [facility] 07-11-2022 Note ORIGINAL EXAMINATION: TRANSVAGINAL PELVIC [...] Date: 07/11/2022 12:35:09 PM Ordering Provider: DANNIE [facility]03-01-2023 Note ORIGINAL EXAMINATION: TRANSVAGINAL PELVIC ULTRASOUND 07/11/2022 [...] Sign Date: 07/11/2022 12:35:09 PM Ordering Provider: [facility]06-25-2022 Instructions* Patient Instructions* Anali Stockton PA-C [...] be done as well. [facility] History of Present illness Narrative* Anali Stockton PA-C - 11/04/2021 1:22 PM EDT Images from the original note were not included. Subjective HPI HPI Keon Finch is a 30 year old female who presents today for CC of suture removal R hand. Patient was evaluated last Saturday at [facility] ED status post laceration from a shattered glass. Tdap was updated at that time. Pt notes that she was seen at [facility] for a check of wound 2 [...] Day 10 status post suture placement at [facility]-- 9 Sutures removed without complication; [...] plan. Anali Stockton PA-C documented [facility] Hospital Discharge instructions Patient Education 10/26/2021 00:06:32 [...] affected hand Decreased movement of the hand [id number] [employer]. [address] [place] [address]. All rights reserved. This information is not intended as a substitute for professional medical care. Always follow yourhealthcare professional's instructions. Follow Up Care 10/25/2021 23:01:32 With:JAMAICA LAND Address: [address] [place] [address] [place] [address] Business (1) When:Within 9 Day(s) Comments:Keep wound clean and dry. Have your stitches removed in 8 to 10 days. Return if worsening severe pain numbness weakness draining pus or redness around the wound. [facility] Evaluation + Plan note No data available for this section [facility] Evaluxrxyh note* Diagnosis Encounter for removal of sutures- Primary [facility] this [facility] noteNo assessment information availableWMercy Health St. [facility] Work Phone: Evaluation note* Diagnosis Onset Date Resolution Status Missed acute Missed acute Missed [facility] Work Phone: Evaluation note* Diagnosis Onset Date Resolution Status Missed acute Missed acute Missed acute Missed acute Vaginal bleeding [facility] Work Phone: Evaluation note* Diagnosis Onset Date Resolution Status Missed acute Missed acute Missed acute Missed acute [facility] Work Phone: Evaluation note* Diagnosis Onset Date Resolution Status Dysmenorrhea acute [facility] Work Phone: Evaluation note* Diagnosis Onset Date Resolution Status Amenorrhea acute COVID-19 affecting , antepartum acute History of miscarriage, currently acute acute Spotting in early acute Supervision of high-risk acute [facility] Work Phone: Evaluation note* Diagnosis Tick bite of chest wall, initial encounter- Primary [facility] Diagnosis Onset Date Resolution Status Admit [...] of high-risk acute November 27, 2024 10:49am [facility] Work Phone: Hospital Discharge instructions No data available for this section [facility] Hospital Discharge instructions Additional Instructions Plenty [...] to be at the office at that time.[facility] Work Phone: Progress note No data available for this section [facility] Progress note Author Armida Aranda [facility] Note Date/Time November 27, 2024 11:2 4am [facility] [address] [place] [address], [address] [place] [address] OFFICE VISIT Date of Service: 11/27/24 MR#: [id number] Acct: [id number] Name: KEON FINCH Rep #: [id number] : 1990 Provider: KERRI Aranda Age/Sex: 33/F Location: [facility] Status: Signed Intake Vital Signs 03/17/24 14:34 11/27/24 10:52 Height 5 ft 6 in 5 ft 6 in Weight: 205 lb BMI 33.0 BP 127/79 H Intake Visit Reasons: *EST* NOB, LMP 10/04, VERÓNICA 07/11 Childcare Teacher Required: No Is patient in pain?: No [...] current occupational status: employed 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 Date Name GA/Weeks Outcome Route Bth Weight Gen Labor Lgth Anesthesia Del Locatn Provider FOB 12/06/09 Nichols 36 live - 6.8 Male epidur al [place] 07/25/11 Nasra 40 live - full term 6#8oz Female epidu ral [place] 06/24/13 Kathy 40 live - full term 9.2 Male none [place] 08/31/22 8 spontaneous 01/28/24 Mccarley 40 live - full term 7lbs 13oz Male ep idural [facility] L&D Carolyn Nuñez Delivery Date: 08/31/22 Last Updated by: Gely Rosen D&Meaghan, [facility] Delivery Date: 01/28/24 Last Updated by: [...] Varicella immune: Yes and Covid Vaccinated: Yes ([employer], 2020) Medical History Medical History: Negative: Diabetes, Hypertension, Heart disease, Auto-immune disorder, Kidney disease/UTI, Neurologic/epilepsy, Psychiatric, Depression/ depression, Hepatitis/liver disease, Varicosities/phlebitis, Thyroid dysfunction, Trauma/domestic violence, History of blood transfusions, D (Rh) Sensitized, Pulmonary (e.g.,TB,Asthma), Seasonal allergies, Drug/latex allergies/reactions, Breast, Bed Operator surgery, Operations/hospitalizations, Anesthetic complications, History of abnormal [...] Symptoms of Preeclampsia, Infant Feeding Yes , [place] Education and Family Medical Leave or Disability [...] Cosigner Signature: Date (if applicable) CC: ~ [facility] Work Phone: Progress note Author Jessica Kaufman [facility] Note Date/Time December 25, 2024 11 :22am [facility] [address] [place] [address], [address] [place] [address] OFFICE VISIT Date of Service: 12/25/24 MR#: [id number] Acct: [id number] Name: KEON FINCH Rep #: [id number] : 1990 Provider: KERRI Kaufman Age/Sex: 34/F Location: [facility] Status: Signed Intake Vital Signs 03/17/24 14:34 12/07/24 10:21 12/25/24 11:02 Height 5 ft 6 in 5 ft 6 in 5 ft 6 in Weight: 206 lb 8 oz BMI 33.3 BP 127/81 H Intake Visit Reasons: 11wk ob Chief Complaint: 11wk OB Childcare Teacher Required: No Is patient in pain?: No [...] 4 current occupational status: employed 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 Date Name GA/Weeks Outcome Route Bth Weight Infant Gen [facility] F[facility] 12/06/09 Simone 36 live - 6.8 Male epidur al [place] 07/25/11 Nasra 40 live - full term 6#8oz Female epidu ral [place] 06/24/13 [place] 40 live - full term 9.2 Male none [place] 08/31/22 8 spontaneous 01/28/24 Mccarley 40 live - full term 7lbs 13oz Male ep idural [facility] L&D Carolyn Nuñez Delivery Date: 08/31/22 [...] Cosigner Signature: Date (if applicable) CC: ~ [facility] Work Phone: Progress note Author Theresa Nance [facility] Note Date/Time January 22, 2025 10:26am [facility] [address], [address] [place] [address] OFFICE VISIT Date of Service: 01/22/25 MR#: [id number] Acct: [id number] Name: STEPHENIEKEONPAZ MEADOWS Rep #: [id number] : 1990 Provider: Dr. Freddie Nance MD Age/Sex: 34/F Location: [facility] Status: Signed Intake Vital Signs 11/27/24 10:52 12/25/24 11:02 01/22/25 10:09 Height 5 ft 6 in 5 ft 6 in 5 ft 6 in Weight: 208 lb 4 oz BMI 33.6 BP 113/76 Intake Visit Reasons: 15wk ob Childcare Teacher Required: No Is patient in pain?: No Allergies measles, mumps, and rubella vaccine Allergy (Verified 01/22/25 10:06) seizure Medications ?Medication ?Instructions ?Recorded ?Confirmed ?Type vit no.164-ferrous tab PO 11/19/24 01/22/25 H istory gluconate 6 mg-folate 833.5 mcg DFE tablet ( PNV) Last Menstrual Period: 10/04/24 Zika: Zika virus screening: Negative [facility] Medical History History of oligohydramnios depression Dysmenorrhea [...] 4 current occupational status: employed 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 current occupational exposures/hazards: No pets and animals: [...] physical activity do you participate in: none mike/rastafarian: Jewish seatbelt use: always do you feel safe [...] - full term 6#8oz Female epidu ral [place] 06/24/13 [place] 40 live - full term 9.2 Male none [place] 08/31/22 8 spontaneous 01/28/24 Mccar[place] 40 live - full term 7lbs 13oz Male ep idural [facility] L&D Carolyn Nuñez Delivery Date: 08/31/22 Last Updated by: Gely Rosen D&Meaghan, [facility] Delivery Date: 01/28/24 Last Updated by: [...] Cosigner Signature: Date (if applicable) CC: ~ [facility] Work Phone: Progress note Author Theresa Nance [facility] Note Date/Time February 17, 2025 9: 24am [facility] [address] [place] [address], [address] [place] [address] OFFICE VISIT Date of Service: 02/17/25 MR#: [id number] Acct: [id number] Name: KEON FINCH DORI Rep #: [id number] : 1990 Provider: Dr. 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 Date Name GA/Weeks Outcome Route Bth Weight Infant Gen Labor Lgth Anesthesia Del [facility] Provider FOB 12/06/09 Simone 36 live - 6.8 Male epidur al [place] 07/25/11 Nasra 40 live - full term 6#8oz Female epidu ral [place] 06/24/13 Kathy 40 live - full term 9.2 Male none [place] 08/31/22 8 spontaneous 01/28/24 [place] 40 live - full term 7lbs 13oz Male ep idural [facility] L&D Carolyn Nuñez Delivery Date: 08/31/22 Last Updated by: Gely Rosen D&Meaghan, [facility] Delivery Date: 01/28/24 Last Updated by: [...] Amaya Signature: Date (if applicable) CC: ~ [facility] Work Phone: Reason for referral (narrative)No reason for referral information availableWMercy [facility] Work Phone: Summary Purpose Family History No Family History Records Found Relationship Condition Age at Onset Recorded Date/T lee father Cardiac disease Unknown Diabetes mellitus Unknown Hypertension Unknown Cerebrovascular accident (CVA) Unknown Advance Directives No Advanced Directives Records Found Advance Directive Response Recorded Date/ Time Living Will No August 12, 2022 7:36pm Power of Habitat Biologist No August 12 7:36pm Advance Directive Response Recorded Date/ Time Living Will No August 29, 2022 2:26pm Power of Habitat Biologist No August 29 2:26pm Advance Directive Response Recorded Date/ Time Living Will No September 07, 2022 5:01pm Power of Habitat Biologist No September 07 5:01pm Advance Directive Response Recorded Date/ Time Living Will No September 07, 2022 4:01pm Power of Habitat Biologist No September 07 4:01pm Chief Complaint and [...] Physician Primary Care Provider Active Monica Flores ASSISTANT DIRECTOR, ASSISTANT DIRECTOR-C Attending Provider, Referring Provider Active Dr. Theresa [...] Physician Primary Care Provider Active Monica Flores ASSISTANT DIRECTOR, ASSISTANT DIRECTOR-C Attending Provider Active Team Status: Active Member Role Status Dates No Primary Care Physician Primary Care Provider Active Monica Flores ASSISTANT DIRECTOR, ASSISTANT DIRECTOR-C Attending Provider, Referring Provider Active Team Status: [...] Physician Primary Care Provider Active Monica Flores ASSISTANT DIRECTOR, ASSISTANT DIRECTOR-C Attending Provider, Referring Provider Active Team Status: [...] End: December 07, 2024 Monica Flores NP, ASSISTANT DIRECTOR-C Attending physician Active Start: December 07, 2024 [...] or prosecute any alcohol or drug abuse patient.[facility] the event this information is protected by the Federal Confidentiality of Alcohol and Drug Abuse Patient Records regulations: The Federal rules restrict any use of the information to criminally investigate or prosecute any alcohol or drug abuse patient.[facility] Reason for Visit (unrecogniz ed section and content) Reason Comments Suture Removal x 10 days, 9 sutures right thumb Reason Comments tick biite Right chest x 3 days Care Team (unrecognized sect ion and content) Care Team Personnel Name: CELY PAVON MD Position: P4 Physician - General Surgery Member Role: Surgeon Address: Address: [address] AM General Surgery [place], [place] [address] Name: JAMAICA LAND MD Position: P4 Physician - Primary Care Member Role: Primary Care Physician Address: Address: [address] [place] [address] Physicians [place], [place] [address] Care Team Related Persons Name: KATHY SHOEMAKER Address: Home [address] [place] [address] Name: NASRA SHOEMAKER Address: Home [address] [place], [place] [id number] [place] Address: [facility] [address] [place], [place] [id number] Name: JOSE FINCH Name: CATALINA THAPA Name: CATALINA THAPA INFORMATION SOURCE (unrecogn ized section and content) DATE CREATED AUTHOR 07/13/2022 [facility] ([place]) DATE CREATED AUTHOR AUTHOR'S ORGANIZ ATION 10/11/2023 [facility] DATE CREATED AUTHOR AUTHOR'S ORGANIZ ATION 11/06/2024 [facility] DATE CREATED AUTHOR AUTHOR'S ORGANIZ ATION 02/18/2025 [facility] DATE CREATED AUTHOR AUTHOR'S ORGANIZ ATION 03/15/2025 [facility] Goals (unrecognized section and content) Type Care [...] BE BASED ON THE PRIMARY CLINICAL RECORDS. [employer] [facility]. provides no warranty or guarantee of the accuracy or completeness of information in this document.
[2025-04-24 18:54] VITALS: BP 120/71; PULSE 85
[2025-04-24 18:55] VITALS: RESP 16; TEMP 37
[2025-04-24 18:59] VITALS: BMI 37.3
[2025-04-24 20:22] VITALS: BP 110/67; PULSE 70; PULSE 75; RESP 15; TEMP 37.2; O2SAT 98
--- NOTE | 2025-04-25 09:02 | OB.TRI.PN ---
Progress Notes Date of Service: 04/24/25 Progress Note: Patient presents for triage evaluation secondary to fall at 28 weeks FHT: 135 Moderate variability reactive no decelerations category I tracing-appropriate for gestational age [place]: no Contractions Assessment and plan: Reactive NST, no cramping or bleeding reassuring maternal and status patient discharged to home to follow-up in office. See problem list details for additional plan information. Charges/Coding Multi Select Codes Urinary/Genital Urinary/Genital CPT Codes: 23723-47 non-stress test Interp Assessment & Plan (1) Paresthesia of left lower extremity: (2) Abnormal glucose affecting : COMMENT: passed 3 hour (3) Placenta previa: QUALIFIERS: Trimester: second trimester Qualified Code(s): O44.02 - Complete placenta previa NOS or without hemorrhage, second trimester COMMENT: [facility] 02/16.Rpt US @ 28 (04/27) (4) Alcohol abuse: COMMENT: recovering- 7 years sober (5) LGA (large for gestational age) fetus affecting management of mother: QUALIFIERS: Fetus number: single or unspecified fetus Trimester: first trimester Qualified Code(s): O36.61X0 - Maternal care for excessive growth, first trimester, not applicable or unspecified COMMENT: history of 9 pound baby (6) History of oligohydramnios: COMMENT: previous induced at 36 weeks (7) Supervision of high-risk : QUALIFIERS: Trimester: second trimester Qualified Code(s): O09.92 - Supervision of high risk , unspecified, second trimester COMMENT: PRR , VERÓNICA 07/11/25 Nasra Nichols Asher, Milo Fiancee Garrison (8) : QUALIFIERS: Weeks of gestation: 26 weeks Qualified Code(s): Z3A.26 - 26 weeks gestation of COMMENT: NIPT w gender- will obtain with gender in envelope. low risk carrier - previously done 2023 (last ). (9) History of miscarriage, currently : COMMENT: D/C 2022 (10) Fall:
== END 2025-04-24 22:00 | disposition home or self-care (01) ==
LOC: WPOUT 18:41 → WP 18:41
PROVIDERS: Visit Provider Advanced Practice Midwife
DX: O99.891 Other specified diseases and conditions complicating pregnancy (principal); R20.2 Paresthesia of skin; Z3A.28 28 weeks gestation of pregnancy; O36.63X0 Maternal care for excessive fetal growth, third trimester, not applicable or unspecified; O44.03 Complete placenta previa NOS or without hemorrhage, third trimester; W19.XXXA Unspecified fall, initial encounter; O99.810 Abnormal glucose complicating pregnancy
CPT/HCPCS: 59025; 59050; 99221; G0378